=== PATIENT | female | born 1940 | race Hispanic/Latino ===

== ENCOUNTER → 2018-10-18 | Day surgery (SDC) | payer MEDICARE, OTHER ==
[2018-10-15 13:04] LABS: BASOPHILS % 0.4 % (0.0-1.0); EOSINOPHILS # (AUTO) 0.3 (0.0-0.4); EOSINOPHILS % 3.1 % (0.0-6.0); HEMATOCRIT 41.5 % (34.2-44.1); HEMOGLOBIN 13.6 g/dL (12.0-16.0); LYMPHOCYTES % 23.1 % (18.0-39.1); MEAN CORPUSCULAR HGB CONC 32.8 g/dL (31-35); MEAN CORPUSCULAR VOLUME 91.4 fL (81-99); MONOCYTES # (AUTO) 0.8 (0.2-0.8); MONOCYTES % 9.2 % (4.4-11.3); NEUTROPHILS # (AUTO) 5.4 (2.1-6.9); PLATELET COUNT 177 x10e3/uL (140-360); RED BLOOD COUNT 4.54 x10e6/uL (3.6-5.1)
[2018-10-15 13:26] LABS: INR 0.98; PARTIAL THROMBOPLASTIN TIME 33.3 seconds (23.8-35.5); PROTHROMBIN TIME 13.5 seconds (11.9-14.5)
--- NOTE | 2018-10-15 13:29 | Diagnostic Imaging Report ---
EXAMINATION: PA and lateral views of the chest. COMPARISON: None CLINICAL HISTORY: Preoperative study for cardiac catheterization DISCUSSION: The lungs are well-inflated. No consolidation, pleural effusion, or pneumothorax. Moderate enlargement of the cardiac silhouette with prominence of the central pulmonary vasculature. no acute osseous abnormality. Postsurgical changes of the proximal right humerus and scapula. IMPRESSION: Moderate enlargement of the cardiac silhouette with pulmonary venous congestion. Signed by: Dr. Claus Miller M.D. on 10/15/2018 1:25 PM
[2018-10-15 13:33] LABS: ALANINE AMINOTRANSFERASE 17 IU/L (0-55); ALBUMIN 3.8 g/dL (3.5-5.0); ALBUMIN/GLOBULIN RATIO 1.1 (0.8-2.0); ALKALINE PHOSPHATASE 57 IU/L (40-150); ANION GAP 12.6 mmol/L (8-16); BLOOD UREA NITROGEN 16 mg/dL (7-26); BUN/CREATININE RATIO 25 (6-25); CALCIUM 9.8 mg/dL (8.4-10.2); CARBON DIOXIDE 28 mmol/L (22-29); CHLORIDE 104 mmol/L (98-107); CREATININE, SERUM 0.63 mg/dL (0.57-1.11); EST GLOMERULAR FILTRATION RATE > 60 ML/MIN (60-); GLUCOSE 96 mg/dL (74-118); POTASSIUM 3.6 mmol/L (3.5-5.1); SODIUM 141 mmol/L (136-145)
[2018-10-18] VITALS (12 sets, daily range): BP systolic 111–165; BP diastolic 53–78
[~2018-10-18] VITALS: Ht 157.5 cm; Wt 73.5 kg
[~2018-10-18] MED LIST: FENTANYL CITRATE/PF 100MCG/2 ML INJ ONE; HEPARIN SOD/SOD CHLORIDE 2,000 ML ONE; IOPAMIDOL 370 MG/ML 200 ML INFUS..BTL INJ ONE; LIDOCAINE HCL 2% LOCAL 20 ML VIAL ONE; MIDAZOLAM HCL 2 MG/2 ML VIAL ONE; SODIUM CHLORIDE 0.9% 1000ML 1,000 ML ONE; VERAPAMIL HCL 2.5 MG/ML 2 ML VIAL ONE
--- NOTE | 2018-10-18 08:58 | NUR ---
858am received pt in Rm #10 [facility]. no fix Dr Rodriguez. Report from Elizabeth Piersno. Back to baseline orientation Resp shallow and regular 97% Ra Abdomen soft and non neelam Denies necessity to defecate or urinate.Bilateral PPx4 Pt/Dp. Iv in fusing well at 100cc hr , No s/s infiltration. ok to decrease air TR band at 1000am and potential dc at 11ooam. No gross issue pain pallor,pressure or dysrhythmia. Rt Tr band site w/o hematoma or oozing. DC planning discussed with family and copies of POC given to family. Denies c/o CP or SOB. ds/rn
--- OUTSIDE RECORDS SUMMARY | 2018-10-18 09:47 | XMS REPORT | Clinical Summary ---
Author Author [facility] Organization [facility] Address Unknown Phone Unavailable Care Team Providers Care Grinder Set Up Operator Surface Name Role Phone Adrien Gonzalez MD PCP Allergies No Known Allergies Medications End Date Status Medication Sig Dispensed Refills Start Date Active triamterene-hydrochloroth Take 1 tablet 0 iazid (MAXZIDE) 75-50 mg by mouth 2 per tablet (two) times a day. Active amLODIPine (NORVASC) 10 Take 10 mg by 0 mg tablet mouth 2 (two) times a day. Active clonIDINE HCl (CATAPRES) Take 0.2 mg 0 0.2 MG tablet by mouth 2 (two) times a day. Active isosorbide dinitrate Take 20 mg by 0 (ISORDIL) 20 MG tablet mouth 2 (two) times a day. Active omeprazole (PriLOSEC) 40 Take 40 mg by 0 MG capsule mouth 2 (two) times a day. Active carvedilol (COREG) 6.25 Take 6.25 mg 0 MG tablet by mouth 2 (two) times a day with meals. Active atorvastatin (LIPITOR) 20 Take 20 mg by 0 MG tablet mouth nightly. Default OP ins Active fluticasone-salmeterol Inhale 1 puff 0 (ADVAIR) 250-50 mcg/dose daily as DISKUS needed. Active nitroglycerin (NITROSTAT) Place 0.4 mg 0 0.4 MG SL tablet under the tongue every 5 (five) minutes as needed for chest pain. Active metFORMIN (GLUCOPHAGE) Take 500 mg 0 500 mg tablet by mouth 2 (two) times a day with meals. Active albuterol sulfate Take 2.5 mg 0 (PROVENTIL) 2.5 mg/0.5 mL by solution for nebulization nebulization daily as needed. Active INSULIN Inject 30 0 GLARGINE,HUM.REC.ANLOG Units under (LANTUS SOLOSTAR SUBQ) the skin continuously as needed (If blood sugar is over 200). Active diclofenac (VOLTAREN) 1 % Apply 0 gel topically 4 (four) times a day. Active lidocaine-prilocaine Apply 2.5 0 (EMLA) 2.5-2.5 % cream application topically as needed for mild pain. Active glipiZIDE (GLUCOTROL) 5 Take 5 mg by 0 MG tablet mouth 2 (two) times a day before meals. 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 Last Filed Vital Signs Not on file Plan of Treatment Health Maintenance Due Date Last Done Comments DIABETIC RETINAL EYE EXAM 1942 DIABETIC FOOT EXAM 1952 URINE MICROALBUMIN 1952 BREAST CANCER SCREENING 1992 COLON CANCER SCREENING 1992 SHINGLES VACCINES (#1) 1992 65+ PNEUMOCOCCAL VACCINE 12/06/2007 (1 of 2 - PCV13) INFLUENZA VACCINE 12/12/2018 Implants Device Identifier Shelf Expiration Date Model / Serial / Lot Implanted Type Area Manufactur er [id number] / / Humeral Cup - 36mm Riana X 4mm Thk - IPM N/A: N/A CHRISTOPHER [id number] [employer]PLANT [employer] Implanted: Qty: 1 on 01/26/2017 by DEVICES Vik Sung MD [id number] / / 4.5mm Peripheral Screw - 28mm - IPM N/A: N/A CHRISTOPHER [id number] IMPLANT [employer] Implanted: Qty: 1 on 01/26/2017 by Vik Lazo MD [id number] / / 4.5mm Peripheral Screw - 28mm - IPM N/A: N/A CHRISTOPHER [id number] IMPLANT [employer] Implanted: Qty: 1 on 01/26/2017 by DEVICES Vik Sung MD [id number] / / 4.5mm Peripheral Screw - 28mm - IPM N/A: N/A CHRISTOPHER [id number] IMPLANT [employer] Implanted: Qty: 1 on 01/26/2017 by DEVICES Vik Sung MD [id number] / / Shoulder Glenoid Baseplate Reunion IPM Right: Shoulder CHRISTOPHER Rsa - [id number] IMPLANT [employer] Implanted: Qty: 1 on 01/26/2017 by DEVICES Vik Sung MD 08/21/2021 [id number] / / [id number] 6.5mm Center Screw - 32mm - IPM Right: Shoulder CHRISTOPHER [id number] IMPLANT OR[employer] Implanted: Qty: 1 on 01/26/2017 by DEVICES Vik Sung MD [id number] / / 4.5mm Peripheral Screw - 24mm - IPM Right: Shoulder CHRISTOPHER [id number] [employer]PLANT [employer] Implanted: Qty: 1 on 01/26/2017 by DEVICES Vik Sung MD [id number] / / Glenosphere - 36mm Riana X 6mm Thk IPM N/A: N/A CHRISTOPHER 2mm Eccentric - [id number] IMPLANT ORTH[employer] Implanted: Qty: 1 on 01/26/2017 by Vik Lazo MD 10/13/2019 [id number] / / [id number] Humeral Insert - 36mm X 4mm IPM Right: Shoulder CHRISTOPHER Standard - [id number] IMPLANT OR[employer] Implanted: Qty: 1 on 01/26/2017 by DEVICES Vik Sung MD 05/31/2021 [id number] / / [id number] Humeral Fracture Stem Ortho - Right: Shoulder CHRISTOPHER Implanted: Qty: 1 on 01/26/2017 by Other JORDYNEDI Vik Davidson MD Extremitie s Screw Screw 02/10/2019 [id number] / / [id number] Cement Bone 20gr Cmw - [id number] Surgical Right: Shoulder DEPUY Implanted: Qty: 2 on 01/26/2017 by Bone Vik Gallagher MD Cement 02/10/2019 [id number] / / [id number] Cement Bone 20gr Cmw - [id number] Surgical Right: Shoulder DEPUY Implanted: Qty: 1 on 01/26/2017 by Bone Vik Gallagher MD Cement Results Not on fileafter 10/17/2017 Insurance Type Payer Benefit Subscriber ID Effective Phone Address Plan / Dates Group Medicare MEDICARE MEDICARE xxxxxxxxxx 2007-P [place], PART A AND resent [place] B Medicaid MEDICAID MEDICAID xxxxxxxxx 2011-P resent ([place]) [place] [address] Advance Directives Patient has advance care planning documents on file. For more information, rajinder oneil contact: Nolan Hammer [address] [place] [address]
--- OUTSIDE RECORDS SUMMARY | 2018-10-18 09:47 | XMS REPORT ---
Author Author [facility] Address Unknown Phone Unavailable Care Team Providers Care Lobby Attendant Name Role Phone OMAIRA RODRIGUEZ Unavailable Unavailable Payers Payer Name Policy Type Policy Number Effective Date Expiration Date Problems This patient has no known problems. Allergies, Adverse Reactions, Alerts Allergy Name Allergy Type Status Severity Reaction(s) Onset Date Inactive Date Treating Clinician Comments No Known Allergies DA Active U 2017-02-28 00:00:00 Medications This patient has no known medications. Results Test Description Test Time Test Comments Text Results Atomic Results Result Comments CHEST 2 VIEWS 2018-10-15 13:23:00 [place] [address] Patient Name: ELVI MORENO MR #: [id number] : 1940 Age/Sex: 77/F Req #: [id number] Adm Physician: Ordered by: OMAIRA RODRIGUEZ MD Report #: [id number] Location: WIRE TESTER Room/Bed: Procedure: [id number] DX/CHEST 2 VIEWS Exam Date: 10/15/18 Exam Time: 1310 REPORT STATUS: Signed EXAMINATION: PA and lateral views of the chest. COMPAR ZHANNA: None CLINICAL HISTORY: Preoperative study for cardiac catheterization DISCUSSION: The lungs are well-inflated. No consolidation, pleural effusion, or pneumothorax. Moderate enlargement of the cardiac silhouette with prominence of the central pulmonary vasculature. no acute osseous abnormality. Postsurgical changes of the proximal right humerus and scapula. IMPRESSION: Moderate enlargement of the cardiac silhouette with pulmonary venous congestion. Signed by: Dr. Omaira Miller M.D. on 10/15/2018 1:25 PM Dictated By: OMAIRA MILLER MD 1325 Transcribed By: SILVIO on 10/15/18 1325 COPY TO: OMAIRA RODRIGUEZ MD URINALYSIS COMPLETE 2018-06-24 14:03:00 UA COLOR (test code=COLU) DARK YELLOW YELLOW UA APPEARANCE (test code=APPU) Cloudy CLEAR UA GLUCOSE DIPSTICK (test code=DGLUU) NEGATIVE mg/dL NEGATIVE UA BILIRUBIN DIPSTICK (test code=BILU) NEGATIVE mg/dL NEGATIVE UA KETONE DIPSTICK (test code=KETU) Negative mg/dL NEGATIVE UA SPECIFIC GRAVITY (test code=SGU) 1.019 1.001-1.035 UA BLOOD DIPSTICK (test code=DEANNE) Negative NEGATIVE UA PH DIPSTICK (test code=KRYSTEN) 8.0 5.0-8.0 UA PROTEIN DIPSTICK (test code=PROU) >500 (3+) mg/dL NEGATIVE UA UROBILINIOGEN DIPSTICK (test code=URO) NEGATIVE mg/dL NEGATIVE UA NITRITE DIPSTICK (test code=KYM) NEGATIVE NEGATIVE UA LEUKOCYTE ESTERASE W REFLEX (test code=LEUUR) 3+ NEGATIVE UA WBC (test code=WBCU) 11-20 #/HPF 0-5 UA BACTERIA (test code=BACU) LOADED #/HPF NONE UA TRIPLE PHOSPHATE CRYSTALS (test code=TRPHOSU) FEW #/HPF NONE UA MUCUS (test code=MUCU) FEW #/LPF FEW UA AMORPHOUS SEDIMENT (test code=AMORU) FEW TO MODERATE #/LPF NONE [id number] 11:35:00* Test Item Value Reference Range Comments GLUBED (test code=GLUBED) 346 mg/dL 74-106 Performed by certified blacktop paver operator at [facility] BASIC METABOLIC [id number] 08:12:00* Test Item Value Reference Range Comments SODIUM (test code=NA) 146 mmol/L 136-145 POTASSIUM (test code=K) 3.4 mmol/L 3.5-5.1 CHLORIDE (test code=CL) 109.0 mmol/L 98-107 CARBON DIOXIDE (test code=CO2) 28.0 mmol/L 21-32 ANION GAP (test code=GAP) 12.4 10-20 GLUCOSE (test code=GLU) 137 mg/dL 74-106 BLOOD UREA NITROGEN (test code=BUN) 24 mg/dL 7-18 GLOMERULAR FILTRATION RATE (test code=GFR) > 60 mL/min >=60 Estimated GFR by using Modified MDRD formula.Chronic kidney disease is defined as either kidney damageor GFR <60 mL/min/1.73 m2 for >3 months. CREATININE (test code=CREAT) 0.70 mg/dL 0.55-1.02 Note change in reference range due to change in reagent. BUN/CREATININE RATIO (test code=BUN/CREA) 34.6 10-20 CALCIUM (test code=CA) 9.0 mg/dL 8.5-10.1 BASIC METABOLIC [id number] 08:05:00* Test Item Value Reference Range Comments SODIUM (test code=NA) 146 mmol/L 136-145 POTASSIUM (test code=K) 3.4 mmol/L 3.5-5.1 CHLORIDE (test code=CL) 109.0 mmol/L 98-107 CARBON DIOXIDE (test code=CO2) mmol/L 21-32 ANION GAP (test code=GAP) 10-20 GLUCOSE (test code=GLU) mg/dL 74-106 BLOOD UREA NITROGEN (test code=BUN) mg/dL 7-18 GLOMERULAR FILTRATION RATE (test code=GFR) mL/min >=60 CREATININE (test code=CREAT) mg/dL 0.55-1.02 BUN/CREATININE RATIO (test code=BUN/CREA) 10-20 CALCIUM (test code=CA) mg/dL 8.5-10.1 CBC W/AUTO [id number] 07:44:00* Test Item Value Reference Range Comments WHITE BLOOD CELL (test code=WBC) 7.9 K/mm3 4.5-12.5 RED BLOOD CELL (test code=RBC) 5.08 mill/mm3 3.7-5.2 HEMOGLOBIN (test code=HGB) 14.6 gram/dL 11.5-15.5 HEMATOCRIT (test code=HCT) 45.6 % 36.0-46.0 MEAN CELL VOLUME (test code=MCV) 89.8 fL 80-98 MEAN CELL HGB (test code=MCH) 28.7 picogram 27.0-33.0 MEAN CELL HGB CONCETRATION (test code=MCHC) 32.0 gram/dL 33.0-36.0 RED CELL DISTRIBUTION WIDTH (test code=RDW) 13.9 % 11.6-16.2 RED CELL DISTRIBUTION WIDTH SD (test code=RDW-SD) 46.1 fL 37.0-51.0 PLATELET COUNT (test code=PLT) 199 K/mm3 150-450 MEAN PLATELET VOLUME (test code=MPV) 11.6 fL 6.7-11.0 NEUTROPHIL % (test code=NT%) 56.5 % 39.0-69.0 IMMATURE GRANULOCYTE % (test code=IG%) 0.5 % 0.0-5.0 LYMPHOCYTE % (test code=LY%) 30.3 % 25.0-55.0 MONOCYTE % (test code=MO%) 9.6 % 0.0-10.0 EOSINOPHIL % (test code=EO%) 2.5 % 0.0-5.0 BASOPHIL % (test code=BA%) 0.6 % 0.0-1.0 NUCLEATED RBC % (test code=NRBC%) 0.0 % 0-0 NEUTROPHIL # (test code=NT#) 4.44 K/mm3 1.8-7.7 IMMATURE GRANULOCYTE # (test code=IG#) 0.04 x10 3/uL 0-0.03 LYMPHOCYTE # (test code=LY#) 2.39 K/mm3 1.0-5.0 MONOCYTE # (test code=MO#) 0.76 K/mm3 0-0.8 EOSINOPHIL # (test code=EO#) 0.20 K/mm3 0.0-0.5 BASOPHIL # (test code=BA#) 0.05 K/mm3 0.0-0.2 NUCLEATED RBC # (test code=NRBC#) 0.00 K/mm3 0.0-0.1 MANUAL DIFF REQUIRED (test code=MDIFF) NO CBC W/AUTO [id number] 07:34:00* Test Item Value Reference Range Comments WHITE BLOOD CELL (test code=WBC) K/mm3 4.5-12.5 RED BLOOD CELL (test code=RBC) mill/mm3 3.7-5.2 HEMOGLOBIN (test code=HGB) 14.6 gram/dL 11.5-15.5 HEMATOCRIT (test code=HCT) 45.6 % 36.0-46.0 MEAN CELL VOLUME (test code=MCV) fL 80-98 MEAN CELL HGB (test code=MCH) picogram 27.0-33.0 MEAN CELL HGB CONCETRATION (test code=MCHC) gram/dL 33.0-36.0 RED CELL DISTRIBUTION WIDTH (test code=RDW) % 11.6-16.2 RED CELL DISTRIBUTION WIDTH SD (test code=RDW-SD) fL 37.0-51.0 PLATELET COUNT (test code=PLT) K/mm3 150-450 MEAN PLATELET VOLUME (test code=MPV) fL 6.7-11.0 NEUTROPHIL % (test code=NT%) % 39.0-69.0 IMMATURE GRANULOCYTE % (test code=IG%) % 0.0-5.0 LYMPHOCYTE % (test code=LY%) % 25.0-55.0 MONOCYTE % (test code=MO%) % 0.0-10.0 EOSINOPHIL % (test code=EO%) % 0.0-5.0 BASOPHIL % (test code=BA%) % 0.0-1.0 NEUTROPHIL # (test code=NT#) K/mm3 1.8-7.7 LYMPHOCYTE # (test code=LY#) K/mm3 1.0-5.0 MONOCYTE # (test code=MO#) K/mm3 0-0.8 EOSINOPHIL # (test code=EO#) K/mm3 0.0-0.5 BASOPHIL # (test code=BA#) K/mm3 0.0-0.2 [id number] 05:51:00* Test Item Value Reference Range Comments GLUBED (test code=GLUBED) 142 mg/dL 74-106 Performed by certified blacktop paver operator at [facility] [id number] 22:24:00* Test Item Value Reference Range Comments GLYCOSYLATED HEMOGLOBIN (HA1C) (test code=GLYHGB) 8.0 % HbA1 4.8-6.0 ESTIMATED AVERAGE GLUCOSE (test code=EAG) 183 MG/DL LIPID PROFILE (CORONARY RISK)2018-06-23 22:11:00* Test Item Value Reference Range Comments TRIGLYCERIDES (test code=TRIG) 184 mg/dL 20-150 CHOLESTEROL (test code=CHOL) 127 mg/dL 0-200 CHOLESTEROL/HDL RATIO (test code=CHOLHDL) 3.0 RATIO 0-4.9 RISK ASSOCIATED WITH CHOL/HDL RATIOS: Risk Male Female1/2 AVERAGE 3.43 3.27AVERAGE 4.97 4.442X AVERAGE 9.55 7.053X AVERAGE 23.39 11.04 REFERENCE VALUE IS RELATED TO RISK LEVELS ASRECOMMENDED BY THE MIRELA. HEART, LUNG, AND BLOOD INST. HDL CHOLESTEROL (test code=HDL) 34 mg/dL 40-60 LIPOPROTEIN LDL (test code=LDL) 81 mg/dL 100-129 Reference Interval: mg/dL mmol/L Optimal <100 <2.6Near/above optimal 100-129 2.6- 3.3Borderline High 130-159 3.4-4.1High 160-189 4.1-4.9Very High >=190 >=4.9=========This LDL result is a direct measurement.========= [id number] 21:19:00* Test Item Value Reference Range Comments GLUBED (test code=GLUBED) 190 mg/dL 74-106 Performed by certified blacktop paver operator at [facility] [id number] 17:07:00* Test Item Value Reference Range Comments GLUBED (test code=GLUBED) 170 mg/dL 74-106 Performed by certified blacktop paver operator at [facility] [id number] 16:18:00* Test Item Value Reference Range Comments GLUBED (test code=GLUBED) 156 mg/dL 74-106 Performed by certified blacktop paver operator at [facility] [id number] 15:59:00* Test Item Value Reference Range Comments GLUBED (test code=GLUBED) 218 mg/dL 74-106 Performed by certified blacktop paver operator at [facility] [id number] 06:21:00* Test Item Value Reference Range Comments GLUBED (test code=GLUBED) 256 mg/dL 74-106 Performed by certified blacktop paver operator at [facility] [id number] 23:43:00* Test Item Value Reference Range Comments TROPONIN-I (test code=TROPI) <0.015 ng/mL 0-0.045 COMMENTS TO DRINK WAITER: COLLECT 3 HOURS AFTER PREVIOUS [id number] 21:21:00* Test Item Value Reference Range Comments GLUBED (test code=GLUBED) 209 mg/dL 74-106 Performed by certified blacktop paver operator at [facility] [id number] 20:29:00* Test Item Value Reference Range Comments TROPONIN-I (test code=TROPI) <0.015 ng/mL 0-0.045 COMMENTS TO DRINK WAITER: COLLECT 3 HOURS AFTER PREVIOUS SAMPLE- MRI BRAIN W/O [id number] 18:05:00 FAX: [place] [phone] [place]: St: ADM Name: ELVI NELSON [facility] : [birth year] Age/S: 77/F [address] [facility] Unit #: [id number] Loc: V.2047 [place] [address] Phys: La Grover MD Acct: [id number] Dis Date: Status: ADM IN PHONE #: [phone] Exam Date: 06/22/2018 1714 FAX #: [phone] Reason: slurred speech, left sided weakness EXAMS: CPT CODE: [id number] MRI BRAIN W/O CONTRAST [id number] REASON FOR EXAM: slurred speech, left sided weakness Exam Order Date: 06/22/2018 1:30 PM Attending MFarzad: La Grover MD Procedure: - MRI BRAIN W/O CONTRAST Comparison: Noncontrast CT scan of the brain performed 4 hours prior FINDINGS: Axial, sagittal, and coronal images of the head were obtained using T1, T2 weighted, inversion recovery, and gradient echo sequences. Diffusion-weighted images were obtained. Intravenous gadolinium was not utilized. The sagittal images show normal pit uitary, cerebellum, and brain stem. There is no midline shift or m ass effect. No for parenchymal hemorrhage. No evidence of acute infarction . There are diffusion restricting lesions in the posterior horns o f the both lateral ventricles. These lesions are isointense to the brain parenchyma on T1-weighted imaging. These lesions appear to be T2 hype rintense. Further evaluation is limited by the absence of IV contrast. There are areas of increased signal intensity in the periventricular white matter seen on the inversion recovery images. These findings are compatible with chronic microvascular ischemic changes. IMPRE SSION: No evidence of acute infarction. 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 Diffusion restricting lesions in the posterior horns of the la teral ventricles bilaterally. Further evaluation is limited by the absen ce of IV contrast. Electronically Signed by Rey Ordaz MD o n 06/22/2018 at 1805 Reported and signed by: Rey Ordaz MD PAGE 1 Signed Report (CONTINU ED) FAX: [place] [phone] [place]: St: ADM------ Name: ELVI MORENOH [place] : [birth year] Age/S: 77/F [address] [facility] Unit #: [id number] Loc: V.2046 [place] [address] Phys: La Grover MD Acct: [id number] Dis Date: Status: ADM IN PHONE #: [phone] Exam Date: 06/22/2018 1714 FAX #: [phone] Reason: slurred speech, left sided weakness EXAMS: CPT CODE: [id number] MRI BRAIN W/O CONTRAST [id number] <Continued> CC: La Grover MD Technologist: Javier Carmona(Lesly)(MR) Trnscrd Date/Time/By: 06/22/2018 (1804) : By: [email or web address] Orig Print D/T: S: 06/22/2018 (1807) PAGE 2 Signed Report HEPATIC FUNCTION [id number] 13:18:00* Test Item Value Reference Range Comments TOTAL PROTEIN (test code=PROT) 7.8 gram/dL 6.4-8.2 ALBUMIN (test code=ALB) 4.0 g/dL 3.4-5.0 GLOBULIN (test code=GLOB) 3.8 gram/dL 2.7-4.2 ALBUMIN/GLOBULIN RATIO (test code=A/G) 1.1 0.75-1.50 BILIRUBIN TOTAL (test code=BILT) 0.50 mg/dL 0.0-1.0 BILIRUBIN DIRECT (test code=BILD) 0.18 mg/dL 0.0-0.20 SGOT/AST (test code=AST) 19 IUnit/L 15-37 SGPT/ALT (test code=ALT) 27 IUnit/L 12-78 ALKALINE PHOSPHATASE TOTAL (test code=ALKP) 74 IUnit/L 45-117 Note change in reference range due to change in reagent. [id number] 13:18:00* Test Item Value Reference Range Comments LIPASE (test code=LIP) 200 U/L 73.0-393.0 BASIC METABOLIC [id number] 13:18:00* Test Item Value Reference Range Comments SODIUM (test code=NA) 142 mmol/L 136-145 POTASSIUM (test code=K) 3.9 mmol/L 3.5-5.1 CHLORIDE (test code=CL) 104.0 mmol/L 98-107 CARBON DIOXIDE (test code=CO2) 29.0 mmol/L 21-32 ANION GAP (test code=GAP) 12.9 10-20 GLUCOSE (test code=GLU) 116 mg/dL 74-106 BLOOD UREA NITROGEN (test code=BUN) 33 mg/dL 7-18 GLOMERULAR FILTRATION RATE (test code=GFR) > 60 mL/min >=60 Estimated GFR by using Modified MDRD formula.Chronic kidney disease is defined as either kidney damageor GFR <60 mL/min/1.73 m2 for >3 months. CREATININE (test code=CREAT) 0.90 mg/dL 0.55-1.02 Note change in reference range due to change in reagent. BUN/CREATININE RATIO (test code=BUN/CREA) 34.8 10-20 CALCIUM (test code=CA) 9.6 mg/dL 8.5-10.1 [id number] 13:18:00* Test Item Value Reference Range Comments MAGNESIUM (test code=MAG) 2.1 mg/dL 1.8-2.4 [id number] 13:18:00* Test Item Value Reference Range Comments CKMB (test code=CKMBT) 1.3 ng/mL 0-6.0 PROTHROMBIN [id number] 12:58:00* Test Item Value Reference Range Comments PROTHROMBIN TIME PATIENT (test code=PTP) 14.1 seconds 9.0-14.0 INTERNATIONAL NORMAL RATIO (test code=INR) 1.2 0.8-1.2 The therapeutic range for oral anticoagulant therapy formost indications is an international normalized ratio (INR)of between 2.0 and 3.0. The recommended therapeutic INRrange for various clinical situations is listed below: Clinical Situation INR range Pulmonary e mbolism treatment (2.0-3.0)Venous thrombosis treatmentVenous thrombosis prophylaxis (high risk surgery)Prevention of systemic embolism from: Acute myocardial infarction Valvular heart disease Atrial fibrillation Mechanical prosthetic heart valves (2.5-3.5) IS PATIENT ON ANTICOAGULANTS? NTHROMBOPLASTIN TIME [id number] 12:58:00* Test Item Value Reference Range Comments THROMBOPLASTIN TIME PARTIAL (test code=PTT) 33.8 seconds 25.0-36.5 IS PATIENT ON ANTICOAGULANTS? NBASIC METABOLIC [id number] 12:56:00* Test Item Value Reference Range Comments SODIUM (test code=NA) 142 mmol/L 136-145 POTASSIUM (test code=K) 3.9 mmol/L 3.5-5.1 CHLORIDE (test code=CL) 104.0 mmol/L 98-107 CARBON DIOXIDE (test code=CO2) mmol/L 21-32 ANION GAP (test code=GAP) 10-20 GLUCOSE (test code=GLU) mg/dL 74-106 BLOOD UREA NITROGEN (test code=BUN) mg/dL 7-18 GLOMERULAR FILTRATION RATE (test code=GFR) mL/min >=60 CREATININE (test code=CREAT) mg/dL 0.55-1.02 BUN/CREATININE RATIO (test code=BUN/CREA) 10-20 CALCIUM (test code=CA) mg/dL 8.5-10.1 [id number] 12:56:00* Test Item Value Reference Range Comments MAGNESIUM (test code=MAG) mg/dL 1.8-2.4 [id number] 12:56:00* Test Item Value Reference Range Comments CKMB (test code=CKMBT) ng/mL 0-6.0 CBC W/AUTO [id number] 12:46:00* Test Item Value Reference Range Comments WHITE BLOOD CELL (test code=WBC) 9.4 K/mm3 4.5-12.5 RED BLOOD CELL (test code=RBC) 5.19 mill/mm3 3.7-5.2 HEMOGLOBIN (test code=HGB) 15.0 gram/dL 11.5-15.5 HEMATOCRIT (test code=HCT) 46.5 % 36.0-46.0 MEAN CELL VOLUME (test code=MCV) 89.6 fL 80-98 MEAN CELL HGB (test code=MCH) 28.9 picogram 27.0-33.0 MEAN CELL HGB CONCETRATION (test code=MCHC) 32.3 gram/dL 33.0-36.0 RED CELL DISTRIBUTION WIDTH (test code=RDW) 13.4 % 11.6-16.2 RED CELL DISTRIBUTION WIDTH SD (test code=RDW-SD) 43.8 fL 37.0-51.0 PLATELET COUNT (test code=PLT) 155 K/mm3 150-450 MEAN PLATELET VOLUME (test code=MPV) 12.1 fL 6.7-11.0 NEUTROPHIL % (test code=NT%) 70.8 % 39.0-69.0 IMMATURE GRANULOCYTE % (test code=IG%) 0.4 % 0.0-5.0 LYMPHOCYTE % (test code=LY%) 19.3 % 25.0-55.0 MONOCYTE % (test code=MO%) 7.6 % 0.0-10.0 EOSINOPHIL % (test code=EO%) 1.6 % 0.0-5.0 BASOPHIL % (test code=BA%) 0.3 % 0.0-1.0 NUCLEATED RBC % (test code=NRBC%) 0.0 % 0-0 NEUTROPHIL # (test code=NT#) 6.66 K/mm3 1.8-7.7 IMMATURE GRANULOCYTE # (test code=IG#) 0.04 x10 3/uL 0-0.03 LYMPHOCYTE # (test code=LY#) 1.81 K/mm3 1.0-5.0 MONOCYTE # (test code=MO#) 0.71 K/mm3 0-0.8 EOSINOPHIL # (test code=EO#) 0.15 K/mm3 0.0-0.5 BASOPHIL # (test code=BA#) 0.03 K/mm3 0.0-0.2 NUCLEATED RBC # (test code=NRBC#) 0.00 K/mm3 0.0-0.1 MANUAL DIFF REQUIRED (test code=MDIFF) NO CBC W/AUTO [id number] 12:42:00* Test Item Value Reference Range Comments WHITE BLOOD CELL (test code=WBC) K/mm3 4.5-12.5 RED BLOOD CELL (test code=RBC) mill/mm3 3.7-5.2 HEMOGLOBIN (test code=HGB) 15.0 gram/dL 11.5-15.5 HEMATOCRIT (test code=HCT) % 36.0-46.0 MEAN CELL VOLUME (test code=MCV) fL 80-98 MEAN CELL HGB (test code=MCH) picogram 27.0-33.0 MEAN CELL HGB CONCETRATION (test code=MCHC) gram/dL 33.0-36.0 RED CELL DISTRIBUTION WIDTH (test code=RDW) % 11.6-16.2 RED CELL DISTRIBUTION WIDTH SD (test code=RDW-SD) fL 37.0-51.0 PLATELET COUNT (test code=PLT) K/mm3 150-450 MEAN PLATELET VOLUME (test code=MPV) fL 6.7-11.0 NEUTROPHIL % (test code=NT%) % 39.0-69.0 IMMATURE GRANULOCYTE % (test code=IG%) % 0.0-5.0 LYMPHOCYTE % (test code=LY%) % 25.0-55.0 MONOCYTE % (test code=MO%) % 0.0-10.0 EOSINOPHIL % (test code=EO%) % 0.0-5.0 BASOPHIL % (test code=BA%) % 0.0-1.0 NEUTROPHIL # (test code=NT#) K/mm3 1.8-7.7 LYMPHOCYTE # (test code=LY#) K/mm3 1.0-5.0 MONOCYTE # (test code=MO#) K/mm3 0-0.8 EOSINOPHIL # (test code=EO#) K/mm3 0.0-0.5 BASOPHIL # (test code=BA#) K/mm3 0.0-0.2 - XR CHEST 1 [id number] 12:42:00 FAX: [place] [phone] [place]: [address] St: REG Name: ELVI NELSON [facility] : [birth year] Age/S: 77/F [address] Unit #: [id number] Loc: [place] [address] Phys: La Grover MD Acct: [id number] Dis Date: Status: REG ER PHONE #: [phone] Exam Date: 06/22/2018 1234 FAX #: [phone] Reason: CODE STROKE EXAMS: CPT CODE: [id number] XR CHEST 1 V [id number] EXAM: Chest x-ray, one view; INFORMATION: Hypertension, slurred speech, code stroke; F INDINGS: Lungs are clear; no infiltrates, no edema; no effusions, no pneumothorax. The heart is moderately enlarged. Aortic calcificatio ns. Status post right shoulder arthroplasty. IMPRESSION: 1. Moderate cardiomegaly. 2. Otherwise, no evidence of active car diopulmonary disease. 2. No significant change compared with a study fro m February 11, 2018. at 1242 Reported and signed by: Macario Dubose M.D. CC: [place] Gro[place] MD Technologist: Jeet MARS(R) Trnscrd Date/Time/By: 06/22/2018 (2242) : By: RenzoGRW Orig Print D/T: S: 06/22/2018 (9627) PAGE 1 Signed Report - CT HEAD/BRAIN W/O [id number] 12:38:00 Name: ELVI MORENO [facility] : 1940 Age/S: 77 / F [address] Unit #: [id number] [place]: [place] [address] Phys: La Grover MD Acct: [id number] Dis Date: Status: REG ER PHONE #: [phone] Exam Date: 06/22/2018 1227 FAX #: [phone] Reason: slurred speech, left sided numbness EXAMS: CPT CODE: [id number] CT HEAD/BRAIN W/O CONT 46813 EXAM: CT of the head without contrast; INFORMATION: Slurred speech and left-sided numbness; hypertension; TECHNIQUE AND FINDINGS: CT dose reduction protocol; 2.5 mm axial scans. There is no evidence of intra or extra-axial hemorrhage, mass lesions or midline shift. There are moderate periventricular and deep white matter hypodensities most pronounced in the posterior parietal and occipital region. 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 Otherwise, unremarkable frye/white matter differentiation. Ventricles are symmetric and of normal diameter; sulci and basilar cisterns are intact. Calcifications of the internal carotid and vertebral arteries. The calvarium is intact. Mild mucosal swelling anteriorly in the left maxillary sinus. Mastoid air cells are well aerated. IMPRESSION: 1. No evidence of intracranial hemorrhage or acute territorial infarction. 2. Chronic ischemic white matter changes and small lacunar infarcts in the basal ganglia. Overall, no major change compared with a study from 2016. 3. Mild left m axillary sinusitis. FINDINGS were discussed with Dr. Grover, ER, at 1237 hours. FOR INTERNAL CODING PURP OSES ONLY RESULT CODE: CVR Electron ically Signed by Giovanna Dubose on 06/22/2018 at 1238 Reported and signed by: Macario tavera M.D. CC: La Gro[place] MD Techn ologist:Matt Ewing RT(R),(MR),(CT); CTDI: DLP: Trnscb Date/Eugenio e: 06/22/2018 (1238) [email or web address] Orig Print D/T: S: 019 (1241) CTDI: DLP: PAGE 1 Sign ed Report [id number] 11:03:00 RUN DATE: 02/20/18 [facility] PAGE 1 RUN TIME: 1104 Specimen Inqui ry RUN USER: INTERFACE PATIENT: ELVI MORENO ACCT #: [id number] [facility] #[facility] [id number] AGE/SX: 77/F ROOM: [facility] RE02/13/18REG DR: Ej Addison MD : 44 BED: A DIS: 02/15/18 STATUS: DIS IN TLOC: SPEC #: [id number] RECD: 02/15/18 STATUS: PEDRO GAUTAM #: [id number] DESTIN: 02/14/18- SUBM DR: Vikas Damon MD ENTERED: 02/15/18 SP TYPE: STOMACH OTHR DR: Eliel Hutchison MD, Louis MD Sc hiesser, Rachel L MDORDERED: GROSS COPIES TO: Eliel Rodriguez MD [address] [place], [place] [id number] Vikas Damon MD [address], [address] [place] [address] Bernard Rodriguez MD [address] [place] [address] Yesi Peña MD [address] [place] [address] PROCEDURES: GROSS (02/18/18-144) TISSUES: 1. ANTRAL BIOPSY - H-PYLORI 2. ESOPHAGUS, NOS - BX CLINICAL HISTORY COLLECTION DATE: 02/14/18 EPIGASTRIC PAIN COMMENT A Giemsa stain was prepared on the first specimen and is negative for Helicobacter Pylori. The control stains appropriately. The block from this case was sent to [facility] for a Helicobacter Pylori immunostain. The control stains appropriately. The slide was interpreted at [facility]. The specimen is negative for Helicobacter Pylori. CONTINUED ON NEXT PAGE RUN DATE: 02/20/18 [facility] - Lab PAGE 2 RUN TIME: 1104 Specimen Inquiry RUN USER: INTERFACE SPEC #: [id number] PATIENT: ELVI MORENO #[id number] (Continued)----- ------- FINAL DIAGNOSIS Antrum, biopsy: CHRONIC ACTIVE GASTRI TIS WITH A SMALL FOCUS OF INTESTINAL METAPLASIA NEGATIVE FOR HELICOBACTER PYLORI NEGATIVE FOR MALIGNANCY Esophagus, biopsy: ACUTE AND CHRONIC INFLAMMATION, REACTIVE EPITHELIAL CHANGES, AND FOCAL INTESTINAL METAPLASIA, MIXED SQUAMOUS ESOPHAGEAL AND GASTRIC TYPE MUCOSA NEGATIVE FOR DYSPLASIA AND MALIGNANCY DMW/ D [id number], [id number], [phone] MACROSCOPIC The first specimen is received in formalin, labeled with the patient's name and identified as "antrum bx". The specimen consists of two stock biopsy fragments measuring 0.2 and 0.3 cm. An H E and a Giemsa st ain will be prepared. The second specimen is received in formalin, labeled with the patient's name and identified as "esophagus bx". It consists of stock biopsy material measuring 0.3 cm. GROSS PERFORMED AT [facility] [address] [place] [address] ( p)[phone] MICROSCOPIC MICROSCOPIC PERFORMED AT [facility] All of the stains, including any controls performed, stain jaquelin higgins. [facility] [address] [place] [address] (p )[phone] CONTINUED ON NEXT PAGE ---- --------RUN DATE: 02/20/18 [facility] PAGE 3 RUN TIME: 1104 Specimen Inquiry RUN USER: INTERFACE SPEC #: [id number] PATIENT: ELVI MORENO #[id number] (Continued) PERFORMING SITE Diagnosis performed at: [facility], MARY ANN [address] [facility] Rashawn Cardoso [address] Signed SIGNATURE ON FILE Na Estrella 02/20/18 1103 ---- -------- END OF REPORT
--- NOTE | 2018-10-18 11:30 | NUR ---
1130 Tr band removal completed and successful. No bleeding or hematoma. Coban 2x2 dressing with wrist splint in place, Has spike driver Escorted to car after assisting to bathroom and iv removed and dressing with Coban in place. No s/s infiltration. Back to baseline orientation Ox4 Has copies of POC and family spike driver. Escorted with [facility] employee Denies c/o.
--- NOTE | 2018-10-18 15:47 | Operative Report ---
DATE OF PROCEDURE: SURGEON: Claus Rodriguez MD PROCEDURE: Left heart catheterization. INDICATIONS: Angina and coronary artery disease. COMPLICATIONS: None. ANESTHESIA: Versed, fentanyl, and lidocaine. TECHNIQUE: The right wrist was draped and prepped in the usual manner. The area was anesthetized with lidocaine. Standard Seldinger technique was used to place a 6-[place] sheath into the right radial artery without difficulty. The [place] catheter was used to selectively engage the left coronary artery and selectively engage the right coronary artery. A pigtail catheter was used to perform a left ventriculogram. There were no complications. RESULTS: As follows: 1. There is a normal left main trunk. 2. There is a large left anterior descending artery, which gave rise to a medium-sized diagonal branch. There was some mild disease in the proximal left anterior descending artery about 20%. 3. There was a medium-sized AV circumflex artery, which gave rise to a large bifurcating obtuse marginal branch. There was 30% stenosis in the proximal AV circumflex artery and 40% stenosis in the distal AV circumflex artery. 4. There was a large dominant right coronary artery with about 30% proximal stenosis. 5. There was normal left ventricular size and function with an ejection fraction of 55%. CONCLUSION: The patient has some moderate nonobstructive coronary artery disease with no significant stenosis. Claus Rodriguez MD DSH/MODL /[id number]
--- NOTE | 2018-10-18 16:28 | NUR ---
1030 resumed TR band air removal completed successfully at 1115. Dressed and ready for escort to car NO gross issues pain,pallor ,pressure or dysrhythmia. TR band w/o hematoma or oozing Coban dressing and wrist splint in place. Denies c/o. [email or web address]
--- NOTE | 2018-10-19 04:55 | Discharge Summary ---
FINAL DIAGNOSES: 1. Coronary artery disease. 2. Angina. PROCEDURES PERFORMED: Left heart catheterization. HOSPITAL COURSE: The patient was admitted electively for left heart catheterization. The catheterization was completed without complication and demonstrated no significant coronary stenosis. Arrangements were made for the patient to be discharged at 11 a.m. on 18 October 2018. The patient was instructed to return to the office for followup in one week. MD ADRIEN Estes/KIRSTEN /[id number]
== END | disposition home or self-care (01) ==
LOC: CATH LAB 06:41
PROVIDERS: ATTEND Internal Medicine Cardiovascular Disease
DX: I25.110 Atherosclerotic heart disease of native coronary artery with unstable angina pectoris (principal); I10 Essential (primary) hypertension; E78.00 Pure hypercholesterolemia, unspecified; E11.9 Type 2 diabetes mellitus without complications; K21.9 Gastro-esophageal reflux disease without esophagitis; M06.9 Rheumatoid arthritis, unspecified; J45.909 Unspecified asthma, uncomplicated; Z01.812 Encounter for preprocedural laboratory examination; Z01.818 Encounter for other preprocedural examination; Z79.4 Long term (current) use of insulin
CPT/HCPCS: 36415; 71046; 80053; 85025; 85610; 85730; 93458; C1887; J2001; J2250; J7030; Q9967

== ENCOUNTER 2019-12-24 10:46 | Inpatient (IN) | payer MEDICARE, OTHER ==
[~2019-12-24] VITALS: Ht 157.5 cm; Wt 45.4 kg
--- OUTSIDE RECORDS SUMMARY | 2019-12-24 11:53 | XMS REPORT | Clinical Summary ---
Author Author [facility] [employer] [facility] [employer] Address Unknown Phone Unavailable Care Team Providers Care Paid Intern Name Role Phone Adrien Gonzalez MD PCP Allergies Comments Active Allergy Reactions Severity Noted Date unknown Methylprednisolone Sodium Other (See 05/22/2019 Succ Comments) Azithromycin Rash Low 05/22/2019 Medications End Date Status Medication Sig Dispensed Refills Start Date Active triamterene-hydrochloroth Take 1 tablet 0 iazid (MAXZIDE) 75-50 mg by mouth 2 per tablet (two) times a day. Active clonIDINE HCl (CATAPRES) Take 0.2 mg 0 0.2 MG tablet by mouth 2 (two) times a day. Active omeprazole (PriLOSEC) 40 Take 40 mg by 0 MG capsule mouth 2 (two) times a day. Active atorvastatin (LIPITOR) 20 Take 20 mg [...] 2 (two) times a day before meals. 05/29/2019 Discontinued (Stop Taking at Discharge) amLODIPine (NORVASC) 10 Take 10 mg by 0 mg tablet mouth 2 (two) times a day. 05/29/2019 Discontinued (Stop Taking at Discharge) isosorbide dinitrate Take 20 mg by 0 (ISORDIL) 20 MG tablet mouth 2 (two) times a day. 05/29/2019 Discontinued (Stop Taking at Discharge) carvedilol (COREG) 6.25 Take 6.25 mg 0 MG tablet by mouth 2 (two) times a day with meals. 06/26/2019 aspirin 81 mg chewable Chew 1 tablet 30 tablet 0 0 tablet (81 mg total) 0 daily for 30 days. 06/26/2019 isosorbide mononitrate Take 0.5 15 tablet 0 (IMDUR) 30 MG 24 hr tablets (15 0 tablet mg total) by mouth daily for 30 days. 06/25/2019 metoprolol tartrate Take 1 tablet 60 tablet 0 05/14 (LOPRESSOR) 50 mg tablet (50 mg total) 0 by mouth 2 (two) times a day for 30 days. 05/29/2019 Discontinued (Stop Taking at Discharge) QUEtiapine (SEROquel) 25 Take 1 tablet 0 05/26 MG tablet (25 mg total) 0 by mouth 3 (three) times a day as needed (agitation) for up to 30 days. 06/26/2019 gabapentin (NEURONTIN) Take 1 90 capsule 0 300 mg capsule capsule (300 0 mg total) by mouth 3 (three) times a day for 30 days. 06/27/2019 lidocaine (LIDODERM) 5 % Place 2 30 patch 0 0 patches on 0 the skin daily for 30 days. Remove & Discard patch within 12 hours or as directed by 06/03/2019 traMADol (ULTRAM) 50 mg Take 1 tablet 0 tabletIndications: acute (50 mg total) 0 pain by mouth every 6 (six) hours as needed for moderate pain for up to 7 days .acute pain. 06/28/2019 amLODIPine (NORVASC) 5 mg Take 1 tablet 60 tablet 0 tablet (5 mg total) 0 by mouth 2 (two) times a day for 30 days. 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 Closed right humeral fracture 12/14/2016 Fracture closed, humerus 12/13/2016 Acute cystitis with hematuria 12/12/2016 Fall 12/12/2016 Type 2 diabetes mellitus with complication, with long -term current use of 12/12/2016 insulin Syncope 12/08/2016 Encounters Care Team Description Date Type Specialty Luiz Champagne MD Mayen Nunez, Jose Isaias, MD Teqwimuah, Remy, DO Elevated troponin (Primary Dx); Aggressive behavior of adult; NSTEMI (non-ST elevated myocardial infarction) (HCC) 05/22/2019 Hospital General Surgery - Encounter 05/29/2019 after 12/23/2018 Social History Date Tobacco Use Types Packs/Day Years Used Never Smoker Smokeless Tobacco: Never Used Drinks/Week oz/Week Comments Alcohol Use No Sex Assigned at Date Recorded Not on file Industry Job Start Date Occupation Not on file Not on file Not on file Travel End Travel History Travel Start No recent travel history available. Last Filed Vital Signs Reading Time Taken Comments Vital Sign 158/69 05/29/2019 4:07 PM [employer]RILL [employer] UP OPER[facility] Blood Pressure 84 05/29/2019 4:07 PM [employer]RI[employer] SET UP OPER[employer] [facility] Pulse 37.1 C (98.8 F) 05/29/2019 4:07 PM DRI[employer] PR[employer] SET UP OPERATOR [facility] Temperature 16 05/29/2019 4:07 PM DRILL PR[employer] SET UP OPERATOR [facility] Respiratory Rate 96% 05/29/2019 4:07 PM DRILL PR[employer] SET UP OPERATOR [facility] Oxygen Saturation - - Inhaled Oxygen Concentration 72.1 kg (159 lb) 05/22/2019 8:28 AM DRI[employer] SET UP OPERATOR [facility] Weight 154.9 cm (5' 1") 05/22/2019 2:10 AM D[employer] SET UP OPERATOR [facility] Height 30.04 05/22/2019 2:10 AM DRI[employer] PR[employer] SET UP OPERATOR [facility] Body Mass Index Plan of Treatment Health Maintenance Due Date Last Done Comments DIABETIC RETINAL EYE EXAM 1942 DIABETIC FOOT EXAM 1952 URINE MICROALBUMIN 1952 SHINGLES VACCINES (#1) 1992 65+ PNEUMOCOCCAL VACCINE 12/06/2007 (1 of 2 - PCV13) INFLUENZA VACCINE 01/13/2020 Implants Device Identifier Shelf Expiration Date Model / Serial / L ot Implanted Type Area Manufactur er [id number] [id number] / / Humeral Cup - 36mm Riana X 4mm Thk - IPM N/A: N/A CHRISTOPHER [id number] IMPLANT [employer] Implanted: Qty: 1 on 01/26/2017 by DEVICES Vik Sung MD at [place] [id number] / / 4.5mm Peripheral Screw - 28mm - IPM N/A: N/A CHRISTOPHER [id number] IMPLANT [employer] Implanted: Qty: 1 on 01/26/2017 by DEVICES Vik Sung MD at [place] [id number] / / 4.5mm Peripheral Screw - 28mm - IPM N/A: N/A CHRISTOPHER [id number] IMPLANT OR[employer] Implanted: Qty: 1 on 01/26/2017 by DEVICES Vik Sung MD at [place] [id number] / / 4.5mm Peripheral Screw - 28mm - IPM N/A: N/A CHRISTOPHER [id number] IMPLANT ORTH[employer] Implanted: Qty: 1 on 01/26/2017 by DEVICES Vik Sung MD at [place] [id number] / / Shoulder Glenoid Baseplate Reunion IPM Right: Shou lder CHRISTOPHER Rsa - [id number] IMPLANT ORTH[employer] Implanted: Qty: 1 on 01/26/2017 by DEVICES Vik Sung MD at [facility] 08/21/2021 [id number] / / [id number] 6.5mm Center Screw - 32mm - IPM Right: Shoulder S TRYKER [id number] IMPLANT ORTHOP[employer]IC Implanted: Qty: 1 on 01/26/2017 by DEVICES Vik Sung MD at [place] [id number] / / 4.5mm Peripheral Screw - 24mm - IPM Right: Shoulde r CHRISTOPHER [id number] IMPLANT ORTH[employer] Implanted: Qty: 1 on 01/26/2017 by DEVICES Vik Sung MD at [place] [id number] / / Glenosphere - 36mm Riana X 6mm Thk IPM N/A: N/A CHRISTOPHER 2mm Eccentric - [id number] IMPLANT ORTH[employer] Implanted: Qty: 1 on 01/26/2017 by Vik Lazo MD at [facility] 10/13/2019 [id number] / / [id number] Humeral Insert - 36mm X 4mm IPM Right: Shoulder CHRISTOPHER Standard - [id number] IMPLANT ORTH[employer]EDIC Implanted: Qty: 1 on 01/26/2017 by Vik Lazo MD at [facility] 05/31/2021 [id number] / / [id number] Humeral Fracture Stem Ortho - Right: Shoulder CHRISTOPHER Implanted: Qty: 1 on 01/26/2017 by Other ORT Vik Contreras MD at [facility] CS s Screw Screw 02/10/2019 [id number] / / [id number] Cement Bone 20gr Cmw - [id number] Surgical Right: Should er DEPUY Implanted: Qty: 2 on 01/26/2017 by Bone ORVik Ahn MD at [facility] Cement 02/10/2019 [id number] / / [id number] Cement Bone 20gr Cmw - [id number] Surgical Right: Should er DEPUY Implanted: Qty: 1 on 01/26/2017 by Bone Vik Ying MD at [facility] Cement Procedures Comments Procedure Name Priority Date/Time Associated Diag nosis POC GLUCOSE Routine 05/29/2019 4:39 PM DRILL [employer] SET UP OPERATOR [facility] POC GLUCOSE Routine 05/29/2019 12:01 PM DRILL PR[employer] SET UP OPERATOR [facility] POC GLUCOSE Routine 05/29/2019 6:10 AM DRILL PRESS SET UP OPERATOR [facility] POC GLUCOSE Routine 05/29/2019 1:13 AM DRILL PR[employer] SET UP OPERATOR [facility] POC GLUCOSE Routine 05/28/2019 9:03 PM DRILL PR[employer] SET UP OPERATOR [facility] POC GLUCOSE Routine 05/28/2019 5:21 PM DRILL PRESS SET UP OPERATOR [facility]IAL POC GLUCOSE Routine 05/28/2019 12:04 PM DRILL PRESS SET UP OPERATOR [facility] POC GLUCOSE Routine 05/28/2019 5:26 AM DRILL PRESS SET UP OPERATOR [facility]IAL POC GLUCOSE Routine 05/27/2019 7:17 PM DRILL PR[employer] SET UP OPERATOR [facility]IAL POC GLUCOSE Routine 05/27/2019 6:05 PM DRILL PR[employer] SET UP OPERATOR [facility] MRI THORACIC SPINE WO Routine 05/27/2019 CONTRAST 3:20 PM DRILL PRESS SET UP OPER[employer] RADIAL CT CHEST W CONTRAST Routine 05/27/2019 2:29 PM DRILL PR[employer] SET UP OPERATOR [facility] POC GLUCOSE Routine 05/27/2019 11:04 AM DRILL PR[employer] SET UP OPERATOR [facility] POC GLUCOSE Routine 05/27/2019 6:13 AM DRILL PR[employer] SET UP OPERATOR [facility] POC GLUCOSE Routine 05/26/2019 8:52 PM DRILL PR[employer] SET UP OPERATOR [facility]IAL POC GLUCOSE Routine 05/26/2019 4:57 PM DRILL PRESS SET UP OPER[employer] RADIAL CT THORACIC SPINE WO Routine 05/26/2019 CONTRAST 3:28 PM DRILL PR[employer] SET UP OPERATOR [facility] NM MYOCARDIAL PERFUSION Routine 05/26/2019 REST STRESS 1 DAY 2:44 PM DRILL [employer] SET UP OPERATOR [facility] CV STRESS TEST NUCLEAR Routine 05/26/2019 CARDIO 2:44 PM DRILL [employer] SET UP OPERATOR [facility] POC GLUCOSE Routine 05/26/2019 11:55 AM DRI[employer] SET UP OPERATOR [facility] ESTIMATED GFR Routine 05/26/2019 10:30 AM DRILL PR[employer] SET UP OPERATOR [facility] HC COMPLETE BLD COUNT STAT 05/26/2019 W/AUTO DIFF 10:30 AM DRILL PR[employer] SET UP OPERATOR [facility] BASIC METABOLIC PANEL Routine 05/26/2019 10:30 AM DRI[employer] PR[employer] SET UP OPERATOR [facility] POC GLUCOSE Routine 05/26/2019 5:45 AM DRILL PR[employer] SET UP OPERATOR [facility]IAL POC GLUCOSE Routine 05/25/2019 8:58 PM DRILL PRESS SET UP OPERATOR [facility]IAL POC GLUCOSE Routine 05/25/2019 5:05 PM DRILL PR[employer] SET UP OPERATOR [facility]IAL POC GLUCOSE Routine 05/25/2019 12:40 PM DRILL PR[employer] SET UP OPERATOR [facility]IAL C-REACTIVE PROTEIN Routine 05/25/2019 4:50 AM DRILL PR[employer] SET UP OPERATOR [facility] POC GLUCOSE Routine 05/25/2019 4:32 AM DRILL PR[employer] SET UP OPERATOR [facility]IAL POC GLUCOSE Routine 05/24/2019 11:49 PM DRILL PRESS SET UP OPERATOR [facility]IAL POC GLUCOSE Routine 05/24/2019 8:17 PM DRILL PRESS SET UP OPER[employer] RADIAL CT BRAIN VENOGRAM Routine 05/24/2019 5:48 PM DRILL PRESS SET UP OPER[employer] RADIAL CT ANGIOGRAM HEAD W WO Routine 05/24/2019 CONTRAST 5:40 PM DRILL PR[employer] SET UP OPERATOR [facility]IAL POC GLUCOSE Routine 05/24/2019 4:02 PM DRILL PRESS SET UP OPERATOR [facility]IAL POC GLUCOSE Routine 05/24/2019 11:37 AM DRILL PRESS SET UP OPERATOR [facility]IAL POC GLUCOSE Routine 05/24/2019 8:50 AM DRILL PRESS SET UP OPERATOR [facility]IAL POC GLUCOSE Routine 05/24/2019 4:15 AM DRILL PRESS SET UP OPERATOR [facility]IAL POC GLUCOSE Routine 05/24/2019 12:05 AM DRILL PRESS SET UP OPERATOR [facility]IAL POC GLUCOSE Routine 05/23/2019 8:25 PM DRILL PRESS SET UP OPERATOR [facility]IAL POC GLUCOSE Routine 05/23/2019 8:25 PM DRILL PRESS SET UP OPERATOR [facility] ECG 12-LEAD Routine 05/23/2019 8:12 PM DRILL PRESS SET UP OPERATOR [facility]IAL ECG 12-LEAD Routine 05/23/2019 8:11 PM DRILL PRESS SET UP OPERATOR [facility]IAL POC GLUCOSE Routine 05/23/2019 5:16 PM DRILL PRESS SET UP OPERATOR [facility]IAL POC GLUCOSE Routine 05/23/2019 5:16 PM DRILL PRESS SET UP OPERATOR [facility]IAL XR TIBIA FIBULA 2 VW Routine 05/23/2019 RIGHT 5:10 PM DRILL PRESS SET UP OPERATOR [facility]IAL XR HIP 2-3 VIEWS RIGHT Routine 05/23/2019 5:09 PM DRILL PRESS SET UP OPERATOR [facility]IAL XR SHOULDER 2+ VW RIGHT Routine 05/23/2019 5:09 PM DRILL PRESS SET UP OPERATOR [facility]IAL MRI BRAIN WO CONTRAST Routine 05/23/2019 4:31 PM DRILL PRESS SET UP OPERATOR RADIAL CT CERVICAL SPINE WO Routine 05/23/2019 CONTRAST 3:47 PM DRILL PRESS SET UP OPERATOR [facility]IAL POC GLUCOSE Routine 05/23/2019 11:44 AM DRILL PRESS SET UP OPERATOR [facility]IAL SEDIMENTATION RATE Routine 05/23/2019 6:30 AM DRILL PRESS SET UP OPERATOR [facility]IAL LIPID PANEL Routine 05/23/2019 6:09 AM DRILL PR[employer] SET UP OPERATOR [facility] ESTIMATED GFR Routine 05/23/2019 6:09 AM DRILL PRESS SET UP OPERATOR [facility]IAL COMPREHENSIVE METABOLIC Routine 05/23/2019 PANEL 6:09 AM DRILL PRESS SET UP OPERATOR [facility] HC COMPLETE BLD COUNT Routine 05/23/2019 W/AUTO DIFF 6:09 AM DRILL PRESS SET UP OPERATOR [facility] POC GLUCOSE Routine 05/23/2019 4:18 AM DRILL PRESS SET UP OPERATOR [facility]IAL POC GLUCOSE Routine 05/23/2019 12:52 AM DRILL PRESS SET UP OPERATOR [facility]IAL POC GLUCOSE Routine 05/22/2019 8:39 PM DRILL PRESS SET UP OPERATOR [facility]IAL EEG AWAKE/DROWSY LESS Routine 05/22/2019 THAN 41 MIN 7:31 PM DRILL PRESS SET UP OPERATOR [facility]IAL AMMONIA LEVEL Routine 05/22/2019 5:30 PM DRILL PRESS SET UP OPERATOR [facility]IAL VITAMIN B12 LEVEL Routine 05/22/2019 5:30 PM DRILL PRESS SET UP OPERATOR [facility]IAL POC GLUCOSE Routine 05/22/2019 4:38 PM DRILL PRESS SET UP OPERATOR RADIAL ECG 12-LEAD Routine 05/22/2019 1:31 PM DRILL PRESS SET UP OPERATOR [facility]IAL POC GLUCOSE Routine 05/22/2019 11:55 AM DRILL PRESS SET UP OPERATOR [facility]IAL ECG 12-LEAD Routine 05/22/2019 9:22 AM DRILL PRESS SET UP OPERATOR [facility]IAL THYROID STIMULATING Routine 05/22/2019 HORMONE 8:02 AM DRILL PRESS SET UP OPERATOR [facility]IAL TROPONIN Timed 05/22/2019 8:02 AM DRILL PRESS SET UP OPERATOR [facility]IAL TROPONIN Routine 05/22/2019 4:25 AM DRILL PRESS SET UP OPERATOR RADIAL CT HEAD WO CONTRAST STAT 05/22/2019 4:12 AM DRILL PRESS SET UP OPERATOR RADIAL XR CHEST 1 VW PORTABLE STAT 05/22/2019 2:44 AM DRILL PRESS SET UP OPERATOR [facility]IAL URINALYSIS SCREEN AND STAT 05/22/2019 MICROSCOPY, WITH REFLEX 2:25 AM DRILL PRESS SET UP OPERATOR [facility]IAL TO CULTURE URINE CULTURE STAT 05/22/2019 2:25 AM DRILL PRESS SET UP OPERATOR [facility]IAL CREATINE KINASE, TOTAL STAT 05/22/2019 (CPK) 2:23 AM DRILL PRESS SET UP OPERATOR [facility]IAL ESTIMATED GFR STAT 05/22/2019 2:23 AM DRILL PRESS SET UP OPERATOR RADIAL TROPONIN STAT 05/22/2019 2:23 AM DRILL PRESS SET UP OPERATOR [facility]IAL COMPREHENSIVE METABOLIC STAT 05/22/2019 PANEL 2:23 AM DRILL PRESS SET UP OPERATOR [facility] HC COMPLETE BLD COUNT STAT 05/22/2019 W/AUTO DIFF 2:23 AM DRILL PRESS SET UP OPERATOR [facility]IAL after 12/23/2018 Results * POC glucose (05/29/2019 4:39 PM DRILL PRESS SET UP OPERATOR RADIAL) Only the most recent of 37 results within the time period is included. POC glucose 210 (H) 65 - 99 mg/dL [facility] Comment: [employer] Jammer Operator Name: [facility] Device ID: [id number] Specimen Performing Organization Address City/State/[facility] Cent[facility] [place] [address] [place], [place] [address] PATHOLOGY AND GENOMIC MEDICINE [facility] [address] [place] [phone] [facility] * MRI Thoracic Spine Wo Contrast (05/27/2019 3:20 PM DRILL PRESS SET UP OPERATOR RADIAL) Specimen Narrative Performed At EXAMINATION: MRI THORACIC SPINE WO CONTRAST [facility] CLINICAL HISTORY: T-spine fx pathol ogical, eval for chronicity of Fx COMPARISON: CT thoracic spine yesterd ay. FINDINGS: Sagittal T1, T2, STIR, axial T1, T2 MR images of the thoracic spine obtained without IV contrast. The thoracic arthrosis is maintained. T here are no subluxations. Superior endplate compression of T3 vertebral sheila dy is without associated marrow edema. Height loss is approximately 20%. The r emaining vertebral body heights are within normal limits. No acute marrow signal abnormalities are p resent. There is generalized mild disc height loss without disc protrusions. N o canal foraminal stenosis seen at all levels. The spinal cord is normal signa l and volume. Paravertebral soft tissues unremarkable. IMPRESSION: No acute findings. Chronic superior endplate compression f racture of T3 vertebral body. [id number] Procedure Note Hm Interface, Radiology Results Incoming - 05/27/2019 3:36 PM DRILL PRESS SET UP OPERATOR [facility]IAL EXAMINATION: MRI THORACIC SPINE WO CONTRAST CLINICAL HISTORY: T-spine fx pathological, eval for chronicity of Fx COMPARISON: CT thoracic spine yesterday. FINDINGS: Sagittal T1, T2, STIR, axial T1, T2 MR images of the thoracic spine obtained without IV contrast. The thoracic arthrosis is maintained. There are no subluxations. Superior endplate compression of T3 vertebral body is without associated marrow edema. Height loss is approximately 20%. The remaining vertebral body heights are within normal limits. No acute marrow signal abnormalities are present. There is generalized mild disc height loss without disc protrusions. No canal foraminal stenosis seen at all levels. The spinal cord is normal signal and volume. Paravertebral soft tissues unremarkable. IMPRESSION: No acute findings. Chronic superior endplate compression fracture of T3 vertebral body. [id number] Performing Organization Address City/State/[facility] Center[facility]t Ph one Number [facility] [address] [place] [address] * CT Chest W Contrast (05/27/2019 2:29 PM DRILL PRESS SET UP OPERATOR RADIAL) Specimen Narrative Performed At Study:CT CHEST W CONTRAST [facility] History: right lung mass COMPARISON: CT thoracic spine yesterday TECHNIQUE: Multiple axial CT images of the chest performed With IV contrast.. Coronal and sagittal reconstructions we re done. CT imaging was performed with iterative reconstruction technique and/or automated exposure control to reduce ra diation dose. FINDINGS: LUNGS: The opacity in the medial right lower lobe mentioned in the CT thoracic spine yesterday is improved and thinner up to 7 mm in width probably due to improving atelectasis. There is some mi ld atelectasis of the lung bases. No consolidation, pleural effusion, or pneumothorax. There are no suspicious pulmonary nodules or pulmonary mass. AIRWAYS: No central endobronchial or en dotracheal lesions are seen. MEDIASTINUM: The thoracic aorta is with out aneurysm or dissection. Cardiac enlargement with significant atheroscle rosis of coronary arteries. No significant pericardial effusion is pre sent. No enlarged mediastinal or hilar lymph nodes present. The esophagus is unremarkable. BONES AND OVERLYING SOFT TISSUES: Compr ession deformity of the superior endplate of T3 mentioned in the SVC exam. Other visualized bones without acute abnormality. No enlarged axillary lymph nodes present. VISUALIZED LOWER NECK AND UPPER ABDOMEN :Unremarkable. IMPRESSION: Improving focal atelectasis in the medi al right lower lobe. No significant acute or suspicious findings in the lungs. [id number] Procedure Note Interface, Radiology Results Incoming - 05/27/2019 3:20 PM DRILL PRESS SET UP OPERATOR RADIAL Study:CT CHEST W CONTRAST History: right lung mass COMPARISON: CT thoracic spine yesterday TECHNIQUE: Multiple axial CT images of the chest performed With IV contrast.. Coronal and sagittal reconstructions were done. CT imaging was performed with iterative reconstruction technique and/or automated exposure control to reduce radiation dose. FINDINGS: LUNGS: The opacity in the medial right lower lobe mentioned in the CT thoracic spine yesterday is improved and thinner up to 7 mm in width probably due to improving atelectasis. There is some mild atelectasis of the lung bases. No consolidation, pleural effusion, or pneumothorax. There are no suspicious pulmonary nodules or pulmonary mass. AIRWAYS: No central endobronchial or endotracheal lesions are seen. MEDIASTINUM: The thoracic aorta is without aneurysm or dissection. Cardiac enlargement with significant atherosclerosis of coronary arteries. No significant pericardial effusion is present. No enlarged mediastinal or hilar lymph nodes present. The esophagus is unremarkable. BONES AND OVERLYING SOFT TISSUES: Compression deformity of the superior endplate of T3 mentioned in the SVC exam. Other visualized bones without acute abnormality. No enlarged axillary lymph nodes present. VISUALIZED LOWER NECK AND UPPER ABDOMEN:Unremarkable. IMPRESSION: Improving focal atelectasis in the medial right lower lobe. No significant acute or suspicious findings in the lungs. [id number] Performing Organization Address City/State/[facility] Centercode Ph one Number [facility] [address] [place] [address] * CT Thoracic Spine Wo Contrast (05/26/2019 3:28 PM DRILL PRESS SET UP OPERATOR RADIAL) Specimen Narrative Performed At EXAMINATION: CT THORACIC SPINE WO CONTRAST [facility] CLINICAL HISTORY: back pain. T3 compr ession. COMPARISON: None. TECHNIQUE: Axial helical CT images throughout the thoracic spine were performed without IV contrast. Sagittal and coronal reformat zana images were generated. All CT images were acquired using low-d ose technique with automated exposure control. IMPRESSION: There is a superior endplate compressio n deformity of T3 level with about 20% height loss with no retropulsion. The a cuity of this fracture cannot be determined. If clinically warranted luan luation with MRI of the thoracic spine is recommended. The remaining thoracic vertebral bodies are intact and demonstrates normal height. There is diffuse demineralization of th e bone compatible with osteopenia/osteoporosis. There is no fo wu bone lesion. No significant spondylosis is appreciat ed. Intervertebral disc spaces are relatively preserved. There is incidental spiculated peripher al lung lesion involving the medial aspect of the right lower lobe measurin g approximately 1.8 cm. Further evaluation with CT of the chest is nick mmended. [id number] Procedure Note Hm Interface, Radiology Results Incoming - 05/26/2019 4:04 PM DRILL PRESS SET UP OPERATOR [facility]IAL EXAMINATION: CT THORACIC SPINE WO CONTRAST CLINICAL HISTORY: back pain. T3 compression. COMPARISON: None. TECHNIQUE: Axial helical CT images throughout the thoracic spine were performed without IV contrast. Sagittal and coronal reformatted images were generated. All CT images were acquired using low-dose technique with automated exposure control. IMPRESSION: There is a superior endplate compression deformity of T3 level with about 20% height loss with no retropulsion. The acuity of this fracture cannot be determined. If clinically warranted evaluation with MRI of the thoracic spine is recommended. The remaining thoracic vertebral bodies are intact and demonstrates normal height. There is diffuse demineralization of the bone compatible with osteopenia/osteoporosis. There is no focal bone lesion. No significant spondylosis is appreciated. Intervertebral disc spaces are relatively preserved. There is incidental spiculated peripheral lung lesion involving the medial aspect of the right lower lobe measuring approximately 1.8 cm. Further evaluation with CT of the chest is recommended. [id number] Performing Organization Address City/State/Zipcode Ph one Number [facility] [address] [place] [address] * Cv stress test (05/26/2019 2:44 PM DRILL PRESS SET UP OPERATOR RADIAL) Resting BP [facility] MUSE Protocol Name FREDDY H MUSE Time in 00:01:07 [facility] MUSE Exercise Phase Max Systolic BP 171 [facility] Max Diastolic -1 [facility] BP Max Heart Rate 113 [facility] Max Predicted 144 [facility] Heart Rate Test Indication [facility] Arrhy During Ex [facility] ECG Interp [facility] Before EX ECG Interp [facility] During Ex Ex Summary [facility] MUSE Comment Overall HR [facility] MUSE Response to Exercise Overall BP [facility] MUSE Response To Exercise Reason for [facility] MUSE Termination Stress Test Reason for Termination: [facility] MUSE Impression -Comments: --Waveform interpreted in report associated with image study. No interpretation is provided as part of this Stress ECG report.-Electronically Signed By Nadine Miller MD ([id number]), editor magazine Christy Michelle ([id number]) on 05/26/2019 2:53:12 PM Specimen Narrative Performed At This result has an attachment that is n ot available. Performing Organization Address [facility] one Number [facility]USE [address] [place] [phone] * Nm myocardial perfusion (05/26/2019 2:44 PM DRILL PRESS SET UP OPERATOR RADIAL) Target HR 144.00 bpm [facility] Resting HR 86 BPM [facility] Resting BP 171/67 mmHg [facility] Specimen Narrative Performed At [facility] The study is normal. This study result indicates a low ri sk of cardiac , or nonfatal infarction, over the ensuing year. SPECT images demonstrate a normal pe rfusion study. Performing Organization Address [facility] one Number [facility] [address] [place] [address], * Estimated GFR (05/26/2019 10:30 AM DRILL PRESS SET UP OPERATOR RADIAL) Only the most recent of 3 results within the time period is included. Estimated GFR 88 mL/min/1.73 m2 [facility] Comment: [facility] Interpretation G1 >=90 Normal or high G2 60-89 Mildly decreased G3a 45-59 Mildly to moderately decreased G3b 30-44 Moderately to severely decreased G4 15-29 Severely decreased G5 <15 Kidney failure The eGFR was calculated using the Chronic Kidney Disease Epidemiology Collaboration (CKD-EPI) equation. Interpretation is based on recommendations of the National Kidney Foundation-Kidney Disease Outcomes Quality Initiative (NKF-KDOQI) published in 2014. Specimen Plasma specimen Performing Organization Address [facility] [place] [address] [place] [address] PATHOLOGY AND GENOMIC MEDICINE [facility] [address] [place] [address] [facility] * CBC with platelet and differential (05/26/2019 10:30 AM DRILL PRESS SET UP OPERATOR RADIAL) Only the most recent of 3 results within the time period is included. WBC 9.77 4.50 - 11.00 k/uL [facility] RBC 3.80 (L) 4.20 - 5.50 m/uL [facility] HGB 11.7 (L) 12.0 - 16.0 g/dL [facility] HCT 37.0 37.0 - 47.0 % [facility] MCV 97.4 82.0 - 100.0 fL [facility] MCH 30.8 27.0 - 34.0 pg [facility] MCHC 31.6 31.0 - 37.0 g/dL [facility] RDW - SD 52.8 37.0 - 55.0 fL [facility] MPV 11.1 8.8 - 13.2 fL [facility] Platelet count 175 150 - 400 k/uL [facility] Nucleated RBC 0.00 /100 WBC [facility] Neutrophils 68.5 39.0 - 69.0 % [facility] Lymphocytes 16.7 (L) 25.0 - 45.0 % [facility] Monocytes 9.8 0.0 - 10.0 % [facility] Eosinophils 3.6 0.0 - 5.0 % [facility] Basophils 0.5 0.0 - 1.0 % [facility] Specimen Blood Performing Organization Address City/State/Zipcode [place] [address] [place], [place] [address] PATHOLOGY AND GENOMIC MEDICINE [facility] [address] [place] [address] [facility] * Basic metabolic panel (05/26/2019 10:30 AM DRILL PRESS SET UP OPERATOR RADIAL) Sodium 140 135 - 148 mEq/L [facility] Potassium 4.3 3.5 - 5.0 mEq/L [facility] Chloride 103 98 - 112 mEq/L [facility] CO2 28 24 - 31 mEq/L [facility] Anion gap 9@ANIO 7 - 15 mEq/L [facility] BUN 14 8 - 23 mg/dL [facility] Creatinine 0.60 0.50 - 0.90 mg/dL [facility] Glucose 143 (H) 65 - 99 mg/dL [facility] Calcium 9.7 8.8 - 10.2 mg/dL [facility] Specimen Plasma specimen Performing Organization Address City/[facility] Ph one Number [facility] [place] [address] [place] [address] PATHOLOGY AND GENOMIC MEDICINE [facility] [address] [place] [address] [facility] * C-reactive protein (05/25/2019 4:50 AM DRILL PRESS SET UP OPERATOR RADIAL) CRP 0.73 (H) 0.00 - 0.50 mg/dL [facility] Specimen Plasma specimen Performing Organization Address [facility] one Number [facility] DEPARTMENT OF [address] [place] [address] PATHOLOGY AND GENOMIC MEDICINE [place] [id number] [facility] * CT Brain Venogram (05/24/2019 5:48 PM DRILL PRESS SET UP OPERATOR RADIAL) Specimen Narrative Performed At EXAMINATION: [facility] CLINICAL H[facility]ORY: pulsatile tinnitus on left COMPARISON: None. FINDINGS: Postcontrast CT venogram of the brain w as performed. Axial reconstructions and multiplanar reformats R provided. CT imaging was performed with iterative reconstruction techniques and/or automated exposure control to reduce ra diation dose. The dural venous sinuses an deep cerebr al veins are patent. No stenosis is identified. IMPRESSION: Unremarkable CT venogram of the brain. [facility]-[id number] Procedure Note Interface, Radiology Results Incoming - 05/24/2019 6:00 PM DRILL PRESS SET UP OPERATOR RADIAL EXAMINATION: CT BRAIN VENOGRAM CLINICAL HISTORY: pulsatile tinnitus on left COMPARISON: None. FINDINGS: Postcontrast CT venogram of the brain was performed. Axial reconstructions and multiplanar reformats R provided. CT imaging was performed with iterative reconstruction techniques and/or automated exposure control to reduce radiation dose. The dural venous sinuses an deep cerebral veins are patent. No stenosis is identified. IMPRESSION: Unremarkable CT venogram of the brain. [id number] Performing Organization Address [facility] one Number [facility] [address] [place] [address] * CTA Head W Wo Contrast (05/24/2019 5:40 PM DRILL PRESS SET UP OPERATOR RADIAL) Specimen Narrative Performed At EXAMINATION: CT ANGIOGRAM HEAD W WO CONTRAST [facility] CLINICAL HISTORY: pulsatile tinnitus on the left altered mental status COMPARISON: None TECHNIQUE: Imaging of the intracrania l circulation was obtained from the skull base to the vertex during the arterial phase of enhancement. MIP multiplanar and 3D reconstructed images were performed on a separate workstation. CT imaging was performed with iterative reconstruction techniques and/or automated exposure control to reduce ra diation dose. FINDINGS: Atherosclerotic calcifications are note d in the intracranial ICAs. Mild atherosclerotic narrowing is noted in t he siphons. No proximal branch occlusion or high-gr fernanda stenosis of the branches of the lower si[place] of [place] is seen. The left vertebral artery is dominant. There is severe focal stenosis in the left V4 segment. The right vertebral artery is hypoplast ic and is stenotic or occluded for a short segment distal to the right PICA origin. No aneurysm or vascular malformation is identified. The major dural venous sinuses opacify normally. 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 Severe focal stenosis in the left verte bral artery V4 segment. [id number] Procedure Note Interface, Radiology Results Incoming - 05/24/2019 6:04 PM DRILL PRESS SET UP OPERATOR RADIAL EXAMINATION: CT ANGIOGRAM HEAD W WO CONTRAST CLINICAL HISTORY: pulsatile tinnitus on the left altered mental status COMPARISON: None TECHNIQUE: Imaging of the intracranial circulation was obtained from the skull base to the vertex during the arterial phase of enhancement. MIP multiplanar and 3D reconstructed images were performed on a separate workstation. CT imaging was performed with iterative reconstruction techniques and/or automated exposure control to reduce radiation dose. FINDINGS: Atherosclerotic calcifications are noted in the intracranial ICAs. Mild atherosclerotic narrowing is noted in the siphons. No proximal branch occlusion or high-grade stenosis of the branches of the lower si[place] of [place] is seen. The left vertebral artery is dominant. There is severe focal stenosis in the left V4 segment. The right vertebral artery is hypoplastic and is stenotic or occluded for a short segment distal to the right PICA origin. No aneurysm or vascular malformation is identified. The major dural venous sinuses opacify normally. 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 Severe focal stenosis in the left vertebral artery V4 segment. [facility]-[id number] Performing Organization Address City/State/Zipcode one Number [facility] [address] [place] [address] * ECG 12 lead (05/23/2019 8:12 PM DRILL PRESS SET UP OPERATOR RADIAL) Only the most recent of 4 results within the time period is included. Ventricular 90 [facility] rate Atrial rate 90 [facility] VA interval 168 [facility] QRSD interval 160 [facility] QT interval 432 [facility] QTC interval 528 [facility] QRS axis 1 -7 [facility] T wave axis 161 [facility] MUSE EKG impression Normal sinus rhythm-Left [facility] MUSE bundle branch block-Abnormal ECG Lateral infarct-In automated comparison with ECG of 23-MAY-2019 20:11,-Sinus rhythm has replaced Ectopic atrial rhythm- Specimen Performing Organization Address [facility] one Number [facility] MUSE [address] [place] [address] * XR Tibia Fibula 2 Vw Right (05/23/2019 5:10 PM DRILL PRESS SET UP OPERATOR RADIAL) Specimen Narrative Performed At EXAMINATION: XR TIBIA FIBULA 2 VW RIGHT [facility] CLINICAL HISTORY: trauma pain COMPARISON: None IMPRESSION: No acute fracture. Healed and internall y fixated patellar fracture with pins and wiring with fracture of the wires appea r margin. Alignment appears intact. Scattered vascular calcifications. Post erior calcaneal spur formation. Procedure Note Interface, Radiology Results Incoming - 05/23/2019 5:18 PM DRILL PRESS SET UP OPERATOR RADIAL EXAMINATION: XR TIBIA FIBULA 2 VW RIGHT CLINICAL HISTORY: trauma pain COMPARISON: None IMPRESSION: No acute fracture. Healed and internally fixated patellar fracture with pins and wiring with fracture of the wires appear margin. Alignment appears intact. Scattered vascular calcifications. Posterior calcaneal spur formation. Performing Organization Address [facility] one Number [facility] [address] [place] [address] * XR Hip 2-3 View Right (05/23/2019 5:09 PM DRILL PRESS SET UP OPERATOR RADIAL) Specimen Narrative Performed At EXAMINATION: XR HIP 2-3 VIEWS RIGHT [facility] CLINICAL HISTORY: trauma pain COMPARISON: None IMPRESSION: Femoral heads are seated well within th e acetabula with mild bilateral hip joint osteoarthritis. Multilevel lower lumbar degenerative disc disease with mild bilateral sacroiliac joint osteoarthrit is. No acute fracture. Procedure Note Interface, Radiology Results Incoming - 05/23/2019 5:20 PM DRILL PRESS SET UP OPERATOR RADIAL EXAMINATION: XR HIP 2-3 VIEWS RIGHT CLINICAL HISTORY: trauma pain COMPARISON: None IMPRESSION: Femoral heads are seated well within the acetabula with mild bilateral hip joint osteoarthritis. 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 No acute fracture. Performing Organization Address 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 No periprosthetic fracture or osteolysis. Healed right fourth posterior rib fracture. Moderate right acromioclavicu lar joint osteoarthritis. Heterotopic ossification versus loose body along the axillary recess is unchanged. 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 No periprosthetic fracture or osteolysis. Healed right fourth posterior rib fracture. Moderate right acromioclavicular joint osteoarthritis. Heterotopic ossification versus loose body along the axillary recess is unchanged. Performing Organization Address [facility] one Number [facility] [address] [place] [address] * MRI Brain Wo Contrast (05/23/2019 4:31 PM DRILL PRESS SET UP OPERATOR RADIAL) Specimen Narrative Performed At EXAMINATION: MRI BRAIN WO CONTRAST [facility] CLINICAL HISTORY: Altered mental stat us aggressive behavior COMPARISON: MRI dated 12/09/2016 IMAGING DEVICE: 3.0 Unique MR. 3-D recon structions were processed off-line TECHNIQUE: Multiplanar and multisequenc e MRI imaging of the brain obtained. CONTRAST: No IV contrast administered . FINDINGS: CEREBRUM: *No evident edema, hemorrhage, mass, mi dline shift or acute infarction *Mild symmetric supratentorial volume l oss with subcortical and periventricular T2 hyperintensities representing chroni c microangiopathic changes. *Other significant findings CEREBELLUM: *No evident edema, hemorrhage, mass, mi dline shift or acute infarction *No evidence of inappropriate atrophy. BRAINSTEM: *No evident edema, hemorrhage, mass, mi dline shift or acute infarction *No evidence of inappropriate atrophy. CSF SPACES: *Ventricles, cisterns, and sulci are ap propriate for age. *No hydrocephalus, subarachnoid hemorrh age, or mass. *Bilateral lateral ventricle choroid pl exus Xanthogranulomatous changes as anatomic variant VASCULAR: *Limited assessment with no evident abn ormalities of lower sioux of [place] and dural sinuses. SKULL: *Hyperostosis frontalis interna. No mas s, displaced fractures or other visible lesion. SINUSES: *Limited views demonstrate minimal muco mary thickening the left sphenoid sinus. No mass. ORBITS: *Limited views shows bilateral intraocu lar lens prosthesis. No fracture or other visible lesion. 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 IMPRESSION: 1. Negative for acute intracranial abno rmalities 2. Mild symmetric supratentorial volume loss with mild microangiopathy changes 3. Diffuse mucosal thickening involving the left sphenoid sinus 4. No other significant findings [id number] Procedure Note Hm Interface, Radiology Results Incoming - 05/23/2019 4:42 PM DRILL PRESS SET UP OPERATOR RADIAL EXAMINATION: MRI BRAIN WO CONTRAST CLINICAL HISTORY: Altered mental status aggressive behavior COMPARISON: MRI dated 12/09/2016 IMAGING DEVICE: 3.0 Unique MR. 3-D reconstructions were processed off-line TECHNIQUE: Multiplanar and multisequence MRI imaging of the brain obtained. CONTRAST: No IV contrast administered. FINDINGS: CEREBRUM: *No evident edema, hemorrhage, mass, midline shift or acute infarction *Mild symmetric supratentorial volume loss with subcortical and periventricular T2 hyperintensities representing chronic microangiopathic changes. *Other significant findings CEREBELLUM: *No evident edema, hemorrhage, mass, midline shift or acute infarction *No evidence of inappropriate atrophy. BRAINSTEM: *No evident edema, hemorrhage, mass, midline shift or acute infarction *No evidence of inappropriate atrophy. CSF SPACES: *Ventricles, cisterns, and sulci are appropriate for age. *No hydrocephalus, subarachnoid hemorrhage, or mass. *Bilateral lateral ventricle choroid plexus Xanthogranulomatous changes as anatomic variant VASCULAR: *Limited assessment with no evident abnormalities of lower si[place] of [place] and dural sinuses. SKULL: *Hyperostosis frontalis interna. No mass, displaced fractures or other visible lesion. SINUSES: *Limited views demonstrate minimal mucosal thickening the left sphenoid sinus. No mass. ORBITS: *Limited views shows bilateral intraocular lens prosthesis. No fracture or other visible lesion. 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 IMPRESSION: 1. Negative for acute intracranial abnor malities 2. Mild symmetric supratentorial volume loss with mild microangiopathy changes 3. Diffuse mucosal thickening involving the left sphenoid sinus 4. No other significant findings [id number] Performing Organization Address [facility] one Number [facility] [address] [place] [address] * CT Cervical Spine Wo Contrast (05/23/2019 3:47 PM DRILL PRESS SET UP OPERATOR RADIAL) Specimen Narrative Performed At EXAMINATION: CT CERVICAL SPINE WO CONTRAST [facility] CLINICAL HISTORY: trauma pain COMPARISON: None. TECHNIQUE: CT imaging was performed wit h iterative reconstruction technique and/or automated exposure control to re duce radiation dose. Findings: Spinal canal contents and ligamentous s tructures are suboptimally evaluated on CT. No acute fractures of the cervical spin e. Mild retrolisthesis at C4-5. Multilevel endplate Schmorl's nodes. Multilevel degenerative changes. Mild T3 superior endplate compression d eformity of undetermined age. IMPRESSION: No acute fractures of the cervical spin e. Mild T3 superior endplate compression d eformity of undetermined age. This can be further evaluated with MRI or bone scan . [id number] Procedure Note Interface, Radiology Results Incoming - 05/23/2019 4:05 PM DRILL PRESS SET UP OPERATOR RADIAL EXAMINATION: CT CERVICAL SPINE WO CONTRAST CLINICAL HISTORY: trauma pain COMPARISON: None. TECHNIQUE: CT imaging was performed with iterative reconstruction technique and/or automated exposure control to reduce radiation dose. Findings: Spinal canal contents and ligamentous structures are suboptimally evaluated on CT. No acute fractures of the cervical spine. Mild retrolisthesis at C4-5. Multilevel endplate Schmorl's nodes. Multilevel degenerative changes. Mild T3 superior endplate compression deformity of undetermined age. IMPRESSION: No acute fractures of the cervical spine. Mild T3 superior endplate compression deformity of undetermined age. This can be further evaluated with MRI or bone scan. [id number] Performing Organization Address [facility] Ph one Number [facility] [address] [place] [address] * Sedimentation rate (05/23/2019 6:30 AM DRILL PRESS SET UP OPERATOR RADIAL) Sedimentation 2 0 - 20 mm/hr [facility] Specimen Blood Performing Organization Address City/State/Zipcode Ph one Number [facility] [place] [address] [place] [address] PATHOLOGY AND GENOMIC MEDICINE [facility] [address] [place] [address] [facility] * Lipid panel (05/23/2019 6:09 AM DRILL PRESS SET UP OPERATOR RADIAL) Cholesterol 124 <200 mg/dL [facility] Triglycerides 108 (A) <150 mg/dL [facility] HDL cholesterol 37 (L) >40 mg/dL [facility] LDL cholesterol 80Comment: Result obtained by <100 mg/dL [facility] direct LDL measurement [facility] Lipid panel [facility] interpretation Comment: [facility] Total Cholesterol (mg/dL) [facility] <200 Desirable 200-239 Borderline-high >=240 High Triglycerides (mg/dL) <150 Normal 150-199 Borderline-high 200-499 High >=500 Very high HDL Cholesterol (mg/dL) <40 Low (male) <40 Low (female) LDL Cholesterol (mg/dL) <100 Optimal 100-129 Near or above optimal 130-159 Borderline-high 160-189 High >=190 Very high Risk Catergories that modify LDL goals. Risk Catergories LDL goal (mg/dL) CHD and CHD risk equivalent <100 (10-year risk >20%) Multiple (2+) risk factors <130 (10-year risk =<20%) 0-1 risk factors <160 (<10-year risk) Defining levels of lipids in metabolic syndrome Triglycerides >=150 mg/dL HDL Cholesterol Men <40 mg/dL Women <40 mg/dL Non-HDL cholesterol is a second target for therapy in persons with high triglycerides (>=200 mg/dL) Specimen Plasma specimen Performing Organization Address City/State/Zipcode Ph one Number [facility] [place] [address] [place] [address] PATHOLOGY AND GENOMIC MEDICINE [facility] [address] [place] [address] [facility] * Comprehensive metabolic panel (05/23/2019 6:09 AM DRILL PRESS SET UP OPERATOR RADIAL) Only the most recent of 2 results within the time period is included. Sodium 141 135 - 148 mEq/L [facility] Potassium 4.5 3.5 - 5.0 mEq/L [facility] Chloride 103 98 - 112 mEq/L [facility] CO2 29 24 - 31 mEq/L [facility] Anion gap 9@ANIO 7 - 15 mEq/L [facility] BUN 13 8 - 23 mg/dL [facility] Creatinine 0.70 0.50 - 0.90 mg/dL [facility] Glucose 194 (H) 65 - 99 mg/dL [facility] Calcium 9.5 8.8 - 10.2 mg/dL [facility] Protein 5.8 (L) 6.3 - 8.3 g/dL [facility] Comment: [facility] [id number] g/dL [facility] 1 ftmv4118.4-7.6 g/dL 7 months-0ihpk840.1-7.3 g/dL 1-2 lyvvb926.6-7.5 g/dL >3 .0-8.0 g/dL [id number] g/dL Albumin 3.3 (L) 3.5 - 5.0 g/dL [facility] A/G ratio 1.3 0.7 - 3.8 [facility] Alkaline 52 35 - 104 U/L [facility] phosphatase [facility] AST 23 10 - 35 U/L [facility] ALT 23 5 - 50 U/L [facility] Total bilirubin 1.1 0.0 - 1.2 mg/dL [facility] Specimen Plasma specimen Performing Organization Address City/State/Zipcomt Ph one Number [facility] [place] [address] [place] [address] PATHOLOGY AND GENOMIC MEDICINE [facility] [address] [place] [address] [facility] * EEG (routine) (05/22/2019 7:31 PM DRILL PRESS SET UP OPERATOR RADIAL) Impressions Performed At This is a normal electroencephalogram r ecorded in the drowsy and asleep state. No epileptiform activity is seen . Lashonda Medina MD Narrative Performed At This result has an attachment that is n ot available. REFERRING PHYSICIAN:Lashonda Medina MD INTRODUCTION: The patient is a 78-year-old lady with altered mental status. EEG was performed to evaluate for seizures or o ther focal abnormalities. TECHNIQUE: This is a routine electroencephalogram recorded using the International 10/20 electrode placement system. The E EG is technically limited due to myogenic and electrode related artifact s. FINDINGS: The background is diffusely slow, react jayden and symmetric consisting of frequencies in the theta and delta rang e. No posterior dominant rhythm is seen. During sleep, K complexes and s leep spindles present, which are symmetrical. No obvious epileptiform di scharges, focal or lateralizing abnormalities are seen, within the limi tations of the study. Photic stimulation was performed with no abnor malities elicited. * Vitamin B12 level (05/22/2019 5:30 PM DRILL PRESS SET UP OPERATOR RADIAL) Pathologist [facility] Vitamin B12 541 211 - 946 pg/mL [facility] Comment: [facility] Significant overlap exists [facility] between normal and deficiency states. However, most patients with deficiencies will have Serum B12 <200 pg/mL. Specimen Serum Performing Organization Address City/[facility] Ph one Number [facility] DEPARTMENT OF [address] [place] [address] [place] [address] PATHOLOGY AND GENOMIC MEDICINE [facility] [address] [place] [address] * Ammonia level (05/22/2019 5:30 PM DRILL PRESS SET UP OPERATOR RADIAL) Pathologist [facility] Ammonia 27 11 - 51 umol/L [facility] Specimen Blood Performing Organization Address [facility] Ph one Number [facility] DEPARTMENT OF [address] [place] [address] [place] [address] PATHOLOGY AND GENOMIC MEDICINE [facility] [address] [place] [address] * Troponin (05/22/2019 8:02 AM DRILL PRESS SET UP OPERATOR RADIAL) Only the most recent of 3 results within the time period is included. Troponin 0.067 (H) 0.000 - 0.040 ng/mL [facility] Comment: [facility] In patients suspected of [facility] having a myocardial infarction, along with all other appropriate clinical measures and actions including ECG and other diagnostics as appropriate, measure Ultra TnI at 0 hrs and at 3 hrs. Myocardial infarction VERY LIKELY The 0 hr TnI level is > 0.10 ng/mL Myocardial infarction LIKELY The 0 hr TnI level is > 0.04 ng/mL and 3 hr level is increased or decreased by at least 0.020 ng/mL Myocardial infarction VERY UNLIKELY Both the 0 hr and 3 hr TnI levels <= 0.04 ng/mL(within normal limits) OR 0 hr is > 0.04 ng/mL and 3 hr is increased OR decreased by less than 0.020 ng/mL Specimen Plasma specimen Performing Organization Address City/[facility] Ph one Number [facility] DEPARTMENT OF [address] [place] [address] [place] [address] PATHOLOGY AND GENOMIC MEDICINE [address] * Thyroid stimulating hormone (05/22/2019 8:02 AM DRILL PRESS SET UP OPERATOR RADIAL) TSH 1.91 0.27 - 4.20 uIU/mL [facility] Specimen Plasma specimen Performing Organization Address City/[facility] Ph one Number [facility] DEPARTMENT [address] [place] [address] PATHOLOGY AND GENOMIC MEDICINE [address] * CT Head Wo Contrast (05/22/2019 4:12 AM DRILL PRESS SET UP OPERATOR RADIAL) Specimen Narrative Performed At Examination: CT HEAD WO CONTRAST [facility] Clinical History: change in mental stat us Comparison: 12/08/2016 CT scan of the brain was performed with out intravenous contrast. CT scans are performed using radiation dose reduction techniques. Technical factors are evaluated and adjusted to e nsure appropriate moderation of exposure. Automated dose management technology is applied to adjust radiation exposure while achieving a diagnostic quality image. CT imaging was performed with iterative reconstruction techniques and/or automa zana exposure control to reduce radiation dose. No mass effect or midline shift is seen . The ventricles are normal in size. No intracranial hemorrhage is seen. Bilateral periventricular low densities of the white matter are noted. Whalen-white junctions are preserved. Diffuse volume loss is noted. IMPRESSION: 1. Chronic small vessel ischemic diseas e of the periventricular white matter but no acute intracranial abnormality ident ified. There is no significant change from the prior study. [facility]-[id number] Procedure Note Interface, Radiology Results Incoming - 05/22/2019 4:22 AM DRILL PRESS SET UP OPERATOR RADIAL Examination: CT HEAD WO CONTRAST Clinical History: change in mental status Comparison: 12/08/2016 CT scan of the brain was performed without intravenous contrast. CT scans are performed using radiation dose reduction techniques. Technical factors are evaluated and adjusted to ensure appropriate moderation of exposure. Automated dose management technology is applied to adjust radiation exposure while achieving a diagnostic quality image. CT imaging was performed with iterative reconstruction techniques and/or automated exposure control to reduce radiation dose. No mass effect or midline shift is seen. The ventricles are normal in size. No intracranial hemorrhage is seen. Bilateral periventricular low densities of the white matter are noted. Whalen-white junctions are preserved. Diffuse volume loss is noted. IMPRESSION: 1. Chronic small vessel ischemic disease of the periventricular white matter but no acute intracranial abnormality identified. There is no significant change from the prior study. [facility]-[id number] Performing Organization Address City/State/[facility] Ph one Number [facility] [address] [place] [address] * XR Chest 1 Vw Portable (05/22/2019 2:44 AM DRILL PRESS SET UP OPERATOR RADIAL) Specimen Narrative Performed At Examination: XR CHEST 1 VW PORTABLE [facility] Clinical History: SOB Comparison: None. Technique: Single frontal view of the c hest is obtained. Findings: Cardiomegaly with mild vascular crowdin g or congestion are noted. No pleural effusion is seen. No pneumothorax is seen. Impression: Cardiomegaly with mild vascular crowdin g or congestion. [facility]-[id number] Procedure Note Interface, Radiology Results Incoming - 05/22/2019 2:48 AM DRILL PRESS SET UP OPERATOR RADIAL Examination: XR CHEST 1 VW PORTABLE Clinical History: SOB Comparison: None. Technique: Single frontal view of the chest is obtained. Findings: Cardiomegaly with mild vascular crowding or congestion are noted. No pleural effusion is seen. No pneumothorax is seen. Impression: Cardiomegaly with mild vascular crowding or congestion. [facility]-[id number] Performing Organization Address City/[facility] one Number Y[facility] [address] [place] [address] * Urinalysis screen and microscopy, with reflex to culture (05/22/2019 2:25 AM DRILL PRESS SET UP OPERATOR RADIAL) Specimen site Clean catch [facility] Color, UA Yellow [facility] Appearance, UA Clear [facility] Specific 1.011 1.001 - 1.035 [facility] gravity, UA [facility] pH, UA 7.0 5.0 - 8.5 [facility] Protein, UA Negative Negative [facility] Glucose, UA Negative Negative [facility] Ketones, UA Negative Negative [facility] Bilirubin, UA Negative Negative [facility] Blood, UA Negative Negative [facility] Nitrite, UA Negative Negative [facility] Urobilinogen, 2.0 (A) <2.0 [facility] Leukocyte Negative Negative [facility] esterase, [facility] Epithelial Moderate Few /HPF [facility] cells, [facility] WBC, UA 0-5 0 - 4 /HPF [facility] RBC, UA 0-5 0 - 5 /HPF [facility] Bacteria, UA Few None seen [facility] Yeast, UA None seen [facility] Yeast with None seen [facility] pseudohyphae, [facility] Specimen Urine Performing Organization Address [facility] one Number [facility] [place] [id number] [place] [address] [place], [place] [address] PATHOLOGY AND GENOMIC MEDICINE [facility] [place] [address] [facility] * Urine culture (05/22/2019 2:25 AM DRILL PRESS SET UP OPERATOR RADIAL) Urine culture SEE COMMENTComment: [facility] Bacteriuria screen negative. [facility] Specimen Urine Performing Organization Address City/[facility] Ph one Number [facility] [place] [address] [place] [address] PATHOLOGY AND GENOMIC MEDICINE [facility] [place] [address] [facility] * Creatine kinase, total (CPK) (05/22/2019 2:23 AM DRILL PRESS SET UP OPERATOR RADIAL) Creatine kinase 55 26 - 192 U/L [facility] Specimen Plasma specimen Performing Organization Address City/State/Zipcode Ph [place] [facility] [address] [address] [place], [place] [address] PATHOLOGY AND GENOMIC MEDICINE [facility] [address] [place] [address] [facility] after 12/23/2018 Insurance Type Payer Benefit Subscriber ID Effective Phone Address Plan / Dates Group Medicare MEDICARE MEDICARE xxxxxxxxxxx 2007-P SOLIS, PART A AND resent [place] B Medicaid MEDICAID MEDICAID xxxxxxxxx 2011-P resent Advance Directives For more information, please contact: [phone] 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
--- OUTSIDE RECORDS SUMMARY | 2019-12-24 12:01 | XMS REPORT | Continuity of Care Document ---
Author Author [facility] t Organization [facility] Address [address] [place] [address] Phone Unavailable Care Team Providers Care Hot Header Operator Name Role Phone Carlos SAGASTUME, Bogdan Jurado PCP Mahi SAGASTUME, Sergio Dee Attphys Delvis Troy MD, Josue Mccarthy Attphys NaifimJose burgos DO Attphys OMAIRA RODRIGUEZ Attphys Unavailable Payers Payer Name Policy Type Policy Number Effective Date Expiration Date S elise MEDICAREMEDICARE PART A AND Bxxxxxxxxxxx2007-PresentKARIS [facility] [place] 2007 00:00:00 Nolan Hammer MEDICAIDMEDICAIDxxxxxxxxx2011-PresentMedicaid xxxxxxxxx 2011 00:00:00 Nolan Hammer Problems Condition Name Condition Details Condition Category Status Onset Date Resolution Date Last Treatment Date Treating Clinician Comments Source NSTEMI (non-ST elevated myocardial infarction) NSTEMI (non-ST elevated myocardial infarction) Disease Active 2019-05-23 00:00:00 Nolan Hammer Elevated troponin Elevated troponin Disease Active 2019-05-22 00:00:00 Nolan Hammer Altered mental status Altered mental status Disease Active 00:00:00 Nolan Stevens t Delirium with dementia Delirium with dementia Disease Active 2019-05-22 00:00:[address] S/p reverse total shoulder arthroplasty S/p reverse total sh oulder arthroplasty Disease Active 2017-01-26 00:00:00 Nolan Hammer Closed right humeral fracture Closed right humeral fracture Disease Active 2016-12-14 00:00:00 Nolan Hammer Fracture closed, humerus Fracture closed, humerus Disease Acti ve 2016-12-13 00:00:00 Nolan elkins Acute cystitis with hematuria Acute cystitis with hematuria Disease Active 2016-12-12 00:00:00 Nolan Hammer Fall Fall Disease Active 2016-12-12 00:00:00 Nolan Hammer Type 2 diabetes mellitus with complicati on, with long-term current use of insulin Type 2 diabetes mellitus with complicati on, with long-term current use of insulin Disease Active 2016-12-12 00:00:00 Eri tigre Hammer Syncope Syncope Disease Active 2016-12-08 00:00:00 Nolan Hammer Allergies, Adverse Reactions, Alerts Allergy Name Allergy Type Status Severity Reaction(s) Onset Date Inacti ve Date Treating Clinician Comments Source Methylprednisolone Sodium Succ Propensity to adverse reactions to d rug Active Other (See Comments) 2019-05-22 00:00:00 unknown Nolan Hammer Azithromycin Propensity to adverse reactions to drug Active Rash 2019-05-22 00:00:00 Nolan cote methylprednisolone DA Active SV 2019-05-19 00:00:00 [facility] azithromycin DA Active AK 2019-05-16 00:00:00 [facility] No Known Allergies DA Active U 2019-05-15 00:00:00 [facility] No Known Allergies DA Active U 2017-02-28 00:00:00 [facility] Social History Social Habit Start Date Stop Date Quantity Comments Source Sex Assigned At Makenna ramirez Amish Alcohol intake 2019-05-22 00:00:00 2019-05-22 00:00:00 Current non-drinker of alcohol (finding) Nolan Hammer Smoking Status Start Date Stop Date Source Never smoker Nolan cote Medications Ordered Medication Name Filled Medication Name Start Date Stop Da te Current Medication? Ordering Clinician Indication Dosage Frequency Signature (SIG) Comments Components Source amLODIPine (NORVASC) 10 mg tablet 2019-05-29 18:46:32 2019 00:00:00 No 10mg Q.5D Take 10 mg by mouth 2 (two) times a day. Nolan Hammer isosorbide dinitrate (ISORDIL) 20 MG tablet 2019 18:46:32 2019-05-29 00:00:00 No 20mg Q.5D Take 20 mg by mouth 2 (two) eugenio es a day. Nolan Hammer carvedilol (COREG) 6.25 MG tablet 2019-05-29 18:46:32 2019 00:00:00 No 6.25mg Q.5D Take 6.25 mg by mouth 2 (two) times a da y with meals. Nolan Hammer triamterene-hydrochlorothiazid (MAXZIDE) 75-50 mg per tablet 2019-05-29 18:46:28 Yes 1{tbl} Q.5D Take 1 tablet by mouth 2 (two ) times a day. Nolan Hammer clonIDINE HCl (CATAPRES) 0.2 MG tablet 2019-05-29 18:46:28 Yes .2mg Q.5D Take 0.2 mg by mouth 2 (two) times a day. Nolan Hammer omeprazole (PriLOSEC) 40 MG capsule 2019-05-29 18:46:28 Yes 40mg Q.5D Take 40 mg by mouth 2 (two) times a day. Nolan Hammer atorvastatin (LIPITOR) 20 MG tablet 2019-05-29 18:46:28 Yes 20mg QD Take 20 mg by mouth nightly. Default OP ins H ouashley Hammer fluticasone-salmeterol (ADVAIR) 250-50 mcg/dose DISKUS 2019-05-29 18:46:28 Yes 1{puff} Q24H Inhale 1 puff daily as needed. Nolan Hammer nitroglycerin (NITROSTAT) 0.4 MG SL tablet 2019-05-29 18:46:[address] 0.4 mg under the tongue every 5 (five) minutes a s needed for chest pain. Nolan Hammer metFORMIN (GLUCOPHAGE) 500 mg tablet 2019-05-29 18:46:28 Ye s 500mg Q.5D Take 500 mg by mouth 2 (two) times a day with meals. Nolan Hammer albuterol sulfate (PROVENTIL) 2.5 mg/0.5 mL solution for neb ulization 2019-05-29 18:46:28 Yes 2.5mg Q24H Take 2.5 mg by nebulization daily as needed. Nolan Hammer INSULIN GLARGINE,HUM.REC.ANLOG (LANTUS SOLOSTAR SUBQ) 2019-05-29 18:46:28 Yes 30U Inject 30 Units under the skin continuously as needed (If blood sugar is over 200). Nolan Hammer diclofenac (VOLTAREN) 1 % gel 2019-05-29 18:46:28 Yes Q.25D Apply topically 4 (four) times a day. Nolan Hammer lidocaine-prilocaine (EMLA) 2.5-2.5 % cream 2019-05-29 18:46:28 Yes 2.5{application} Apply 2.5 application topically as needed for mild pain. Nolan Hammer glipiZIDE (GLUCOTROL) 5 MG tablet 2019-05-29 18:46:28 Yes 5mg Q.5D Take 5 mg by mouth 2 (two) times a day before meals. Nolan Hammer amLODIPine (NORVASC) 5 mg tablet 2019-05-29 00:00:00 2019-06 23:59:00 No 5mg Q.5D Take 1 tablet (5 mg total) by [facility] 2 (two) times a day for 30 days. Nolan Hammer lidocaine (LIDODERM) 5 % 2019-05-28 00:00:00 2019-06-27 23:59:00 No 2{patch} Q24H Place 2 patches on the skin daily for 30 days. Remove & Discard patch within 12 hours or as directed by MD Nolan Hammer aspirin 81 mg chewable tablet 2019-05-27 00:00:00 2019-06-26 23: 59:00 No 81mg QD Chew 1 tablet (81 mg total) daily for 30 days. Nolan Hammer isosorbide mononitrate (IMDUR) 30 MG 24 hr tablet 2019-05-27 00:00:00 2019-06-26 23:59:00 No 15mg QD Take 0.5 tablets (15 mg total) by mouth daily for 30 days. Nolan Hammer gabapentin (NEURONTIN) 300 mg capsule 2019-05-27 00:00 :00 2019-06-26 23:59:00 No 300mg Q.[id number] Take 1 capsule (300 mg total) by mouth 3 (three) times a day for 30 days. Nolan Hammer traMADol (ULTRAM) 50 mg tablet 2019-05-27 00:00:00 2019-05-15 1 23:59:00 No acute pain 50mg Q6H Take 1 tablet (50 mg total) by mouth every 6 (six) hours as needed for moderate pain for up to 7 days .acute pain. Nolan Hammer metoprolol tartrate (LOPRESSOR) 50 mg tablet 00:00:00 2019-06-25 23:59:00 No 50mg Q.5D Take 1 tablet (50 mg total) by mouth 2 (two) times a day for 30 days. Nolan Hammer QUEtiapine (SEROquel) 25 MG tablet 2019-05-26 00:00:00 00:00:00 No 25mg Q.[id number] Take 1 ta blet (25 mg total) by mouth 3 (three) times a day as needed (agitation) for up to 30 days. Nolan Hammer Vital Signs Vital Name Observation Time Observation Value Comments Source Systolic blood pressure 2019-05-29 16:07:19 158 mm[Hg] Nolan Hammer Diastolic blood pressure 2019-05-29 16:07:19 69 mm[Hg] Nolan Hammer Heart rate 2019-05-29 16:07:19 84 /min Nolan Hammer Body temperature 2019-05-29 16:07:19 37.11 Malini Karis Hammer Respiratory rate 2019-05-29 16:07:19 16 /min Karis ton [facility]ish Oxygen saturation in Arterial blood by Pulse oximetry 05-29 16:07:19 96 /min Nolan Hammer Body weight 2019-05-22 08:28:00 72.122 kg Nolan Hammer BMI 2019-05-22 08:28:00 30.04 kg/m2 Nolan Hammer Body height 2019-05-22 02:10:00 154.9 cm Nolan Hammer Procedures Procedure Date / Time Performed Performing Clinician Sourgallo e POC GLUCOSE 2019-05-29 16:39:00 Jose Esparza odvalarie POC GLUCOSE 2019-05-29 12:01:00 Jose Esparza odvalarie POC GLUCOSE 2019-05-29 06:10:00 Jose Esparza Meth odist POC GLUCOSE 2019-05-29 01:13:00 TeqwimuahJose Meth odist POC GLUCOSE 2019-05-28 21:03:00 TeqwimJose burgos Meth odist POC GLUCOSE 2019-05-28 17:21:00 TeqwimJose burgos Meth odist POC GLUCOSE 2019-05-28 12:04:00 TeqwimJose burgos Meth odist POC GLUCOSE 2019-05-28 05:26:00 TeqwimmontyhJose Meth odist POC GLUCOSE 2019-05-27 19:17:00 TeqwimuaJose cobian Meth odist POC GLUCOSE 2019-05-27 18:05:00 TeqwimmontyhJose Meth odist MRI THORACIC SPINE WO CONTRAST 2019-05-27 15:20:[address] CHEST W CONTRAST 2019-05-27 14:29:00 TeqwimlorettaJose Amish POC GLUCOSE 2019-05-27 11:04:00 TeqwimmontyhJose Meth odist POC GLUCOSE 2019-05-27 06:13:00 TeqwimJose burgos Meth odist POC GLUCOSE 2019-05-26 20:52:00 TeqwimuahJose Meth odist POC GLUCOSE 2019-05-26 16:57:00 Teq[address] burgos Meth odist CT THORACIC SPINE WO CONTRAST 2019-05-26 15:28:00 Joseph Levi Ma CV STRESS TEST NUCLEAR CARDIO 2019-05-26 14:44:26 Nadine Miller NM MYOCARDIAL PERFUSION REST STRESS 1 DAY 2019-05-26 14:44:26 Nadine Sampsonist POC GLUCOSE 2019-05-26 11:55:00 TeqwimlorettaJose Meth odist BASIC METABOLIC PANEL 2019-05-26 10:30:00 Jose Esparza HC COMPLETE BLD COUNT W/AUTO DIFF 2019-05-26 10:30:00 Jose Esparza ESTIMATED GFR 2019-05-26 10:30:00 Teqwimloretta Jose Francisco Meth odist POC GLUCOSE 2019-05-26 05:45:00 TeqwimuahJsoe Meth odist POC GLUCOSE 2019-05-25 20:58:00 TeqwimuahJose Meth odist POC GLUCOSE 2019-05-25 17:05:00 TeqwimJose burgos Meth odist POC GLUCOSE 2019-05-25 12:40:00 TeqwimJose burgos Meth odist C-REACTIVE PROTEIN 2019-05-25 04:50:00 Joseph Levi Amish POC GLUCOSE 2019-05-25 04:32:00 TeqwimuahJose Meth odist POC GLUCOSE 2019-05-24 23:49:00 TeqwimJose burgos Meth odist POC GLUCOSE 2019-05-24 20:17:[address] BRAIN VENOGRAM 2019-05-24 17:48:[address] ANGIOGRAM HEAD W WO CONTRAST 2019-05-24 17:40:29 Joseph Levi Amish POC GLUCOSE 2019-05-24 16:02:00 TeqwimuahJose Meth odist POC GLUCOSE 2019-05-24 11:37:00 TeqwimJose burgos Meth odist POC GLUCOSE 2019-05-24 08:50:00 TeqwimmontyhJose Meth odist POC GLUCOSE 2019-05-24 04:15:00 TeqwimJose burgos Meth odist POC GLUCOSE 2019-05-24 00:05:00 TeqwimJose burgos Meth odist POC GLUCOSE 2019-05-23 20:25:00 TeqwimuahJose Meth odist ECG 12-LEAD 2019-05-23 20:12:41 TeqwimuaJose cobian Meth odist ECG 12-LEAD 2019-05-23 20:11:14 TeqwimuahJose Meth odist POC GLUCOSE 2019-05-23 17:16:00 TeqwimJose burgos Meth odist XR TIBIA FIBULA 2 VW RIGHT 2019-05-23 17:10:13 Joseph Levi [facility]ish XR HIP 2-3 VIEWS RIGHT 2019-05-23 17:09:57 Joseph Levi Amish XR SHOULDER 2+ VW RIGHT 2019-05-23 17:09:36 Joseph Levi [facility] MRI BRAIN WO CONTRAST 2019-05-23 16:31:[address] CERVICAL SPINE WO CONTRAST 2019-05-23 15:47:00 Joseph Levi Ma Amish POC GLUCOSE 2019-05-23 11:44:00 Fabio Spaulding Amish SEDIMENTATION RATE 2019-05-23 06:30:00 Joseph Levi Amish HC COMPLETE BLD COUNT W/AUTO DIFF 2019-05-23 06:09:00 SamaritanCary santamaria im Sergio Francisco Amish COMPREHENSIVE METABOLIC PANEL 2019-05-23 06:09:00 Samaritan, Nadim B in [place] ESTIMATED GFR 2019-05-23 06:09:00 SamaritanLuiz santamaria Met hodist LIPID PANEL 2019-05-23 06:09:00 SamaritanLuiz santamaria Francisco Met hodist POC GLUCOSE 2019-05-23 04:18:00 Fabio Spaulding Amish POC GLUCOSE 2019-05-23 00:52:00 Fabio Spaulding Amish POC GLUCOSE 2019-05-22 20:39:00 Fabio Spaulding Amish EEG AWAKE/DROWSY LESS THAN 41 MIN 2019-05-22 19:31:09 Lashonda Michelle Amish VITAMIN B12 LEVEL 2019-05-22 17:30:00 Lashonda Medina Amish AMMONIA LEVEL 2019-05-22 17:30:00 Lashonda Medina Amish POC GLUCOSE 2019-05-22 16:38:00 Fabio Spaulding Amish ECG 12-LEAD 2019-05-22 13:31:09 SamaritanLuiz santamaria Met hodist POC GLUCOSE 2019-05-22 11:55:00 Fabio Spaulding Amish ECG 12-LEAD 2019-05-22 09:22:37 SamaritanLuiz santamaria Met hodist TROPONIN 2019-05-22 08:02:00 Samaritan Caryim Sergio Francisco Met hodist THYROID STIMULATING HORMONE 2019-05-22 08:02:00 Adam Adieleri ofeliajennifer Mcnamaraist TROPONIN 2019-05-22 04:25:00 Samaritan Caryim Sergio Francisco Met hodist CT HEAD WO CONTRAST 2019-05-22 04:12:26 SamaritanLuiz santamaria Amish XR CHEST 1 VW PORTABLE 2019-05-22 02:44:18 SamaritanCaryim Sergio [place] URINE CULTURE 2019-05-22 02:25:00 Samaritan, Nadim Sergio Francisco Met hodist URINALYSIS SCREEN AND MICROSCOPY, WITH REFLEX TO CULTURE 202 02:25:00 SamaritanCary santamariaim Sergio Francisco Amish HC COMPLETE BLD COUNT W/AUTO DIFF 2019-05-22 02:23:00 Samaritan, Nad im Bin Nolan Amish COMPREHENSIVE METABOLIC PANEL 2019-05-22 02:23:00 SamaritanCaryim B in Nolan Hammer TROPONIN 2019-05-22 02:23:00 SamaritanLuiz Met hodist ESTIMATED GFR 2019-05-22 02:23:00 Samaritan Nadim Sergio Francisco Met hodist CREATINE KINASE, TOTAL (CPK) 2019-05-22 02:23:00 SamaritanCary santamariaim Bi n Nolan Hammer Plan of Care Planned Activity Planned Date Details Comments Source Future Scheduled Test 2020-01-13 00:00:00 INFLUENZA VACCINE [code = INFLUENZA VACCINE] [facility] Future Scheduled Test 2007-12-06 00:00:00 65+ PNEUMOCOCCAL V ACCINE (1 of 2 - PCV13) [code = 65+ PNEUMOCOCCAL VACCINE (1 of 2 - PCV13)] [facility] Future Scheduled Test 1992 00:00:00 SHINGLES VACCINES (#1) [code = SHINGLES VACCINES (#1)] [facility] Future Scheduled Test 1952 00:00:00 DIABETIC FOOT EXAM [code = DIABETIC FOOT EXAM] [facility] Future Scheduled Test 1952 00:00:00 URINE MICROALBUMIN [code = URINE MICROALBUMIN] [facility] Future Scheduled Test 1942 00:00:00 DIABETIC RETINAL E YE EXAM [code = DIABETIC RETINAL EYE EXAM] [facility] Results Test Description Test Time Test Comments Results Result Comments Source GLUBED 2019-09-12 10:34:00 Test Item GLUBED (test code = GLUBED) 106 mg/dL 74-106 N Performed by certified covering machine operator helper at [facility] Novel Coronavirus 05:45:00* Test Item Value Reference Range Interpretation Comments Novel Coronavirus 2018 Inhouse (test code = [id number]) Negative Negative Positive results are indicative of the presence ocUWSF-WbU-3 RNA, clinical correlation with patient historyand other diagnostic information is necessary to determinepatient infection status. Positive results do not rule outbacterial infection or co-infection with other viruses. Negative results do not preclude SARS-CoV-2 infection andshould not be used as the sole basis for patient managementdecisions. Negative results must be combined with otherclinical observations, patient history, and epidemiologicalinformation. Detection of SARS-CoV-2 RNA may be affected bysample collection methods, storage conditions, and/or stageof infection. Viral RNA mutations, vaccinations, antiviraltherapeutics, antibiotics, chemotherapeutic orimmunosuppressant drugs have not been evaluated for effectson detection. Results are for the identification of SARS-CoV-2 RNA usingthe [employer] M2000 System under the FDA Emergency UseAuthorization. The testing is performed by personneltrained in the procedures for the [employer] M2000 moleculardiagnostic SARS-CoV-2 assay in vitro. Testing Criteria: Preprocedure ScreeningComments: 09/12/19Terra Coronavirus 05:45:00* Test Item Value Reference Range Interpretation Comments Novel Coronavirus 2019 Inhouse (test code = [id number]) Negative Negative Positive results are indicative of the presence zlEAHZ-TbJ-1 RNA, clinical correlation with patient historyand other diagnostic information is necessary to determinepatient infection status. Positive results do not rule outbacterial infection or co-infection with other viruses. Negative results do not preclude SARS-CoV-2 infection andshould not be used as the sole basis for patient managementdecisions. Negative results must be combined with otherclinical observations, patient history, and epidemiologicalinformation. Detection of SARS-CoV-2 RNA may be affected bysample collection methods, storage conditions, and/or stageof infection. Viral RNA mutations, vaccinations, antiviraltherapeutics, antibiotics, chemotherapeutic orimmunosuppressant drugs have not been evaluated for effectson detection. Results are for the identification of SARS-CoV-2 RNA usingthe [employer] M2000 System under the FDA Emergency UseAuthorization. The testing is performed by personneltrained in the procedures for the [employer] M2000 moleculardiagnostic SARS-CoV-2 assay in vitro. Testing Criteria: Preprocedure ScreeningComments: 09/12/19BASIC METABOLIC [id number] 11:21:00* Test Item Value Reference Range Interpretation Comments SODIUM (test code = NA) 143 mmol/L 136-145 N POTASSIUM (test code = K) 3.9 mmol/L 3.5-5.1 N CHLORIDE (test code = CL) 102.0 mmol/L 98-107 N CARBON DIOXIDE (test code = CO2) 31.0 mmol/L 21-32 N ANION GAP (test code = GAP) 13.9 10-20 N GLUCOSE (test code = GLU) 129 mg/dL 74-106 H BLOOD UREA NITROGEN (test code = BUN) 59 mg/dL 7-18 H GLOMERULAR FILTRATION RATE (test code = GFR) 40 mL/min >=60 Estimated GFR by using Modified MDRD formula.Chronic kidney disease is defined as either kidney damageor GFR <60 mL/min/1.73 m2 for >3 months. CREATININE (test code = CREAT) 1.30 mg/dL 0.55-1.02 H Note change in reference range due to change in reagent. BUN/CREATININE RATIO (test code = BUN/CREA) 45.4 10-20 H CALCIUM (test code = CA) 9.6 mg/dL 8.5-10.1 N BASIC METABOLIC [id number] 11:17:00* Test Item Value Reference Range Interpretation Comments SODIUM (test code = NA) 143 mmol/L 136-145 N POTASSIUM (test code = K) 3.9 mmol/L 3.5-5.1 N CHLORIDE (test code = CL) 102.0 mmol/L 98-107 N CARBON DIOXIDE (test code = CO2) mmol/L 21-32 ANION GAP (test code = GAP) 10-20 GLUCOSE (test code = GLU) mg/dL 74-106 BLOOD UREA NITROGEN (test code = BUN) mg/dL 7-18 GLOMERULAR FILTRATION RATE (test code = GFR) mL/min >=60 CREATININE (test code = CREAT) mg/dL 0.55-1.02 BUN/CREATININE RATIO (test code = BUN/CREA) 10-20 CALCIUM (test code = CA) mg/dL 8.5-10.1 PROTHROMBIN [id number] 11:14:00* Test Item Value Reference Range Interpretation Comments PROTHROMBIN TIME PATIENT (test code = PTP) 12.3 seconds 9.0-14.0 N INTERNATIONAL NORMAL RATIO (test code = INR) 1.0 0.8-1.2 N The therapeutic range for oral anticoagulant therapy [...] (2.5-3.5) IS PATIENT ON ANTICOAGULANTS? NTHROMBOPLASTIN TIME [id number] 11:14:00* Test Item Value Reference Range Interpretation Comments THROMBOPLASTIN TIME PARTIAL (test code = PTT) 33.1 seconds 23.0-37. 0 N IS PATIENT ON ANTICOAGULANTS? NCBC W/AUTO [id number] 11:01:00* Test Item Value Reference Range Interpretation Comments WHITE BLOOD CELL (test code = WBC) 7.8 K/mm3 4.5-12.5 N RED BLOOD CELL (test code = RBC) 4.63 mill/mm3 3.7-5.2 N HEMOGLOBIN (test code = HGB) 13.9 gram/dL 11.5-15.5 N HEMATOCRIT (test code = HCT) 42.6 % 36.0-46.0 N MEAN CELL VOLUME (test code = MCV) 92.0 fL 80-98 N MEAN CELL HGB (test code = MCH) 30.0 picogram 27.0-33.0 N MEAN CELL HGB CONCETRATION (test code = MCHC) 32.6 gram/dL 33.0-36. 0 L RED CELL DISTRIBUTION WIDTH (test code = RDW) 13.6 % 11.6-16. 2 N RED CELL DISTRIBUTION WIDTH SD (test code = RDW-SD) 45.9 fL 37 .0-51.0 N PLATELET COUNT (test code = PLT) 148 K/mm3 150-450 L MEAN PLATELET VOLUME (test code = MPV) 12.0 fL 6.7-11.0 H NEUTROPHIL % (test code = NT%) 61.1 % 39.0-69.0 N IMMATURE GRANULOCYTE % (test code = IG%) 0.9 % 0.0-5.0 N LYMPHOCYTE % (test code = LY%) 21.5 % 25.0-55.0 L MONOCYTE % (test code = MO%) 10.8 % 0.0-10.0 H EOSINOPHIL % (test code = EO%) 5.1 % 0.0-5.0 H BASOPHIL % (test code = BA%) 0.6 % 0.0-1.0 N NUCLEATED RBC % (test code = NRBC%) 0.0 % 0-0 N NEUTROPHIL # (test code = NT#) 4.75 K/mm3 1.8-7.7 N IMMATURE GRANULOCYTE # (test code = IG#) 0.07 x10 3/uL 0-0.03 H LYMPHOCYTE # (test code = LY#) 1.67 K/mm3 1.0-5.0 N MONOCYTE # (test code = MO#) 0.84 K/mm3 0-0.8 H EOSINOPHIL # (test code = EO#) 0.40 K/mm3 0.0-0.5 N BASOPHIL # (test code = BA#) 0.05 K/mm3 0.0-0.2 N NUCLEATED RBC # (test code = NRBC#) 0.00 K/mm3 0.0-0.1 N MANUAL DIFF REQUIRED (test code = MDIFF) NO CBC W/AUTO [id number] 11:00:00* Test Item Value Reference Range Interpretation Comments WHITE BLOOD CELL (test code = WBC) K/mm3 4.5-12.5 RED BLOOD CELL (test code = RBC) mill/mm3 3.7-5.2 HEMOGLOBIN (test code = HGB) 13.9 gram/dL 11.5-15.5 N HEMATOCRIT (test code = HCT) 42.6 % 36.0-46.0 N MEAN CELL VOLUME (test code = MCV) fL 80-98 MEAN CELL HGB (test code = MCH) picogram 27.0-33.0 MEAN CELL HGB CONCETRATION (test code = MCHC) gram/dL 33.0-36. 0 RED CELL DISTRIBUTION WIDTH (test code = RDW) % 11.6-16. 2 RED CELL DISTRIBUTION WIDTH SD (test code = RDW-SD) fL 37 .0-51.0 PLATELET COUNT (test code = PLT) K/mm3 150-450 MEAN PLATELET VOLUME (test code = MPV) fL 6.7-11.0 NEUTROPHIL % (test code = NT%) % 39.0-69.0 IMMATURE GRANULOCYTE % (test code = IG%) % 0.0-5.0 LYMPHOCYTE % (test code = LY%) % 25.0-55.0 MONOCYTE % (test code = MO%) % 0.0-10.0 EOSINOPHIL % (test code = EO%) % 0.0-5.0 BASOPHIL % (test code = BA%) % 0.0-1.0 NEUTROPHIL # (test code = NT#) K/mm3 1.8-7.7 LYMPHOCYTE # (test code = LY#) K/mm3 1.0-5.0 MONOCYTE # (test code = MO#) K/mm3 0-0.8 EOSINOPHIL # (test code = EO#) K/mm3 0.0-0.5 BASOPHIL # (test code = BA#) K/mm3 0.0-0.2 [id number] 16:53:00* Test Item Value Reference Range Interpretation Comments GLUBED (test code = GLUBED) 187 mg/dL 74-106 H Performed by certified covering machine operator helper at [facility] [id number] 11:48:00* Test Item Value Reference Range Interpretation Comments GLUBED (test code = GLUBED) 136 mg/dL 74-106 H Performed by certified covering machine operator helper at [facility] [id number] 07:18:00* Test Item Value Reference Range Interpretation Comments GLUBED (test code = GLUBED) 134 mg/dL 74-106 H Performed by certified covering machine operator helper at [facility] [id number] 20:09:00* Test Item Value Reference Range Interpretation Comments GLUBED (test code = GLUBED) 122 mg/dL 74-106 H Performed by certified covering machine operator helper at [facility] [id number] 17:02:00* Test Item Value Reference Range Interpretation Comments GLUBED (test code = GLUBED) 210 mg/dL 74-106 H Performed by certified covering machine operator helper at [facility] [id number] 12:10:00* Test Item Value Reference Range Interpretation Comments GLUBED (test code = GLUBED) 275 mg/dL 74-106 H Performed by certified covering machine operator helper at [facility] [id number] 08:06:00* Test Item Value Reference Range Interpretation Comments GLUBED (test code = GLUBED) 121 mg/dL 74-106 H Performed by certified covering machine operator helper at [facility] [id number] 20:51:00* Test Item Value Reference Range Interpretation Comments GLUBED (test code = GLUBED) 195 mg/dL 74-106 H Performed by certified covering machine operator helper at [facility] [id number] 16:35:00* Test Item Value Reference Range Interpretation Comments GLUBED (test code = GLUBED) 251 mg/dL 74-106 H Performed by certified covering machine operator helper at [facility] [id number] 12:48:00* Test Item Value Reference Range Interpretation Comments GLUBED (test code = GLUBED) 128 mg/dL 74-106 H Performed by certified covering machine operator helper at [facility] LIPID PROFILE (CORONARY RISK)2019-06-25 10:31:00* Test Item Value Reference Range Interpretation Comments TRIGLYCERIDES (test code = TRIG) 107 mg/dL 20-150 N CHOLESTEROL (test code = CHOL) 148 mg/dL 0-200 N CHOLESTEROL/HDL RATIO (test code = CHOLHDL) 3.0 RATIO 0-4.9 N RISK ASSOCIATED WITH CHOL/HDL RATIOS: Risk Male Female1/2 AVERAGE 3.43 3.27AVERAGE 4.97 4.442X AVERAGE 9.55 7.053X AVERAGE 23.39 11.04 REFERENCE VALUE IS RELATED TO RISK LEVELS ASRECOMMENDED BY THE MIRELA. HEART, LUNG, AND BLOOD INST. HDL CHOLESTEROL (test code = HDL) 48 mg/dL 40-60 N LIPOPROTEIN LDL (test code = LDL) 85 mg/dL 100-129 L Reference Interval: mg/dL mmol/L Optimal <100 <2.6Near/above optimal 100-129 2.6- 3.3Borderline High 130-159 3.4-4.1High 160-189 4.1-4.9Very High >=190 >=4.9========= This LDL result is a direct measurement.========= [id number] 10:20:00* Test Item Value Reference Range Interpretation Comments GLYCOSYLATED HEMOGLOBIN (HA1C) (test code = GLYHGB) 6.0 % HbA1 SUGGESTED DIAGNOSIS: HbA1C (%) Diabetic >6.4Prediabetes 5.7 - 6.4Normal <5.7 ESTIMATED AVERAGE GLUCOSE (test code = EAG) 126 MG/DL [id number]-[id number] 02:31:00* Test Item Value Reference Range Interpretation Comments TROPONIN-I (test code = TROPI) <0.015 ng/mL 0-0.045 N COMMENTS TO ASSEMBLER FILTERS: COLLECT 3 HOURS AFTER PREVIOUS [id number] 22:55:00* Test Item Value Reference Range Interpretation Comments TROPONIN-I (test code = TROPI) <0.015 ng/mL 0-0.045 N COMMENTS TO ASSEMBLER FILTERS: COLLECT 3 HOURS AFTER PREVIOUS [id number] 18:08:00* Test Item Value Reference Range Interpretation Comments GLUBED (test code = GLUBED) 126 mg/dL 74-106 H Performed by certified covering machine operator helper at [facility] URINALYSIS [id number] 18:00:00* Test Item Value Reference Range Interpretation Comments UA COLOR (test code = COLU) Light-Yellow YELLOW UA APPEARANCE (test code = APPU) Cloudy CLEAR A UA GLUCOSE DIPSTICK (test code = DGLUU) 30 (Trace) mg/dL NEGATIVE A UA BILIRUBIN DIPSTICK (test code = BILU) NEGATIVE mg/dL NEGATIVE UA KETONE DIPSTICK (test code = KETU) NEGATIVE mg/dL NEGATIVE UA SPECIFIC GRAVITY (test code = SGU) 1.010 1.001-1.035 UA BLOOD DIPSTICK (test code = DEANNE) Negative mg/dL NEGATIVE UA PH DIPSTICK (test code = KRYSTEN) 7.0 5.0-8.0 UA PROTEIN DIPSTICK (test code = PROU) NEGATIVE mg/dL NEGATIVE UA UROBILINIOGEN DIPSTICK (test code = URO) Normal mg/dL NEGATIVE UA NITRITE DIPSTICK (test code = KYM) NEGATIVE NEGATIVE UA LEUKOCYTE ESTERASE W REFLEX (test code = LEUUR) NEGATIVE Landon/uL NEGATIVE UA WBC (test code = WBCU) 0-5 per HPF 0-5 UA RBC (test code = RBCU) 0-2 #/HPF 0-5 UA EPITHELIAL CELLS (test code = EPIU) FEW per HPF FEW UA BACTERIA (test code = BACU) MANY #/HPF NONE A UA MUCUS (test code = MUCU) FEW #/LPF FEW Urine Source? Clean CatchBASIC METABOLIC [id number] 16:02:00* Test Item Value Reference Range Interpretation Comments SODIUM (test code = NA) 143 mmol/L 136-145 N POTASSIUM (test code = K) 3.8 mmol/L 3.5-5.1 N CHLORIDE (test code = CL) 107.0 mmol/L 98-107 N CARBON DIOXIDE (test code = CO2) 28.0 mmol/L 21-32 N ANION GAP (test code = GAP) 11.8 10-20 N GLUCOSE (test code = GLU) 214 mg/dL 74-106 H BLOOD UREA NITROGEN (test code = BUN) 18 mg/dL 7-18 N GLOMERULAR FILTRATION RATE (test code = GFR) > 60 mL/min >=60 Estimated GFR by using Modified MDRD formula.Chronic kidney disease is defined as either kidney damageor GFR <60 mL/min/1.73 m2 for >3 months. CREATININE (test code = CREAT) 0.70 mg/dL 0.55-1.02 N Note change in reference range due to change in reagent. BUN/CREATININE RATIO (test code = BUN/CREA) 25.7 10-20 H CALCIUM (test code = CA) 8.8 mg/dL 8.5-10.1 N [id number] 16:02:00* Test Item Value Reference Range Interpretation Comments TROPONIN-I (test code = TROPI) <0.015 ng/mL 0-0.045 N CBC W/O [id number] 15:56:00* Test Item Value Reference Range Interpretation Comments WHITE BLOOD CELL (test code = WBC) K/mm3 4.5-12.5 RED BLOOD CELL (test code = RBC) mill/mm3 3.7-5.2 HEMOGLOBIN (test code = HGB) 11.7 gram/dL 11.5-15.5 N HEMATOCRIT (test code = HCT) 37.1 % 36.0-46.0 N MEAN CELL VOLUME (test code = MCV) fL 80-98 MEAN CELL HGB (test code = MCH) picogram 27.0-33.0 MEAN CELL HGB CONCETRATION (test code = MCHC) gram/dL 33.0-36. 0 RED CELL DISTRIBUTION WIDTH (test code = RDW) % 11.6-16. 2 PLATELET COUNT (test code = PLT) K/mm3 150-450 MEAN PLATELET VOLUME (test code = MPV) fL 6.7-11.0 CBC W/O [id number] 15:56:00* Test Item Value Reference Range Interpretation Comments WHITE BLOOD CELL (test code = WBC) 7.7 K/mm3 4.5-12.5 N RED BLOOD CELL (test code = RBC) 3.85 mill/mm3 3.7-5.2 N HEMOGLOBIN (test code = HGB) 11.7 gram/dL 11.5-15.5 N HEMATOCRIT (test code = HCT) 37.1 % 36.0-46.0 N MEAN CELL VOLUME (test code = MCV) 96.4 fL 80-98 N MEAN CELL HGB (test code = MCH) 30.4 picogram 27.0-33.0 N MEAN CELL HGB CONCETRATION (test code = MCHC) 31.5 gram/dL 33.0-36. 0 L RED CELL DISTRIBUTION WIDTH (test code = RDW) 13.9 % 11.6-16. 2 N PLATELET COUNT (test code = PLT) 169 K/mm3 150-450 N MEAN PLATELET VOLUME (test code = MPV) 11.2 fL 6.7-11.0 H BASIC METABOLIC [id number] 15:53:00* Test Item Value Reference Range Interpretation Comments SODIUM (test code = NA) 143 mmol/L 136-145 N POTASSIUM (test code = K) 3.8 mmol/L 3.5-5.1 N CHLORIDE (test code = CL) 107.0 mmol/L 98-107 N CARBON DIOXIDE (test code = CO2) mmol/L 21-32 ANION GAP (test code = GAP) 10-20 GLUCOSE (test code = GLU) mg/dL 74-106 BLOOD UREA NITROGEN (test code = BUN) mg/dL 7-18 GLOMERULAR FILTRATION RATE (test code = GFR) mL/min >=60 CREATININE (test code = CREAT) mg/dL 0.55-1.02 BUN/CREATININE RATIO (test code = BUN/CREA) 10-20 CALCIUM (test code = CA) mg/dL 8.5-10.1 [id number] 15:53:00* Test Item Value Reference Range Interpretation Comments TROPONIN-I (test code = TROPI) ng/mL 0-0.045 - XR CHEST 1 [id number] 15:01:00 FAX: Adrien Ellis MD [phone] [place]: B St: [facility] FAX: Radha Yusuf DO Name: ELVI MORENO [facility] : 1940 Age/S: 78/F [address] [facility] Unit #: [id number] Loc: [place] [address] Phys: Radha Yusuf DO Acct: [id number] Dis Date: Status: REG ER PHONE #: [phone] Exam Date: 06/24/2019 1436 FAX #: [phone] Reason: CHEST PAIN EXAMS: CPT CODE: [id number] XR CHEST 1 V 36252 EXAM: Chest x-ray, one view; INFORMATION: Chest pain; IMPRESSION: 1. The heart is slightly decreased in size compared with a study from May 18, 2019. Moderate cardiomegaly remains. 2. Status post Watchman implant; 3. No further significant change; prominent hilar and redistribution of blood flow to the upper lobes, indicating mild left heart failure. No pulmonary edema. 4. Status post right shoulder arthroplasty. Location code: [facility] at 1501 Reported and signed by: Macario Dubose M.D. CC: Adrien Gonzalez MD; Radha Yusuf DO Technologist: RT CLAYTON( Lesly) Trnscrd Date/Time/By: 06/24/2019 (1501) : By: Scar AGUILAR Orig Print D/T: S: 06/24/2019 (1502) PAG E 1 Signed Report POC [id number] 16:41:14* Test Item Value Reference Range Interpretation Comments POC glucose (test code = 17192-4) 210 mg/dL 65-99 H Senior Linux Unix Administrator Name: Buster Devries ID: [id number] Lab Interpretation (test code = 17477-0) Abnormal [place] [facility] Thor[facility] Spine Wo Dtqpgmdg2307-09-10 15:33:10Hm Interface, Radiology Results 05/27/2019 3:36 PM CSTEXAMINATION: MRI THORACIC SPINE WO CONTRASTCLINICAL HISTORY: T-spine fx pathological, eval for chronicity of FxCOMPARISON: CT thoracic spine yesterday.FINDINGS:Sagittal T1, T2, STIR, axial T1, T2 MR images of the thoracic spine obtained without IV co ntrast.The thoracic arthrosis is maintained. There are no subluxations. Superior endplate compression of T3 vertebral body is without associated marrow edema. H eight loss is approximately 20%. The remaining vertebral body heights are within normal limits. No acute marrow signal abnormalities are present. There is gener alized mild disc height loss without disc protrusions. No canal foraminal stenos is seen at all levels. The spinal cord is normal signal and volume. Paravertebra l soft tissues unremarkable.IMPRESSION:No acute findings.Chronic superior endpla te compression fracture of T3 vertebral body.[id number] [facility] W [id number] 15:17:07Hm Interface, Radiology Results 05/27/2019 3:20 PM CSTStudy:CT CHEST W CONTRASTHistory: right lung massCOMPARISON: CT thoracic spine yesterdayTECHNIQUE: Multiple axial CT images of the chest performed With IV contrast.. Coronal and sagittal reconstructions were done. CT imaging was performed with iterative reconstruction technique and/or automated exposure control to reduce radiation dose.FINDINGS:LUNGS: The opacity in the medial right lower lobe mentioned in the CT thoracic spine yesterday is improved and thinner up to 7 mm in width probably due to improving atelectasis. There is some mild atelectasis of the lung bases. No consolidation, pleural effusion, or pneumothorax. There are no suspicious pulmonary nodules or pulmonary mass.AIRWAYS: No central endobronchial or endotracheal lesions are seen.MEDIASTINUM: The thoracic aorta is without aneurysm or dissection. Cardiac enlargement with significant atherosclerosis of coronary arteries. No significant pericardial effusion is present. No enlarged mediastinal or hilar lymph nodes present. The esophagus is unremarkable.BONES AND OVERLYING SOFT TISSUES: Compression deformity of the superior endplate of T3 mentioned in the S VC exam. Other visualized bones without acute abnormality. No enlarged axillary lymph nodes present.VISUALIZED LOWER NECK AND UPPER ABDOMEN:Unremarkable.IMPRESS ION:Improving focal atelectasis in the medial right lower lobe. No significant a cute or suspicious findings in the lungs.[id number] [facility] myocardial [id number] 17:19:46* Test Item Value Reference Range Interpretation Comments Target HR (test code = 5490787341) 144.00 bpm Resting HR (test code = 1193471961) 86 BPM Resting BP (test code = 1114868526) 171/67 mmHg BECKI (test code = BECKI) The study is normal. Th is study result indicates a low risk of cardiac , or nonfatal infarction, over the ensuing year. SPECT images demonstrate a normal perfusion study. [facility]CT Thoracic Spine Wo Yobufwpa2369-16-81 16:01:53Hm Interface, Radiology Results 05/26/2019 4:04 PM CSTEXAMINATION: CT THORACIC SPINE WO CONTRASTCLINICAL HISTORY: back pain. T3 compression.COMPARISON: None.TECHNIQUE:Axial helical CT images throughout the thoracic spine were performed without IV contrast. Sagittal and coronal reformatted images were gen erated.All CT images were acquired using low-dose technique with automated expos ure control.IMPRESSION:There is a superior endplate compression deformity of T3 level with about 20% height loss with no retropulsion. The acuity of this fractu re cannot be determined. If clinically warranted evaluation with MRI of the thor acic spine is recommended.The remaining thoracic vertebral bodies are intact and demonstrates normal height.There is diffuse demineralization of the bone compat ible with osteopenia/osteoporosis. There is no focal bone lesion.No significant spondylosis is appreciated. Intervertebral disc spaces are relatively preserved. There is incidental spiculated peripheral lung lesion involving the medial aspec t of the right lower lobe measuring approximately 1.8 cm. Further evaluation wit h CT of the chest is recommended.[id number] MethodistCv stress test 2019-05-26 14:53:15* Test Item Value Reference Range Interpretation Comments Resting BP (test code = 8637563446) Protocol Name (test code = 7047403044) LEXISCAN Time in Exercise Phase (test code = 0166471100) 00:01:07 Max Systolic BP (test code = 3862893793) 171 Max Diastolic BP (test code = 4189511286) -1 Max Heart Rate (test code = 2435016830) 113 Max Predicted Heart Rate (test code = 0563134810) 144 Test Indication (test code = 0858083661) Arrhy During Ex (test code = 6926838844) ECG Interp Before EX (test code = 8913407383) ECG Interp During Ex (test code = 8716275507) Ex Summary Comment (test code = 3514948571) Overall HR Response to Exercise (test code = 4279637464) Overall BP Response To Exercise (test code = 2894413993) Reason for Termination (test code = 1027076068) Stress Test Impression (test code = 6989286110) Reason for Termination: - Comments: --Waveform interpreted in report associated with image study. No interpretation is provided as part of this Stress ECG report.-Electronically Signed By Nadine Miller MD ([id number]), senior technical editor Christy Michelle ([id number]) on 05/26/2019 2:53:12 PM [facility] MethodistBasic metabolic nunvp2132-06-00 10:55:47* Test Item Value Reference Range Interpretation Comments Sodium (test code = 2951-2) 140 135- 148 mEq/L Potassium (test code = 2823-3) 4.3 3.5- 5.0 mEq/L Chloride (test code = 2075-0) 103 98- 112 mEq/L CO2 (test code = 2027-9) 28 24- 31 mEq/L Anion gap (test code = 04067-5) 9@ANIO 7- 15 mEq/L BUN (test code = 3094-0) 14 mg/dL 8-23 Creatinine (test code = 2160-0) 0.60 mg/dL 0.5-0.9 Glucose (test code = 2345-7) 143 mg/dL 65-99 H Calcium (test code = 59216-9) 9.7 mg/dL 8.8-10.2 Lab Interpretation (test code = 21640-4) Abnormal [place] MethodistEstimated [id number] 10:55:47* Test Item Value Reference Range Interpretation Comments Estimated GFR (test code = 5488) 88 mL/min/1.73 m2 Catergory Units InterpretationG1 >=90 Normal or highG2 60-89 Mildly vnfgsrsdgT3b 45-59 Mildly to moderately ytayjjuxxV9q 30-44 Moderately to severely decreasedG4 15-29 Severely decreasedG5 <15 Kidney failureThe eGFR was calculated using the Chronic Kidney Disease Epidemiology Collaboration (CKD-EPI) equation. Interpretation is based on recommendations of the National Kidney Foundation-Kidney Disease Outcomes Quality Initiative (NKF-KDOQI) published in 2014. [facility] MethodistCBC with platelet and wzmcocesvzmi0870-42-62 10:38:10* Test Item Value Reference Range Interpretation Comments WBC (test code = 77003-9) 9.77 4.50- 11.00 k/uL RBC (test code = 81159-8) 3.80 m/uL 4.2-5.5 L HGB (test code = 718-7) 11.7 g/dL 12-16 L HCT (test code = 4544-3) 37.0 % 37-47 MCV (test code = 787-2) 97.4 fL 82-100 MCH (test code = 785-6) 30.8 pg 27-34 MCHC (test code = 786-4) 31.6 g/dL 31-37 RDW - SD (test code = 39058-3) 52.8 fL 37-55 MPV (test code = 90108-3) 11.1 fL 8.8-13.2 Platelet count (test code = 22046-2) 175 150- 400 k/uL Nucleated RBC (test code = 81571-1) 0.00 /100 WBC Neutrophils (test code = 02354-5) 68.5 % 39-69 Lymphocytes (test code = 59099-9) 16.7 % 25-45 L Monocytes (test code = 70464-5) 9.8 % 0-10 Eosinophils (test code = 24171-3) 3.6 % 0-5 Basophils (test code = 33680-1) 0.5 % 0-1 Lab Interpretation (test code = 42560-5) Abnormal [place] MethodistC-reactive hpwwopz6172-27-09 12:05:36* Test Item Value Reference Range Interpretation Comments CRP (test code = 1988-5) 0.73 mg/dL 0-0.5 H Lab Interpretation (test code = 64665-9) Abnormal [place] MethodistSedimentation qkts5104-55-30 06:05:31* Test Item Value Reference Range Interpretation Comments Sedimentation rate (test code = 33089-2) 2 0- 20 mm/hr [place] MethodistCTA Head W Wo Olmymzkx8476-09-58 18:01:40Hm Interface, Radiology Results 05/24/2019 6:04 PM CSTEXAMINATION: CT ANGIOGRAM HEAD W WO CONTRASTCLINICAL HISTORY: pulsatile tinnitus on the left altered mental statusCOMPARISON: NoneTECHNIQUE: Imaging of the intracranial ci rculation was obtained from the skull base to the vertex during the arterial pha se of enhancement. MIP multiplanar and 3D reconstructed images were performed on a separate workstation.CT imaging was performed with iterative reconstruction t echniques and/or automated exposure control to reduce radiation dose.FINDINGS:At herosclerotic calcifications are noted in the intracranial ICAs. Mild atheroscle rotic narrowing is noted in the siphons.No proximal branch occlusion or high-gra de stenosis of the branches of the knik of Estrella is seen.The left vertebral a rtery is dominant. There is severe focal stenosis in the left V4 segment.The rig ht vertebral artery is hypoplastic and is stenotic or occluded for a short segme nt distal to the right PICA origin. 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 Axial reconstructio ns and multiplanar reformats R provided.CT imaging was performed with iterative reconstruction techniques and/or automated exposure control to reduce radiation dose.The dural venous sinuses an deep cerebral veins are patent. No stenosis is identified.IMPRESSION: Unremarkable CT venogram of the brain.[facility]-[id number] [place] MethodistECG 12 lpkw3789-19-98 21:56:48* Test Item Value Reference Range Interpretation Comments Ventricular rate (test code = 253) 90 Atrial rate (test code = 255) 90 GA interval (test code = 266) 168 QRSD interval (test code = 260) 160 QT interval (test code = 264) 432 QTC interval (test code = 265) 528 QRS axis 1 (test code = 268) -7 T wave axis (test code = 270) 161 EKG impression (test code = 273) Normal sinus rhythm-L eft bundle branch block- Abnormal ECG Lateral infarct-In automated comparison with ECG of 23-MAY-2019 20:11,-Sinus rhythm has replaced Ectopic atrial rhythm- [facility] MethodistXR Hip 2-3 View Hvmui1846-00-55 17:17:26Hm Interface, Radiology Results 05/23/2019 5:20 PM CSTEXAMINATION: XR HIP 2-3 VIEWS RIGHTCLINICAL HISTORY: trauma painCOMPARISON: NoneIMPRESSION:Femoral heads are seated well within the acetabula with mild bilateral hip joint osteoarthritis. 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 No periprosthetic fracture or osteolysis. Healed right fourth posterior rib fracture. Moderate right acromioclavicular joint osteoarthritis. Heterotopic ossification versus loose body along the axillary recess is unchanged.[place] MethodistXR Tibia Fibula 2 Vw Enjzd7251-19-01 17:14:56Hm Interface, Radiology Results - 05/23/2019 5:18 PM CSTEXAMINATION: XR TIBIA FIBULA 2 VW RIGHTCLINICAL HISTORY: trauma painCOMPARISON: NoneIMPRESSION:No acute fracture. Healed and internally fixated patellar fracture with pins and wiring with fracture of the wires appear margin. Alignment appears intact. Scattered vascular calcifications. Posterior calcaneal spur formation.[place] MethodistMRI Brain Wo Eljwqvkt8477-25-06 16:39:25Hm Interface, Radiology Results - 05/23/2019 4:42 PM CSTEXAMINATION: MRI BRAIN WO CONTRASTCLINICAL HISTORY: Altered mental status aggressive behavi orCOMPARISON: MRI dated 12/09/2016IMAGING DEVICE: 3.0 Unique MR. 3-D reconstructi ons were processed off-lineTECHNIQUE: Multiplanar and multisequence MRI imaging of the brain obtained.CONTRAST: No IV contrast administered.FINDINGS:CEREBRUM:* No evident edema, hemorrhage, mass, midline shift or acute infarction*Mild symme tric supratentorial volume loss with subcortical and periventricular T2 hyperint ensities representing chronic microangiopathic changes.*Other significant findin gsCEREBELLUM: *No evident edema, hemorrhage, mass, midline shift or acute infarc tion*No evidence of inappropriate atrophy.BRAINSTEM: *No evident edema, hemorrha ge, mass, midline shift or acute infarction*No evidence of inappropriate atrophy .CSF SPACES: *Ventricles, cisterns, and sulci are appropriate for age.*No hydr ocephalus, subarachnoid hemorrhage, or mass.*Bilateral lateral ventricle choroid plexus Xanthogranulomatous changes as anatomic variantVASCULAR: *Limited asse ssment with no evident abnormalities of knik of Estrella and dural sinuses. SKUL L: *Hyperostosis frontalis interna. No mass, displaced fractures or other vis ible lesion.SINUSES: *Limited views demonstrate minimal mucosal thickening the l eft sphenoid sinus. No mass.ORBITS: *Limited views shows bilateral intraocular lens prosthesis. 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 Negative for acute int racranial abnormalities2. Mild symmetric supratentorial volume loss with mild mi croangiopathy changes3. Diffuse mucosal thickening involving the left sphenoid s inus4. No other significant [id number] MethodistCT Cervical Spine Wo Kyfmtjrf9725-45-93 16:01:58Hm Interface, Radiology Results 05/23/2019 4:05 PM CSTEXAMINATION: CT CERVICAL SPINE WO CONTRASTCLINICAL HISTORY: trauma painCOMPARISON: None.TECHNIQUE: CT imaging was performed with iterative reconstruction technique and/or automated exposure control to reduce radiation dose.Findings:Spinal canal contents and ligamentous structures are suboptimally evaluated on CT.No acute fractures of the cervical spine.Mild retrolisthesis at C4-5.Multilevel endplate Schmorl's nodes.Multilevel degenerative changes.Mild T3 superior endplate compression deformity of undetermined age.IMPRESSION:No acute fractures of the cervical spine.Mild T3 superior endplate compression deformity of undetermined age. This can be further evaluated with MRI or bone scan.OPC-MPV3296MMLKvivtgk MethodistEEG (routine) 2019-05-23 09:04:25This is a normal electroencephalogram recorded in the drowsy and asleep state. No epileptiform activity is seen. Lashonda Medina MD REFERRING PHYSICIAN:Lashonda Medina MD INTRODUCTION:The patient is a 78-year-old lady with altered mental status. EEG was performed to evaluate for seizures or other focal abnormalities. TECHNIQUE:This is a routine electroencephalogram recorded using the International 10/20 electrode placement system. The EEG is technically limited due to myogenic and electrode related artifacts. FINDINGS:The background is diffusely slow, reactive and symmetric consisting of frequencies in the theta and delta range. No posterior dominant rhythm is seen. During sleep, K complexes and sleep spindles present, which are symmetrical. No obvious epileptiform discharges, focal or lateralizing abnormalities are seen, within the limitations of the study. Photic stimulation was performed with no abnormalities elicited. [place] MethodistComprehensive metabolic pybwy0899-34-77 07:33:17* Test Item Value Reference Range Interpretation Comments Sodium (test code = 2951-2) 141 135- 148 mEq/L Potassium (test code = 2823-3) 4.5 3.5- 5.0 mEq/L Chloride (test code = 2075-0) 103 98- 112 mEq/L CO2 (test code = 2027-9) 29 24- 31 mEq/L Anion gap (test code = 19348-6) 9@ANIO 7- 15 mEq/L BUN (test code = 3094-0) 13 mg/dL 8-23 Creatinine (test code = 2160-0) 0.70 mg/dL 0.5-0.9 Glucose (test code = 2345-7) 194 mg/dL 65-99 H Calcium (test code = 80087-8) 9.5 mg/dL 8.8-10.2 Protein (test code = 2885-2) 5.8 g/dL 6.3-8.3 L Vhaoakw8239.6-7.0 g/dL1 ageg3898.4-7.6 g/dL7 months-5vxfk462.1-7.3 g/dL1-2 uvswv801.6-7.5 g/dL>3 .0-8.0 g/eU80-7256164.3-8.3 g/dL Albumin (test code = 1751-7) 3.3 g/dL 3.5-5 L A/G ratio (test code = 1759-0) 1.3 0.7-3.8 Alkaline phosphatase (test code = 6768-6) 52 U/L 35-104 AST (test code = 1920-8) 23 U/L 10-35 ALT (test code = 1742-6) 23 U/L 5-50 Total bilirubin (test code = 1974-2) 1.1 mg/dL 0-1.2 Lab Interpretation (test code = 56942-1) Abnormal [place] MethodistLipid wgtvi2317-23-03 07:33:17* Test Item Value Reference Range Interpretation Comments Cholesterol (test code = 2093-3) 124 mg/dL <200 Triglycerides (test code = 2571-8) 108 mg/dL <150 A HDL cholesterol (test code = 2085-9) 37 mg/dL >40 L LDL cholesterol (test code = 2088-1) 80 mg/dL <100 Result obtained by direct LDL measurement Lipid panel interpretation (test code = 24231-5) SeeBelow Total Cholesterol (mg/dL) <200 Desirable 200-239 Borderline-high >=240 High Triglycerides (mg/dL) <150 Normal 150-199 Borderline-high 200-499 High >=500 Very high HDL Cholesterol (mg/dL) <40 Low (male) <40 Low (female) LDL Cholesterol (mg/dL) <100 Optimal 100-129 Near or above optimal 130-159 Borderline-high 160-189 High >=190 Very high Risk Catergories that modify LDL goals.Risk Catergories LDL goal (mg/dL)CHD and CHD risk equivalent <100 (10-year risk >20%)Multiple (2+) risk factors <130 (10-year risk =<20%)0-1 risk factors <160 (<10-year risk) Defining levels of lipids in metabolic syndromeTriglycerides >=150 mg/dLHDL Cholesterol Men <40 mg/dL Women <40 mg/dL Non-HDL cholesterol is a second target for therapy in personswith high triglycerides (>=200 mg/dL) Lab Interpretation (test code = 45413-0) Abnormal [facility]it[facility] B12 [id number] 18:31:11* Test Item Value Reference Range Interpretation Comments Vitamin B12 (test code = 2132-9) 541 pg/mL 211-946 Significant overlap exists between normal and deficiency states.However, most patients with deficiencies will have Serum B12 <200 pg/mL. [facility] MethodistAmmonia [id number] 18:12:21* Test Item Value Reference Range Interpretation Comments Ammonia (test code = 1841-6) 27 umol/L 11-51 [place] [facility] MethodistThyroid stimulating [id number] 17:29:11* Test Item Value Reference Range Interpretation Comments TSH (test code = 3016-3) 1.91 0.27- 4.20 uIU/mL [place] [id number] 08:41:07* Test Item Value Reference Range Interpretation Comments Troponin (test code = 03082-2) 0.067 ng/mL 0-0.04 H In patients suspected of having a myocardial infarction, along with all other appropriate clinical measures and actions including ECG and other diagnostics as appropriate, measure Ultra TnI at 0 hrs and at 3 hrs.Myocardial infarction VERY LIKELYThe 0 hr TnI level is > 0.10 ng/mL Romeo cardial infarction LIKELYThe 0 hr TnI level is > 0.04 ng/mL and 3 hr level is increased or decreased by at least 0.020 ng/mL Myocardi al infarction VERY UNLIKELYBoth the 0 hr and 3 hr TnI levels <= 0.04 ng/mL(within normal limits) OR 0 hr is > 0.04 ng/mL and 3 hr is increased OR decreased by less than 0.020 ng/mL Lab Interpretation (test code = 49608-8) Abnormal [facility] Head Wo [id number] 04:19:21Hm Interface, Radiology Results 05/22/2019 4:22 AM CSTExamination: CT HEAD WO CONTRASTClinical History: change in mental statusComparison: 12/08/2016CT scan of the brain was performed without intravenous contrast.CT scans are performed using radiation dose reduction techniques. Technical factors are evaluated and adjusted to ensure appropriate moderation of exposure. Automated dose m anagement technology is applied to adjust radiation exposure while achieving a d iagnostic quality image. CT imaging was performed with iterative reconstruction techniques and/or automated exposure control to reduce radiation dose.No mass e ffect or midline shift is seen.The ventricles are normal in size.No intracranial hemorrhage is seen.Bilateral periventricular low densities of the white matter are noted.Whalen-white junctions are preserved.Diffuse volume loss is noted.IMPRES ROSY: 1. 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 There is no significant joslyn nge from the prior study.[facility]-[id number] MethodistCreatine kinase, total (CPK)2019-05-22 02:46:06* Test Item Value Reference Range Interpretation Comments Creatine kinase (test code = 2157-6) 55 U/L 26-192 [place] [facility] MethodistXR Chest 1 Vw [id number] 02:45:50Hm Interface, Radiology Results - 05/22/2019 2:48 AM CSTExamination: XR CHEST 1 VW PORTABLEClinical History: SOBComparison: None.Technique: Single frontal view of the chest is obtained.Findings:Cardiomegaly with mild vascular crowding or congestion are noted.No pleural effusion is seen.No pneumothorax is se en.Impression:Cardiomegaly with mild vascular crowding or congestion.[facility]-[id number] MethodistUrine [id number] 02:44:59* Test Item Value Reference Range Interpretation Comments Urine culture (test code = 3717884) SEE COMMENT Bacteriuria screen negative. [place] MethodistUrinalysis screen and microscopy, with reflex to culture 2019-05-22 02:44:57* Test Item Value Reference Range Interpretation Comments Specimen site (test code = 8834998) Clean catch Color, UA (test code = 5778-6) Yellow Appearance, UA (test code = 5767-9) Clear Specific gravity, UA (test code = 5811-5) 1.011 1.001-1.035 pH, UA (test code = 5803-2) 7.0 5.0-8.5 Protein, UA (test code = 67320-0) Negative Negative Glucose, UA (test code = 90486-1) Negative Negative Ketones, UA (test code = 2514-8) Negative Negative Bilirubin, UA (test code = 5770-3) Negative Negative Blood, UA (test code = 5794-3) Negative Negative Nitrite, UA (test code = 5802-4) Negative Negative Urobilinogen, UA (test code = 15570-8) 2.0 <2.0 A Leukocyte esterase, UA (test code = 5799-2) Negative Negative Epithelial cells, UA (test code = 5787-7) Moderate Few /HPF WBC, UA (test code = 5821-4) 0-5 0- 4 /HPF RBC, UA (test code = 44364-9) 0-5 0- 5 /HPF Bacteria, UA (test code = 27880-3) Few None seen Yeast, UA (test code = 35406-5) None seen Yeast with pseudohyphae, UA (test code = 97353-8) None seen Lab Interpretation (test code = 25267-2) Abnormal [place] MethodistBASIC METABOLIC [id number] 12:15:00* Test Item Value Reference Range Interpretation Comments SODIUM (test code = NA) 139 mmol/L 136-145 N POTASSIUM (test code = K) 4.1 mmol/L 3.5-5.1 N CHLORIDE (test code = CL) 104.0 mmol/L 98-107 N CARBON DIOXIDE (test code = CO2) 27.0 mmol/L 21-32 N ANION GAP (test code = GAP) 12.1 10-20 N GLUCOSE (test code = GLU) 329 mg/dL 74-106 H BLOOD UREA NITROGEN (test code = BUN) 26 mg/dL 7-18 H GLOMERULAR FILTRATION RATE (test code = GFR) 48 mL/min >=60 Estimated GFR by using Modified MDRD formula.Chronic kidney disease is defined as either kidney damageor GFR <60 mL/min/1.73 m2 for >3 months. CREATININE (test code = CREAT) 1.10 mg/dL 0.55-1.02 H Note change in reference range due to change in reagent. BUN/CREATININE RATIO (test code = BUN/CREA) 23.6 10-20 H CALCIUM (test code = CA) 8.9 mg/dL 8.5-10.1 N BASIC METABOLIC [id number] 12:10:00* Test Item Value Reference Range Interpretation Comments SODIUM (test code = NA) 139 mmol/L 136-145 N POTASSIUM (test code = K) 4.1 mmol/L 3.5-5.1 N CHLORIDE (test code = CL) 104.0 mmol/L 98-107 N CARBON DIOXIDE (test code = CO2) mmol/L 21-32 ANION GAP (test code = GAP) 10-20 GLUCOSE (test code = GLU) mg/dL 74-106 BLOOD UREA NITROGEN (test code = BUN) mg/dL 7-18 GLOMERULAR FILTRATION RATE (test code = GFR) mL/min >=60 CREATININE (test code = CREAT) mg/dL 0.55-1.02 BUN/CREATININE RATIO (test code = BUN/CREA) 10-20 CALCIUM (test code = CA) mg/dL 8.5-10.1 CBC W/AUTO [id number] 11:44:00* Test Item Value Reference Range Interpretation Comments WHITE BLOOD CELL (test code = WBC) 21.7 K/mm3 4.5-12.5 H RED BLOOD CELL (test code = RBC) 4.51 mill/mm3 3.7-5.2 N HEMOGLOBIN (test code = HGB) 13.5 gram/dL 11.5-15.5 N HEMATOCRIT (test code = HCT) 42.2 % 36.0-46.0 N MEAN CELL VOLUME (test code = MCV) 93.6 fL 80-98 N MEAN CELL HGB (test code = MCH) 29.9 picogram 27.0-33.0 N MEAN CELL HGB CONCETRATION (test code = MCHC) 32.0 gram/dL 33.0-36. 0 L RED CELL DISTRIBUTION WIDTH (test code = RDW) 15.5 % 11.6-16. 2 N RED CELL DISTRIBUTION WIDTH SD (test code = RDW-SD) 53.1 fL 37 .0-51.0 H PLATELET COUNT (test code = PLT) 280 K/mm3 150-450 N MEAN PLATELET VOLUME (test code = MPV) 11.1 fL 6.7-11.0 H NEUTROPHIL % (test code = NT%) 83.9 % 39.0-69.0 H IMMATURE GRANULOCYTE % (test code = IG%) 1.0 % 0.0-5.0 N LYMPHOCYTE % (test code = LY%) 6.9 % 25.0-55.0 L MONOCYTE % (test code = MO%) 8.0 % 0.0-10.0 N EOSINOPHIL % (test code = EO%) 0.0 % 0.0-5.0 N BASOPHIL % (test code = BA%) 0.2 % 0.0-1.0 N NUCLEATED RBC % (test code = NRBC%) 0.0 % 0-0 N NEUTROPHIL # (test code = NT#) 18.23 K/mm3 1.8-7.7 H IMMATURE GRANULOCYTE # (test code = IG#) 0.22 x10 3/uL 0-0.03 H LYMPHOCYTE # (test code = LY#) 1.50 K/mm3 1.0-5.0 N MONOCYTE # (test code = MO#) 1.73 K/mm3 0-0.8 H EOSINOPHIL # (test code = EO#) 0.01 K/mm3 0.0-0.5 N BASOPHIL # (test code = BA#) 0.04 K/mm3 0.0-0.2 N NUCLEATED RBC # (test code = NRBC#) 0.00 K/mm3 0.0-0.1 N MANUAL DIFF REQUIRED (test code = MDIFF) NO CBC W/AUTO [id number] 11:39:00* Test Item Value Reference Range Interpretation Comments WHITE BLOOD CELL (test code = WBC) K/mm3 4.5-12.5 RED BLOOD CELL (test code = RBC) mill/mm3 3.7-5.2 HEMOGLOBIN (test code = HGB) 13.5 gram/dL 11.5-15.5 N HEMATOCRIT (test code = HCT) 42.2 % 36.0-46.0 N MEAN CELL VOLUME (test code = MCV) fL 80-98 MEAN CELL HGB (test code = MCH) picogram 27.0-33.0 MEAN CELL HGB CONCETRATION (test code = MCHC) gram/dL 33.0-36. 0 RED CELL DISTRIBUTION WIDTH (test code = RDW) % 11.6-16. 2 RED CELL DISTRIBUTION WIDTH SD (test code = RDW-SD) fL 37 .0-51.0 PLATELET COUNT (test code = PLT) K/mm3 150-450 MEAN PLATELET VOLUME (test code = MPV) fL 6.7-11.0 NEUTROPHIL % (test code = NT%) % 39.0-69.0 IMMATURE GRANULOCYTE % (test code = IG%) % 0.0-5.0 LYMPHOCYTE % (test code = LY%) % 25.0-55.0 MONOCYTE % (test code = MO%) % 0.0-10.0 EOSINOPHIL % (test code = EO%) % 0.0-5.0 BASOPHIL % (test code = BA%) % 0.0-1.0 NEUTROPHIL # (test code = NT#) K/mm3 1.8-7.7 LYMPHOCYTE # (test code = LY#) K/mm3 1.0-5.0 MONOCYTE # (test code = MO#) K/mm3 0-0.8 EOSINOPHIL # (test code = EO#) K/mm3 0.0-0.5 BASOPHIL # (test code = BA#) K/mm3 0.0-0.2 [id number] 11:34:00* Test Item Value Reference Range Interpretation Comments GLUBED (test code = GLUBED) 272 mg/dL 74-106 H Performed by certified covering machine operator helper at [facility] [id number] 08:04:00* Test Item Value Reference Range Interpretation Comments GLUBED (test code = GLUBED) 206 mg/dL 74-106 H Performed by certified covering machine operator helper at [facility] [id number] 20:15:00* Test Item Value Reference Range Interpretation Comments GLUBED (test code = GLUBED) 329 mg/dL 74-106 H Performed by certified covering machine operator helper at [facility] [id number] 18:10:00* Test Item Value Reference Range Interpretation Comments GLUBED (test code = GLUBED) 427 mg/dL 74-106 H Performed by certified covering machine operator helper at [facility] - XR CHEST 1 [id number] 14:58:00 FAX: Ej Addison MD [phone] [place]: B St: ADM FAX: Adrien Ellis MD [phone] Name: ELVI MORENO [facility] : 1940 Age/S: 78[facility] [address] [facility]: [id number] Loc: [id number].3110 [place] [address] Phys: Ej Addison MD Acct: [id number] Dis Date: Status: ADM IN PHONE #: [phone] Exam Date: 05/18/2019 1450 FAX #: [phone] Reason: SOB EXAMS: CPT CODE: [id number] XR CHEST 1 V 92256 HISTORY: Shortness of breath TECHNIQUE: AP chest x-ray COMPARISON: 05/15/19 FINDINGS: No airspace consolidation or pleural effusion. Cardiomegaly Atherosclerotic vascular calcification of the thoracic aorta. Thoracic spondylosis. Right gl enohumeral arthroplasty. IMPRESSION: No acute findings or significant interval change. L OCATION: LP Electronically Signed by Alisha Avila D.O. on at 4935 Reported and signed by: Alisha Avila D.O. CC: Ej Addison MD; Adrien Gonzalez MD chnologist: MARYCARMEN MARS(R) Trnscrd Date/ Time/By: 05/18/2019 (4795) : By: [email or web address] Orig Print D/T: S: 05/18/19 (3853) PAGE 1 Signed Report BASIC METABOLIC [id number] 13:41:00* Test Item Value Reference Range Interpretation Comments SODIUM (test code = NA) 140 mmol/L 136-145 N POTASSIUM (test code = K) 4.1 mmol/L 3.5-5.1 N CHLORIDE (test code = CL) 105.0 mmol/L 98-107 N CARBON DIOXIDE (test code = CO2) 29.0 mmol/L 21-32 N ANION GAP (test code = GAP) 10.1 10-20 N GLUCOSE (test code = GLU) 271 mg/dL 74-106 H BLOOD UREA NITROGEN (test code = BUN) 22 mg/dL 7-18 H GLOMERULAR FILTRATION RATE (test code = GFR) 54 mL/min >=60 Estimated GFR by using Modified MDRD formula.Chronic kidney disease is defined as either kidney damageor GFR <60 mL/min/1.73 m2 for >3 months. CREATININE (test code = CREAT) 1.00 mg/dL 0.55-1.02 N Note change in reference range due to change in reagent. BUN/CREATININE RATIO (test code = BUN/CREA) 22.0 10-20 H CALCIUM (test code = CA) 8.9 mg/dL 8.5-10.1 N BASIC METABOLIC [id number] 13:16:00* Test Item Value Reference Range Interpretation Comments SODIUM (test code = NA) 140 mmol/L 136-145 N POTASSIUM (test code = K) 4.1 mmol/L 3.5-5.1 N CHLORIDE (test code = CL) 105.0 mmol/L 98-107 N CARBON DIOXIDE (test code = CO2) mmol/L 21-32 ANION GAP (test code = GAP) 10-20 GLUCOSE (test code = GLU) mg/dL 74-106 BLOOD UREA NITROGEN (test code = BUN) mg/dL 7-18 GLOMERULAR FILTRATION RATE (test code = GFR) mL/min >=60 CREATININE (test code = CREAT) mg/dL 0.55-1.02 BUN/CREATININE RATIO (test code = BUN/CREA) 10-20 CALCIUM (test code = CA) mg/dL 8.5-10.1 CBC W/AUTO [id number] 12:29:00* Test Item Value Reference Range Interpretation Comments WHITE BLOOD CELL (test code = WBC) 12.6 K/mm3 4.5-12.5 H RED BLOOD CELL (test code = RBC) 4.36 mill/mm3 3.7-5.2 N HEMOGLOBIN (test code = HGB) 13.3 gram/dL 11.5-15.5 N HEMATOCRIT (test code = HCT) 41.3 % 36.0-46.0 N MEAN CELL VOLUME (test code = MCV) 94.7 fL 80-98 N MEAN CELL HGB (test code = MCH) 30.5 picogram 27.0-33.0 N MEAN CELL HGB CONCETRATION (test code = MCHC) 32.2 gram/dL 33.0-36. 0 L RED CELL DISTRIBUTION WIDTH (test code = RDW) 15.5 % 11.6-16. 2 N RED CELL DISTRIBUTION WIDTH SD (test code = RDW-SD) 53.6 fL 37 .0-51.0 H PLATELET COUNT (test code = PLT) 240 K/mm3 150-450 N MEAN PLATELET VOLUME (test code = MPV) 10.9 fL 6.7-11.0 N NEUTROPHIL % (test code = NT%) 88.1 % 39.0-69.0 H IMMATURE GRANULOCYTE % (test code = IG%) 1.0 % 0.0-5.0 N LYMPHOCYTE % (test code = LY%) 5.4 % 25.0-55.0 L MONOCYTE % (test code = MO%) 4.3 % 0.0-10.0 N EOSINOPHIL % (test code = EO%) 1.0 % 0.0-5.0 N BASOPHIL % (test code = BA%) 0.2 % 0.0-1.0 N NUCLEATED RBC % (test code = NRBC%) 0.0 % 0-0 N NEUTROPHIL # (test code = NT#) 11.13 K/mm3 1.8-7.7 H IMMATURE GRANULOCYTE # (test code = IG#) 0.13 x10 3/uL 0-0.03 H LYMPHOCYTE # (test code = LY#) 0.68 K/mm3 1.0-5.0 L MONOCYTE # (test code = MO#) 0.54 K/mm3 0-0.8 N EOSINOPHIL # (test code = EO#) 0.12 K/mm3 0.0-0.5 N BASOPHIL # (test code = BA#) 0.03 K/mm3 0.0-0.2 N NUCLEATED RBC # (test code = NRBC#) 0.00 K/mm3 0.0-0.1 N CBC W/AUTO [id number] 12:26:00* Test Item Value Reference Range Interpretation Comments WHITE BLOOD CELL (test code = WBC) K/mm3 4.5-12.5 RED BLOOD CELL (test code = RBC) mill/mm3 3.7-5.2 HEMOGLOBIN (test code = HGB) 13.3 gram/dL 11.5-15.5 N HEMATOCRIT (test code = HCT) 41.3 % 36.0-46.0 N MEAN CELL VOLUME (test code = MCV) fL 80-98 MEAN CELL HGB (test code = MCH) picogram 27.0-33.0 MEAN CELL HGB CONCETRATION (test code = MCHC) gram/dL 33.0-36. 0 RED CELL DISTRIBUTION WIDTH (test code = RDW) % 11.6-16. 2 RED CELL DISTRIBUTION WIDTH SD (test code = RDW-SD) fL 37 .0-51.0 PLATELET COUNT (test code = PLT) K/mm3 150-450 MEAN PLATELET VOLUME (test code = MPV) fL 6.7-11.0 NEUTROPHIL % (test code = NT%) % 39.0-69.0 IMMATURE GRANULOCYTE % (test code = IG%) % 0.0-5.0 LYMPHOCYTE % (test code = LY%) % 25.0-55.0 MONOCYTE % (test code = MO%) % 0.0-10.0 EOSINOPHIL % (test code = EO%) % 0.0-5.0 BASOPHIL % (test code = BA%) % 0.0-1.0 NEUTROPHIL # (test code = NT#) K/mm3 1.8-7.7 LYMPHOCYTE # (test code = LY#) K/mm3 1.0-5.0 MONOCYTE # (test code = MO#) K/mm3 0-0.8 EOSINOPHIL # (test code = EO#) K/mm3 0.0-0.5 BASOPHIL # (test code = BA#) K/mm3 0.0-0.2 [id number] 11:49:00* Test Item Value Reference Range Interpretation Comments GLUBED (test code = GLUBED) 269 mg/dL 74-106 H Performed by certified covering machine operator helper at [facility] [id number] 07:35:00* Test Item Value Reference Range Interpretation Comments GLUBED (test code = GLUBED) 117 mg/dL 74-106 H Performed by certified covering machine operator helper at [facility] [id number] 19:59:00* Test Item Value Reference Range Interpretation Comments GLUBED (test code = GLUBED) 248 mg/dL 74-106 H Performed by certified covering machine operator helper at [facility] [id number] 16:22:00* Test Item Value Reference Range Interpretation Comments GLUBED (test code = GLUBED) 241 mg/dL 74-106 H Performed by certified covering machine operator helper at [facility] [id number] 11:21:00* Test Item Value Reference Range Interpretation Comments GLUBED (test code = GLUBED) 344 mg/dL 74-106 H Performed by certified covering machine operator helper at [facility] [id number] 07:54:00* Test Item Value Reference Range Interpretation Comments GLUBED (test code = GLUBED) 156 mg/dL 74-106 H Performed by certified covering machine operator helper at [facility] [id number] 21:03:00* Test Item Value Reference Range Interpretation Comments GLUBED (test code = GLUBED) 336 mg/dL 74-106 H Performed by certified covering machine operator helper at [facility] [id number] 20:51:00* Test Item Value Reference Range Interpretation Comments GLUCOSE (test code = GLU) 529 mg/dL 74-106 HH Re sults called to [place] [address] by V.LAB.IN 05/16/192049Critical results verified and read back by Nurse? Y [id number] 19:34:00* Test Item Value Reference Range Interpretation Comments GLUBED (test code = GLUBED) 449 mg/dL 74-106 H Performed by certified covering machine operator helper at [facility] [id number] 17:44:00* Test Item Value Reference Range Interpretation Comments GLUBED (test code = GLUBED) > 500 mg/dL 74-106 HH Performed by certified covering machine operator helper at [facility] [id number] 17:41:00* Test Item Value Reference Range Interpretation Comments GLUBED (test code = GLUBED) > 500 mg/dL 74-106 HH Performed by certified covering machine operator helper at [facility] [id number] 12:01:00* Test Item Value Reference Range Interpretation Comments GLUBED (test code = GLUBED) 228 mg/dL 74-106 H Performed by certified covering machine operator helper at [facility] [id number] 11:09:00* Test Item Value Reference Range Interpretation Comments GLUBED (test code = GLUBED) 229 mg/dL 74-106 H Performed by certified covering machine operator helper at [facility] [id number] 07:46:00* Test Item Value Reference Range Interpretation Comments GLUBED (test code = GLUBED) 122 mg/dL 74-106 H Performed by certified covering machine operator helper at [facility] [id number] 21:43:00* Test Item Value Reference Range Interpretation Comments GLUBED (test code = GLUBED) 247 mg/dL 74-106 H Performed by certified covering machine operator helper at [facility] [id number] 16:25:00* Test Item Value Reference Range Interpretation Comments GLUBED (test code = GLUBED) 285 mg/dL 74-106 H Performed by certified covering machine operator helper at [facility] [id number] 11:17:00* Test Item Value Reference Range Interpretation Comments GLUBED (test code = GLUBED) 362 mg/dL 74-106 H Performed by certified covering machine operator helper at [facility] [id number] 08:08:00* Test Item Value Reference Range Interpretation Comments GLUBED (test code = GLUBED) 172 mg/dL 74-106 H Performed by certified covering machine operator helper at [facility] PROTHROMBIN [id number] 06:50:00* Test Item Value Reference Range Interpretation Comments PROTHROMBIN TIME PATIENT (test code = PTP) 15.5 seconds 9.0-14.0 H INTERNATIONAL NORMAL RATIO (test code = INR) 1.3 0.8-1.2 H The therapeutic range for oral anticoagulant therapy [...] (2.5-3.5) IS PATIENT ON ANTICOAGULANTS? NTHROMBOPLASTIN TIME [id number] 06:50:00* Test Item Value Reference Range Interpretation Comments THROMBOPLASTIN TIME PARTIAL (test code = PTT) 31.4 seconds 25.0-36. 5 N IS PATIENT ON ANTICOAGULANTS? NB-TYPE NATRIURETIC [id number] 06:42:00* Test Item Value Reference Range Interpretation Comments B-TYPE NATRIURETIC PEPTIDE (test code = BNP) 268.38 pgram/mL 0-100 H BASIC METABOLIC [id number] 06:41:00* Test Item Value Reference Range Interpretation Comments SODIUM (test code = NA) 141 mmol/L 136-145 N POTASSIUM (test code = K) 3.6 mmol/L 3.5-5.1 N CHLORIDE (test code = CL) 100.0 mmol/L 98-107 N CARBON DIOXIDE (test code = CO2) 33.0 mmol/L 21-32 H ANION GAP (test code = GAP) 11.6 10-20 N GLUCOSE (test code = GLU) 67 mg/dL 74-106 L BLOOD UREA NITROGEN (test code = BUN) 23 mg/dL 7-18 H GLOMERULAR FILTRATION RATE (test code = GFR) > 60 mL/min >=60 Estimated GFR by using Modified MDRD formula.Chronic kidney disease is defined as either kidney damageor GFR <60 mL/min/1.73 m2 for >3 months. CREATININE (test code = CREAT) 0.80 mg/dL 0.55-1.02 N Note change in reference range due to change in reagent. BUN/CREATININE RATIO (test code = BUN/CREA) 28.8 10-20 H CALCIUM (test code = CA) 9.3 mg/dL 8.5-10.1 N HEPATIC FUNCTION [id number] 06:41:00* Test Item Value Reference Range Interpretation Comments TOTAL PROTEIN (test code = PROT) 7.3 gram/dL 6.4-8.2 N ALBUMIN (test code = ALB) 3.5 g/dL 3.4-5.0 N GLOBULIN (test code = GLOB) 3.8 gram/dL 2.7-4.2 N ALBUMIN/GLOBULIN RATIO (test code = A/G) 0.9 0.75-1.50 N BILIRUBIN TOTAL (test code = BILT) 0.90 mg/dL 0.0-1.0 N BILIRUBIN DIRECT (test code = BILD) 0.28 mg/dL 0.0-0.20 H SGOT/AST (test code = AST) 22 IUnit/L 15-37 N SGPT/ALT (test code = ALT) 25 IUnit/L 12-78 N ALKALINE PHOSPHATASE TOTAL (test code = ALKP) 59 IUnit/L 45-117 N Note change in reference range due to change in reagent. [id number] 06:41:00* Test Item Value Reference Range Interpretation Comments LIPASE (test code = LIP) 123 U/L 73.0-393.0 N [id number] 06:41:00* Test Item Value Reference Range Interpretation Comments MAGNESIUM (test code = MAG) 1.9 mg/dL 1.8-2.4 N [id number] 06:41:00* Test Item Value Reference Range Interpretation Comments TROPONIN-I (test code = TROPI) <0.015 ng/mL 0-0.045 N BASIC METABOLIC [id number] 06:25:00* Test Item Value Reference Range Interpretation Comments SODIUM (test code = NA) 141 mmol/L 136-145 N POTASSIUM (test code = K) 3.6 mmol/L 3.5-5.1 N CHLORIDE (test code = CL) 100.0 mmol/L 98-107 N CARBON DIOXIDE (test code = CO2) mmol/L 21-32 ANION GAP (test code = GAP) 10-20 GLUCOSE (test code = GLU) mg/dL 74-106 BLOOD UREA NITROGEN (test code = BUN) mg/dL 7-18 GLOMERULAR FILTRATION RATE (test code = GFR) mL/min >=60 CREATININE (test code = CREAT) mg/dL 0.55-1.02 BUN/CREATININE RATIO (test code = BUN/CREA) 10-20 CALCIUM (test code = CA) mg/dL 8.5-10.1 HEPATIC FUNCTION [id number] 06:25:00* Test Item Value Reference Range Interpretation Comments TOTAL PROTEIN (test code = PROT) gram/dL 6.4-8.2 ALBUMIN (test code = ALB) g/dL 3.4-5.0 GLOBULIN (test code = GLOB) gram/dL 2.7-4.2 ALBUMIN/GLOBULIN RATIO (test code = A/G) 0.75-1.50 BILIRUBIN TOTAL (test code = BILT) mg/dL 0.0-1.0 BILIRUBIN DIRECT (test code = BILD) mg/dL 0.0-0.20 SGOT/AST (test code = AST) IUnit/L 15-37 SGPT/ALT (test code = ALT) IUnit/L 12-78 ALKALINE PHOSPHATASE TOTAL (test code = ALKP) IUnit/L 45-117 [id number] 06:25:00* Test Item Value Reference Range Interpretation Comments LIPASE (test code = LIP) U/L 73.0-393.0 [id number] 06:25:00* Test Item Value Reference Range Interpretation Comments MAGNESIUM (test code = MAG) mg/dL 1.8-2.4 [id number] 06:25:00* Test Item Value Reference Range Interpretation Comments TROPONIN-I (test code = TROPI) ng/mL 0-0.045 - XR CHEST 1 [id number] 05:50:00 FAX: Adrien Ellis MD [phone] [place]: St: [facility] FAX: Telma Smith MD [phone] Name: ELVI MORENO [facility] : 1940 Age/S: 78/F [address] [facility] Unit #: [id number] Loc: [place] [address] Phys: Telma Smith MD Acct: [id number] Dis Date: Status: REG ER PHONE #: [phone] Exam Date: 05/15/2019 0450 FAX #: [phone] Reason: Shortness of Breath EXAMS: CPT CODE: [id number] XR CHEST 1 V [id number] AFTER HOURS SERVICE ON: 05/15/2019 5:49 AM AP Portable Chest Location Code M12 HISTORY: Shortness of Breath FINDINGS: There is pulmonary hyperinflation. There are no infiltrates. There are no pleural effusions. There is no pneumothorax. Cardiac silhouette is enlarged without significant change from 12/27/2018. IMPRESSION: No active pulmonary findings. COPD Mildly enlarged cardiac silhouette. at 0550 Reported and signed by: Sara Sharma M.D. CC: Adrien Gonzalez MD; Telma Smith MD Technologist: Florencia Broderick Trndcrd Date/Time/By: 05/15/2019 (0550) : By: [email or web address] Orig Print D/T: S: 05/15/2019 (0553) PAGE 1 Signed Report CBC W/O [id number] 05:48:00 * Test Item Value Reference Range Interpretation Comments WHITE BLOOD CELL (test code = WBC) 11.5 K/mm3 4.5-12.5 N RED BLOOD CELL (test code = RBC) 4.41 mill/mm3 3.7-5.2 N HEMOGLOBIN (test code = HGB) 13.3 gram/dL 11.5-15.5 N HEMATOCRIT (test code = HCT) 42.3 % 36.0-46.0 N MEAN CELL VOLUME (test code = MCV) 95.9 fL 80-98 N MEAN CELL HGB (test code = MCH) 30.2 picogram 27.0-33.0 N MEAN CELL HGB CONCETRATION (test code = MCHC) 31.4 gram/dL 33.0-36. 0 L RED CELL DISTRIBUTION WIDTH (test code = RDW) 14.8 % 11.6-16. 2 N PLATELET COUNT (test code = PLT) 181 K/mm3 150-450 N MEAN PLATELET VOLUME (test code = MPV) 10.9 fL 6.7-11.0 N CBC W/O [id number] 05:47:00* Test Item Value Reference Range Interpretation Comments WHITE BLOOD CELL (test code = WBC) K/mm3 4.5-12.5 RED BLOOD CELL (test code = RBC) mill/mm3 3.7-5.2 HEMOGLOBIN (test code = HGB) 13.3 gram/dL 11.5-15.5 N HEMATOCRIT (test code = HCT) 42.3 % 36.0-46.0 N MEAN CELL VOLUME (test code = MCV) fL 80-98 MEAN CELL HGB (test code = MCH) picogram 27.0-33.0 MEAN CELL HGB CONCETRATION (test code = MCHC) gram/dL 33.0-36. 0 RED CELL DISTRIBUTION WIDTH (test code = RDW) % 11.6-16. 2 PLATELET COUNT (test code = PLT) K/mm3 150-450 MEAN PLATELET VOLUME (test code = MPV) fL 6.7-11.0 [id number] 05:42:00* Test Item Value Reference Range Interpretation Comments GLUBED (test code = GLUBED) 68 mg/dL 74-106 L Performed by certified covering machine operator helper at [facility] [id number] 10:30:00* Test Item Value Reference Range Interpretation Comments GLUBED (test code = GLUBED) 120 mg/dL 74-106 H Performed by certified covering machine operator helper at [facility] BASIC METABOLIC [id number] 11:07:00* Test Item Value Reference Range Interpretation Comments SODIUM (test code = NA) 142 mmol/L 136-145 N POTASSIUM (test code = K) 3.6 mmol/L 3.5-5.1 N CHLORIDE (test code = CL) 103.0 mmol/L 98-107 N CARBON DIOXIDE (test code = CO2) 32.0 mmol/L 21-32 N ANION GAP (test code = GAP) 10.6 10-20 N GLUCOSE (test code = GLU) 76 mg/dL 74-106 N BLOOD UREA NITROGEN (test code = BUN) 22 mg/dL 7-18 H GLOMERULAR FILTRATION RATE (test code = GFR) > 60 mL/min >=60 Estimated GFR by using Modified MDRD formula.Chronic kidney disease is defined as either kidney damageor GFR <60 mL/min/1.73 m2 for >3 months. CREATININE (test code = CREAT) 0.90 mg/dL 0.55-1.02 N Note change in reference range due to change in reagent. BUN/CREATININE RATIO (test code = BUN/CREA) 25.4 10-20 H CALCIUM (test code = CA) 9.4 mg/dL 8.5-10.1 N BASIC METABOLIC [id number] 10:47:00* Test Item Value Reference Range Interpretation Comments SODIUM (test code = NA) 142 mmol/L 136-145 N POTASSIUM (test code = K) 3.6 mmol/L 3.5-5.1 N CHLORIDE (test code = CL) 103.0 mmol/L 98-107 N CARBON DIOXIDE (test code = CO2) mmol/L 21-32 ANION GAP (test code = GAP) 10-20 GLUCOSE (test code = GLU) mg/dL 74-106 BLOOD UREA NITROGEN (test code = BUN) mg/dL 7-18 GLOMERULAR FILTRATION RATE (test code = GFR) mL/min >=60 CREATININE (test code = CREAT) mg/dL 0.55-1.02 BUN/CREATININE RATIO (test code = BUN/CREA) 10-20 CALCIUM (test code = CA) 9.4 mg/dL 8.5-10.1 N PROTHROMBIN [id number] 10:25:00* Test Item Value Reference Range Interpretation Comments PROTHROMBIN TIME PATIENT (test code = PTP) 12.8 seconds 9.0-14.0 N INTERNATIONAL NORMAL RATIO (test code = INR) 1.1 0.8-1.2 N The therapeutic range for oral anticoagulant therapy formost indications is an international normalized ratio (INR)of between 2.0 and 3.0. The recommended therapeutic INRrange for various clinical situations is listed below: Clinical Situation INR range Pulmonary e mbolism treatment (2.0-3.0)Venous thrombosis treatmentVenous thrombosis prophylaxis (high risk surgery)Prevention of systemic embolism from: Acute myocardial infarction Valvular heart disease Atrial fibrillation Mechanical prosthetic heart valves (2.5-3.5) THROMBOPLASTIN TIME [id number] 10:25:00* Test Item Value Reference Range Interpretation Comments THROMBOPLASTIN TIME PARTIAL (test code = PTT) 34.8 seconds 25.0-36. 5 N CBC W/AUTO [id number] 10:16:00* Test Item Value Reference Range Interpretation Comments WHITE BLOOD CELL (test code = WBC) 8.9 K/mm3 4.5-12.5 N RED BLOOD CELL (test code = RBC) 4.60 mill/mm3 3.7-5.2 N HEMOGLOBIN (test code = HGB) 13.5 gram/dL 11.5-15.5 N HEMATOCRIT (test code = HCT) 42.5 % 36.0-46.0 N MEAN CELL VOLUME (test code = MCV) 92.4 fL 80-98 N MEAN CELL HGB (test code = MCH) 29.3 picogram 27.0-33.0 N MEAN CELL HGB CONCETRATION (test code = MCHC) 31.8 gram/dL 33.0-36. 0 L RED CELL DISTRIBUTION WIDTH (test code = RDW) 14.2 % 11.6-16. 2 N RED CELL DISTRIBUTION WIDTH SD (test code = RDW-SD) 47.8 fL 37 .0-51.0 N PLATELET COUNT (test code = PLT) 186 K/mm3 150-450 N MEAN PLATELET VOLUME (test code = MPV) 11.0 fL 6.7-11.0 N NEUTROPHIL % (test code = NT%) 69.8 % 39.0-69.0 H IMMATURE GRANULOCYTE % (test code = IG%) 0.6 % 0.0-5.0 N LYMPHOCYTE % (test code = LY%) 15.9 % 25.0-55.0 L MONOCYTE % (test code = MO%) 10.4 % 0.0-10.0 H EOSINOPHIL % (test code = EO%) 2.9 % 0.0-5.0 N BASOPHIL % (test code = BA%) 0.4 % 0.0-1.0 N NUCLEATED RBC % (test code = NRBC%) 0.0 % 0-0 N NEUTROPHIL # (test code = NT#) 6.24 K/mm3 1.8-7.7 N IMMATURE GRANULOCYTE # (test code = IG#) 0.05 x10 3/uL 0-0.03 H LYMPHOCYTE # (test code = LY#) 1.42 K/mm3 1.0-5.0 N MONOCYTE # (test code = MO#) 0.93 K/mm3 0-0.8 H EOSINOPHIL # (test code = EO#) 0.26 K/mm3 0.0-0.5 N BASOPHIL # (test code = BA#) 0.04 K/mm3 0.0-0.2 N NUCLEATED RBC # (test code = NRBC#) 0.00 K/mm3 0.0-0.1 N CBC W/AUTO [id number] 10:15:00* Test Item Value Reference Range Interpretation Comments WHITE BLOOD CELL (test code = WBC) K/mm3 4.5-12.5 RED BLOOD CELL (test code = RBC) mill/mm3 3.7-5.2 HEMOGLOBIN (test code = HGB) 13.5 gram/dL 11.5-15.5 N HEMATOCRIT (test code = HCT) 42.5 % 36.0-46.0 N MEAN CELL VOLUME (test code = MCV) fL 80-98 MEAN CELL HGB (test code = MCH) picogram 27.0-33.0 MEAN CELL HGB CONCETRATION (test code = MCHC) gram/dL 33.0-36. 0 RED CELL DISTRIBUTION WIDTH (test code = RDW) % 11.6-16. 2 RED CELL DISTRIBUTION WIDTH SD (test code = RDW-SD) fL 37 .0-51.0 PLATELET COUNT (test code = PLT) K/mm3 150-450 MEAN PLATELET VOLUME (test code = MPV) fL 6.7-11.0 NEUTROPHIL % (test code = NT%) % 39.0-69.0 IMMATURE GRANULOCYTE % (test code = IG%) % 0.0-5.0 LYMPHOCYTE % (test code = LY%) % 25.0-55.0 MONOCYTE % (test code = MO%) % 0.0-10.0 EOSINOPHIL % (test code = EO%) % 0.0-5.0 BASOPHIL % (test code = BA%) % 0.0-1.0 NEUTROPHIL # (test code = NT#) K/mm3 1.8-7.7 LYMPHOCYTE # (test code = LY#) K/mm3 1.0-5.0 MONOCYTE # (test code = MO#) K/mm3 0-0.8 EOSINOPHIL # (test code = EO#) K/mm3 0.0-0.5 BASOPHIL # (test code = BA#) K/mm3 0.0-0.2 [id number] 08:21:00* Test Item Value Reference Range Interpretation Comments GLUBED (test code = GLUBED) 180 mg/dL 74-106 H Performed by certified covering machine operator helper at [facility] [id number] 10:11:00* Test Item Value Reference Range Interpretation Comments GLUBED (test code = GLUBED) 121 mg/dL 74-106 H Performed by certified covering machine operator helper at [facility] [id number] 16:56:00* Test Item Value Reference Range Interpretation Comments GLUBED (test code = GLUBED) 86 mg/dL 74-106 N Performed by certified covering machine operator helper at [facility] BASIC METABOLIC [id number] 16:16:00* Test Item Value Reference Range Interpretation Comments SODIUM (test code = NA) 144 mmol/L 136-145 N POTASSIUM (test code = K) 4.3 mmol/L 3.5-5.1 N CHLORIDE (test code = CL) 111.0 mmol/L 98-107 H CARBON DIOXIDE (test code = CO2) 26.0 mmol/L 21-32 N ANION GAP (test code = GAP) 11.3 10-20 N GLUCOSE (test code = GLU) 124 mg/dL 74-106 H BLOOD UREA NITROGEN (test code = BUN) 16 mg/dL 7-18 N GLOMERULAR FILTRATION RATE (test code = GFR) > 60 mL/min >=60 Estimated GFR by using Modified MDRD formula.Chronic kidney disease is defined as either kidney damageor GFR <60 mL/min/1.73 m2 for >3 months. CREATININE (test code = CREAT) 0.70 mg/dL 0.55-1.02 N Note change in reference range due to change in reagent. BUN/CREATININE RATIO (test code = BUN/CREA) 22.9 10-20 H CALCIUM (test code = CA) 8.1 mg/dL 8.5-10.1 L BASIC METABOLIC [id number] 16:12:00* Test Item Value Reference Range Interpretation Comments SODIUM (test code = NA) 144 mmol/L 136-145 N POTASSIUM (test code = K) 4.3 mmol/L 3.5-5.1 N CHLORIDE (test code = CL) 111.0 mmol/L 98-107 H CARBON DIOXIDE (test code = CO2) mmol/L 21-32 ANION GAP (test code = GAP) 10-20 GLUCOSE (test code = GLU) mg/dL 74-106 BLOOD UREA NITROGEN (test code = BUN) mg/dL 7-18 GLOMERULAR FILTRATION RATE (test code = GFR) mL/min >=60 CREATININE (test code = CREAT) mg/dL 0.55-1.02 BUN/CREATININE RATIO (test code = BUN/CREA) 10-20 CALCIUM (test code = CA) 8.1 mg/dL 8.5-10.1 L CBC W/AUTO [id number] 14:46:00* Test Item Value Reference Range Interpretation Comments WHITE BLOOD CELL (test code = WBC) 6.8 K/mm3 4.5-12.5 N RED BLOOD CELL (test code = RBC) 4.09 mill/mm3 3.7-5.2 N HEMOGLOBIN (test code = HGB) 12.2 gram/dL 11.5-15.5 N HEMATOCRIT (test code = HCT) 38.9 % 36.0-46.0 N MEAN CELL VOLUME (test code = MCV) 95.1 fL 80-98 N MEAN CELL HGB (test code = MCH) 29.8 picogram 27.0-33.0 N MEAN CELL HGB CONCETRATION (test code = MCHC) 31.4 gram/dL 33.0-36. 0 L RED CELL DISTRIBUTION WIDTH (test code = RDW) 14.2 % 11.6-16. 2 N RED CELL DISTRIBUTION WIDTH SD (test code = RDW-SD) 49.1 fL 37 .0-51.0 N PLATELET COUNT (test code = PLT) 181 K/mm3 150-450 N MEAN PLATELET VOLUME (test code = MPV) 10.6 fL 6.7-11.0 N NEUTROPHIL % (test code = NT%) 57.2 % 39.0-69.0 N IMMATURE GRANULOCYTE % (test code = IG%) 0.7 % 0.0-5.0 N LYMPHOCYTE % (test code = LY%) 23.0 % 25.0-55.0 L MONOCYTE % (test code = MO%) 10.1 % 0.0-10.0 H EOSINOPHIL % (test code = EO%) 8.4 % 0.0-5.0 H BASOPHIL % (test code = BA%) 0.6 % 0.0-1.0 N NUCLEATED RBC % (test code = NRBC%) 0.0 % 0-0 N NEUTROPHIL # (test code = NT#) 3.86 K/mm3 1.8-7.7 N IMMATURE GRANULOCYTE # (test code = IG#) 0.05 x10 3/uL 0-0.03 H LYMPHOCYTE # (test code = LY#) 1.55 K/mm3 1.0-5.0 N MONOCYTE # (test code = MO#) 0.68 K/mm3 0-0.8 N EOSINOPHIL # (test code = EO#) 0.57 K/mm3 0.0-0.5 H BASOPHIL # (test code = BA#) 0.04 K/mm3 0.0-0.2 N NUCLEATED RBC # (test code = NRBC#) 0.00 K/mm3 0.0-0.1 N CBC W/AUTO [id number] 14:45:00* Test Item Value Reference Range Interpretation Comments WHITE BLOOD CELL (test code = WBC) K/mm3 4.5-12.5 RED BLOOD CELL (test code = RBC) mill/mm3 3.7-5.2 HEMOGLOBIN (test code = HGB) 12.2 gram/dL 11.5-15.5 N HEMATOCRIT (test code = HCT) 38.9 % 36.0-46.0 N MEAN CELL VOLUME (test code = MCV) fL 80-98 MEAN CELL HGB (test code = MCH) picogram 27.0-33.0 MEAN CELL HGB CONCETRATION (test code = MCHC) gram/dL 33.0-36. 0 RED CELL DISTRIBUTION WIDTH (test code = RDW) % 11.6-16. 2 RED CELL DISTRIBUTION WIDTH SD (test code = RDW-SD) fL 37 .0-51.0 PLATELET COUNT (test code = PLT) K/mm3 150-450 MEAN PLATELET VOLUME (test code = MPV) fL 6.7-11.0 NEUTROPHIL % (test code = NT%) % 39.0-69.0 IMMATURE GRANULOCYTE % (test code = IG%) % 0.0-5.0 LYMPHOCYTE % (test code = LY%) % 25.0-55.0 MONOCYTE % (test code = MO%) % 0.0-10.0 EOSINOPHIL % (test code = EO%) % 0.0-5.0 BASOPHIL % (test code = BA%) % 0.0-1.0 NEUTROPHIL # (test code = NT#) K/mm3 1.8-7.7 LYMPHOCYTE # (test code = LY#) K/mm3 1.0-5.0 MONOCYTE # (test code = MO#) K/mm3 0-0.8 EOSINOPHIL # (test code = EO#) K/mm3 0.0-0.5 BASOPHIL # (test code = BA#) K/mm3 0.0-0.2 [id number] 11:36:00* Test Item Value Reference Range Interpretation Comments GLUBED (test code = GLUBED) 234 mg/dL 74-106 H [facility] certified covering [facility]~ [id number] 05:35:00* Test Item Value Reference Range Interpretation Comments GLUBED (test code = GLUBED) 90 mg/dL 74-106 N Performed by certified covering machine operator helper at [facility] [id number] 21:01:00* Test Item Value Reference Range Interpretation Comments GLUBED (test code = GLUBED) 182 mg/dL 74-106 H Performed by certified covering machine operator helper at [facility] [id number] 20:22:00* Test Item Value Reference Range Interpretation Comments GLUBED (test code = GLUBED) 213 mg/dL 74-106 H Performed by certified covering machine operator helper at [facility]2019-08-20 12:38:00* Test Item Value Reference Range Interpretation Comments GLUBED (test code = GLUBED) 143 mg/dL 74-106 H Performed by certified covering machine operator helper at [facility] [id number] 06:37:00* Test Item Value Reference Range Interpretation Comments GLUBED (test code = GLUBED) 109 mg/dL 74-106 H Performed by certified covering machine operator helper at [facility] [id number] 21:13:00* Test Item Value Reference Range Interpretation Comments GLUBED (test code = GLUBED) 183 mg/dL 74-106 H Performed by certified covering machine operator helper at [facility]2019-08-19 18:14:00* Test Item Value Reference Range Interpretation Comments GLUBED (test code = GLUBED) 199 mg/dL 74-106 H Performed by certified covering machine operator helper at [facility] [id number] 12:40:00* Test Item Value Reference Range Interpretation Comments GLUBED (test code = GLUBED) 156 mg/dL 74-106 H Performed by certified covering machine operator helper at [facility] [id number] 06:44:00* Test Item Value Reference Range Interpretation Comments GLUBED (test code = GLUBED) 177 mg/dL 74-106 H Performed by certified covering machine operator helper at [facility] [id number] 06:23:00* Test Item Value Reference Range Interpretation Comments GLUBED (test code = GLUBED) 155 mg/dL 74-106 H Performed by certified covering machine operator helper at [facility] [id number] 03:24:00* Test Item Value Reference Range Interpretation Comments GLUBED (test code = GLUBED) 129 mg/dL 74-106 H Performed by certified covering machine operator helper at [facility] [id number] 16:13:00* Test Item Value Reference Range Interpretation Comments GLUBED (test code = GLUBED) 192 mg/dL 74-106 H Performed by certified covering machine operator helper at [facility] [id number] 12:37:00* Test Item Value Reference Range Interpretation Comments GLUBED (test code = GLUBED) 189 mg/dL 74-106 H Performed by certified covering machine operator helper at [facility] [id number] 06:14:00* Test Item Value Reference Range Interpretation Comments TROPONIN-I (test code = TROPI) 0.019 ng/mL 0-0.045 N COMMENTS TO ASSEMBLER FILTERS: COLLECT 3 HOURS AFTER PREVIOUS WADSVL34/17/19 1053BASIC METABOLIC [id number] 06:10:00* Test Item Value Reference Range Interpretation Comments SODIUM (test code = NA) 141 mmol/L 136-145 N POTASSIUM (test code = K) 3.8 mmol/L 3.5-5.1 N CHLORIDE (test code = CL) 103.0 mmol/L 98-107 N CARBON DIOXIDE (test code = CO2) 30.0 mmol/L 21-32 N ANION GAP (test code = GAP) 11.8 10-20 N GLUCOSE (test code = GLU) 202 mg/dL 74-106 H BLOOD UREA NITROGEN (test code = BUN) 24 mg/dL 7-18 H GLOMERULAR FILTRATION RATE (test code = GFR) > 60 mL/min >=60 Estimated GFR by using Modified MDRD formula.Chronic kidney disease is defined as either kidney damageor GFR <60 mL/min/1.73 m2 for >3 months. CREATININE (test code = CREAT) 0.90 mg/dL 0.55-1.02 N Note change in reference range due to change in reagent. BUN/CREATININE RATIO (test code = BUN/CREA) 27.3 10-20 H CALCIUM (test code = CA) 8.2 mg/dL 8.5-10.1 L CBC W/AUTO [id number] 05:36:00* Test Item Value Reference Range Interpretation Comments WHITE BLOOD CELL (test code = WBC) 9.1 K/mm3 4.5-12.5 N RED BLOOD CELL (test code = RBC) 4.51 mill/mm3 3.7-5.2 N HEMOGLOBIN (test code = HGB) 13.3 gram/dL 11.5-15.5 N HEMATOCRIT (test code = HCT) 42.2 % 36.0-46.0 N MEAN CELL VOLUME (test code = MCV) 93.6 fL 80-98 N MEAN CELL HGB (test code = MCH) 29.5 picogram 27.0-33.0 N MEAN CELL HGB CONCETRATION (test code = MCHC) 31.5 gram/dL 33.0-36. 0 L RED CELL DISTRIBUTION WIDTH (test code = RDW) 14.4 % 11.6-16. 2 N RED CELL DISTRIBUTION WIDTH SD (test code = RDW-SD) 49.1 fL 37 .0-51.0 N PLATELET COUNT (test code = PLT) 191 K/mm3 150-450 N MEAN PLATELET VOLUME (test code = MPV) 10.8 fL 6.7-11.0 N NEUTROPHIL % (test code = NT%) 68.4 % 39.0-69.0 N IMMATURE GRANULOCYTE % (test code = IG%) 0.6 % 0.0-5.0 N LYMPHOCYTE % (test code = LY%) 17.2 % 25.0-55.0 L MONOCYTE % (test code = MO%) 10.1 % 0.0-10.0 H EOSINOPHIL % (test code = EO%) 3.1 % 0.0-5.0 N BASOPHIL % (test code = BA%) 0.6 % 0.0-1.0 N NUCLEATED RBC % (test code = NRBC%) 0.0 % 0-0 N NEUTROPHIL # (test code = NT#) 6.22 K/mm3 1.8-7.7 N IMMATURE GRANULOCYTE # (test code = IG#) 0.05 x10 3/uL 0-0.03 H LYMPHOCYTE # (test code = LY#) 1.56 K/mm3 1.0-5.0 N MONOCYTE # (test code = MO#) 0.92 K/mm3 0-0.8 H EOSINOPHIL # (test code = EO#) 0.28 K/mm3 0.0-0.5 N BASOPHIL # (test code = BA#) 0.05 K/mm3 0.0-0.2 N NUCLEATED RBC # (test code = NRBC#) 0.00 K/mm3 0.0-0.1 N MANUAL DIFF REQUIRED (test code = MDIFF) NO [id number] 04:28:00* Test Item Value Reference Range Interpretation Comments GLUBED (test code = GLUBED) 118 mg/dL 74-106 H Performed by certified covering machine operator helper at [facility] [id number] 17:30:00* Test Item Value Reference Range Interpretation Comments GLUBED (test code = GLUBED) 119 mg/dL 74-106 H Performed by certified covering machine operator helper at [facility] [id number] 11:47:00* Test Item Value Reference Range Interpretation Comments GLUBED (test code = GLUBED) 149 mg/dL 74-106 H Performed by certified covering machine operator helper at [facility] THYROID STIMULATING [id number] 11:34:00* Test Item Value Reference Range Interpretation Comments THYROID STIMULATING HORMONE (test code = TSH) 3.040 uIU/mL 0.36-3.7 4 N TSH REFERENCE RANGES: EUTHYROID: 0.35 - 4.3 mIU/mL HYPO : > 5.5 mIU/mL HYPER : < 0.35 mIU/mL LIPID PROFILE (CORONARY RISK)2018-12-28 11:34:00* Test Item Value Reference Range Interpretation Comments TRIGLYCERIDES (test code = TRIG) 96 mg/dL 20-150 N CHOLESTEROL (test code = CHOL) 138 mg/dL 0-200 N CHOLESTEROL/HDL RATIO (test code = CHOLHDL) 2.0 RATIO 0-4.9 N RISK ASSOCIATED WITH CHOL/HDL RATIOS: Risk Male Female1/2 AVERAGE 3.43 3.27AVERAGE 4.97 4.442X AVERAGE 9.55 7.053X AVERAGE 23.39 11.04 REFERENCE VALUE IS RELATED TO RISK LEVELS ASRECOMMENDED BY THE MIRELA. HEART, LUNG, AND BLOOD INST. HDL CHOLESTEROL (test code = HDL) 47 mg/dL 40-60 N LIPOPROTEIN LDL (test code = LDL) 80 mg/dL 100-129 L Reference Interval: mg/dL mmol/L Optimal <100 <2.6Near/above optimal 100-129 2.6- 3.3Borderline High 130-159 3.4-4.1High 160-189 4.1-4.9Very High >=190 >=4.9========= This LDL result is a direct measurement.========= [id number] 11:34:00* Test Item Value Reference Range Interpretation Comments GLYCOSYLATED HEMOGLOBIN (HA1C) (test code = GLYHGB) 6.7 % HbA1 4. 8-6.0 H ESTIMATED AVERAGE GLUCOSE (test code = EAG) 146 MG/DL BASIC METABOLIC [id number] 11:19:00* Test Item Value Reference Range Interpretation Comments SODIUM (test code = NA) 140 mmol/L 136-145 N POTASSIUM (test code = K) 4.7 mmol/L 3.5-5.1 N CHLORIDE (test code = CL) 99.0 mmol/L 98-107 N CARBON DIOXIDE (test code = CO2) 30.0 mmol/L 21-32 N ANION GAP (test code = GAP) 15.7 10-20 N GLUCOSE (test code = GLU) 185 mg/dL 74-106 H BLOOD UREA NITROGEN (test code = BUN) 23 mg/dL 7-18 H GLOMERULAR FILTRATION RATE (test code = GFR) > 60 mL/min >=60 Estimated GFR by using Modified MDRD formula.Chronic kidney disease is defined as either kidney damageor GFR <60 mL/min/1.73 m2 for >3 months. CREATININE (test code = CREAT) 0.90 mg/dL 0.55-1.02 N Note change in reference range due to change in reagent. BUN/CREATININE RATIO (test code = BUN/CREA) 24.8 10-20 H CALCIUM (test code = CA) 8.9 mg/dL 8.5-10.1 N RAN ON MORNING SAMPLE CBC W/O [id number] 10:35:00* Test Item Value Reference Range Interpretation Comments WHITE BLOOD CELL (test code = WBC) 11.7 K/mm3 4.5-12.5 N RED BLOOD CELL (test code = RBC) 4.71 mill/mm3 3.7-5.2 N HEMOGLOBIN (test code = HGB) 13.8 gram/dL 11.5-15.5 N HEMATOCRIT (test code = HCT) 42.6 % 36.0-46.0 N MEAN CELL VOLUME (test code = MCV) 90.4 fL 80-98 N MEAN CELL HGB (test code = MCH) 29.3 picogram 27.0-33.0 N MEAN CELL HGB CONCETRATION (test code = MCHC) 32.4 gram/dL 33.0-36. 0 L RED CELL DISTRIBUTION WIDTH (test code = RDW) 13.8 % 11.6-16. 2 N PLATELET COUNT (test code = PLT) 203 K/mm3 150-450 N MEAN PLATELET VOLUME (test code = MPV) 11.6 fL 6.7-11.0 H CBC W/O [id number] 10:26:00* Test Item Value Reference Range Interpretation Comments WHITE BLOOD CELL (test code = WBC) K/mm3 4.5-12.5 RED BLOOD CELL (test code = RBC) mill/mm3 3.7-5.2 HEMOGLOBIN (test code = HGB) 13.8 gram/dL 11.5-15.5 N HEMATOCRIT (test code = HCT) 42.6 % 36.0-46.0 N MEAN CELL VOLUME (test code = MCV) fL 80-98 MEAN CELL HGB (test code = MCH) picogram 27.0-33.0 MEAN CELL HGB CONCETRATION (test code = MCHC) gram/dL 33.0-36. 0 RED CELL DISTRIBUTION WIDTH (test code = RDW) % 11.6-16. 2 PLATELET COUNT (test code = PLT) K/mm3 150-450 MEAN PLATELET VOLUME (test code = MPV) fL 6.7-11.0 [id number] 10:10:00* Test Item Value Reference Range Interpretation Comments TROPONIN-I (test code = TROPI) 0.068 ng/mL 0-0.045 HH Results called to [id number] by [email or web address] 12/28/18 1010Critical results verified and read back by Nurse? Y COMMENTS TO ASSEMBLER FILTERS: COLLECT 3 HOURS AFTER PREVIOUS SAMPLEURINALYSIS [id number] 23:53:00* Test Item Value Reference Range Interpretation Comments UA COLOR (test code = COLU) Light-Yellow YELLOW UA APPEARANCE (test code = APPU) Cloudy CLEAR A UA GLUCOSE DIPSTICK (test code = DGLUU) NEGATIVE mg/dL NEGATIVE UA BILIRUBIN DIPSTICK (test code = BILU) NEGATIVE mg/dL NEGATIVE UA KETONE DIPSTICK (test code = KETU) NEGATIVE mg/dL NEGATIVE UA SPECIFIC GRAVITY (test code = SGU) 1.012 1.001-1.035 UA BLOOD DIPSTICK (test code = DEANNE) Negative mg/dL NEGATIVE UA PH DIPSTICK (test code = KRYSTEN) 6.5 5.0-8.0 UA PROTEIN DIPSTICK (test code = PROU) NEGATIVE mg/dL NEGATIVE UA UROBILINIOGEN DIPSTICK (test code = URO) Normal mg/dL NEGATIVE UA NITRITE DIPSTICK (test code = KYM) NEGATIVE NEGATIVE UA LEUKOCYTE ESTERASE W REFLEX (test code = LEUUR) 75 [place]andon/uL (1+) Landon/uL NEGATIVE A UA WBC (test code = WBCU) 21-50 per HPF 0-5 A UA RBC (test code = RBCU) 0-2 #/HPF 0-5 UA EPITHELIAL CELLS (test code = EPIU) FEW per HPF FEW UA BACTERIA (test code = BACU) MODERATE #/HPF NONE A Urine Source? Clean Catch- CTA [id number] 23:34:00 Name: ELVI MORENO [facility] : 1940 Age/S: 78 / F [address] Unit #: [id number] Loc: [facility] [place] [address] Phys: Maximus Mason MD Acct: [id number] Dis Date: Status: ADM IN PHONE #: [phone] Exam Date: 12/27/2018 2320 FAX #: [phone] Reason: cp sob, h/o pe EXAMS: CPT CODE: [id number] CTA CHEST [id number] AFTER HOURS SERVICE ON: 12/27/2018 11:[address] Scan of the Chest With Contrast Location Code M12 History: cp sob, h/o pe Technique: Scans were performed on a helical scanner post IV contrast. Coronal and sagittal reconstructions were performed. One or more of the following dose reduction techniques were used: Automated exposure control, adjustment of the mA and/or kV according to patient size, and/or utilization of iterative reconstruction technique. FINDINGS: Study is motion degraded which limits evaluation of the smaller vessels. There are no filling defects in the pulmonary arteries to suggest a pu lmonary embolism. No large central or saddle embolus is seen in the pulmon yesenia trunk. No aortic aneurysm or dissection seen. There is mild cardiomegaly. No pericardial effusion. Groundglass infiltrates not ed in the lower lobes, right greater than left most consistent with pneumo nitis. There are mild atelectatic changes. Trace bilateral pleural effus ions. No evidence of edema. There is no pneumothorax. IMPRESSION: No evidence of pulmonary embolism, aortic aneurysm or dissection. Bilateral lower lobe groundglass pneumonitis, right greater than left. at 8105 Reported and signed by: Sara Sharma M.D. PAGE 1 Signed Report (CONTINUED) Nam e: [facility] : Age/S: 78 / F [address] Unit #: [id number] Loc: [place] [address] Phys: Maximus Mason Acct: [id number] Dis Shola e: Status: ADM IN PHONE #: Exam Date: 12/27/2018 2320 FAX #: [phone] Reason: cp sob, h/o pe EXAMS: CPT CODE: [id number] CTA CHEST 21695 <Continued> CC: Maximus Mason MD; Adrien Gonzalez MD Technologist:AUSTIN GONG, RT; Vikas Bender CTDI: DLP: Trnscb Date/Time: 12/27/2018 (8036) t.MA50 Orig Print D/T: S: 12/27/2018 (8291) PAGE 2 Signed Report BASIC METABOLIC [id number] 22:26:00* Test Item Value Reference Range Interpretation Comments SODIUM (test code = NA) 140 mmol/L 136-145 N POTASSIUM (test code = K) 3.2 mmol/L 3.5-5.1 L CHLORIDE (test code = CL) 101.0 mmol/L 98-107 N CARBON DIOXIDE (test code = CO2) 28.0 mmol/L 21-32 N ANION GAP (test code = GAP) 14.2 10-20 N GLUCOSE (test code = GLU) 273 mg/dL 74-106 H BLOOD UREA NITROGEN (test code = BUN) 27 mg/dL 7-18 H GLOMERULAR FILTRATION RATE (test code = GFR) 48 mL/min >=60 Estimated GFR by using Modified MDRD formula.Chronic kidney disease is defined as either kidney damageor GFR <60 mL/min/1.73 m2 for >3 months. CREATININE (test code = CREAT) 1.10 mg/dL 0.55-1.02 H Note change in reference range due to change in reagent. BUN/CREATININE RATIO (test code = BUN/CREA) 24.3 10-20 H CALCIUM (test code = CA) 8.9 mg/dL 8.5-10.1 N HEPATIC FUNCTION [id number] 22:26:00* Test Item Value Reference Range Interpretation Comments TOTAL PROTEIN (test code = PROT) 7.3 gram/dL 6.4-8.2 N ALBUMIN (test code = ALB) 3.2 g/dL 3.4-5.0 L GLOBULIN (test code = GLOB) 4.1 gram/dL 2.7-4.2 N ALBUMIN/GLOBULIN RATIO (test code = A/G) 0.8 0.75-1.50 N BILIRUBIN TOTAL (test code = BILT) 0.30 mg/dL 0.0-1.0 N BILIRUBIN DIRECT (test code = BILD) 0.12 mg/dL 0.0-0.20 N SGOT/AST (test code = AST) 15 IUnit/L 15-37 N SGPT/ALT (test code = ALT) 14 IUnit/L 12-78 N ALKALINE PHOSPHATASE TOTAL (test code = ALKP) 122 IUnit/L 45-117 H Note change in reference range due to change in reagent. [id number] 22:26:00* Test Item Value Reference Range Interpretation Comments LIPASE (test code = LIP) 342 U/L 73.0-393.0 N [id number] 22:26:00* Test Item Value Reference Range Interpretation Comments MAGNESIUM (test code = MAG) 1.7 mg/dL 1.8-2.4 L [id number] 22:26:00* Test Item Value Reference Range Interpretation Comments TROPONIN-I (test code = TROPI) <0.015 ng/mL 0-0.045 N B-TYPE NATRIURETIC [id number] 22:26:00* Test Item Value Reference Range Interpretation Comments B-TYPE NATRIURETIC PEPTIDE (test code = BNP) 166.00 pgram/mL 0-100 H BASIC METABOLIC [id number] 22:24:00* Test Item Value Reference Range Interpretation Comments SODIUM (test code = NA) 140 mmol/L 136-145 N POTASSIUM (test code = K) 3.2 mmol/L 3.5-5.1 L CHLORIDE (test code = CL) 101.0 mmol/L 98-107 N CARBON DIOXIDE (test code = CO2) mmol/L 21-32 ANION GAP (test code = GAP) 10-20 GLUCOSE (test code = GLU) mg/dL 74-106 BLOOD UREA NITROGEN (test code = BUN) mg/dL 7-18 GLOMERULAR FILTRATION RATE (test code = GFR) mL/min >=60 CREATININE (test code = CREAT) mg/dL 0.55-1.02 BUN/CREATININE RATIO (test code = BUN/CREA) 10-20 CALCIUM (test code = CA) mg/dL 8.5-10.1 HEPATIC FUNCTION [id number] 22:24:00* Test Item Value Reference Range Interpretation Comments TOTAL PROTEIN (test code = PROT) gram/dL 6.4-8.2 ALBUMIN (test code = ALB) g/dL 3.4-5.0 GLOBULIN (test code = GLOB) gram/dL 2.7-4.2 ALBUMIN/GLOBULIN RATIO (test code = A/G) 0.75-1.50 BILIRUBIN TOTAL (test code = BILT) mg/dL 0.0-1.0 BILIRUBIN DIRECT (test code = BILD) mg/dL 0.0-0.20 SGOT/AST (test code = AST) IUnit/L 15-37 SGPT/ALT (test code = ALT) IUnit/L 12-78 ALKALINE PHOSPHATASE TOTAL (test code = ALKP) IUnit/L 45-117 [id number] 22:24:00* Test Item Value Reference Range Interpretation Comments LIPASE (test code = LIP) U/L 73.0-393.0 [id number] 22:24:00* Test Item Value Reference Range Interpretation Comments MAGNESIUM (test code = MAG) mg/dL 1.8-2.4 [id number] 22:24:00* Test Item Value Reference Range Interpretation Comments TROPONIN-I (test code = TROPI) ng/mL 0-0.045 PROTHROMBIN [id number] 22:09:00* Test Item Value Reference Range Interpretation Comments PROTHROMBIN TIME PATIENT (test code = PTP) 13.8 seconds 9.0-14.0 N INTERNATIONAL NORMAL RATIO (test code = INR) 1.2 0.8-1.2 N The therapeutic range for oral anticoagulant therapy [...] (2.5-3.5) IS PATIENT ON ANTICOAGULANTS? NTHROMBOPLASTIN TIME [id number] 22:09:00* Test Item Value Reference Range Interpretation Comments THROMBOPLASTIN TIME PARTIAL (test code = PTT) 38.3 seconds 25.0-36. 5 H IS PATIENT ON ANTICOAGULANTS? N- XR CHEST 1 [id number] 22:08:00 FAX: Maximus Mason MD [phone] [place]: St: [facility] FAX: Adrien Ellis MD [phone] Name: [facility] : 1940 Age/S: 78/F [address] [facility] Unit #: [id number] Loc: [place] [address] Phys: Maximus Mason MD Acct: [id number] Dis Date: Status: REG ER PHONE #: [phone] Exam Date: 12/27/2018 2200 FAX #: [phone] Reason: SHORTNESS OF BREATH EXAMS: CPT CODE: [id number] XR CHEST 1 V 72200 REASON FOR EXAM: SHORTNESS OF BREATH EXAM ORDER DATE: 12/27/2018 9:26 PM Ordering M.DKelsey: Maximus Mason MD PROCEDURE: - XR CHEST 1 V COMPARISON: 12/14/2018 FINDINGS: Portable AP frontal view of the chest obtained at 9:56 PM shows diffuse air space opacity. The heart size is minimally enlarged. P ulmonary vasculatures are minimally congested. IMPRESSION: Aldo may congestive heart failure with interstitial pulmonary edema at 2208 Reported and signed by: Nacho Ramsey M.D. CC: Maximus Mason MD; Adrien Gonzalez MD Technologist: RT CARL(R) Trnscrd Date/Time/By: 12/27/2018 (2207) : By: rocael ESPINOVTL Orig Print D/T: S: 12/27/2018 (9806) PAGE 1 Signed Report CBC W/AUTO [id number] 21:48:00* Test Item Value Reference Range Interpretation Comments WHITE BLOOD CELL (test code = WBC) 8.1 K/mm3 4.5-12.5 N RED BLOOD CELL (test code = RBC) 4.72 mill/mm3 3.7-5.2 N HEMOGLOBIN (test code = HGB) 14.3 gram/dL 11.5-15.5 N HEMATOCRIT (test code = HCT) 43.6 % 36.0-46.0 N MEAN CELL VOLUME (test code = MCV) 92.4 fL 80-98 N MEAN CELL HGB (test code = MCH) 30.3 picogram 27.0-33.0 N MEAN CELL HGB CONCETRATION (test code = MCHC) 32.8 gram/dL 33.0-36. 0 L RED CELL DISTRIBUTION WIDTH (test code = RDW) 13.6 % 11.6-16. 2 N RED CELL DISTRIBUTION WIDTH SD (test code = RDW-SD) 46.4 fL 37 .0-51.0 N PLATELET COUNT (test code = PLT) 196 K/mm3 150-450 N MEAN PLATELET VOLUME (test code = MPV) 10.8 fL 6.7-11.0 N NEUTROPHIL % (test code = NT%) 58.5 % 39.0-69.0 N IMMATURE GRANULOCYTE % (test code = IG%) 0.9 % 0.0-5.0 N LYMPHOCYTE % (test code = LY%) 26.2 % 25.0-55.0 N MONOCYTE % (test code = MO%) 10.5 % 0.0-10.0 H EOSINOPHIL % (test code = EO%) 3.2 % 0.0-5.0 N BASOPHIL % (test code = BA%) 0.7 % 0.0-1.0 N NUCLEATED RBC % (test code = NRBC%) 0.0 % 0-0 N NEUTROPHIL # (test code = NT#) 4.71 K/mm3 1.8-7.7 N IMMATURE GRANULOCYTE # (test code = IG#) 0.07 x10 3/uL 0-0.03 H LYMPHOCYTE # (test code = LY#) 2.11 K/mm3 1.0-5.0 N MONOCYTE # (test code = MO#) 0.85 K/mm3 0-0.8 H EOSINOPHIL # (test code = EO#) 0.26 K/mm3 0.0-0.5 N BASOPHIL # (test code = BA#) 0.06 K/mm3 0.0-0.2 N NUCLEATED RBC # (test code = NRBC#) 0.00 K/mm3 0.0-0.1 N MANUAL DIFF REQUIRED (test code = MDIFF) NO CBC W/AUTO [id number] 21:47:00* Test Item Value Reference Range Interpretation Comments WHITE BLOOD CELL (test code = WBC) K/mm3 4.5-12.5 RED BLOOD CELL (test code = RBC) mill/mm3 3.7-5.2 HEMOGLOBIN (test code = HGB) 14.3 gram/dL 11.5-15.5 N HEMATOCRIT (test code = HCT) 43.6 % 36.0-46.0 N MEAN CELL VOLUME (test code = MCV) fL 80-98 MEAN CELL HGB (test code = MCH) picogram 27.0-33.0 MEAN CELL HGB CONCETRATION (test code = MCHC) gram/dL 33.0-36. 0 RED CELL DISTRIBUTION WIDTH (test code = RDW) % 11.6-16. 2 RED CELL DISTRIBUTION WIDTH SD (test code = RDW-SD) fL 37 .0-51.0 PLATELET COUNT (test code = PLT) K/mm3 150-450 MEAN PLATELET VOLUME (test code = MPV) fL 6.7-11.0 NEUTROPHIL % (test code = NT%) % 39.0-69.0 IMMATURE GRANULOCYTE % (test code = IG%) % 0.0-5.0 LYMPHOCYTE % (test code = LY%) % 25.0-55.0 MONOCYTE % (test code = MO%) % 0.0-10.0 EOSINOPHIL % (test code = EO%) % 0.0-5.0 BASOPHIL % (test code = BA%) % 0.0-1.0 NEUTROPHIL # (test code = NT#) K/mm3 1.8-7.7 LYMPHOCYTE # (test code = LY#) K/mm3 1.0-5.0 MONOCYTE # (test code = MO#) K/mm3 0-0.8 EOSINOPHIL # (test code = EO#) K/mm3 0.0-0.5 BASOPHIL # (test code = BA#) K/mm3 0.0-0.2 [id number] 11:15:00* Test Item Value Reference Range Interpretation Comments GLUBED (test code = GLUBED) 161 mg/dL 74-106 H Performed by certified covering machine operator helper at [facility] [id number] 09:03:00* Test Item Value Reference Range Interpretation Comments GLYCOSYLATED HEMOGLOBIN (HA1C) (test code = GLYHGB) 6.6 % HbA1 4. 8-6.0 H ESTIMATED AVERAGE GLUCOSE (test code = EAG) 143 MG/DL - CT ABD PELVIS W WO [id number] 08:44:00 Name: [facility] : 1940 Age/S: 78 / F [address] [facility] Unit #: [id number] Loc: [place] [address] Phys: Vikas Damon MD Acct: [id number] Dis Date: Status: ADM IN PHONE #: [phone] Exam Date: 12/16/2018 0811 FAX #: [phone] Reason: Abdominal pain EXAMS: CPT CODE: [id number] CT ABD PELVIS W WO CONT 92350 REASON FOR EXAM: Abdominal pain EXAM ORDER DATE: 12/16/2018 8:00 AM Ordering Giovanna: Vikas Damon MD PROCEDURE: - CT ABD PELVIS W WO CONT pre and postcontrast axial CT images were acquired through the abdomen/pelvis at 5 mm intervals. Sagittal and coronal reformatted images were generated. Automated exposure control was utilized for this reduction. Phases of contrast: venous and delayed COMPARISON: Abdominal ultrasound December 14, 2018. CT of the chest February 28, 2017 was also reviewed. FINDINGS: Visualized thorax: B ibasilar subsegmental atelectasis present. The heart is enlarged relative to the thorax, also seen on prior chest radiograph December 14, 2018. Hepatobiliary system: Prior cholecystectomy. Liver is enlarged with decreased parenchymal attenuation consistent with steatosis. Calcified gr anulomas present in the left lobe. No abnormal hepatic lesions however. Pancreas: Normal. Spleen: Normal. Adrenal glands: Normal. Genitourinary system: Prior hysterectomy. Bladder and kidneys and ureters are within normal limits. Gastroin testinal tract and appendix: Appendix is not clearly visualized. No inflam matory changes in the right lower abdomen however. Remainder of the gastro intestinal tract is within normal limits. No mural thickening or abnormal distention. Abdominal vascular structures: Atherosclerotic disease is seen throughout the aorta and extends into the iliac arteries. PAGE 1 Signed Report (CONTINUED) Name: [facility] : 1940 Age/S: 78 / F [address] [facility] Unit #: [id number] Loc: [place] [address] Phys: Mahesh Damon MD Acct: [id number] Di s Date: Status: ADM IN PHONE #: Exam Date: 12/16/2018810 FAX #: Reason: Abdominal pain EXAMS: CPT CODE: [id number] CT ABD PELVIS W WO CONT 03498 <Continued> Peritoneum and retroperitoneum: No free fluid or free air. No omental or mesenteric masses. No abnormal lymph nodes. Musculoskeletal structures and abdominal wall: Degenerative changes are seen throughout the visualized spine. There is also grade 1 L5-S1 anterolisthesis with associated vacuum phenomenon fat-containing periumbilical hernia with a neck measuring 1.4 cm in diameter. The lumbar spine appears scoliotic however this may be secondary to patient positioning. IMPRESSION: No acute intra-abdominal findings. Hepatomegaly with hepatic steatosis. Fat-containing periumbilical hernia. Degenerative changes of the spine with L5-S1 anterolisthesis. at 0844 Reported and signed by: Rey Ordaz MD CC: Vikas Damon MD; Ej Addison MD; Adrien Gonzalez MD Technologist:Brandy Moise RT(R),CT; CTDI: DLP: Trnscb Date/Time: 12/16/2018 (0844) t.SDR.RR31 Orig Print D/T: S: 12/16/2018 (3348) PAGE 2 Signed Report [id number] 07:46:00* Test Item Value Reference Range Interpretation Comments GLUBED (test code = GLUBED) 119 mg/dL 74-106 H Performed by certified covering machine operator helper at [facility] [id number] 20:31:00* Test Item Value Reference Range Interpretation Comments GLUBED (test code = GLUBED) 342 mg/dL 74-106 H Performed by certified covering machine operator helper at [facility] [id number] 19:54:00* Test Item Value Reference Range Interpretation Comments GLUBED (test code = GLUBED) 315 mg/dL 74-106 H Performed by certified covering machine operator helper at [facility] [id number] 16:31:00* Test Item Value Reference Range Interpretation Comments GLUBED (test code = GLUBED) 168 mg/dL 74-106 H Performed by certified covering machine operator [facility]~ [id number] 14:34:00* Test Item Value Reference Range Interpretation Comments GLUBED (test code = GLUBED) 151 mg/dL 74-106 H Performed by certified covering machine operator helper at [facility] [id number] 08:37:00* Test Item Value Reference Range Interpretation Comments GLUBED (test code = GLUBED) 135 mg/dL 74-106 H Performed by certified covering machine operator [facility]~ COMPREHENSIVE METABOLIC [id number] 06:49:00* Test Item Value Reference Range Interpretation Comments SODIUM (test code = NA) 142 mmol/L 136-145 N POTASSIUM (test code = K) 3.7 mmol/L 3.5-5.1 N CHLORIDE (test code = CL) 107.0 mmol/L 98-107 N CARBON DIOXIDE (test code = CO2) 29.0 mmol/L 21-32 N ANION GAP (test code = GAP) 9.7 10-20 L GLUCOSE (test code = GLU) 120 mg/dL 74-106 H BLOOD UREA NITROGEN (test code = BUN) 15 mg/dL 7-18 N GLOMERULAR FILTRATION RATE (test code = GFR) > 60 mL/min >=60 Estimated GFR by using Modified MDRD formula.Chronic kidney disease is defined as either kidney damageor GFR <60 mL/min/1.73 m2 for >3 months. CREATININE (test code = CREAT) 0.60 mg/dL 0.55-1.02 N Note change in reference range due to change in reagent. BUN/CREATININE RATIO (test code = BUN/CREA) 23.2 10-20 H TOTAL PROTEIN (test code = PROT) 6.5 gram/dL 6.4-8.2 N ALBUMIN (test code = ALB) 3.0 g/dL 3.4-5.0 L GLOBULIN (test code = GLOB) 3.5 gram/dL 2.7-4.2 N ALBUMIN/GLOBULIN RATIO (test code = A/G) 0.9 0.75-1.50 N CALCIUM (test code = CA) 8.8 mg/dL 8.5-10.1 N BILIRUBIN TOTAL (test code = BILT) 0.50 mg/dL 0.0-1.0 N SGOT/AST (test code = AST) 18 IUnit/L 15-37 N SGPT/ALT (test code = ALT) 20 IUnit/L 12-78 N ALKALINE PHOSPHATASE TOTAL (test code = ALKP) 65 IUnit/L 45-117 N Note change in reference range due to change in reagent. COMPREHENSIVE METABOLIC [id number] 06:47:00* Test Item Value Reference Range Interpretation Comments SODIUM (test code = NA) 142 mmol/L 136-145 N POTASSIUM (test code = K) 3.7 mmol/L 3.5-5.1 N CHLORIDE (test code = CL) 107.0 mmol/L 98-107 N CARBON DIOXIDE (test code = CO2) mmol/L 21-32 ANION GAP (test code = GAP) 10-20 GLUCOSE (test code = GLU) mg/dL 74-106 BLOOD UREA NITROGEN (test code = BUN) mg/dL 7-18 GLOMERULAR FILTRATION RATE (test code = GFR) mL/min >=60 CREATININE (test code = CREAT) mg/dL 0.55-1.02 BUN/CREATININE RATIO (test code = BUN/CREA) 10-20 TOTAL PROTEIN (test code = PROT) gram/dL 6.4-8.2 ALBUMIN (test code = ALB) g/dL 3.4-5.0 GLOBULIN (test code = GLOB) gram/dL 2.7-4.2 ALBUMIN/GLOBULIN RATIO (test code = A/G) 0.75-1.50 CALCIUM (test code = CA) mg/dL 8.5-10.1 BILIRUBIN TOTAL (test code = BILT) mg/dL 0.0-1.0 SGOT/AST (test code = AST) IUnit/L 15-37 SGPT/ALT (test code = ALT) IUnit/L 12-78 ALKALINE PHOSPHATASE TOTAL (test code = ALKP) IUnit/L 45-117 CBC W/AUTO [id number] 06:02:00* Test Item Value Reference Range Interpretation Comments WHITE BLOOD CELL (test code = WBC) 6.3 K/mm3 4.5-12.5 N RED BLOOD CELL (test code = RBC) 4.57 mill/mm3 3.7-5.2 N HEMOGLOBIN (test code = HGB) 13.3 gram/dL 11.5-15.5 N HEMATOCRIT (test code = HCT) 42.3 % 36.0-46.0 N MEAN CELL VOLUME (test code = MCV) 92.6 fL 80-98 N MEAN CELL HGB (test code = MCH) 29.1 picogram 27.0-33.0 N MEAN CELL HGB CONCETRATION (test code = MCHC) 31.4 gram/dL 33.0-36. 0 L RED CELL DISTRIBUTION WIDTH (test code = RDW) 13.8 % 11.6-16. 2 N RED CELL DISTRIBUTION WIDTH SD (test code = RDW-SD) 46.8 fL 37 .0-51.0 N PLATELET COUNT (test code = PLT) 164 K/mm3 150-450 N MEAN PLATELET VOLUME (test code = MPV) 11.3 fL 6.7-11.0 H NEUTROPHIL % (test code = NT%) 57.2 % 39.0-69.0 N IMMATURE GRANULOCYTE % (test code = IG%) 0.5 % 0.0-5.0 N LYMPHOCYTE % (test code = LY%) 25.4 % 25.0-55.0 N MONOCYTE % (test code = MO%) 12.0 % 0.0-10.0 H EOSINOPHIL % (test code = EO%) 4.4 % 0.0-5.0 N BASOPHIL % (test code = BA%) 0.5 % 0.0-1.0 N NUCLEATED RBC % (test code = NRBC%) 0.0 % 0-0 N NEUTROPHIL # (test code = NT#) 3.62 K/mm3 1.8-7.7 N IMMATURE GRANULOCYTE # (test code = IG#) 0.03 x10 3/uL 0-0.03 N LYMPHOCYTE # (test code = LY#) 1.61 K/mm3 1.0-5.0 N MONOCYTE # (test code = MO#) 0.76 K/mm3 0-0.8 N EOSINOPHIL # (test code = EO#) 0.28 K/mm3 0.0-0.5 N BASOPHIL # (test code = BA#) 0.03 K/mm3 0.0-0.2 N NUCLEATED RBC # (test code = NRBC#) 0.00 K/mm3 0.0-0.1 N CBC W/AUTO [id number] 05:56:00* Test Item Value Reference Range Interpretation Comments WHITE BLOOD CELL (test code = WBC) K/mm3 4.5-12.5 RED BLOOD CELL (test code = RBC) mill/mm3 3.7-5.2 HEMOGLOBIN (test code = HGB) 13.3 gram/dL 11.5-15.5 N HEMATOCRIT (test code = HCT) 42.3 % 36.0-46.0 N MEAN CELL VOLUME (test code = MCV) fL 80-98 MEAN CELL HGB (test code = MCH) picogram 27.0-33.0 MEAN CELL HGB CONCETRATION (test code = MCHC) gram/dL 33.0-36. 0 RED CELL DISTRIBUTION WIDTH (test code = RDW) % 11.6-16. 2 RED CELL DISTRIBUTION WIDTH SD (test code = RDW-SD) fL 37 .0-51.0 PLATELET COUNT (test code = PLT) K/mm3 150-450 MEAN PLATELET VOLUME (test code = MPV) fL 6.7-11.0 NEUTROPHIL % (test code = NT%) % 39.0-69.0 IMMATURE GRANULOCYTE % (test code = IG%) % 0.0-5.0 LYMPHOCYTE % (test code = LY%) % 25.0-55.0 MONOCYTE % (test code = MO%) % 0.0-10.0 EOSINOPHIL % (test code = EO%) % 0.0-5.0 BASOPHIL % (test code = BA%) % 0.0-1.0 NEUTROPHIL # (test code = NT#) K/mm3 1.8-7.7 LYMPHOCYTE # (test code = LY#) K/mm3 1.0-5.0 MONOCYTE # (test code = MO#) K/mm3 0-0.8 EOSINOPHIL # (test code = EO#) K/mm3 0.0-0.5 BASOPHIL # (test code = BA#) K/mm3 0.0-0.2 [id number] 23:31:00* Test Item Value Reference Range Interpretation Comments GLUBED (test code = GLUBED) 129 mg/dL 74-106 H Performed by certified covering machine operator helper at [facility] [id number] 20:44:00* Test Item Value Reference Range Interpretation Comments GLUBED (test code = GLUBED) 197 mg/dL 74-106 H Performed by certified covering machine operator helper at [facility] [id number] 19:51:00* Test Item Value Reference Range Interpretation Comments TROPONIN-I (test code = TROPI) 0.353 ng/mL 0-0.045 HH Results called to [facility] V.LAB.QUR 12/14/18 1951Critical results verified and read back by Nurse? N [id number] 16:09:00* Test Item Value Reference Range Interpretation Comments GLUBED (test code = GLUBED) 257 mg/dL 74-106 H Performed by certified covering machine operator helper at [facility] - ABDOMEN [id number] 14:58:00 Name: [facility]VI [facility] : 1940 Age/S: 78 / F [address] [facility] Unit #: [id number] Loc: [place] [address] Phys: Jesus Azul MD Acct: [id number] Dis Date: Status: ADM IN PHONE #: [phone] Exam Date: 12/14/2018 1452 FAX #: [phone] Reason: ABD PAIN, ???ASCITES EXAMS: CPT CODE: [id number] US ABDOMEN COMPLETE 70434 REASON FOR EXAM: ABD PAIN, ???ASCITES EXAM ORDER DATE: 12/14/2018 1:39 PM Attending Giovanna: Jesus Azul MD PROCEDURE: - US ABDOMEN COMPLETE FINDINGS: The liver is unremarkable. There is no evidence of focal mass identified. The pancreas is within normal limits. The right kidney measures 9.4 x 4.5 cm. The left kidney measures 10 x 4.5 cm. There is no evidence of hydronephrosis. There is no evidence of nephrolithiasis. There is no evidence of renal mass. The spleen measures 10.5 cm. The patient is status post cholecystectomy.The common bile duct measures 0.6 cm. There is no evidence of ascites. The aorta and IVC are within normal limits. The portal vein is patent with hepatopetal flow IMPRESSION: Unremarkable abdomen. No evidence of ascites at 3659 Reported and signed by: Nacho Ramsey M.D. CC: Jesus Azul MD; Ej Addison MD; Adrien Gonzalez MD Technologist: NELLIE FULTON RT(R),RDMS Trnscb Date/Time: 12/14/2018 (6020) [email or web address] Orig Print D/T: S: 12/14/2018 (3191) Probe: PAGE 1 Signed Report [id number] 14:27:00* Test Item Value Reference Range Interpretation Comments TROPONIN-I (test code = TROPI) 0.408 ng/mL 0-0.045 HH RESULT VERIFIED BY REPEAT ANALYSIS [id number] 12:42:00* Test Item Value Reference Range Interpretation Comments GLUBED (test code = GLUBED) 166 mg/dL 74-106 H Performed by certified covering machine operator helper at [facility] [id number] 11:48:00* Test Item Value Reference Range Interpretation Comments TROPONIN-I (test code = TROPI) 0.344 ng/mL 0-0.045 HH RESULT VERIFIED BY REPEAT ANALYSIS COMMENTS TO ASSEMBLER FILTERS: COLLECT 3 HOURS AFTER PREVIOUS [id number] 07:55:00* Test Item Value Reference Range Interpretation Comments TROPONIN-I (test code = TROPI) 0.292 ng/mL 0-0.045 HH Results called to [id number] by MAXINE 12/14/18 0755Critical results verified and read back by Nurse? Y COMMENTS TO ASSEMBLER FILTERS: COLLECT 3 HOURS AFTER PREVIOUS SAMPLE- XR CHEST 1 [id number] 00:54:00 FAX: Wally Valverde [phone] [place]: St: [facility] FAX: Adrien Ellis MD [phone] Name: ELVI MORENO [facility] : 1940 Age/S: 78/F [address] [facility] Unit #: [id number] Loc: [place] [address] Phys: Wally Oh MD Acct: [id number] Dis Date: Status: REG ER PHONE #: [phone] Exam Date: 12/14/2018 0048 FAX #: [phone] Reason: CHEST PAIN EXAMS: CPT CODE: [id number] XR CHEST 1 V 29084 LOCATION: Q15 HISTORY: 78-year-old female with chest pain. COMMENT: A frontal chest radiograph is obta ined at 12:48 a.m., and compared to study of June 22, 2018. The lungs are clear. Mild, generalized cardiac enlargement is unchanged. The xu and mediastinum are stable. The skeleton and soft tissues are u nchanged. Again seen is orthopedic hardware in the right shoulder. IMPRESSION: There is no radiographic evidence of acute cardiopulmonary disease or significant interval change. at 0054 Reported and signed by: Jose Cutler M.D. CC: Wally Oh MD; Adrien Gonzalez MD Technologist: RT CARL(Lesly) Trnscrd Date/Time/By: 12/14/2018 (0054) : By: [email or web address] Orig Print D/T: S: 12/14/2018 (0059) PAGE 1 Signed Report BASIC METABOLIC [id number] 00:36:00* Test Item Value Reference Range Interpretation Comments SODIUM (test code = NA) 142 mmol/L 136-145 N POTASSIUM (test code = K) 3.9 mmol/L 3.5-5.1 N CHLORIDE (test code = CL) 106.0 mmol/L 98-107 N CARBON DIOXIDE (test code = CO2) 30.0 mmol/L 21-32 N ANION GAP (test code = GAP) 9.9 10-20 L GLUCOSE (test code = GLU) 164 mg/dL 74-106 H BLOOD UREA NITROGEN (test code = BUN) 27 mg/dL 7-18 H GLOMERULAR FILTRATION RATE (test code = GFR) 40 mL/min >=60 Estimated GFR by using Modified MDRD formula.Chronic kidney disease is defined as either kidney damageor GFR <60 mL/min/1.73 m2 for >3 months. CREATININE (test code = CREAT) 1.30 mg/dL 0.55-1.02 H Note change in reference range due to change in reagent. BUN/CREATININE RATIO (test code = BUN/CREA) 21.4 10-20 H CALCIUM (test code = CA) 9.1 mg/dL 8.5-10.1 N [id number] 00:36:00* Test Item Value Reference Range Interpretation Comments TROPONIN-I (test code = TROPI) <0.015 ng/mL 0-0.045 N CBC W/O [id number] 00:33:00* Test Item Value Reference Range Interpretation Comments WHITE BLOOD CELL (test code = WBC) 8.5 K/mm3 4.5-12.5 N RED BLOOD CELL (test code = RBC) 5.06 mill/mm3 3.7-5.2 N HEMOGLOBIN (test code = HGB) 14.9 gram/dL 11.5-15.5 N HEMATOCRIT (test code = HCT) 46.2 % 36.0-46.0 H MEAN CELL VOLUME (test code = MCV) 91.3 fL 80-98 N MEAN CELL HGB (test code = MCH) 29.4 picogram 27.0-33.0 N MEAN CELL HGB CONCETRATION (test code = MCHC) 32.3 gram/dL 33.0-36. 0 L RED CELL DISTRIBUTION WIDTH (test code = RDW) 13.7 % 11.6-16. 2 N PLATELET COUNT (test code = PLT) 200 K/mm3 150-450 N MEAN PLATELET VOLUME (test code = MPV) 11.3 fL 6.7-11.0 H BASIC METABOLIC [id number] 00:25:00* Test Item Value Reference Range Interpretation Comments SODIUM (test code = NA) 142 mmol/L 136-145 N POTASSIUM (test code = K) 3.9 mmol/L 3.5-5.1 N CHLORIDE (test code = CL) 106.0 mmol/L 98-107 N CARBON DIOXIDE (test code = CO2) mmol/L 21-32 ANION GAP (test code = GAP) 10-20 GLUCOSE (test code = GLU) mg/dL 74-106 BLOOD UREA NITROGEN (test code = BUN) mg/dL 7-18 GLOMERULAR FILTRATION RATE (test code = GFR) mL/min >=60 CREATININE (test code = CREAT) mg/dL 0.55-1.02 BUN/CREATININE RATIO (test code = BUN/CREA) 10-20 CALCIUM (test code = CA) 9.1 mg/dL 8.5-10.1 N [id number] 00:25:00* Test Item Value Reference Range Interpretation Comments TROPONIN-I (test code = TROPI) ng/mL 0-0.045 CBC W/O [id number] 00:21:00* Test Item Value Reference Range Interpretation Comments WHITE BLOOD CELL (test code = WBC) K/mm3 4.5-12.5 RED BLOOD CELL (test code = RBC) mill/mm3 3.7-5.2 HEMOGLOBIN (test code = HGB) 14.9 gram/dL 11.5-15.5 N HEMATOCRIT (test code = HCT) % 36.0-46.0 MEAN CELL VOLUME (test code = MCV) fL 80-98 MEAN CELL HGB (test code = MCH) picogram 27.0-33.0 MEAN CELL HGB CONCETRATION (test code = MCHC) gram/dL 33.0-36. 0 RED CELL DISTRIBUTION WIDTH (test code = RDW) % 11.6-16. 2 PLATELET COUNT (test code = PLT) K/mm3 150-450 MEAN PLATELET VOLUME (test code = MPV) fL 6.7-11.0 CHEST 2 [id number] 13:23:00 [place] [address] Patient Name: ELVI MORENO MR #: [id number] : 1940 Age/Sex: 77/F Req #: [id number] Adm Physician: Ordered by: OMAIRA RODRIGUEZ MD Report #: [id number] Location: [facility] Room/Bed: Procedure: [id number] DX/ CHEST 2 VIEWS Exam Date: 10/15/18 Exam Time: 1310 REPORT STATUS: Signed EXAMINATI ON: PA and lateral views of the chest. COMPARISON: None CLINICAL HISTO RY: Preoperative study for cardiac catheterization DISCUSSION: T he lungs are well-inflated. No consolidation, pleural effusion, or pneumothora x. Moderate enlargement of the cardiac silhouette with prominence of the centr al pulmonary vasculature. no acute osseous abnormality. Postsurgical change s of the proximal right humerus and scapula. IMPRESSION: Moderate enla rgement of the cardiac silhouette with pulmonary venous congestion. Signed by: Dr. Omaira Mcgee M.D. on 10/15/2018 1:25 PM Dictated By: OMAIRA MCGEE MD Transcribed By: SILVIO on 10/15/185 COPY TO: OMAIRA RODRIGUEZ MD URINALYSIS [id number] 14:03:00* Test Item Value Reference Range Interpretation Comments UA COLOR (test code = COLU) DARK YELLOW YELLOW A UA APPEARANCE (test code = APPU) Cloudy CLEAR A UA GLUCOSE DIPSTICK (test code = DGLUU) NEGATIVE mg/dL NEGATIVE UA BILIRUBIN DIPSTICK (test code = BILU) NEGATIVE mg/dL NEGATIVE UA KETONE DIPSTICK (test code = KETU) Negative mg/dL NEGATIVE UA SPECIFIC GRAVITY (test code = SGU) 1.019 1.001-1.035 UA BLOOD DIPSTICK (test code = DEANNE) Negative NEGATIVE UA PH DIPSTICK (test code = KRYSTEN) 8.0 5.0-8.0 UA PROTEIN DIPSTICK (test code = PROU) >500 (3+) mg/dL NEGATIVE A UA UROBILINIOGEN DIPSTICK (test code = URO) NEGATIVE mg/dL NEGATIVE UA NITRITE DIPSTICK (test code = KYM) NEGATIVE NEGATIVE UA LEUKOCYTE ESTERASE W REFLEX (test code = LEUUR) 3+ NEG ATIVE A UA WBC (test code = WBCU) 11-20 #/HPF 0-5 A UA BACTERIA (test code = BACU) LOADED #/HPF NONE UA TRIPLE PHOSPHATE CRYSTALS (test code = TRPHOSU) FEW #/HPF NON E A UA MUCUS (test code = MUCU) FEW #/LPF FEW UA AMORPHOUS SEDIMENT (test code = AMORU) FEW TO MODERATE #/LPF NON E [id number] 11:35:00* Test Item Value Reference Range Interpretation Comments GLUBED (test code = GLUBED) 346 mg/dL 74-106 H Performed by certified covering machine operator helper at [facility] BASIC METABOLIC [id number] 08:12:00* Test Item Value Reference Range Interpretation Comments SODIUM (test code = NA) 146 mmol/L 136-145 H POTASSIUM (test code = K) 3.4 mmol/L 3.5-5.1 L CHLORIDE (test code = CL) 109.0 mmol/L 98-107 H CARBON DIOXIDE (test code = CO2) 28.0 mmol/L 21-32 N ANION GAP (test code = GAP) 12.4 10-20 N GLUCOSE (test code = GLU) 137 mg/dL 74-106 H BLOOD UREA NITROGEN (test code = BUN) 24 mg/dL 7-18 H GLOMERULAR FILTRATION RATE (test code = GFR) > 60 mL/min >=60 Estimated GFR by using Modified MDRD formula.Chronic kidney disease is defined as either kidney damageor GFR <60 mL/min/1.73 m2 for >3 months. CREATININE (test code = CREAT) 0.70 mg/dL 0.55-1.02 N Note change in reference range due to change in reagent. BUN/CREATININE RATIO (test code = BUN/CREA) 34.6 10-20 H CALCIUM (test code = CA) 9.0 mg/dL 8.5-10.1 N BASIC METABOLIC [id number] 08:05:00* Test Item Value Reference Range Interpretation Comments SODIUM (test code = NA) 146 mmol/L 136-145 H POTASSIUM (test code = K) 3.4 mmol/L 3.5-5.1 L CHLORIDE (test code = CL) 109.0 mmol/L 98-107 H CARBON DIOXIDE (test code = CO2) mmol/L 21-32 ANION GAP (test code = GAP) 10-20 GLUCOSE (test code = GLU) mg/dL 74-106 BLOOD UREA NITROGEN (test code = BUN) mg/dL 7-18 GLOMERULAR FILTRATION RATE (test code = GFR) mL/min >=60 CREATININE (test code = CREAT) mg/dL 0.55-1.02 BUN/CREATININE RATIO (test code = BUN/CREA) 10-20 CALCIUM (test code = CA) mg/dL 8.5-10.1 CBC W/AUTO [id number] 07:44:00* Test Item Value Reference Range Interpretation Comments WHITE BLOOD CELL (test code = WBC) 7.9 K/mm3 4.5-12.5 N RED BLOOD CELL (test code = RBC) 5.08 mill/mm3 3.7-5.2 N HEMOGLOBIN (test code = HGB) 14.6 gram/dL 11.5-15.5 N HEMATOCRIT (test code = HCT) 45.6 % 36.0-46.0 N MEAN CELL VOLUME (test code = MCV) 89.8 fL 80-98 N MEAN CELL HGB (test code = MCH) 28.7 picogram 27.0-33.0 N MEAN CELL HGB CONCETRATION (test code = MCHC) 32.0 gram/dL 33.0-36. 0 L RED CELL DISTRIBUTION WIDTH (test code = RDW) 13.9 % 11.6-16. 2 N RED CELL DISTRIBUTION WIDTH SD (test code = RDW-SD) 46.1 fL 37 .0-51.0 N PLATELET COUNT (test code = PLT) 199 K/mm3 150-450 N MEAN PLATELET VOLUME (test code = MPV) 11.6 fL 6.7-11.0 H NEUTROPHIL % (test code = NT%) 56.5 % 39.0-69.0 N IMMATURE GRANULOCYTE % (test code = IG%) 0.5 % 0.0-5.0 N LYMPHOCYTE % (test code = LY%) 30.3 % 25.0-55.0 N MONOCYTE % (test code = MO%) 9.6 % 0.0-10.0 N EOSINOPHIL % (test code = EO%) 2.5 % 0.0-5.0 N BASOPHIL % (test code = BA%) 0.6 % 0.0-1.0 N NUCLEATED RBC % (test code = NRBC%) 0.0 % 0-0 N NEUTROPHIL # (test code = NT#) 4.44 K/mm3 1.8-7.7 N IMMATURE GRANULOCYTE # (test code = IG#) 0.04 x10 3/uL 0-0.03 H LYMPHOCYTE # (test code = LY#) 2.39 K/mm3 1.0-5.0 N MONOCYTE # (test code = MO#) 0.76 K/mm3 0-0.8 N EOSINOPHIL # (test code = EO#) 0.20 K/mm3 0.0-0.5 N BASOPHIL # (test code = BA#) 0.05 K/mm3 0.0-0.2 N NUCLEATED RBC # (test code = NRBC#) 0.00 K/mm3 0.0-0.1 N MANUAL DIFF REQUIRED (test code = MDIFF) NO CBC W/AUTO [id number] 07:34:00* Test Item Value Reference Range Interpretation Comments WHITE BLOOD CELL (test code = WBC) K/mm3 4.5-12.5 RED BLOOD CELL (test code = RBC) mill/mm3 3.7-5.2 HEMOGLOBIN (test code = HGB) 14.6 gram/dL 11.5-15.5 N HEMATOCRIT (test code = HCT) 45.6 % 36.0-46.0 N MEAN CELL VOLUME (test code = MCV) fL 80-98 MEAN CELL HGB (test code = MCH) picogram 27.0-33.0 MEAN CELL HGB CONCETRATION (test code = MCHC) gram/dL 33.0-36. 0 RED CELL DISTRIBUTION WIDTH (test code = RDW) % 11.6-16. 2 RED CELL DISTRIBUTION WIDTH SD (test code = RDW-SD) fL 37 .0-51.0 PLATELET COUNT (test code = PLT) K/mm3 150-450 MEAN PLATELET VOLUME (test code = MPV) fL 6.7-11.0 NEUTROPHIL % (test code = NT%) % 39.0-69.0 IMMATURE GRANULOCYTE % (test code = IG%) % 0.0-5.0 LYMPHOCYTE % (test code = LY%) % 25.0-55.0 MONOCYTE % (test code = MO%) % 0.0-10.0 EOSINOPHIL % (test code = EO%) % 0.0-5.0 BASOPHIL % (test code = BA%) % 0.0-1.0 NEUTROPHIL # (test code = NT#) K/mm3 1.8-7.7 LYMPHOCYTE # (test code = LY#) K/mm3 1.0-5.0 MONOCYTE # (test code = MO#) K/mm3 0-0.8 EOSINOPHIL # (test code = EO#) K/mm3 0.0-0.5 BASOPHIL # (test code = BA#) K/mm3 0.0-0.2 [id number] 05:51:00* Test Item Value Reference Range Interpretation Comments GLUBED (test code = GLUBED) 142 mg/dL 74-106 H Performed by certified covering machine operator helper at [facility] [id number] 22:24:00* Test Item Value Reference Range Interpretation Comments GLYCOSYLATED HEMOGLOBIN (HA1C) (test code = GLYHGB) 8.0 % HbA1 4. 8-6.0 H ESTIMATED AVERAGE GLUCOSE (test code = EAG) 183 MG/DL LIPID PROFILE (CORONARY RISK)[id number] 22:11:00* Test Item Value Reference Range Interpretation Comments TRIGLYCERIDES (test code = TRIG) 184 mg/dL 20-150 H CHOLESTEROL (test code = CHOL) 127 mg/dL 0-200 N CHOLESTEROL/HDL RATIO (test code = CHOLHDL) 3.0 RATIO 0-4.9 N RISK ASSOCIATED WITH CHOL/HDL RATIOS: Risk Male Female1/2 AVERAGE 3.43 3.27AVERAGE 4.97 4.442X AVERAGE 9.55 7.053X AVERAGE 23.39 11.04 REFERENCE VALUE IS RELATED TO RISK LEVELS ASRECOMMENDED BY THE MIRELA. HEART, LUNG, AND BLOOD INST. HDL CHOLESTEROL (test code = HDL) 34 mg/dL 40-60 L LIPOPROTEIN LDL (test code = LDL) 81 mg/dL 100-129 L Reference Interval: mg/dL mmol/L Optimal <100 <2.6Near/above optimal 100-129 2.6- 3.3Borderline High 130-159 3.4-4.1High 160-189 4.1-4.9Very High >=190 >=4.9========= This LDL result is a direct measurement.========= [id number] 21:19:00* Test Item Value Reference Range Interpretation Comments GLUBED (test code = GLUBED) 190 mg/dL 74-106 H Performed by certified covering machine operator helper at [facility] [id number] 17:07:00* Test Item Value Reference Range Interpretation Comments GLUBED (test code = GLUBED) 170 mg/dL 74-106 H Performed by certified covering machine operator helper at [facility] [id number] 16:18:00* Test Item Value Reference Range Interpretation Comments GLUBED (test code = GLUBED) 156 mg/dL 74-106 H Performed by certified covering machine operator helper at [facility] [id number] 15:59:00* Test Item Value Reference Range Interpretation Comments GLUBED (test code = GLUBED) 218 mg/dL 74-106 H Performed by certified covering machine operator helper at [facility] [id number] 06:21:00* Test Item Value Reference Range Interpretation Comments GLUBED (test code = GLUBED) 256 mg/dL 74-106 H Performed by certified covering machine operator helper at [facility] [id number] 23:43:00* Test Item Value Reference Range Interpretation Comments TROPONIN-I (test code = TROPI) <0.015 ng/mL 0-0.045 N COMMENTS TO ASSEMBLER FILTERS: COLLECT 3 HOURS AFTER PREVIOUS [id number] 21:21:00* Test Item Value Reference Range Interpretation Comments GLUBED (test code = GLUBED) 209 mg/dL 74-106 H Performed by certified covering machine operator helper at [facility] [id number] 20:29:00* Test Item Value Reference Range Interpretation Comments TROPONIN-I (test code = TROPI) <0.015 ng/mL 0-0.045 N COMMENTS TO ASSEMBLER FILTERS: COLLECT 3 HOURS AFTER PREVIOUS SAMPLE- MRI BRAIN W/O [id number] 18:05:00 FAX: [place] [phone] [place]: St: ADM Name: ELIV NELSON [facility] : [birth year] Age/S: 77/F [address] Unit #: [id number] Loc: V[address] [place] [address] Phys: La Grover MD Acct: [id number] Dis Date: Status: ADM IN PHONE #: [phone] Exam Date: 06/22/2018 3104 FAX #: [phone] Reason: slurred speech, left sided weakness EXAMS: CPT CODE: [id number] MRI BRAIN W/O CONTRAST 91271 REASON FOR EXAM: slurred speech, left sided weakness Exam Order Date: 06/22/2018 1:30 PM Attending Giovanna: La Grover MD Procedure: - MRI BRAIN [...] IMPRE SSION: No evidence of acute infarction. Renderer zahra microvascular ischemic changes in the periventricular white matter. Diffusion restricting lesions in the posterior horns of the la teral ventricles bilaterally. Further evaluation is limited by the absen ce of IV contrast. Electronically Signed by Rey rose 06/22/2018 at 1805 Reported and signed by: Rey Ordaz MD PAGE 1 Signed Report (CONTINU ED) FAX: [place] [phone] [place]: B St: ADM------ Name: ELVI MORENO [facility] : [birth year] [facility] 77[facility] [address] [facility]: [id number] Loc: [id number] [place] [address] Phys: La Grover MD Acct: [id number] Dis Date: Status: ADM IN PHONE #: [phone] Exam Date: 06/22/2018 1714 FAX #: [phone] Reason: slurred speech, left sided weakness EXAMS: CPT CODE: [id number] MRI BRAIN W/O CONTRAST 27499 <Continued> CC: La Grover MD Technologist: Javier Powers)(MR) Trnscrd Date/Time/By: 06/22/2018 (1804) : By: [email or web address] Orig Print D/T: S: 06/22/2018 (1807) PAGE 2 Signed Report HEPATIC FUNCTION [id number] 13:18:00* Test Item Value Reference Range Interpretation Comments TOTAL PROTEIN (test code = PROT) 7.8 gram/dL 6.4-8.2 N ALBUMIN (test code = ALB) 4.0 g/dL 3.4-5.0 N GLOBULIN (test code = GLOB) 3.8 gram/dL 2.7-4.2 N ALBUMIN/GLOBULIN RATIO (test code = A/G) 1.1 0.75-1.50 N BILIRUBIN TOTAL (test code = BILT) 0.50 mg/dL 0.0-1.0 N BILIRUBIN DIRECT (test code = BILD) 0.18 mg/dL 0.0-0.20 N SGOT/AST (test code = AST) 19 IUnit/L 15-37 N SGPT/ALT (test code = ALT) 27 IUnit/L 12-78 N ALKALINE PHOSPHATASE TOTAL (test code = ALKP) 74 IUnit/L 45-117 N Note change in reference range due to change in reagent. [id number] 13:18:00* Test Item Value Reference Range Interpretation Comments LIPASE (test code = LIP) 200 U/L 73.0-393.0 N BASIC METABOLIC [id number] 13:18:00* Test Item Value Reference Range Interpretation Comments SODIUM (test code = NA) 142 mmol/L 136-145 N POTASSIUM (test code = K) 3.9 mmol/L 3.5-5.1 N CHLORIDE (test code = CL) 104.0 mmol/L 98-107 N CARBON DIOXIDE (test code = CO2) 29.0 mmol/L 21-32 N ANION GAP (test code = GAP) 12.9 10-20 N GLUCOSE (test code = GLU) 116 mg/dL 74-106 H BLOOD UREA NITROGEN (test code = BUN) 33 mg/dL 7-18 H GLOMERULAR FILTRATION RATE (test code = GFR) > 60 mL/min >=60 Estimated GFR by using Modified MDRD formula.Chronic kidney disease is defined as either kidney damageor GFR <60 mL/min/1.73 m2 for >3 months. CREATININE (test code = CREAT) 0.90 mg/dL 0.55-1.02 N Note change in reference range due to change in reagent. BUN/CREATININE RATIO (test code = BUN/CREA) 34.8 10-20 H CALCIUM (test code = CA) 9.6 mg/dL 8.5-10.1 N [id number] 13:18:00* Test Item Value Reference Range Interpretation Comments MAGNESIUM (test code = MAG) 2.1 mg/dL 1.8-2.4 N [id number] 13:18:00* Test Item Value Reference Range Interpretation Comments CKMB (test code = CKMBT) 1.3 ng/mL 0-6.0 N PROTHROMBIN [id number] 12:58:00* Test Item Value Reference Range Interpretation Comments PROTHROMBIN TIME PATIENT (test code = PTP) 14.1 seconds 9.0-14.0 H INTERNATIONAL NORMAL RATIO (test code = INR) 1.2 0.8-1.2 N The therapeutic range for oral anticoagulant therapy [...] (2.5-3.5) IS PATIENT ON ANTICOAGULANTS? NTHROMBOPLASTIN TIME [id number] 12:58:00* Test Item Value Reference Range Interpretation Comments THROMBOPLASTIN TIME PARTIAL (test code = PTT) 33.8 seconds 25.0-36. 5 N IS PATIENT ON ANTICOAGULANTS? NBASIC METABOLIC [id number] 12:56:00* Test Item Value Reference Range Interpretation Comments SODIUM (test code = NA) 142 mmol/L 136-145 N POTASSIUM (test code = K) 3.9 mmol/L 3.5-5.1 N CHLORIDE (test code = CL) 104.0 mmol/L 98-107 N CARBON DIOXIDE (test code = CO2) mmol/L 21-32 ANION GAP (test code = GAP) 10-20 GLUCOSE (test code = GLU) mg/dL 74-106 BLOOD UREA NITROGEN (test code = BUN) mg/dL 7-18 GLOMERULAR FILTRATION RATE (test code = GFR) mL/min >=60 CREATININE (test code = CREAT) mg/dL 0.55-1.02 BUN/CREATININE RATIO (test code = BUN/CREA) 10-20 CALCIUM (test code = CA) mg/dL 8.5-10.1 [id number] 12:56:00* Test Item Value Reference Range Interpretation Comments MAGNESIUM (test code = MAG) mg/dL 1.8-2.4 [id number] 12:56:00* Test Item Value Reference Range Interpretation Comments CKMB (test code = CKMBT) ng/mL 0-6.0 CBC W/AUTO [id number] 12:46:00* Test Item Value Reference Range Interpretation Comments WHITE BLOOD CELL (test code = WBC) 9.4 K/mm3 4.5-12.5 N RED BLOOD CELL (test code = RBC) 5.19 mill/mm3 3.7-5.2 N HEMOGLOBIN (test code = HGB) 15.0 gram/dL 11.5-15.5 N HEMATOCRIT (test code = HCT) 46.5 % 36.0-46.0 H MEAN CELL VOLUME (test code = MCV) 89.6 fL 80-98 N MEAN CELL HGB (test code = MCH) 28.9 picogram 27.0-33.0 N MEAN CELL HGB CONCETRATION (test code = MCHC) 32.3 gram/dL 33.0-36. 0 L RED CELL DISTRIBUTION WIDTH (test code = RDW) 13.4 % 11.6-16. 2 N RED CELL DISTRIBUTION WIDTH SD (test code = RDW-SD) 43.8 fL 37 .0-51.0 N PLATELET COUNT (test code = PLT) 155 K/mm3 150-450 N MEAN PLATELET VOLUME (test code = MPV) 12.1 fL 6.7-11.0 H NEUTROPHIL % (test code = NT%) 70.8 % 39.0-69.0 H IMMATURE GRANULOCYTE % (test code = IG%) 0.4 % 0.0-5.0 N LYMPHOCYTE % (test code = LY%) 19.3 % 25.0-55.0 L MONOCYTE % (test code = MO%) 7.6 % 0.0-10.0 N EOSINOPHIL % (test code = EO%) 1.6 % 0.0-5.0 N BASOPHIL % (test code = BA%) 0.3 % 0.0-1.0 N NUCLEATED RBC % (test code = NRBC%) 0.0 % 0-0 N NEUTROPHIL # (test code = NT#) 6.66 K/mm3 1.8-7.7 N IMMATURE GRANULOCYTE # (test code = IG#) 0.04 x10 3/uL 0-0.03 H LYMPHOCYTE # (test code = LY#) 1.81 K/mm3 1.0-5.0 N MONOCYTE # (test code = MO#) 0.71 K/mm3 0-0.8 N EOSINOPHIL # (test code = EO#) 0.15 K/mm3 0.0-0.5 N BASOPHIL # (test code = BA#) 0.03 K/mm3 0.0-0.2 N NUCLEATED RBC # (test code = NRBC#) 0.00 K/mm3 0.0-0.1 N MANUAL DIFF REQUIRED (test code = MDIFF) NO CBC W/AUTO [id number] 12:42:00* Test Item Value Reference Range Interpretation Comments WHITE BLOOD CELL (test code = WBC) K/mm3 4.5-12.5 RED BLOOD CELL (test code = RBC) mill/mm3 3.7-5.2 HEMOGLOBIN (test code = HGB) 15.0 gram/dL 11.5-15.5 N HEMATOCRIT (test code = HCT) % 36.0-46.0 MEAN CELL VOLUME (test code = MCV) fL 80-98 MEAN CELL HGB (test code = MCH) picogram 27.0-33.0 MEAN CELL HGB CONCETRATION (test code = MCHC) gram/dL 33.0-36. 0 RED CELL DISTRIBUTION WIDTH (test code = RDW) % 11.6-16. 2 RED CELL DISTRIBUTION WIDTH SD (test code = RDW-SD) fL 37 .0-51.0 PLATELET COUNT (test code = PLT) K/mm3 150-450 MEAN PLATELET VOLUME (test code = MPV) fL 6.7-11.0 NEUTROPHIL % (test code = NT%) % 39.0-69.0 IMMATURE GRANULOCYTE % (test code = IG%) % 0.0-5.0 LYMPHOCYTE % (test code = LY%) % 25.0-55.0 MONOCYTE % (test code = MO%) % 0.0-10.0 EOSINOPHIL % (test code = EO%) % 0.0-5.0 BASOPHIL % (test code = BA%) % 0.0-1.0 NEUTROPHIL # (test code = NT#) K/mm3 1.8-7.7 LYMPHOCYTE # (test code = LY#) K/mm3 1.0-5.0 MONOCYTE # (test code = MO#) K/mm3 0-0.8 EOSINOPHIL # (test code = EO#) K/mm3 0.0-0.5 BASOPHIL # (test code = BA#) K/mm3 0.0-0.2 - XR CHEST 1 [id number] 12:42:00 FAX: [place] [phone] [place]: B St: REG Name: ELVI NELSON [facility] : [birth year] Age/S: 77/F [address] Unit #: [id number] Loc: [place] [address] Phys: La Grover MD Acct: [id number] Dis Date: Status: REG ER PHONE #: [phone] Exam Date: 06/22/2018 1234 FAX #: [phone] Reason: CODE STROKE EXAMS: CPT CODE: [id number] XR CHEST 1 V [id number] EXAM: Chest x-ray, one view; INFORMATION: Hypertension, slurred speech, code stroke; F INDINGS: Lungs are clear; no infiltrates, no edema; no effusions, no pneumothorax. The heart is moderately enlarged. Aortic calcificatio ns. Status post right shoulder arthroplasty. IMPRESSION: 1. Moderate cardiomegaly. 2. Otherwise, no evidence of active car diopulmonary disease. 2. No significant change compared with a study fro February 11, 2018. at 1242 Reported and signed by: Macario Dubose M.D. CC: La Grover MD Technologist: Jeet MARS(R) Trnscrd Date/Time/By: 06/22/2018 (8841) : By: Humberto Orig Print D/T: S: 06/22/2018 (3169) PAGE 1 Signed Report - CT HEAD/BRAIN W/O [id number] 12:38:00 Name: ELVI MORENO [facility] : 1940 Age/S: 77 / F [address] Unit #: [id number] Loc: [place] [address] Phys: La Grover MD Acct: [id number] Dis Date: Status: REG ER PHONE #: [phone] Exam Date: 06/22/2018 1227 FAX #: [phone] Reason: slurred speech, left sided numbness EXAMS: CPT CODE: [id number] CT HEAD/BRAIN W/O CONT 88885 EXAM: CT of the head without contrast; [...] in the right basal ganglia. Otherwise, unremarkable whalen/white matter differentiation. Ventricles are symmetric and of [...] CTDI: DLP: Trnscb Date/Eugenio e: 06/22/2018 (1238) Humberto Orig Print D/T: S: 019 (1241) CTDI: DLP: PAGE 1 Sign ed Report [id number] 11:03:00 RUN DATE: 02/20/18 [facility] PAGE 1 RUN TIME: 1104 Specimen Inqui ry RUN USER: INTERFACE PATIENT: ELVI MORENO ACCT #: [id number] LOC: [facility] U #: [id number] AGE/SX: 77/F ROOM: [facility] RE02/13/18REG DR: Ej Addison MD : 44 BED: A DIS: 02/15/18 STATUS: DIS IN TLOC: SPEC #: [id number] RECD: 02/15/18 STATUS: PEDRO REQ #: [id number] DESTIN: 02/14/18- [facility] DR: Vikas Damon MD ENTERED: 02/15/18 SP TYPE: STOMACH OTHR DR: Eliel Hutchison MD, Louis MD Sc hiesser, Rachel L MDORDERED: GROSS COPIES TO: Eliel Rodriguez MD [address] [place] [address] Vikas Damon MD [address] [place] [address] Bernard Rodriguez MD [address] [place], [place] [id number] Yesi Peña MD [address] [place] [address] PROCEDURES: GROSS (02/18/18-1443) TISSUES: 1. ANTRAL BIOPSY - H-PYLORI 2. ESOPHAGUS, NOS - BX CLINICAL HISTORY COLLECTION DATE: 02/14/18 EPIGASTRIC PAIN COMMENT A Giemsa stain was prepared on the first specimen and is negative for Helicobacter Pylori. The control stains appropriately. The block from this case was sent to [facility] for a Helicobacter Pylori immunostain. The control stains appropriately. The slide was interpreted at [facility]. The specimen is negative for Helicobacter Pylori. 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 GROSS PERFORMED AT [facility] [address] [place] [address] ( p)[phone] MICROSCOPIC MICROSCOPIC PERFORMED AT [facility] [place] All of the stains, including any controls performed, stain marioia ronaldo. [facility] [address] [place] [address] (p )[phone] CONTINUED ON NEXT PAGE ---- --------RUN DATE: 02/20/18 [facility] PAGE 3 RUN TIME: 1104 Specimen Inquiry RUN USER: INTERFACE SPEC #: [id number] PATIENT: ELVI MORENO #[id number] (Continued) PERFORMING SITE Diagnosis performed at: [facility], MARY ANN [address] [facility] [place] [address] Signed SIGNATURE ON FILE Na Estrella 02/20/18 1103 ---- -------- END OF REPORT
--- NOTE | 2019-12-24 12:38 | Diagnostic Imaging Report ---
EXAMINATION: HIP LEFT 2-3 VW (+/- PELVIS) INDICATION: Trauma, left hip pain COMPARISON: None FINDINGS: Acute comminuted intertrochanteric left proximal femur fracture with medial displacement of the lesser trochanteric fragment and approximately 2.5 cm superior displacement of the dominant distal fracture fragment. No additional fractures identified. Mild degenerative changes of both hip joints. Phlebolith in the right pelvis. IMPRESSION: Acute comminuted intertrochanteric left proximal femur fracture. Signed by: Joe Baker MD on 12/24/2019 12:34 PM
--- NOTE | 2019-12-24 12:38 | Diagnostic Imaging Report ---
EXAMINATION: Head and cervical spine CT without contrast. HISTORY: 79-year-old female, status post fall, trauma, head and neck pain COMPARISON: None. TECHNIQUE: Multidetector axial images were obtained without contrast from the foramen magnum to the vertex and through the cervical spine. The images were reconstructed using brain and bone algorithms. Thin section brain images were reformatted into coronal and sagittal planes. Dose modulation, iterative reconstruction, and/or weight based adjustment of the mA/kV was utilized to reduce the radiation dose to as low as reasonably achievable. HEAD CT FINDINGS: Skull/scalp: No lytic or blastic lesions. No fractures. Parenchyma: Few scattered moderate confluent periventricular white matter hypodensities, most likely nonspecific chronic microvascular ischemic changes. No mass, hemorrhage or CT evidence of acute vascular insult. Tiny calcifications in the lentiform nuclei are likely vascular in nature. Brain volume: Normal for age. Ventricles: No hydrocephalus or displacement. Arteries: No density suggestive of thrombus. Dural sinuses: No abnormal density. Extra-axial spaces: No abnormal density. Foramen magnum: No mass, Chiari malformation, or basilar invagination. Sella: No obvious mass. Paranasal/mastoid sinuses: Imaged portions unremarkable. CERVICAL SPINE CT FINDINGS: Alignment: Normal alignment and lordosis. Soft tissues: Atrophy of the paraspinal muscles. Vertebrae: Normal height and density. No acute fracture, infection or neoplasm. Schmorl node adjacent to the superior endplate of T1. Degenerative changes: C1-C2: Normal C2-C3: Facet arthroses mainly on the right without canal or foraminal stenoses. C3-C4: Mild disc bulge and facet processes. No significant stenosis. C4-C5: Disc osteophyte complex formation, bilateral uncovertebral and facet processes. Mild spinal canal and moderate foraminal stenoses. C5-C6: Disc osteophyte, this formation, bilateral uncovertebral and facet arthrosis. Moderate bilateral foraminal stenoses. C6-C7: Bilateral uncovertebral O cc. Minimal foraminal narrowing. C7-T1: Normal IMPRESSION: Head CT: 1. No acute postraumatic intracranial hemorrhage. 2. Moderate chronic microvascular ischemic changes. Cervical spine CT: 1. No acute fractures or dislocations. 2. Chronic degenerative changes as described. Note: Acute post traumatic spinal cord, vascular or ligamentous injury cannot adequately be assessed with CT. Signed by: Dr. Brenda Maldonado M.D. on 12/24/2019 12:35 PM
--- NOTE | 2019-12-24 12:41 | Diagnostic Imaging Report ---
EXAMINATION: CHEST SINGLE (NOT PORTABLE) INDICATION: Fall COMPARISON: Chest radiograph 10/15/2018 FINDINGS: LINES/TUBES:Left chest AICD. LUNGS:The lungs are well-inflated. No focal consolidation or pulmonary edema. PLEURA:No pleural effusion or pneumothorax. MEDIASTINUM:The cardiomediastinal silhouette appears normal in size and shape. Atherosclerotic calcifications of the thoracic aorta. BONES/SOFT TISSUES:No acute osseous injury. Right total shoulder arthroplasty. ABDOMEN:No free air under the diaphragm. IMPRESSION: No focal pneumonia or pulmonary edema. No radiographic evidence of acute traumatic thoracic injury. Signed by: Joe Baker MD on 12/24/2019 12:36 PM
[2019-12-24] MEDS ORDERED: ONDANSETRON HCL INJ 2MG/ML 2ML 2 MG/ML VIAL IV STA (12:52)
[2019-12-24] MEDS ORDERED: MORPHINE SULFATE 2 MG/ML SYR 1ML IV STA (12:52)
[2019-12-24 13:08] LABS: BILIRUBIN,URINE NEGATIVE (NEGATIVE); CLARITY,URINE CLEAR (CLEAR); COLOR,URINE YELLOW (YELLOW); KETONES,URINE NEGATIVE (NEGATIVE); LEUKOCYTE ESTERASE ,URINE NEGATIVE (NEGATIVE); NITRITE,URINE NEGATIVE (NEGATIVE); PROTEIN,URINE DIPSTICK NEGATIVE (NEGATIVE); URINE UROBILINOGEN 0.2 mg/dL (0.2 - 1)
[2019-12-24 13:11] LABS: BASOPHILS % 0.3 % (0.0-1.0); EOSINOPHILS # (AUTO) 0.1 (0.0-0.4); EOSINOPHILS % 0.5 % (0.0-6.0); HEMOGLOBIN 12.5 g/dL (12.0-16.0); LYMPHOCYTES # (AUTO) 0.7 (1.0-3.2); LYMPHOCYTES % 5.9 % (18.0-39.1); MEAN CORPUSCULAR HEMOGLOBIN 30.4 pg (28-32); MEAN CORPUSCULAR HGB CONC 32.1 g/dL (31-35); MEAN CORPUSCULAR VOLUME 94.9 fL (81-99); MONOCYTES # (AUTO) 0.7 (0.2-0.8); MONOCYTES % 6.1 % (4.4-11.3); NEUTROPHILS # (AUTO) 10.1 (2.1-6.9); NEUTROPHILS % 86.3 % (38.7-80.0); PLATELET COUNT 162 x10e3/uL (140-360); RED BLOOD COUNT 4.11 x10e6/uL (3.6-5.1); RED CELL DISTRIBUTION WIDTH 12.6 % (11.7-14.4)
[2019-12-24 13:18] LABS: EPITHELIAL CELLS,URINE FEW /LPF; MUCUS,URINE FEW (RARE); RBC,URINE 0-5 /HPF (0-5); WBC,URINE (MAN) 0-5 /HPF (0-5)
[2019-12-24 13:22] LABS: INR 0.97; PROTHROMBIN TIME 13.4 seconds (11.9-14.5)
[2019-12-24 13:23] LABS: PARTIAL THROMBOPLASTIN TIME 27.9 seconds (23.8-35.5)
[2019-12-24 13:33] LABS: ALBUMIN 3.4 g/dL (3.5-5.0); ANION GAP 19.7 mmol/L (8-16); CALCIUM 9.3 mg/dL (8.4-10.2); CREATININE, SERUM 1.27 mg/dL (0.57-1.11); MAGNESIUM 1.5 MG/DL (1.3-2.1); POTASSIUM 3.7 mmol/L (3.5-5.1)
[2019-12-24 13:41] LABS: CREATINE KINASE MB 0.7 ng/mL (0-5.0)
[2019-12-24] MEDS: SODIUM CHLORIDE 0.9% 1000ML 1,000 ML IV SCH (13:47)
--- NOTE | 2019-12-24 13:56 | Emergency Department Note ---
History of Present Illnes History of Present Illness Chief Complaint: General Medicine Complaints History of Present Illness This is a 79 year old female pt arrived via [facility] s/p fall from standing position. pt reports landing on her left side and has pain to left hip, left arm. No LOC, unable to bare weight on left leg, and shows shortening and external rotation. bruising to left fore arm with small skin tear to posterier forearm. pt reports pain 9/10 at this time. Stem Assembler Required: Yes Onset (how long ago): minute(s) Location: left hip Quality: pain Radiation: Reports non-radiation Severity: severe Onset quality: sudden Timing of current episode: constant Progression: unchanged Chronicity: new Context: Denies recent illness Relieving factors: none Exacerbating factors: none Associated symptoms: Reports denies other symptoms Treatments prior to arrival: none Past Medical/Family History Physician Review I have reviewed the patient's past medical and family history. Any updates have been documented here. Past Medical History Recent Fever: No Clinical Suspicion of Infectio: No New/Unexplained Change in Ment: No Past Medical History: Hypertension, Diabetes, TIA, GERD, Osteoarthritis Other Medical History: tremors neuropathy Past Surgical History: Pacer/AICD, Knee Replacement Social History Smoking Cessation: Never Smoker Counseling Performed: No Alcohol Use: None Any Illegal Drug Use: No TB Exposure/Symptoms: No Physically hurt or threatened: No Family History Family history of heart diseas: No Other Any Pre-Existing Lines (PICC,: No Review of Systems Review of Systems Constitutional: Reports no symptoms EENTM: Reports no symptoms Cardiovascular: Reports no symptoms Respiratory: Reports no symptoms Gastrointestinal: Reports no symptoms Genitourinary: Reports no symptoms Musculoskeletal: Reports as per HPI Integumentary: Reports no symptoms Neurological: Reports no symptoms Psychological: Reports no symptoms Endocrine: Reports no symptoms Hematological/Lymphatic: Reports no symptoms Physical Exam Related Data Allergies: Coded Allergies: No Known Drug Allergies (Verified Allergy, Unknown, 10/15/18) Triage Vital Signs Vital Signs Date Time Temp Pulse Resp B/P (MAP) Pulse Ox O2 Delivery O2 Flow Rate FiO2 12/24/19 10:54 97.8 90 18 136/100 99 12/24/19 13:06 Room Air Vital signs reviewed: Yes Physical Exam CONSTITUTIONAL Constitutional: Present well-developed, Present well-nourished HENT HENT: Present normocephalic, Present atraumatic, Present oropharynx clear/moist, Present nose normal HENT L/R: Present left ext ear normal, Present right ext ear normal EYES Eyes: Reports PERRL, Reports conjunctivae normal NECK Neck: Present ROM normal PULMONARY Pulmonary: Present effort normal, Present breath sounds normal CARDIOVASCULAR Cardiovascular: Present regular rhythm, Present heart sounds normal, Present capillary refill normal, Present normal rate GASTROINTESTINAL Abdominal: Present soft, Present nontender, Present bowel sounds normal GENITOURINARY Genitourinary: Present exam deferred SKIN Skin: Present warm, Present dry MUSCULOSKELETAL Musculoskeletal: Present tenderness (left hip), Present other (left leg shortened and externally rotated) NEUROLOGICAL Neurological: Present alert, Present oriented x 3, Present no gross motor or sensory deficits PSYCHOLOGICAL Psychological: Present mood/affect normal, Present judgement normal Results Laboratory Result Diagram: 12/24/19 1244 12/24/19 1244 Laboratory Laboratory Tests Test 12/24/19 12:44 12/24/19 11:20 White Blood Count 11.71 x10e3/uL (4.8-10.8) Red Blood Count 4.11 x10e6/uL (3.6-5.1) Hemoglobin 12.5 g/dL (12.0-16.0) Hematocrit 39.0 % (34.2-44.1) Mean Corpuscular Volume 94.9 fL (81-99) Mean Corpuscular Hemoglobin 30.4 pg (28-32) Mean Corpuscular Hemoglobin Concent 32.1 g/dL (31-35) Red Cell Distribution Width 12.6 % (11.7-14.4) Platelet Count 162 x10e3/uL (140-360) Neutrophils (%) (Auto) 86.3 % (38.7-80.0) Lymphocytes (%) (Auto) 5.9 % (18.0-39.1) Monocytes (%) (Auto) 6.1 % (4.4-11.3) Eosinophils (%) (Auto) 0.5 % (0.0-6.0) Basophils (%) (Auto) 0.3 % (0.0-1.0) Neutrophils # (Auto) 10.1 (2.1-6.9) Lymphocytes # (Auto) 0.7 (1.0-3.2) Monocytes # (Auto) 0.7 (0.2-0.8) Eosinophils # (Auto) 0.1 (0.0-0.4) Basophils # (Auto) 0.0 (0.0-0.1) Absolute Immature Granulocyte (auto 0.11 x10e3/uL (0-0.1) Prothrombin Time 13.4 seconds (11.9-14.5) Prothromb Time International Ratio 0.97 Activated Partial Thromboplast Time 27.9 seconds (23.8-35.5) Sodium Level 140 mmol/L (136-145) Potassium Level 3.7 mmol/L (3.5-5.1) Chloride Level 97 mmol/L (98-107) Carbon Dioxide Level 27 mmol/L (22-29) Anion Gap 19.7 mmol/L (8-16) Blood Urea Nitrogen 35 mg/dL (7-26) Creatinine 1.27 mg/dL (0.57-1.11) Estimat Glomerular Filtration Rate 41 ML/MIN (60-) BUN/Creatinine Ratio 28 (6-25) Glucose Level 163 mg/dL (74-118) Calcium Level 9.3 mg/dL (8.4-10.2) Magnesium Level 1.5 MG/DL (1.3-2.1) Total Bilirubin 0.4 mg/dL (0.2-1.2) Aspartate Amino Transf (AST/SGOT) 25 IU/L (5-34) Alanine Aminotransferase (ALT/SGPT) 21 IU/L (0-55) Alkaline Phosphatase 52 IU/L (40-150) Creatine Kinase 37 IU/L (29-168) Creatine Kinase MB 0.70 ng/mL (0-5.0) Troponin I 0.013 ng/mL (0-0.300) B-Type Natriuretic Peptide 63.6 pg/mL (0-100) Total Protein 6.9 g/dL (6.5-8.1) Albumin 3.4 g/dL (3.5-5.0) Globulin 3.5 g/dL (2.3-3.5) Albumin/Globulin Ratio 1.0 (0.8-2.0) Urine Color Yellow (YELLOW) Urine Clarity Clear (CLEAR) Urine pH 7 (5 - 7) Urine Specific [place] 1.015 (1.010-1.025) Urine Protein Negative (NEGATIVE) Urine Glucose (UA) Negative (NEGATIVE) Urine Ketones Negative (NEGATIVE) Urine Blood Trace (NEGATIVE) Urine Nitrite Negative (NEGATIVE) Urine Bilirubin Negative (NEGATIVE) Urine Urobilinogen 0.2 mg/dL (0.2 - 1) Urine Leukocyte Esterase Negative (NEGATIVE) Urine RBC 0-5 /HPF (0-5) Urine WBC 0-5 /HPF (0-5) Urine Epithelial Cells Few /LPF (NONE) Urine Bacteria None /HPF (NONE) Urine Mucus Few (RARE) Lab results reviewed: Yes Imaging Imaging results reviewed: Yes Procedures 12 Lead ECG Interpretation ECG Interpretation : ECG: ECG 1 Stem Assembler: Interpreted by ED physician Date: Dec 24, 2019 Time: 12:23 Rhythm: paced (ventricular paced, continuous) Rate: normal (95) QRS axis: left T wave inversion: I, aVL, V1, V2 Clinical Impression: abnormal ECG Assessment & Plan Medical Decision Making MDM fall with likely left hip fx - check cbc, chem, ecg, cardiacs, cxr, ct brain, ct c-spine, left hip/pelvis - r/o hip fx, pelvis fx, cerebral bleed, cervical neck fx, renal insuff, stemi/nstemi Reassessment Reassessment admit to Dr Garcia, he wants Dr Alfred - I spoke with him also Assessment & Plan Final Impression: (1) Fall (2) Fracture, intertrochanteric, left femur Depart Disposition: ADMITTED Last Vital Signs Date Time Temp Pulse Resp B/P (MAP) Pulse Ox O2 Delivery O2 Flow Rate FiO2 12/24/19 13:06 102 19 150/72 96 Room Air 12/24/19 10:54 97.8 Medications in the ED Morphine Sulfate 2 mg NOW STAT IV Last administered on 12/24/19at 13:20; Admin Dose 2 MG; Start 12/24/19 at 12:52; Stop 12/24/19 at 13:13; Status DC Ondansetron HCl 4 mg NOW STAT IV Last administered on 12/24/19at 13:21; Admin Dose 4 MG; Start 12/24/19 at 12:52; Stop 12/24/19 at 13:13; Status DC MANDY ARITA MD Dec 24, 2019 13:56
--- OUTSIDE RECORDS SUMMARY | 2019-12-24 14:45 | XMS REPORT | Continuity of Care Document ---
Author Author [facility] t Organization [facility] Address [address] [place] [address] Phone Unavailable Care Team Providers Care Obgyn Hospitalist Physician Name Role Phone Carlos SAGASTUME, Bogdan Jurado PCP Yulia ARITA Attphys Unavailable Mahi SAGASTUME, Sergio Dee Attphys Delvis Troy MD, Josue Mccarthy Attphys [phone] TeqwimJose burgos DO Attphys OMAIRA RODRIGUEZ Attphys Unavailable Payers Payer Name Policy Type Policy Number Effective Date Expiration Date S elise MEDICAREMEDICARE PART A AND [id number] [place] 2007 00:00:00 Nolan Hammer MEDICAIDMEDICAIDxxxxxxxxx2011-PresentMedicaid [...] Altered mental status Disease Active 00:00:00 Nolan cote Delirium with dementia Delirium with dementia Disease Active 2019-05-22 00:00:[address] S/p reverse total shoulder arthroplasty S/p reverse total sh oulder arthroplasty Disease Active 2017-01-26 00:00:00 Nolan Hammer Closed right humeral fracture Closed right humeral fracture Disease Active 2016-12-14 00:00:00 Nolan Hammer Fracture closed, humerus Fracture closed, humerus Disease Acti ve 2016-12-13 00:00:[address] Acute cystitis with hematuria Acute cystitis with hematuria Disease Active 2016-12-12 00:00:00 Nolan Hammer Fall Fall Disease Active 2016-12-12 00:00:00 Nolan Hammer Type 2 diabetes mellitus with complicati on, with long-term current use of insulin Type 2 diabetes mellitus with complicati on, with long-term current use of insulin Disease Active 2016-12-12 00:00:00 H tigre Hammer Syncope Syncope Disease Active 2016-12-08 [...] cote methylprednisolone DA Active SV 2019-05-19 00:00:00 [facility] azithromycin DA Active PA 2019-05-16 00:00:00 [facility] No Known Allergies DA Active U 2019-05-15 00:00:00 [facility] No Known Allergies DA Active U 2017-02-28 00:00:00 [facility] Social History Social Habit Start Date Stop Date Quantity Comments Source Sex Assigned At Makenna ramirez [facility] Alcohol intake 2019-05-22 00:00:00 2019-05-22 00:00:00 Current [...] Take 1 tablet (5 mg total) by [facility] 2 (two) times a day for 30 [...] 2019-05-27 00:00 :00 2019-06-26 23:59:00 No 300mg [id number] Take 1 capsule (300 mg total) by [...] MG tablet 2019-05-26 00:00:00 00:00:00 No 25mg Q.[id number] Take 1 ta blet (25 mg total) [...] Hammer Body temperature 2019-05-29 16:07:19 37.11 Malini Mindy Hammer Respiratory rate 2019-05-29 16:07:19 16 /min Mindy ton [facility] Oxygen saturation in Arterial blood by Pulse oximetry 05-29 16:07:19 96 /min Nolan Hammer Body weight 2019-05-22 08:28:00 72.122 kg Nolan Hammer BMI 2019-05-22 08:28:00 30.04 kg/m2 Nolan Hammer Body height 2019-05-22 02:10:00 154.9 cm Nolan Hammer Procedures Procedure Date / Time Performed Performing Clinician Sourgallo e POC GLUCOSE 2019-05-29 16:39:00 Jose Esparza Meth odist POC GLUCOSE 2019-05-29 12:01:00 Jose Esparza Meth odist POC GLUCOSE 2019-05-29 06:10:00 TeqwimuahJoes Meth odist POC GLUCOSE 2019-05-29 01:13:00 TeqwimuahJose Meth odist POC GLUCOSE 2019-05-28 21:03:00 TeqwimmontyhJose Meth odist POC GLUCOSE 2019-05-28 17:21:00 TeqwimJose burgos Meth odist POC GLUCOSE 2019-05-28 12:04:00 TeqwimJose burgos Meth odist POC GLUCOSE 2019-05-28 05:26:00 TeqwimuahJose Meth odist POC GLUCOSE 2019-05-27 19:17:00 TeqwimuahJose Meth odist POC GLUCOSE 2019-05-27 18:05:00 TeqwimmontyhJose Meth odist MRI THORACIC SPINE WO CONTRAST 2019-05-27 15:20:33 Gómez Mary Olearymilton Hammer CT CHEST W CONTRAST 2019-05-27 14:29:00 TeqwimlorettaJose [facility] POC GLUCOSE 2019-05-27 11:04:00 TeqwimuahJose Meth odist POC GLUCOSE 2019-05-27 06:13:00 TeqwimmontyhJose Meth odist POC GLUCOSE 2019-05-26 20:52:00 TeqwimmontyhJose Meth odist POC GLUCOSE 2019-05-26 16:57:[address] od[address] THORACIC SPINE WO CONTRAST 2019-05-26 15:28:00 Joseph Levi Ma CV STRESS TEST NUCLEAR CARDIO 2019-05-26 14:44:26 Nadine Miller NM MYOCARDIAL PERFUSION REST STRESS 1 DAY 2019-05-26 14:44:26 Nadine Sampson POC GLUCOSE 2019-05-26 11:55:00 Teqwimloretta, Jose Francisco Meth odist BASIC METABOLIC PANEL 2019-05-26 10:30:00 NaifimJose burgos HC COMPLETE BLD COUNT W/AUTO DIFF 2019-05-26 10:30:00 Jose Esparza ESTIMATED GFR 2019-05-26 10:30:00 TeqwimuahJose Meth odist POC GLUCOSE 2019-05-26 05:45:00 TeqwimuaJose cobian Meth odist POC GLUCOSE 2019-05-25 20:58:00 TeqwimuahJose Meth odist POC GLUCOSE 2019-05-25 17:05:00 TeqwimJose burgos Meth odist POC GLUCOSE 2019-05-25 12:40:00 TeqwimJose burgos Meth odist C-REACTIVE PROTEIN 2019-05-25 04:50:00 Joseph Levi [facility] POC GLUCOSE 2019-05-25 04:32:00 TeqwimuahJose Meth odist POC GLUCOSE 2019-05-24 23:49:00 TeqwimuaJose cobian Meth odist POC GLUCOSE 2019-05-24 20:17:[address] odist [address] BRAIN VENOGRAM 2019-05-24 17:48:[address] ANGIOGRAM HEAD W WO CONTRAST 2019-05-24 17:40:29 Joseph Levi [facility] POC GLUCOSE 2019-05-24 16:02:00 TeqwimuaJose cobian Meth odist POC GLUCOSE 2019-05-24 11:37:00 TeqwimJose burgos Meth odist POC GLUCOSE 2019-05-24 08:50:00 TeqwimJose burgos Meth odist POC GLUCOSE 2019-05-24 04:15:00 TeqwimJose burgos Meth odist POC GLUCOSE 2019-05-24 00:05:00 TeqwimuahJose Meth odist POC GLUCOSE 2019-05-23 20:25:00 TeqwimuahJose Meth odist ECG 12-LEAD 2019-05-23 20:12:41 TeqwimuaJose cobian Meth odist ECG 12-LEAD 2019-05-23 20:11:14 TeqwimuahJose Meth odist POC GLUCOSE 2019-05-23 17:16:00 TeqwimJose burgos Meth odist XR TIBIA FIBULA 2 VW RIGHT 2019-05-23 17:10:13 Joseph Levi [facility] XR HIP 2-3 VIEWS RIGHT 2019-05-23 17:09:57 Joseph Levi [facility] XR SHOULDER 2+ VW RIGHT 2019-05-23 17:09:36 Joseph Levi MRI BRAIN WO CONTRAST 2019-05-23 16:31:[address] CERVICAL SPINE WO CONTRAST 2019-05-23 15:47:00 Joseph Levi Ma [facility] POC GLUCOSE 2019-05-23 11:44:00 Fabio Spaulding [facility] SEDIMENTATION RATE 2019-05-23 06:30:00 Joseph Levi [facility] HC COMPLETE BLD COUNT W/AUTO DIFF 2019-05-23 06:09:00 Yazidism, Nad im Bin [place] [facility] COMPREHENSIVE METABOLIC PANEL 2019-05-23 06:09:00 Yazidism, Nadim B in [place] [facility] ESTIMATED GFR 2019-05-23 06:09:00 YazidismCary santamariaim Sergio Francisco Met hodist LIPID PANEL 2019-05-23 06:09:00 YazidismCary santamariaim Sergio [place] [facility]ist POC GLUCOSE 2019-05-23 04:18:00 Fabio Spaulding [facility] POC GLUCOSE 2019-05-23 00:52:00 Fabio Spaulding [facility] POC GLUCOSE 2019-05-22 20:39:00 Fabio Spaulding [facility] EEG AWAKE/DROWSY LESS THAN 41 MIN 2019-05-22 19:31:09 Lashonda Michelle [facility] VITAMIN B12 LEVEL 2019-05-22 17:30:00 Lashonda Medina [facility] AMMONIA LEVEL 2019-05-22 17:30:00 Lashonda Medina [facility] POC GLUCOSE 2019-05-22 16:38:00 Fabio Spaulding [facility] ECG 12-LEAD 2019-05-22 13:31:09 YazidismLuiz santamaria Met hodist POC GLUCOSE 2019-05-22 11:55:00 Fabio Spaulding [facility] ECG 12-LEAD 2019-05-22 09:22:37 YazidismLuiz santamaria Met hodist TROPONIN 2019-05-22 08:02:00 YazidismLuiz santamaria Met hodist THYROID STIMULATING HORMONE 2019-05-22 08:02:00 Kristen Medinaist TROPONIN 2019-05-22 04:25:00 YazidismLuiz santamaria Met hodist CT HEAD WO CONTRAST 2019-05-22 04:12:26 YazidismLuiz santamaria [facility] XR CHEST 1 VW PORTABLE 2019-05-22 02:44:18 YazidismLuiz ton [facility] URINE CULTURE 2019-05-22 02:25:00 YazidismCary santamariaim Sergio Francisco Met hodist URINALYSIS SCREEN AND MICROSCOPY, WITH REFLEX TO CULTURE 202 02:25:00 YazidismLuiz santamaria HC COMPLETE BLD COUNT W/AUTO DIFF 2019-05-22 02:23:00 YazidismCary santamaria im Sergio Hammer COMPREHENSIVE METABOLIC PANEL 2019-05-22 02:23:00 YazidismCary santamariaim B in Nolan Hammer TROPONIN 2019-05-22 02:23:00 YazidismLuiz santamaria Met hodist ESTIMATED GFR 2019-05-22 02:23:00 YazidismLuiz santamaria Met hodist CREATINE KINASE, TOTAL (CPK) 2019-05-22 02:23:00 YazidismLuiz santamaria Bi n Nolan Hammer Plan of Care Planned Activity Planned Date Details Comments Source Future Scheduled Test 2020-01-13 00:00:00 INFLUENZA VACCINE [code = INFLUENZA VACCINE] [facility] Future Scheduled Test 2007-12-06 00:00:00 65+ PNEUMOCOCCAL V ACCINE (1 of 2 - PCV13) [code = 65+ PNEUMOCOCCAL VACCINE (1 of 2 - PCV13)] [facility] Future Scheduled Test 1992 00:00:00 SHINGLES VACCINES (#1) [code = SHINGLES VACCINES (#1)] [facility] Future Scheduled Test 1952 00:00:00 DIABETIC FOOT EXAM [code = DIABETIC FOOT EXAM] [facility] Future Scheduled Test 1952 00:00:00 URINE MICROALBUMIN [code = URINE MICROALBUMIN] [facility] Future Scheduled Test 1940 00:00:00 DIABETIC RETINAL E YE EXAM [code = DIABETIC RETINAL EYE EXAM] [facility] Results Test Description Test Time Test Comments Results Result Comments Source CHEST SINGLE (NOT PORTABLE) 2019-12-24 12:35:00 [place] [address] Patient Name: ELVI MORENO MR #: [id number] : 1940 Age/Sex: 79/F Req #: [id number] Adm Physician: Ordered by: MANDY ARITA MD Report #: [id number] Location: ER Room/Bed: Procedure: [id number] DX/CHEST SINGLE (NOT PORTABLE) Exam Date: Exam Time: REPORT STATUS: Signed EXAMINATION: CHEST SINGLE (NOT PORTABLE) INDICATION: Fall COMPARISON: Chest radiograph 10/15/2018 FINDINGS: LINES/TUBES:Left chest AICD. LUNGS:The lungs are well- inflated. No focal consolidation or pulmonary edema. PLEURA:No pleural effusion or pneumothorax. MEDIASTINUM:The cardiomediastinal silhouette appears normal in size and shape. Atherosclerotic calcifications of the thoracic aorta. BONES/SOFT TISSUES:No acute osseous injury. Right total shoulder arthroplasty. ABDOMEN:No free air under the diaphragm. IMPRESSION: No focal pneumonia or pulmonary edema. No radiographic evidence of acute traumatic thoracic injury. Signed by: Bala Fortune MD on 12/24/2019 12:36 PM Dictated By: BALA FORTUNE MD 1236 Transcribed By: ISLVIO on 12/24/19 1236 COPY TO: MANDY ARITA MD HIP LEFT 2-3 VW (+/- PELVIS) 2019-12-24 12:32:00 [place] [address] Patient Name: ELVI MORENO MR #: [id number] : 1940 Age/Sex: 79/F Req #: [id number] Adm Physician: Ordered by: MANDY ARITA MD Report #: [id number] Location: ER Room/Bed: Procedure: [id number] DX/HIP LEFT 2-3 VW (+/- PELVIS) Exam Date: Exam Time: REPORT STATUS: Signed EXAMINATION: HIP LEFT 2-3 VW (+/- PELVIS) INDICATION: Trauma, left hip pain COMPARISON: None FINDINGS: Acute comminuted intertrochanteric left proximal femur fracture with medial displacement of the lesser trochanteric fragment and approximately 2.5 cm superior displacement of the dominant distal fracture fragment. No additional fractures identified. Mild degenerative changes of both hip joints. Phlebolith in the right pelvis. IMPRESSION: Acute comminuted intertrochanteric left proximal femur fracture. Signed by: Bala Fortune MD on 12/24/2019 12:34 PM Dictated By: BALA FORTUNE MD 1234 Transcribed By: SILVIO on 12/24/19 1234 COPY TO: MANDY ARITA MD CT CERVICAL SPINE WO 2019-12-24 12:16:00 [place] [address] Patient Name: ELVI MORENO MR #: [id number] : 1940 Age/Sex: 79/F Req #: [id number] Adm Physician: Ordered by: MANDY ARITA MD Report #: [id number] Location: ER Room/Bed: Procedure: [id number] CT/CT CERVICAL SPINE WO Exam Date: Exam Time: REPORT STATUS: Signed EXAMINATION: Head and cervical spine CT without contrast. HISTORY: 79-year-old female, status post fall, trauma, head and neck pain COMPARISON: None. TECHNIQUE: Multidetector axial images were obtained without contrast from the foramen magnum to the vertex and through the cervical spine. The images were reconstructed using brain and bone algorithms. Thin section brain images were reformatted into coronal and sagittal planes. Dose modulation, iterative reconstruction, and/or weight based adjustment of the mA/kV was utilized to reduce the radiation dose to as low as reasonably achievable. HEAD CT FINDINGS: Skull/scalp: No lytic or blastic lesions. No fractures. Parenchyma: Few scattered moderate confluent periventricular white matter hypodensities, most likely nonspecific chronic microvascular ischemic changes. No mass, hemorrhage or CT evidence of acute vascular insult. Tiny calcifications in the lentiform nuclei are likely vascular in nature. Brain volume: Normal for age. Ventricles: No hydrocephalus or displacement. Arteries: No density suggestive of thrombus. Dural sinuses: No abnormal density. Extra-axial spaces: No abnormal density. Foramen magnum: No mass, Chiari malformation, or basilar invagination. Sella: No obvious mass. Paranasal/mastoid sinuses: Imaged portions unremarkable. CERVICAL SPINE CT FINDINGS: Alignment: Normal alignment and lordosis. Soft tissues: Atrophy of the paraspinal muscles. Vertebrae: Normal height and density. No acute fracture, infection or neoplasm. Schmorl node adjacent to the superior endplate of T1. Degenerative changes: C1-C2: Normal C2-C3: Facet arthroses mainly on the right without canal or foraminal stenoses. C3-C4: Mild disc bulge and facet processes. No significant stenosis. C4-C5: Disc osteophyte complex formation, bilateral uncovertebral and facet processes. Mild spinal canal and moderate foraminal stenoses. C5-C6: Disc osteophyte, this formation, bilateral uncovertebral and facet arthrosis. Moderate bilateral foraminal stenoses. C6-C7: Bilateral uncovertebral O cc. Minimal foraminal narrowing. C7-T1: Normal IMPRESSION: Head CT: 1. No acute postraumatic intracranial hemorrhage. 2. Moderate chronic microvascular ischemic changes. Cervical spine CT: 1. No acute fractures or dislocations. 2. Chronic degenerative changes as described. Note: Acute post traumatic spinal cord, vascular or ligamentous injury cannot adequately be assessed with CT. Signed by: Dr. Romina Montero M.D. on 12/24/2019 12:35 PM Dictated By: ROMINA MONTERO MD 1235 Transcribed By: SILVIO on 12/24/19 1235 COPY TO: MANDY ARITA MD CT BRAIN WO 2019-12-24 12:16:00 [place] [address] Patient Name: ELVI MORENO MR #: [id number] : 1940 Age/Sex: 79/F Req #: [id number] Adm Physician: Ordered by: MANDY ARITA MD Report #: [id number] Location: ER Room/Bed: Procedure: [id number] CT/CT BRAIN WO Exam Date: Exam Time: REPORT STATUS: Signed EXAMINATION: Head and cervical spine CT without contrast. HISTORY: 79-year-old female, status post fall, trauma, head and neck pain COMPARISON: None. TECHNIQUE: Multidetector axial images were obtained without contrast from the foramen magnum to the vertex and through the cervical spine. The images were reconstructed using brain and bone algorithms. Thin section brain images were reformatted into coronal and sagittal planes. Dose modulation, iterative reconstruction, and/or weight based adjustment of the mA/kV was utilized to reduce the radiation dose to as low as reasonably achievable. HEAD CT FINDINGS: Skull/scalp: No lytic or blastic lesions. No fractures. Parenchyma: Few scattered moderate confluent periventricular white matter hypodensities, most likely nonspecific chronic microvascular ischemic changes. No mass, hemorrhage or CT evidence of acute vascular insult. Tiny calcifications in the lentiform nuclei are likely vascular in nature. Brain volume: Normal for age. Ventricles: No hydrocephalus or displacement. Arteries: No density suggestive of thrombus. Dural sinuses: No abnormal density. Extra-axial spaces: No abnormal density. Foramen magnum: No mass, Chiari malformation, or basilar invagination. Sella: No obvious mass. Paranasal/mastoid sinuses: Imaged portions unremarkable. CERVICAL SPINE CT FINDINGS: Alignment: Normal alignment and lordosis. Soft tissues: Atrophy of the paraspinal muscles. Vertebrae: Normal height and density. No acute fracture, infection or neoplasm. Schmorl node adjacent to the superior endplate of T1. Degenerative changes: C1-C2: Normal C2-C3: Facet arthroses mainly on the right without canal or foraminal stenoses. C3-C4: Mild disc bulge and facet processes. No significant stenosis. C4-C5: Disc osteophyte complex formation, bilateral uncovertebral and facet processes. Mild spinal canal and moderate foraminal stenoses. C5-C6: Disc osteophyte, this formation, bilateral uncovertebral and facet arthrosis. Moderate bilateral foraminal stenoses. C6-C7: Bilateral uncovertebral O cc. Minimal foraminal narrowing. C7-T1: Normal IMPRESSION: Head CT: 1. No acute postraumatic intracranial hemorrhage. 2. Moderate chronic microvascular ischemic changes. Cervical spine CT: 1. No acute fractures or dislocations. 2. Chronic degenerative changes as described. Note: Acute post traumatic spinal cord, vascular or ligamentous injury cannot adequately be assessed with CT. Signed by: Dr. Romina Montero M.D. on 12/24/2019 12:35 PM Dictated By: ROMINA MONTERO MD 1235 Transcribed By: SILVIO on 12/24/19 1235 COPY TO: MANDY ARITA MD GLUBED 2019-09-12 10:34:00 Test Item GLUBED (test code = GLUBED) 106 mg/dL 74-106 N Performed by certified gamma facilities operator at [facility] Novel Coronavirus 05:45:00* Test Item Value Reference Range Interpretation Comments Novel Coronavirus 2019 Inhouse (test code = UHCUK69OC) Negative Negative Positive results are indicative of the presence xlLJPS-EzG-7 RNA, clinical correlation with patient historyand other [...] for the identification of SARS-CoV-2 RNA usingthe [employer]000 System under the FDA Emergency UseAuthorization. The testing is performed by personneltrained in the procedures for the [employer] M2000 moleculardiagnostic SARS-CoV-2 assay in vitro. Testing Criteria: Preprocedure ScreeningComments: 09/12/19[facility] Coronavirus 05:45:00* Test Item Value Reference Range Interpretation Comments Novel Coronavirus 2018 Inhouse (test code = EVRSZ88PR) Negative Negative Positive results are indicative of the presence beDOPX-HyB-6 RNA, clinical correlation with patient historyand other [...] vitro. Testing Criteria: Preprocedure ScreeningComments: 09/12/19[facility] [id number] 11:21:00* Test Item Value Reference Range Interpretation [...] CA) 9.6 mg/dL 8.5-10.1 N BASIC METABOLIC [id number] 11:17:00* Test Item Value Reference Range Interpretation [...] (test code = CA) mg/dL 8.5-10.1 PROTHROMBIN [id number] 11:14:00* Test Item Value Reference Range Interpretation [...] (2.5-3.5) IS PATIENT ON ANTICOAGULANTS? NTHROMBOPLASTIN TIME [id number] 11:14:00* Test Item Value Reference Range Interpretation Comments THROMBOPLASTIN TIME PARTIAL (test code = PTT) 33.1 seconds 23.0-37. 0 N IS PATIENT ON ANTICOAGULANTS? NCBC W/AUTO [id number] 11:01:00* Test Item Value Reference Range Interpretation [...] (test code = MDIFF) NO CBC W/AUTO [id number] 11:00:00* Test Item Value Reference Range Interpretation [...] # (test code = BA#) K/mm3 0.0-0.2 [id number] 16:53:00* Test Item Value Reference Range Interpretation Comments GLUBED (test code = GLUBED) 187 mg/dL 74-106 H Performed by certified gamma facilities operator at [facility] [id number] 11:48:00* Test Item Value Reference Range Interpretation Comments GLUBED (test code = GLUBED) 136 mg/dL 74-106 H Performed by certified gamma facilities operator at [facility] [id number] 07:18:00* Test Item Value Reference Range Interpretation Comments GLUBED (test code = GLUBED) 134 mg/dL 74-106 H Performed by certified gamma facilities operator at [facility] [id number] 20:09:00* Test Item Value Reference Range Interpretation Comments GLUBED (test code = GLUBED) 122 mg/dL 74-106 H Performed by certified gamma facilities operator at [facility] [id number] 17:02:00* Test Item Value Reference Range Interpretation Comments GLUBED (test code = GLUBED) 210 mg/dL 74-106 H Performed by certified gamma facilities operator at [facility] [id number] 12:10:00* Test Item Value Reference Range Interpretation Comments GLUBED (test code = GLUBED) 275 mg/dL 74-106 H Performed by certified gamma facilities operator at [facility] [id number] 08:06:00* Test Item Value Reference Range Interpretation Comments GLUBED (test code = GLUBED) 121 mg/dL 74-106 H Performed by certified gamma facilities operator at [facility] [id number] 20:51:00* Test Item Value Reference Range Interpretation Comments GLUBED (test code = GLUBED) 195 mg/dL 74-106 H Performed by certified gamma facilities operator at [facility] [id number] 16:35:00* Test Item Value Reference Range Interpretation Comments GLUBED (test code = GLUBED) 251 mg/dL 74-106 H Performed by certified gamma facilities operator at [facility] [id number] 12:48:00* Test Item Value Reference Range Interpretation Comments GLUBED (test code = GLUBED) 128 mg/dL 74-106 H Performed by certified gamma facilities operator at [facility] LIPID PROFILE (CORONARY RISK)2019-06-25 10:31:00* Test Item [...] This LDL result is a direct measurement.========= [id number] 10:20:00* Test Item Value Reference Range Interpretation Comments GLYCOSYLATED HEMOGLOBIN (HA1C) (test code = GLYHGB) 6.0 % HbA1 SUGGESTED DIAGNOSIS: HbA1C (%) Diabetic >6.4Prediabetes 5.7 - 6.4Normal <5.7 ESTIMATED AVERAGE GLUCOSE (test code = EAG) 126 MG/DL [id number] 02:31:00* Test Item Value Reference Range Interpretation Comments TROPONIN-I (test code = TROPI) <0.015 ng/mL 0-0.045 N COMMENTS TO PATIENT ATTENDANT: COLLECT 3 HOURS AFTER PREVIOUS [id number] 22:55:00* Test Item Value Reference Range Interpretation Comments TROPONIN-I (test code = TROPI) <0.015 ng/mL 0-0.045 N COMMENTS TO PATIENT ATTENDANT: COLLECT 3 HOURS AFTER PREVIOUS [id number] 18:08:00* Test Item Value Reference Range Interpretation Comments GLUBED (test code = GLUBED) 126 mg/dL 74-106 H Performed by certified gamma facilities operator at [facility] URINALYSIS [id number] 18:00:00* Test Item Value Reference Range Interpretation [...] #/LPF FEW Urine Source? Clean CatchBASIC METABOLIC [id number] 16:02:00* Test Item Value Reference Range Interpretation [...] code = CA) 8.8 mg/dL 8.5-10.1 N [id number] 16:02:00* Test Item Value Reference Range Interpretation Comments TROPONIN-I (test code = TROPI) <0.015 ng/mL 0-0.045 N CBC W/O [id number] 15:56:00* Test Item Value Reference Range Interpretation [...] code = MPV) fL 6.7-11.0 CBC W/O [id number] 15:56:00* Test Item Value Reference Range Interpretation [...] MPV) 11.2 fL 6.7-11.0 H BASIC METABOLIC [id number] 15:53:00* Test Item Value Reference Range Interpretation [...] CALCIUM (test code = CA) mg/dL 8.5-10.1 [id number] 15:53:00* Test Item Value Reference Range Interpretation Comments TROPONIN-I (test code = TROPI) ng/mL 0-0.045 - XR CHEST 1 [id number] 15:01:00 FAX: Adrien Ellis MD [phone] [place]: B St: [facility] FAX: Radha Yusuf DO Name: ELVI MORENO [facility] : 1940 Age/S: 78/F [address] [facility] Unit #: [id number] Loc: [place] [address] Phys: Radha Yusuf DO Acct: [id number] Dis Date: Status: REG ER PHONE #: [phone] Exam Date: 06/24/2019 1436 FAX #: [phone] Reason: CHEST PAIN EXAMS: CPT CODE: [id number] XR CHEST 1 V 20805 EXAM: Chest x-ray, one view; INFORMATION: Chest [...] Status post right shoulder arthroplasty. Location code: [facility] at 1501 Reported and signed by: Macario Dubose M.D. CC: Adrien Gonzalez MD; Radha Yusuf DO Technologist: JON HERZOG RT( R) Trnscrd Date/Time/By: 06/24/2019 (1506) : By: Scar AGUILAR Orig Print D/T: S: 06/24/2019 (1500) PAG E 1 Signed Report POC [id number] 16:41:14* Test Item Value Reference Range Interpretation Comments POC glucose (test code = 83585-5) 210 mg/dL 65-99 H [employer] Name: Buster Devries ID: [id number] Lab Interpretation (test code = 20928-4) Abnormal [facility] Thoracic Spine Wo [id number] 15:33:10Hm Interface, Radiology Results - 05/27/2019 3:36 PM CSTEXAMINATION: MRI THORACIC SPINE [...] endpla te compression fracture of T3 vertebral body.STJO-[id number] Health [facility] Chest W Tegfvrpt6467-91-64 15:17:07Hm Interface, Radiology Results 05/27/2019 3:20 PM [...] a cute or suspicious findings in the lungs.[id number] [facility] myocardial mkzaofijz2629-34-51 17:19:46* Test Item Value Reference Range Interpretation Comments Target HR (test code = 7606746751) 144.00 bpm Resting HR (test code = 9226066894) 86 BPM Resting BP (test code = 7214061595) 171/67 mmHg BECKI (test code = BECKI) The study is normal. is study result indicates a low risk of cardiac , or nonfatal infarction, over the ensuing year. SPECT images demonstrate a normal perfusion study. [facility] Thoracic Spine Wo Snehdxyi0228-02-56 16:01:53Hm Interface, Radiology Results 05/26/2019 4:04 PM [...] wit h CT of the chest is recommended.[id number]-NSJ1636CMDIulybdh MethodistCv stress test 2019-05-26 14:53:15* Test Item Value Reference Range Interpretation Comments Resting BP (test code = 0638959375) Protocol Name (test code = 5230668515) LEXISCAN Time in Exercise Phase (test code = 1275312575) 00:01:07 Max Systolic BP (test code = 7293392597) 171 Max Diastolic BP (test code = 0120969922) -1 Max Heart Rate (test code = 5571814542) 113 Max Predicted Heart Rate (test code = 6189337149) 144 Test Indication (test code = 0752420073) Arrhy During Ex (test code = 0330360762) ECG Interp Before EX (test code = 7323591049) ECG Interp During Ex (test code = 2753415627) Ex Summary Comment (test code = 2177788558) Overall HR Response to Exercise (test code = 5352766985) Overall BP Response To Exercise (test code = 4148530699) Reason for Termination (test code = 7350090213) Stress Test Impression (test code = 9926897396) Reason for Termination: - Comments: --Waveform interpreted in report associated with image study. No interpretation is provided as part of this Stress ECG report.-Electronically Signed By Nadine Miller MD ([id number]), clinical editor Christy Michelle ([id number]) on 05/26/2019 2:53:12 PM [facility] metabolic syild2116-14-83 10:55:47* Test Item Value Reference Range Interpretation Comments Sodium (test code = 2951-2) 140 135- 148 mEq/L Potassium (test code = 2823-3) 4.3 3.5- 5.0 mEq/L Chloride (test code = 5-0) 103 98- 112 mEq/L CO2 (test code = 2027-9) 28 24- 31 mEq/L Anion gap (test code = 10014-7) 9@ANIO 7- 15 mEq/L BUN (test code = 3094-0) 14 mg/dL 8-23 Creatinine (test code = 2160-0) 0.60 mg/dL 0.5-0.9 Glucose (test code = 2345-7) 143 mg/dL 65-99 H Calcium (test code = 96984-9) 9.7 mg/dL 8.8-10.2 Lab Interpretation (test code = 95217-2) Abnormal [facility] MethodistEstimated IZL1748-98-52 10:55:47* Test Item Value Reference Range Interpretation Comments Estimated GFR (test code = 5488) 88 mL/min/1.73 m2 Catergory Units InterpretationG1 >=90 Normal or highG2 60-89 Mildly bzephokfrV4s 45-59 Mildly to moderately xpoayphjnK1c 30-44 Moderately to severely decreasedG4 15-29 Severely decreasedG5 <15 Kidney failureThe eGFR was calculated using the Chronic Kidney Disease Epidemiology Collaboration (CKD-EPI) equation. Interpretation is based on recommendations of the National Kidney Foundation-Kidney Disease Outcomes Quality Initiative (NKF-KDOQI) published in 2014. [facility] with platelet and ppsllxbqdqat4629-92-93 10:38:10* Test Item Value Reference Range Interpretation Comments WBC (test code = 22583-2) 9.77 4.50- 11.00 k/uL RBC (test code = 37353-8) 3.80 m/uL 4.2-5.5 L HGB (test code = 718-7) 11.7 g/dL 12-16 L HCT (test code = 4544-3) 37.0 % 37-47 MCV (test code = 787-2) 97.4 fL 82-100 MCH (test code = 785-6) 30.8 pg 27-34 MCHC (test code = 786-4) 31.6 g/dL 31-37 RDW - SD (test code = 53388-9) 52.8 fL 37-55 MPV (test code = 19995-6) 11.1 fL 8.8-13.2 Platelet count (test code = 27871-2) 175 150- 400 k/uL Nucleated RBC (test code = 79986-8) 0.00 /100 WBC Neutrophils (test code = 49208-4) 68.5 % 39-69 Lymphocytes (test code = 15986-8) 16.7 % 25-45 L Monocytes (test code = 94663-8) 9.8 % 0-10 Eosinophils (test code = 43905-2) 3.6 % 0-5 Basophils (test code = 38025-9) 0.5 % 0-1 Lab Interpretation (test code = 75643-7) Abnormal [facility] MethodistC-reactive eoyziev0539-95-71 12:05:36* Test Item Value Reference Range Interpretation Comments CRP (test code = 1988-5) 0.73 mg/dL 0-0.5 H Lab Interpretation (test code = 56106-3) Abnormal [facility] MethodistSedimentation bxoq7453-18-44 06:05:31* Test Item Value Reference Range Interpretation Comments Sedimentation rate (test code = 57087-5) 2 0- 20 mm/hr [facility] MethodistCTA Head W Wo Cpghmwus3925-81-10 18:01:40Hm Interface, Radiology Results - 05/24/2019 6:04 PM CSTEXAMINATION: CT ANGIOGRAM HEAD [...] de stenosis of the branches of the [place] is seen.The left vertebral a [...] stenosis in the left vertebral artery V4 segment.[facility]-4XA5760J MXGreenport MethodistCT Brain Zfmcuhjf4288-42-82 17:57:00Hm Interface, Radiology Results - 05/24/2019 6:00 PM CSTEXAMINATION: CT BRAIN VENOGRAMCLINICAL HISTORY: pulsatile tinnitus on leftCOMPARISON: None.F INDINGS:Postcontrast CT venogram of the brain was performed. Axial reconstructio ns and multiplanar reformats R provided.CT imaging was performed with iterative reconstruction techniques and/or automated exposure control to reduce radiation dose.The dural venous sinuses an deep cerebral veins are patent. No stenosis is identified.IMPRESSION: Unremarkable CT venogram of the brain.[facility]-2BG4335AMK Nolan McnamaraistECG 12 oenb7447-97-99 21:56:48* Test Item Value Reference Range Interpretation Comments Ventricular rate (test code = 253) 90 Atrial rate (test code = 255) 90 TN interval (test code = 266) 168 QRSD [...] atrial rhythm- [place] MethodistXR Hip 2-3 View Ahyax7693-23-12 17:17:26Hm Interface, Radiology Results 05/23/2019 5:20 PM CSTEXAMINATION: XR HIP 2-3 VIEWS RIGHTCLINICAL HISTORY: trauma painCOMPARISON: NoneIMPRESSION:Femoral heads are seated well within the acetabula with mild bilateral hip joint osteoarthritis. 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 No periprosthetic fracture or osteolysis. Healed right fourth posterior rib fracture. Moderate right acromioclavicular joint osteoarthritis. Heterotopic ossification versus loose body along the axillary recess is unchanged.[facility] MethodistXR Tibia Fibula 2 Vw Lyvke7823-46-22 17:14:56Hm Interface, Radiology Results 05/23/2019 5:18 PM CSTEXAMINATION: XR TIBIA FIBULA 2 VW RIGHTCLINICAL HISTORY: trauma painCOMPARISON: NoneIMPRESSION:No acute fracture. Healed and internally fixated patellar fracture with pins and wiring with fracture of the wires appear margin. Alignment appears intact. Scattered vascular calcifications. Posterior calcaneal spur formation.[facility] Wo Vhsoxqqt4387-74-92 16:39:25Hm Interface, Radiology Results 05/23/2019 4:42 PM CSTEXAMINATION: MRI BRAIN WO [...] asse ssment with no evident abnormalities of [place] and dural sinuses. SKUL L: [...] left sphenoid s inus4. No other significant [id number] MethodistCT Cervical Spine Wo Bmokrctp6753-59-50 16:01:58Hm Interface, Radiology Results 05/23/2019 4:05 PM [...] be further evaluated with MRI or bone scan.OPC-IEO0090IRYZrfrjnv MethodistEEG (routine) 2019-05-23 09:04:25This is a normal [...] stimulation was performed with no abnormalities elicited. [facility] MethodistComprehensive metabolic vjfla1521-95-23 07:33:17* Test Item Value Reference Range Interpretation Comments Sodium (test code = 2951-2) 141 135- 148 mEq/L Potassium (test code = 2823-3) 4.5 3.5- 5.0 mEq/L Chloride (test code = 2075-0) 103 98- 112 mEq/L CO2 (test code = 2027-9) 29 24- 31 mEq/L Anion gap (test code = 68348-5) 9@ANIO 7- 15 mEq/L BUN (test code = 3094-0) 13 mg/dL 8-23 Creatinine (test code = 2160-0) 0.70 mg/dL 0.5-0.9 Glucose (test code = 2345-7) 194 mg/dL 65-99 H Calcium (test code = 68064-1) 9.5 mg/dL 8.8-10.2 Protein (test code = 2885-2) 5.8 g/dL 6.3-8.3 L Pdzwwsu2871.6-7.0 g/dL1 buof3113.4-7.6 g/dL7 months-2xiko465.1-7.3 g/dL1-2 .6-7.5 g/dL>3 fnrhu303.0-8.0 g/aK50-2589764.3-8.3 g/dL Albumin (test code = 1751-7) 3.3 g/dL 3.5-5 L A/G ratio (test code = 1759-0) 1.3 0.7-3.8 Alkaline phosphatase (test code = 6768-6) 52 U/L 35-104 AST (test code = 1920-8) 23 U/L 10-35 ALT (test code = 1742-6) 23 U/L 5-50 Total bilirubin (test code = 1974-2) 1.1 mg/dL 0-1.2 Lab Interpretation (test code = 36789-8) Abnormal [facility] MethodistLipid lcspi4013-63-82 07:33:17* Test Item Value Reference Range Interpretation Comments Cholesterol (test code = 2092-3) 124 mg/dL <200 Triglycerides (test code = 2570-8) 108 mg/dL <150 A HDL cholesterol (test code = 2084-9) 37 mg/dL >40 L LDL cholesterol (test code = 2088-1) 80 mg/dL <100 Result obtained by direct LDL measurement Lipid panel interpretation (test code = 49486-3) SeeBelow Total Cholesterol (mg/dL) <200 Desirable 200-239 [...] (>=200 mg/dL) Lab Interpretation (test code = 71572-0) Abnormal [facility] MethodistVitamin B12 nticd5585-08-21 18:31:11* Test Item Value Reference Range Interpretation Comments Vitamin B12 (test code = 2132-9) 541 pg/mL 211-946 Significant overlap exists between normal and deficiency states.However, most patients with deficiencies will have Serum B12 <200 pg/mL. [facility] MethodistAmmonia oqswo2161-08-97 18:12:21* Test Item Value Reference Range Interpretation Comments Ammonia (test code = 1841-6) 27 umol/L 11-51 [place] MethodvalarieThyroid stimulating jclcuht2756-71-49 17:29:11* Test Item Value Reference Range Interpretation Comments TSH (test code = 3016-3) 1.91 0.27- 4.20 uIU/mL [facility] KarpwkvtyWqnicrlu5522-48-98 08:41:07* Test Item Value Reference Range Interpretation Comments Troponin (test code = 72673-4) 0.067 ng/mL 0-0.04 H In patients suspected [...] 0.020 ng/mL Lab Interpretation (test code = 31698-4) Abnormal [facility] MethodistCT Head Wo Dyyqazet7498-95-18 04:19:21Hm Interface, Radiology Results 05/22/2019 4:22 AM [...] no significant joslyn nge from the prior study.[facility]-[id number] MethodistCreatine kinase, total (CPK)2019-05-22 02:46:06* Test Item Value Reference Range Interpretation Comments Creatine kinase (test code = 2157-6) 55 U/L 26-192 [facility] MethodistXR Chest 1 Vw Vjjgqyko5527-10-92 02:45:50Hm Interface, Radiology Results 05/22/2019 2:48 AM CSTExamination: XR CHEST 1 VW PORTABLEClinical History: SOBComparison: None.Technique: Single frontal view of the chest is obtained.Findings:Cardiomegaly with mild vascular crowding or congestion are noted.No pleural effusion is seen.No pneumothorax is se en.Impression:Cardiomegaly with mild vascular crowding or congestion.[facility]-[id number] AX2Tmwzeyr MethodistUrine pasbmpd4864-28-58 02:44:59* Test Item Value Reference Range Interpretation Comments Urine culture (test code = 7294986) SEE COMMENT Bacteriuria screen negative. [facility] MethodistUrinalysis screen and microscopy, with reflex to culture 2019-05-22 02:44:57* Test Item Value Reference Range Interpretation Comments Specimen site (test code = 1404385) Clean catch Color, UA (test code = 5778-6) Yellow Appearance, UA (test code = 5767-9) Clear Specific gravity, UA (test code = 5811-5) 1.011 1.001-1.035 pH, UA (test code = 5803-2) 7.0 5.0-8.5 Protein, UA (test code = 04416-6) Negative Negative Glucose, UA (test code = 29602-1) Negative Negative Ketones, UA (test code = 2514-8) Negative Negative Bilirubin, UA (test code = 5770-3) Negative Negative Blood, UA (test code = 5794-3) Negative Negative Nitrite, UA (test code = 5802-4) Negative Negative Urobilinogen, UA (test code = 53347-1) 2.0 <2.0 A Leukocyte esterase, UA (test code = 5799-2) Negative Negative Epithelial cells, UA (test code = 5787-7) Moderate Few /HPF WBC, UA (test code = 5821-4) 0-5 0- 4 /HPF RBC, UA (test code = 40899-9) 0-5 0- 5 /HPF Bacteria, UA (test code = 48594-9) Few None seen Yeast, UA (test code = 06436-7) None seen Yeast with pseudohyphae, UA (test code = 02499-2) None seen Lab Interpretation (test code = 89850-1) Abnormal [facility] MethodistBASIC METABOLIC QEPJH0590-71-71 12:15:00* Test Item Value Reference Range Interpretation [...] CA) 8.9 mg/dL 8.5-10.1 N BASIC METABOLIC HYJZH6832-28-44 12:10:00* Test Item Value Reference Range Interpretation [...] code = CA) mg/dL 8.5-10.1 CBC W/AUTO LOTM1632-75-16 11:44:00* Test Item Value Reference Range Interpretation [...] (test code = MDIFF) NO CBC W/AUTO WXCN1876-17-12 11:39:00* Test Item Value Reference Range Interpretation [...] # (test code = BA#) K/mm3 0.0-0.2 MAQMHG0855-62-55 11:34:00* Test Item Value Reference Range Interpretation Comments GLUBED (test code = GLUBED) 272 mg/dL 74-106 H Performed by certified gamma facilities operator at [facility] VFBVWQ2283-39-84 08:04:00* Test Item Value Reference Range Interpretation Comments GLUBED (test code = GLUBED) 206 mg/dL 74-106 H Performed by certified gamma facilities operator at [facility] CVPKNC3361-40-77 20:15:00* Test Item Value Reference Range Interpretation Comments GLUBED (test code = GLUBED) 329 mg/dL 74-106 H Performed by certified gamma facilities operator at [facility] EUZYBB0013-99-96 18:10:00* Test Item Value Reference Range Interpretation Comments GLUBED (test code = GLUBED) 427 mg/dL 74-106 H Performed by certified gamma facilities operator at [facility] - XR CHEST 1 C9963-26-73 14:58:00 FAX: Ej Addison MD [phone] [place]: B St: [facility] FAX: Adrien Ellis MD [phone] Name: ELVI MORENO [facility] : 1940 Age/S: 78/F Emily Finch Unit #: [id number] Loc: V.3110 [place] [address] Phys: Ej Addison MD Acct: [id number] Dis Date: Status: ADM IN PHONE #: [phone] Exam Date: 05/18/2019 1450 FAX #: [phone] Reason: SOB EXAMS: CPT CODE: [id number] XR CHEST 1 V 30523 HISTORY: Shortness of breath TECHNIQUE: AP chest x-ray COMPARISON: 05/15/19 FINDINGS: No airspace consolidation or pleural effusion. Cardiomegaly Atherosclerotic vascular calcification of the thoracic aorta. Thoracic spondylosis. Right gl enohumeral arthroplasty. IMPRESSION: No acute findings or significant interval change. L OCATION: LP Electronically Signed by Alisha Avila D.O. on at 1458 Reported and signed by: Alisha Avila D.O. CC: Ej Addison MD; Adrien Gonzalez MD Te chnologist: MARYCARMEN FLORES RT(R) Trnscrd Date/ Time/By: 05/18/2019 (3631) : By: [email or web address] Orig Print D/T: S: 05/18/19 20 (3670) PAGE 1 Signed Report BASIC METABOLIC PACAO6750-47-98 13:41:00* Test Item Value Reference Range Interpretation [...] CA) 8.9 mg/dL 8.5-10.1 N BASIC METABOLIC UIEGE3687-56-65 13:16:00* Test Item Value Reference Range Interpretation [...] code = CA) mg/dL 8.5-10.1 CBC W/AUTO NVBH1439-87-08 12:29:00* Test Item Value Reference Range Interpretation [...] NRBC#) 0.00 K/mm3 0.0-0.1 N CBC W/AUTO IPKZ1676-73-41 12:26:00* Test Item Value Reference Range Interpretation [...] # (test code = BA#) K/mm3 0.0-0.2 YTQIMF6334-72-45 11:49:00* Test Item Value Reference Range Interpretation Comments GLUBED (test code = GLUBED) 269 mg/dL 74-106 H Performed by certified gamma facilities operator at [facility] FTFVQU8787-64-67 07:35:00* Test Item Value Reference Range Interpretation Comments GLUBED (test code = GLUBED) 117 mg/dL 74-106 H Performed by certified gamma facilities operator at [facility] OWTHYE2004-69-72 19:59:00* Test Item Value Reference Range Interpretation Comments GLUBED (test code = GLUBED) 248 mg/dL 74-106 H Performed by certified gamma facilities operator at [facility] NYGDMR7357-42-25 16:22:00* Test Item Value Reference Range Interpretation Comments GLUBED (test code = GLUBED) 241 mg/dL 74-106 H Performed by certified gamma facilities operator at [facility] HUJUQB9489-63-33 11:21:00* Test Item Value Reference Range Interpretation Comments GLUBED (test code = GLUBED) 344 mg/dL 74-106 H Performed by certified gamma facilities operator at [facility] UVZBYH8681-12-89 07:54:00* Test Item Value Reference Range Interpretation Comments GLUBED (test code = GLUBED) 156 mg/dL 74-106 H Performed by certified gamma facilities operator at [facility] JZXPMQ3894-61-65 21:03:00* Test Item Value Reference Range Interpretation Comments GLUBED (test code = GLUBED) 336 mg/dL 74-106 H Performed by certified gamma facilities operator at [facility] ZHARIJK4564-06-38 20:51:00* Test Item Value Reference Range Interpretation Comments GLUCOSE (test code = GLU) 529 mg/dL 74-106 HH Re sults called to [id number] by V.LAB.IN 05/16/192049Critical results verified and read back by Nurse? Y ZFKQLK1984-78-16 19:34:00* Test Item Value Reference Range Interpretation Comments GLUBED (test code = GLUBED) 449 mg/dL 74-106 H Performed by certified gamma facilities operator at [facility] SDXQTN8500-96-87 17:44:00* Test Item Value Reference Range Interpretation Comments GLUBED (test code = GLUBED) > 500 mg/dL 74-106 HH Performed by certified gamma facilities operator at [facility] UAOAOK8624-32-84 17:41:00* Test Item Value Reference Range Interpretation Comments GLUBED (test code = GLUBED) > 500 mg/dL 74-106 HH Performed by certified gamma facilities operator at [facility] JFZARH1753-78-60 12:01:00* Test Item Value Reference Range Interpretation Comments GLUBED (test code = GLUBED) 228 mg/dL 74-106 H Performed by certified gamma facilities operator at [facility] OPCVQW2116-11-51 11:09:00* Test Item Value Reference Range Interpretation Comments GLUBED (test code = GLUBED) 229 mg/dL 74-106 H Performed by certified gamma facilities operator at [facility] OQPMXG2093-95-90 07:46:00* Test Item Value Reference Range Interpretation Comments GLUBED (test code = GLUBED) 122 mg/dL 74-106 H Performed by certified gamma facilities operator at [facility] OGFEQC0212-99-45 21:43:00* Test Item Value Reference Range Interpretation Comments GLUBED (test code = GLUBED) 247 mg/dL 74-106 H Performed by certified gamma facilities operator at [facility] CTOFXL6189-27-02 16:25:00* Test Item Value Reference Range Interpretation Comments GLUBED (test code = GLUBED) 285 mg/dL 74-106 H Performed by certified gamma facilities operator at [facility] IQGPOE2932-22-59 11:17:00* Test Item Value Reference Range Interpretation Comments GLUBED (test code = GLUBED) 362 mg/dL 74-106 H Performed by certified gamma facilities operator at [facility] TBZEZX1341-70-02 08:08:00* Test Item Value Reference Range Interpretation Comments GLUBED (test code = GLUBED) 172 mg/dL 74-106 H Performed by certified gamma facilities operator at [facility] PROTHROMBIN NNCS2971-33-13 06:50:00* Test Item Value Reference Range Interpretation [...] (2.5-3.5) IS PATIENT ON ANTICOAGULANTS? NTHROMBOPLASTIN TIME [id number] 06:50:00* Test Item Value Reference Range Interpretation Comments THROMBOPLASTIN TIME PARTIAL (test code = PTT) 31.4 seconds 25.0-36. 5 N IS PATIENT ON ANTICOAGULANTS? NB-TYPE NATRIURETIC MBJEYOQ9795-18-66 06:42:00* Test Item Value Reference Range Interpretation Comments B-TYPE NATRIURETIC PEPTIDE (test code = BNP) 268.38 pgram/mL 0-100 H BASIC METABOLIC [id number] 06:41:00* Test Item Value Reference Range Interpretation [...] CA) 9.3 mg/dL 8.5-10.1 N HEPATIC FUNCTION [id number] 06:41:00* Test Item Value Reference Range Interpretation [...] reference range due to change in reagent. [id number] 06:41:00* Test Item Value Reference Range Interpretation Comments LIPASE (test code = LIP) 123 U/L 73.0-393.0 N JCEUYEUDR9776-58-98 06:41:00* Test Item Value Reference Range Interpretation Comments MAGNESIUM (test code = MAG) 1.9 mg/dL 1.8-2.4 N HABTCUDJ-C9663-16-02 06:41:00* Test Item Value Reference Range Interpretation Comments TROPONIN-I (test code = TROPI) <0.015 ng/mL 0-0.045 N BASIC METABOLIC [id number] 06:25:00* Test Item Value Reference Range Interpretation [...] code = CA) mg/dL 8.5-10.1 HEPATIC FUNCTION [id number] 06:25:00* Test Item Value Reference Range Interpretation [...] TOTAL (test code = ALKP) IUnit/L 45-117 KPKFKJ6019-15-83 06:25:00* Test Item Value Reference Range Interpretation Comments LIPASE (test code = LIP) U/L 73.0-393.0 JTQUYGRMQ1054-45-82 06:25:00* Test Item Value Reference Range Interpretation Comments MAGNESIUM (test code = MAG) mg/dL 1.8-2.4 LSKXHDSM-O9194-60-02 06:25:00* Test Item Value Reference Range Interpretation Comments TROPONIN-I (test code = TROPI) ng/mL 0-0.045 - XR CHEST 1 [id number] 05:50:00 FAX: Adrien Ellis MD [phone] [place]: St: [facility] FAX: Telma Smith MD [phone] Name: ELVI MORENO [facility] : 1940 Age/S: 78/F [address] [facility] Unit #: [id number] Loc: [place] [address] Phys: Telma Smith MD Acct: [id number] Dis Date: Status: REG ER PHONE #: [phone] Exam Date: 05/15/2019 0450 FAX #: [phone] Reason: Shortness of Breath EXAMS: CPT CODE: [id number] XR CHEST 1 V 79798 AFTER HOURS SERVICE ON: 05/15/2019 5:49 AM [...] MD; Telma Smith MD Technologist: Florencia Broderick Trnprrd Date/Time/By: 05/15/2019 (0550) : By: [email or web address] Orig Print D/T: S: 05/15/2019 (0553) PAGE 1 Signed Report CBC W/O [id number] 05:48:00 * Test Item Value Reference Range [...] MPV) 10.9 fL 6.7-11.0 N CBC W/O [id number] 05:47:00* Test Item Value Reference Range Interpretation [...] VOLUME (test code = MPV) fL 6.7-11.0 [id number] 05:42:00* Test Item Value Reference Range Interpretation Comments GLUBED (test code = GLUBED) 68 mg/dL 74-106 L Performed by certified gamma facilities operator at [facility] LIXKLV8401-61-95 10:30:00* Test Item Value Reference Range Interpretation Comments GLUBED (test code = GLUBED) 120 mg/dL 74-106 H Performed by certified gamma facilities operator at [facility] BASIC METABOLIC [id number] 11:07:00* Test Item Value Reference Range Interpretation [...] CA) 9.4 mg/dL 8.5-10.1 N BASIC METABOLIC [id number] 10:47:00* Test Item Value Reference Range Interpretation [...] = CA) 9.4 mg/dL 8.5-10.1 N PROTHROMBIN [id number] 10:25:00* Test Item Value Reference Range Interpretation [...] Mechanical prosthetic heart valves (2.5-3.5) THROMBOPLASTIN TIME [id number] 10:25:00* Test Item Value Reference Range Interpretation Comments THROMBOPLASTIN TIME PARTIAL (test code = PTT) 34.8 seconds 25.0-36. 5 N CBC W/AUTO [id number] 10:16:00* Test Item Value Reference Range Interpretation [...] NRBC#) 0.00 K/mm3 0.0-0.1 N CBC W/AUTO [id number] 10:15:00* Test Item Value Reference Range Interpretation [...] # (test code = BA#) K/mm3 0.0-0.2 [id number] 08:21:00* Test Item Value Reference Range Interpretation Comments GLUBED (test code = GLUBED) 180 mg/dL 74-106 H Performed by certified gamma facilities operator at [facility] [id number] 10:11:00* Test Item Value Reference Range Interpretation Comments GLUBED (test code = GLUBED) 121 mg/dL 74-106 H Performed by certified gamma facilities operator at [facility] [id number] 16:56:00* Test Item Value Reference Range Interpretation Comments GLUBED (test code = GLUBED) 86 mg/dL 74-106 N Performed by certified gamma facilities operator at [facility] BASIC METABOLIC [id number] 16:16:00* Test Item Value Reference Range Interpretation [...] CA) 8.1 mg/dL 8.5-10.1 L BASIC METABOLIC [id number] 16:12:00* Test Item Value Reference Range Interpretation [...] CA) 8.1 mg/dL 8.5-10.1 L CBC W/AUTO [id number] 14:46:00* Test Item Value Reference Range Interpretation [...] NRBC#) 0.00 K/mm3 0.0-0.1 N CBC W/AUTO [id number] 14:45:00* Test Item Value Reference Range Interpretation [...] # (test code = BA#) K/mm3 0.0-0.2 [id number] 11:36:00* Test Item Value Reference Range Interpretation Comments GLUBED (test code = GLUBED) 234 mg/dL 74-106 H [facility] [id number] 05:35:00* Test Item Value Reference Range Interpretation Comments GLUBED (test code = GLUBED) 90 mg/dL 74-106 N Performed by certified gamma facilities operator at [facility] [id number] 21:01:00* Test Item Value Reference Range Interpretation Comments GLUBED (test code = GLUBED) 182 mg/dL 74-106 H Performed by certified gamma facilities operator at [facility] [id number] 20:22:00* Test Item Value Reference Range Interpretation Comments GLUBED (test code = GLUBED) 213 mg/dL 74-106 H Performed by certified gamma facilities operator at [facility] [id number] 12:38:00* Test Item Value Reference Range Interpretation Comments GLUBED (test code = GLUBED) 143 mg/dL 74-106 H Performed by certified gamma facilities operator at [facility] [id number] 06:37:00* Test Item Value Reference Range Interpretation Comments GLUBED (test code = GLUBED) 109 mg/dL 74-106 H Performed by certified gamma facilities operator at [facility] [id number] 21:13:00* Test Item Value Reference Range Interpretation Comments GLUBED (test code = GLUBED) 183 mg/dL 74-106 H Performed by certified gamma facilities operator at [facility] [id number] 18:14:00* Test Item Value Reference Range Interpretation Comments GLUBED (test code = GLUBED) 199 mg/dL 74-106 H Performed by certified gamma facilities operator at [facility] [id number] 12:40:00* Test Item Value Reference Range Interpretation Comments GLUBED (test code = GLUBED) 156 mg/dL 74-106 H Performed by certified gamma facilities operator at [facility] [id number] 06:44:00* Test Item Value Reference Range Interpretation Comments GLUBED (test code = GLUBED) 177 mg/dL 74-106 H Performed by certified gamma facilities operator at [facility] [id number] 06:23:00* Test Item Value Reference Range Interpretation Comments GLUBED (test code = GLUBED) 155 mg/dL 74-106 H Performed by certified gamma facilities operator at [facility] [id number] 03:24:00* Test Item Value Reference Range Interpretation Comments GLUBED (test code = GLUBED) 129 mg/dL 74-106 H Performed by certified gamma facilities operator at [facility] [id number] 16:13:00* Test Item Value Reference Range Interpretation Comments GLUBED (test code = GLUBED) 192 mg/dL 74-106 H Performed by certified gamma facilities operator at [facility] [id number] 12:37:00* Test Item Value Reference Range Interpretation Comments GLUBED (test code = GLUBED) 189 mg/dL 74-106 H Performed by certified gamma facilities operator at [facility] [id number] 06:14:00* Test Item Value Reference Range Interpretation Comments TROPONIN-I (test code = TROPI) 0.019 ng/mL 0-0.045 N COMMENTS TO PATIENT ATTENDANT: COLLECT 3 HOURS AFTER PREVIOUS DKKLWP29/17/19 1053BASIC METABOLIC [id number] 06:10:00* Test Item Value Reference Range Interpretation [...] CA) 8.2 mg/dL 8.5-10.1 L CBC W/AUTO [id number] 05:36:00* Test Item Value Reference Range Interpretation [...] DIFF REQUIRED (test code = MDIFF) NO [id number] 04:28:00* Test Item Value Reference Range Interpretation Comments GLUBED (test code = GLUBED) 118 mg/dL 74-106 H Performed by certified gamma facilities operator at [facility] [id number] 17:30:00* Test Item Value Reference Range Interpretation Comments GLUBED (test code = GLUBED) 119 mg/dL 74-106 H Performed by certified gamma facilities operator at [facility] [id number] 11:47:00* Test Item Value Reference Range Interpretation Comments GLUBED (test code = GLUBED) 149 mg/dL 74-106 H Performed by certified gamma facilities operator at [facility] THYROID STIMULATING [id number] 11:34:00* Test Item Value Reference Range Interpretation [...] This LDL result is a direct measurement.========= [id number] 11:34:00* Test Item Value Reference Range Interpretation Comments GLYCOSYLATED HEMOGLOBIN (HA1C) (test code = GLYHGB) 6.7 % HbA1 4. 8-6.0 H ESTIMATED AVERAGE GLUCOSE (test code = EAG) 146 MG/DL BASIC METABOLIC [id number] 11:19:00* Test Item Value Reference Range Interpretation [...] N RAN ON MORNING SAMPLE CBC W/O [id number] 10:35:00* Test Item Value Reference Range Interpretation [...] MPV) 11.6 fL 6.7-11.0 H CBC W/O [id number] 10:26:00* Test Item Value Reference Range Interpretation [...] VOLUME (test code = MPV) fL 6.7-11.0 [id number] 10:10:00* Test Item Value Reference Range Interpretation Comments TROPONIN-I (test code = TROPI) 0.068 ng/mL 0-0.045 HH Results called to [id number] by RAYNE.CFGelacio 12/28/18 1010Critical results verified and read back by Nurse? Y COMMENTS TO PATIENT ATTENDANT: COLLECT 3 HOURS AFTER PREVIOUS SAMPLEURINALYSIS [id number] 23:53:00* Test Item Value Reference Range Interpretation [...] NONE A Urine Source? Clean Catch- CTA [id number] 23:34:00 Name: ELVI MORENO [facility] : 1940 Age/S: 78 / F [address] Unit #: [id number] Loc: [place] [address] Phys: Maximus Mason MD Acct: [id number] Dis Date: Status: ADM IN PHONE #: [phone] Exam Date: 12/27/2018 232 FAX #: [phone] Reason: cp sob, h/o pe EXAMS: CPT CODE: [id number] CTA CHEST 34482 AFTER HOURS SERVICE ON: 12/27/2018 11:31 PM [...] groundglass pneumonitis, right greater than left. at 2334 Reported and signed by: Sara Sharma M.D. PAGE 1 Signed Report (CONTINUED) Yves e: ELVI MORENO [facility] : Age/S: 78 / F [address] Unit #: [id number] Loc: [place] [address] Phys: Maximus Mason Acct: [id number] Dis Shola e: Status: ADM IN PHONE #: Exam Date: 12/27/2018 2320 FAX #: [phone] Reason: cp sob, h/o pe EXAMS: CPT CODE: [id number] CTA CHEST 45170 <Continued> CC: Maximus Mason MD; Adrien Gonzalez MD Technologist:AUSTIN GONG, RT; Vikas Bender CTDI: DLP: Trnscb Date/Time: 12/27/2018 (2290) [email or web address].[email or web address] Orig Print D/T: S: 12/27/2018 (0748) PAGE 2 Signed Report BASIC METABOLIC [id number] 22:26:00* Test Item Value Reference Range Interpretation [...] CA) 8.9 mg/dL 8.5-10.1 N HEPATIC FUNCTION [id number] 22:26:00* Test Item Value Reference Range Interpretation [...] reference range due to change in reagent. [id number] 22:26:00* Test Item Value Reference Range Interpretation Comments LIPASE (test code = LIP) 342 U/L 73.0-393.0 N [id number] 22:26:00* Test Item Value Reference Range Interpretation Comments MAGNESIUM (test code = MAG) 1.7 mg/dL 1.8-2.4 L [id number] 22:26:00* Test Item Value Reference Range Interpretation Comments TROPONIN-I (test code = TROPI) <0.015 ng/mL 0-0.045 N B-TYPE NATRIURETIC [id number] 22:26:00* Test Item Value Reference Range Interpretation Comments B-TYPE NATRIURETIC PEPTIDE (test code = BNP) 166.00 pgram/mL 0-100 H BASIC METABOLIC [id number] 22:24:00* Test Item Value Reference Range Interpretation [...] code = CA) mg/dL 8.5-10.1 HEPATIC FUNCTION [id number] 22:24:00* Test Item Value Reference Range Interpretation [...] TOTAL (test code = ALKP) IUnit/L 45-117 [id number] 22:24:00* Test Item Value Reference Range Interpretation Comments LIPASE (test code = LIP) U/L 73.0-393.0 [id number] 22:24:00* Test Item Value Reference Range Interpretation Comments MAGNESIUM (test code = MAG) mg/dL 1.8-2.4 [id number] 22:24:00* Test Item Value Reference Range Interpretation Comments TROPONIN-I (test code = TROPI) ng/mL 0-0.045 PROTHROMBIN [id number] 22:09:00* Test Item Value Reference Range Interpretation [...] (2.5-3.5) IS PATIENT ON ANTICOAGULANTS? NTHROMBOPLASTIN TIME [id number] 22:09:00* Test Item Value Reference Range Interpretation Comments THROMBOPLASTIN TIME PARTIAL (test code = PTT) 38.3 seconds 25.0-36. 5 H IS PATIENT ON ANTICOAGULANTS? N- XR CHEST 1 [id number] 22:08:00 FAX: Maximus Mason MD [phone] [place]: St: [facility] FAX: Adrien Ellis MD [phone] Name: ELVI MORENO [facility] : 1940 Age/S: 78/F [address] [facility] Unit #: [id number] Loc: [place] [address] Phys: Maximus Mason MD Acct: [id number] Dis Date: Status: REG ER PHONE #: [phone] Exam Date: 12/27/2018 2200 FAX #: [phone] Reason: SHORTNESS OF BREATH EXAMS: CPT CODE: [id number] XR CHEST 1 V 60485 REASON FOR EXAM: SHORTNESS OF BREATH EXAM ORDER DATE: 12/27/2018 9:26 PM Ordering MFarzad: Maximus Mason MD PROCEDURE: - XR CHEST [...] Maximus Mason MD; Adrien Gonzalez MD Technologist: SHONA INIGUEZ RT(R) Trnscrd Date/Time/By: 12/27/2018 (2207) : By: rocael CORBIN Orig Print D/T: S: 12/27/2018 (9647) PAGE 1 Signed Report CBC W/AUTO [id number] 21:48:00* Test Item Value Reference Range Interpretation [...] (test code = MDIFF) NO CBC W/AUTO [id number] 21:47:00* Test Item Value Reference Range Interpretation [...] # (test code = BA#) K/mm3 0.0-0.2 [id number] 11:15:00* Test Item Value Reference Range Interpretation Comments GLUBED (test code = GLUBED) 161 mg/dL 74-106 H Performed by certified gamma facilities operator at [facility] [id number] 09:03:00* Test Item Value Reference Range Interpretation Comments GLYCOSYLATED HEMOGLOBIN (HA1C) (test code = GLYHGB) 6.6 % HbA1 4. 8-6.0 H ESTIMATED AVERAGE GLUCOSE (test code = EAG) 143 MG/DL - CT ABD PELVIS W WO [id number] 08:44:00 Name: ELVI MORENO [facility] : 1940 Age/S: 78 / F [address] [facility] Unit #: [id number] Loc: [place] [address] Phys: Vikas Damon MD Acct: [id number] Dis Date: Status: ADM IN PHONE #: [phone] Exam Date: 12/16/2018 0811 FAX #: [phone] Reason: Abdominal pain EXAMS: CPT CODE: [id number] CT ABD PELVIS W WO CONT 93927 REASON FOR EXAM: Abdominal pain EXAM ORDER DATE: 12/16/2018 8:00 AM Ordering M.DKelsey: Vikas Damon MD PROCEDURE: - CT ABD [...] 1 Signed Report (CONTINUED) Name: ELVI MORENO [facility] : 1940 Age/S: 78 / F [address] [facility] Unit #: [id number] Loc: [place] [address] Phys: Mahesh Damon MD Acct: [id number] Di s Date: Status: ADM IN PHONE #: Exam Date: 12/16/2018 08 FAX #: Reason: Abdominal pain EXAMS: CPT CODE: [id number] CT ABD PELVIS W WO CONT 25424 <Continued> Peritoneum and retroperitoneum: No free fluid [...] Moise RT(R),CT; CTDI: DLP: Trnscb Date/Time: 12/16/2018 (843) ScarR.RR31 Orig Print D/T: S: 12/16/2018 (0830) PAGE 2 Signed Report [id number] 07:46:00* Test Item Value Reference Range Interpretation Comments GLUBED (test code = GLUBED) 119 mg/dL 74-106 H Performed by certified gamma facilities operator at [facility] [id number] 20:31:00* Test Item Value Reference Range Interpretation Comments GLUBED (test code = GLUBED) 342 mg/dL 74-106 H Performed by certified gamma facilities operator at [facility] [id number] 19:54:00* Test Item Value Reference Range Interpretation Comments GLUBED (test code = GLUBED) 315 mg/dL 74-106 H Performed by certified gamma facilities operator at [facility] [id number] 16:31:00* Test Item Value Reference Range Interpretation Comments GLUBED (test code = GLUBED) 168 mg/dL 74-106 H [facility] certified [facility] facilities [facility] [id number] 14:34:00* Test Item Value Reference Range Interpretation Comments GLUBED (test code = GLUBED) 151 mg/dL 74-106 H Performed by certified gamma facilities operator at [facility] [id number] 08:37:00* Test Item Value Reference Range Interpretation Comments GLUBED (test code = GLUBED) 135 mg/dL 74-106 H [facility] certified [facility] facilities [facility] COMPREHENSIVE METABOLIC [id number] 06:49:00* Test Item Value Reference Range Interpretation [...] due to change in reagent. COMPREHENSIVE METABOLIC [id number] 06:47:00* Test Item Value Reference Range Interpretation [...] code = ALKP) IUnit/L 45-117 CBC W/AUTO [id number] 06:02:00* Test Item Value Reference Range Interpretation [...] NRBC#) 0.00 K/mm3 0.0-0.1 N CBC W/AUTO [id number] 05:56:00* Test Item Value Reference Range Interpretation [...] # (test code = BA#) K/mm3 0.0-0.2 [id number] 23:31:00* Test Item Value Reference Range Interpretation Comments GLUBED (test code = GLUBED) 129 mg/dL 74-106 H Performed by certified gamma facilities operator at [facility] [id number] 20:44:00* Test Item Value Reference Range Interpretation Comments GLUBED (test code = GLUBED) 197 mg/dL 74-106 H Performed by certified gamma facilities operator at [facility] [id number] 19:51:00* Test Item Value Reference Range Interpretation Comments TROPONIN-I (test code = TROPI) 0.353 ng/mL 0-0.045 HH Results called to PREVIOUSLY [facility] V.LAB.QUR 12/14/18 1951Critical results verified and read back by Nurse? N [id number] 16:09:00* Test Item Value Reference Range Interpretation Comments GLUBED (test code = GLUBED) 257 mg/dL 74-106 H Performed by certified gamma facilities operator at [facility] - US ABDOMEN [id number] 14:58:00 Name: JOSHELVI Orozco [facility] : 1940 Age/S: 78 / F [address] Unit #: [id number] Loc: [place] [address] Phys: Jesus Azul MD Acct: [id number] Dis Date: Status: ADM IN PHONE #: [phone] Exam Date: 12/14/2018 8019 FAX #: [phone] Reason: ABD PAIN, ???ASCITES EXAMS: CPT CODE: [id number] US ABDOMEN COMPLETE 29065 REASON FOR EXAM: ABD PAIN, ???ASCITES EXAM [...] Unremarkable abdomen. No evidence of ascites at 7582 Reported and signed by: Nacho Ramsey M.D. CC: Jesus Azul MD; Ej Addison MD; Adrien Gonzalez MD Technologist: NELLIE FULTON RT(R),[facility] Trnprb Date/Time: 12/14/2018 (1458) t.LAISHAR.VTL Orig Print D/T: S: 12/14/2018 (6793) Probe: PAGE 1 Signed Report [id number] 14:27:00* Test Item Value Reference Range Interpretation Comments TROPONIN-I (test code = TROPI) 0.408 ng/mL 0-0.045 HH RESULT VERIFIED BY REPEAT ANALYSIS [id number] 12:42:00* Test Item Value Reference Range Interpretation Comments GLUBED (test code = GLUBED) 166 mg/dL 74-106 H Performed by certified gamma facilities operator at [facility] [id number] 11:48:00* Test Item Value Reference Range Interpretation Comments TROPONIN-I (test code = TROPI) 0.344 ng/mL 0-0.045 HH RESULT VERIFIED BY REPEAT ANALYSIS COMMENTS TO PATIENT ATTENDANT: COLLECT 3 HOURS AFTER PREVIOUS [id number] 07:55:00* Test Item Value Reference Range Interpretation Comments TROPONIN-I (test code = TROPI) 0.292 ng/mL 0-0.045 HH Results called to [id number] by MAXINE 12/14/18 0755Critical results verified and read back by Nurse? Y COMMENTS TO PATIENT ATTENDANT: COLLECT 3 HOURS AFTER PREVIOUS SAMPLE- XR CHEST 1 [id number] 00:54:00 FAX: Wally Valverde [phone] [place]: St: REG FAX: Adrien Ellis MD [phone] Name: ELVI MORENO [facility] : 1940 Age/S: 78/F [address] [facility] Unit #: [id number] Loc: [place] [address] Phys: Wally Oh MD Acct: [id number] Dis Date: Status: REG ER PHONE #: [phone] Exam Date: 12/14/2018 0048 FAX #: [phone] Reason: CHEST PAIN EXAMS: CPT CODE: [id number] XR CHEST 1 V 57127 LOCATION: Q15 HISTORY: 78-year-old female with chest [...] Wally Oh MD; Adrien Gonzalez MD Technologist: SHONA INIGUEZ RT(R) Trnscrd Date/Time/By: 12/14/2018 (0054) : By: RenzoRLA2 Orig Print D/T: S: 12/14/2018 (0058) PAGE 1 Signed Report BASIC METABOLIC [id number] 00:36:00* Test Item Value Reference Range Interpretation [...] code = CA) 9.1 mg/dL 8.5-10.1 N [id number] 00:36:00* Test Item Value Reference Range Interpretation Comments TROPONIN-I (test code = TROPI) <0.015 ng/mL 0-0.045 N CBC W/O [id number] 00:33:00* Test Item Value Reference Range Interpretation [...] MPV) 11.3 fL 6.7-11.0 H BASIC METABOLIC [id number] 00:25:00* Test Item Value Reference Range Interpretation [...] code = CA) 9.1 mg/dL 8.5-10.1 N [id number] 00:25:00* Test Item Value Reference Range Interpretation Comments TROPONIN-I (test code = TROPI) ng/mL 0-0.045 CBC W/O [id number] 00:21:00* Test Item Value Reference Range Interpretation [...] code = MPV) fL 6.7-11.0 CHEST 2 [id number] 13:23:00 [place] [address] Patient Name: ELVI MORENO MR #: [id number] : 1940 Age/Sex: 77/F Req #: [id number] Adm Physician: Ordered by: OMAIRA RODRIGUEZ MD Report #: [id number] Location: [facility] [employer] [facility] Room/Bed: Procedure: [id number] DX/ CHEST 2 VIEWS Exam Date: 10/15/18 [...] 1:25 PM Dictated By: OMAIRA MCGEE MD 1329 Transcribed By: SILVIO on 10/15/18 1325 COPY TO: OMAIRA RODRIGUEZ MD URINALYSIS [id number] 14:03:00* Test Item Value Reference Range Interpretation [...] AMORU) FEW TO MODERATE #/LPF NON E [id number] 11:35:00* Test Item Value Reference Range Interpretation Comments GLUBED (test code = GLUBED) 346 mg/dL 74-106 H Performed by certified gamma facilities operator at [facility] BASIC METABOLIC [id number] 08:12:00* Test Item Value Reference Range Interpretation [...] CA) 9.0 mg/dL 8.5-10.1 N BASIC METABOLIC [id number] 08:05:00* Test Item Value Reference Range Interpretation [...] code = CA) mg/dL 8.5-10.1 CBC W/AUTO [id number] 07:44:00* Test Item Value Reference Range Interpretation [...] (test code = MDIFF) NO CBC W/AUTO [id number] 07:34:00* Test Item Value Reference Range Interpretation [...] # (test code = BA#) K/mm3 0.0-0.2 [id number] 05:51:00* Test Item Value Reference Range Interpretation Comments GLUBED (test code = GLUBED) 142 mg/dL 74-106 H Performed by certified gamma facilities operator at [facility] [id number] 22:24:00* Test Item Value Reference Range Interpretation [...] This LDL result is a direct measurement.========= [id number] 21:19:00* Test Item Value Reference Range Interpretation Comments GLUBED (test code = GLUBED) 190 mg/dL 74-106 H Performed by certified gamma facilities operator at [facility] [id number] 17:07:00* Test Item Value Reference Range Interpretation Comments GLUBED (test code = GLUBED) 170 mg/dL 74-106 H Performed by certified gamma facilities operator at [facility] [id number] 16:18:00* Test Item Value Reference Range Interpretation Comments GLUBED (test code = GLUBED) 156 mg/dL 74-106 H Performed by certified gamma facilities operator at [facility] [id number] 15:59:00* Test Item Value Reference Range Interpretation Comments GLUBED (test code = GLUBED) 218 mg/dL 74-106 H Performed by certified gamma facilities operator at [facility] [id number] 06:21:00* Test Item Value Reference Range Interpretation Comments GLUBED (test code = GLUBED) 256 mg/dL 74-106 H Performed by certified gamma facilities operator at [facility] [id number] 23:43:00* Test Item Value Reference Range Interpretation Comments TROPONIN-I (test code = TROPI) <0.015 ng/mL 0-0.045 N COMMENTS TO PATIENT ATTENDANT: COLLECT 3 HOURS AFTER PREVIOUS [id number] 21:21:00* Test Item Value Reference Range Interpretation Comments GLUBED (test code = GLUBED) 209 mg/dL 74-106 H Performed by certified gamma facilities operator at [facility] [id number]-[id number] 20:29:00* Test Item Value Reference Range Interpretation Comments TROPONIN-I (test code = TROPI) <0.015 ng/mL 0-0.045 N COMMENTS TO PATIENT ATTENDANT: COLLECT 3 HOURS AFTER PREVIOUS SAMPLE- MRI BRAIN W/O [id number] 18:05:00 FAX: [place] [phone] [place]: B St: ADM Name: ELVI NELSON [facility] : [birth year] Age/S: 77/F [address] Unit #: [id number] Loc: [address] [place] [address] Phys: La Grover MD Acct: [id number] Dis Date: Status: ADM IN PHONE #: [phone] Exam Date: 06/22/2018 1714 FAX #: [phone] Reason: slurred speech, left sided weakness EXAMS: CPT CODE: [id number] MRI BRAIN W/O CONTRAST 28911 REASON FOR EXAM: slurred speech, left sided weakness Exam Order Date: 06/22/2018 1:30 PM Attending M.Robert.: La Grover MD Procedure: - MRI BRAIN [...] IMPRE SSION: No evidence of acute infarction. Kitchen Chef zahra microvascular ischemic changes in the periventricular white matter. Diffusion restricting lesions in the posterior horns of the la teral ventricles bilaterally. Further evaluation is limited by the absen ce of IV contrast. Electronically Signed by Rey Ordaz MD o n 06/22/2018 at 1805 Reported and signed by: Rey Ordaz MD PAGE 1 Signed Report (CONTINU ED) FAX: [place] [phone] [place]: St: ADM------ Name: ELVI MORENO [facility] : [birth year] Age/S: 77/F [address] Unit #: [id number] Loc: [address] [place] [address] Phys: La Grover MD Acct: [id number] Dis Date: Status: ADM IN PHONE #: [phone] Exam Date: 06/22/2018 1714 FAX #: [phone] Reason: slurred speech, left sided weakness EXAMS: CPT CODE: [id number] MRI BRAIN W/O CONTRAST 37996 <Continued> CC: La Grover MD Technologist: Javier Powers)(MR) Trnscrd Date/Time/By: 06/22/2018 (1804) : By: RenzoRR31 Orig Print D/T: S: 06/22/2018 (811) PAGE 2 Signed Report HEPATIC FUNCTION [id number] 13:18:00* Test Item Value Reference Range Interpretation [...] reference range due to change in reagent. [id number] 13:18:00* Test Item Value Reference Range Interpretation Comments LIPASE (test code = LIP) 200 U/L 73.0-393.0 N BASIC METABOLIC [id number] 13:18:00* Test Item Value Reference Range Interpretation [...] code = CA) 9.6 mg/dL 8.5-10.1 N [id number] 13:18:00* Test Item Value Reference Range Interpretation Comments MAGNESIUM (test code = MAG) 2.1 mg/dL 1.8-2.4 N [id number] 13:18:00* Test Item Value Reference Range Interpretation Comments CKMB (test code = CKMBT) 1.3 ng/mL 0-6.0 N PROTHROMBIN [id number] 12:58:00* Test Item Value Reference Range Interpretation [...] (2.5-3.5) IS PATIENT ON ANTICOAGULANTS? NTHROMBOPLASTIN TIME [id number] 12:58:00* Test Item Value Reference Range Interpretation Comments THROMBOPLASTIN TIME PARTIAL (test code = PTT) 33.8 seconds 25.0-36. 5 N IS PATIENT ON ANTICOAGULANTS? NBASIC METABOLIC [id number] 12:56:00* Test Item Value Reference Range Interpretation [...] CALCIUM (test code = CA) mg/dL 8.5-10.1 [id number] 12:56:00* Test Item Value Reference Range Interpretation Comments MAGNESIUM (test code = MAG) mg/dL 1.8-2.4 [id number] 12:56:00* Test Item Value Reference Range Interpretation Comments CKMB (test code = CKMBT) ng/mL 0-6.0 CBC W/AUTO [id number] 12:46:00* Test Item Value Reference Range Interpretation [...] (test code = MDIFF) NO CBC W/AUTO [id number] 12:42:00* Test Item Value Reference Range Interpretation [...] BA#) K/mm3 0.0-0.2 - XR CHEST 1 [id number] 12:42:00 FAX: [place] [phone] [place]: [address]: REG Name: ELVI NELSON [facility] : [birth year] Age/S: 77/F [address] Unit #: [id number] Loc: [place] [address] Phys: La Grover MD Acct: [id number] Dis Date: Status: REG ER PHONE #: [phone] Exam Date: 06/22/2018 1234 FAX #: [phone] Reason: CODE STROKE EXAMS: CPT CODE: [id number] XR CHEST 1 V 08622 EXAM: Chest x-ray, one view; INFORMATION: Hypertension, [...] MD Technologist: Jeet MARS(R) Trnscrd Date/Time/By: 06/22/2018 (8443) : By: RenzoGRW Orig Print D/T: S: 06/22/2018 (5568) PAGE 1 Signed Report - CT HEAD/BRAIN W/O [id number] 12:38:00 Name: ELVI MORENO [facility] : 1940 Age/S: 77 / F [address] Unit #: [id number] Loc: TASIA [place] [address] Phys: La Grover MD Acct: [id number] Dis Date: Status: REG ER PHONE #: [phone] Exam Date: 06/22/2018 1227 FAX #: [phone] Reason: slurred speech, left sided numbness EXAMS: CPT CODE: [id number] CT HEAD/BRAIN W/O CONT 45022 EXAM: CT of the head without contrast; [...] CTDI: DLP: Trnscb Date/Eugenio e: 06/22/2018 (1238) [email or web address] Orig Print D/T: S: 019 (1241) CTDI: DLP: PAGE 1 Sign ed Report [id number] 11:03:00 RUN DATE: 02/20/18 [facility] PAGE 1 RUN TIME: 1104 Specimen Inqui ry RUN USER: INTERFACE PATIENT: ELVI MORENO ACCT #: [id number] [facility] U #: [id number] AGE/SX: 77/F ROOM: [facility] RE02/13/18REG DR: Ej Addison MD : 44 BED: A DIS: 02/15/18 STATUS: DIS IN TLOC: SPEC #: [id number] RECD: 02/15/18 STATUS: PEDRO REQ #: [id number] DESTIN: 02/14/18- SUBM DR: Vikas Damon MD ENTERED: 02/15/18 SP TYPE: STOMACH OTHR DR: Eliel Hutchison MD, Louis MD Nv Yesi lyles MDORDERED: GROSS COPIES TO: Eliel Rodriguez MD [address] [place], [place] [id number] Vikas Damon MD [address] [place] [address] Bernard Rodriguez MD [address] [place], [place] [id number] Yesi Peña MD [address] [place] [address] PROCEDURES: GROSS (02/18/18-1443) TISSUES: 1. ANTRAL BIOPSY [...] stains appropriately. The slide was interpreted at [facility]. The specimen is negative for Helicobacter Pylori. 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 GROSS PERFORMED AT [facility] [address] [place] [address] ( p)[phone] MICROSCOPIC MICROSCOPIC PERFORMED AT [facility] All of the stains, including any controls performed, stain jaquelin higgins. [facility] [address] [place] [address] (p )[phone] CONTINUED ON NEXT PAGE ---- --------RUN DATE: 02/20/18 [facility] PAGE 3 RUN TIME: 1104 Specimen Inquiry RUN USER: INTERFACE SPEC #: [id number] PATIENT: ELVI MORENO #[id number] (Continued) PERFORMING SITE Diagnosis performed at: [facility], MARY ANN [address] [facility], [place] [address] Signed SIGNATURE ON FILE Na Estrella 02/20/18 1103 ---- -------- END OF REPORT
[2019-12-24] MEDS ORDERED: RISPERIDONE1 MG PO (16:12)
[2019-12-24] MEDS ORDERED: HYDRALAZINE HCL 20 MG/ML VIAL IV PRN (16:30)
[2019-12-24] MEDS ORDERED: ACETAMINOPHEN 325 MG TAB PO PRN (16:30)
[2019-12-24] MEDS: MORPHINE SULFATE INJ 4 MG/ML INJ 1ML IV PRN ×2 (17:51→22:47)
[2019-12-24] MEDS: ONDANSETRON HCL INJ 2MG/ML 2ML 2 MG/ML VIAL IV PRN ×2 (17:51→22:47)
[2019-12-24 18:10] VITALS: BP 141/72
--- NOTE | 2019-12-24 18:10 | NUR ---
Received patient via stretcher from ER. AAOX4 to time, person, place, situation. Respirations even and unlabored. Tele #3 dual paced 111. Oriented patient to room. Instructed patient to use call light for assistance. Voiced understanding. paged to notify of consult.
[2019-12-24 18:16] VITALS: BP 141/72
[2019-12-24] MEDS ORDERED: GABAPENTIN300 MG PO (18:51)
[2019-12-24] MEDS ORDERED: DIVALPROEX SOD125 M1 PEG (18:51)
[2019-12-24] MEDS ORDERED: PROVENTIL HFA6.7 GM INH (18:51)
[2019-12-24] MEDS ORDERED: TRIAMTERENE-HCTZ1 EA PO (18:51)
[2019-12-24] MEDS ORDERED: LEVOTHYROXINE50 MCG PO (18:51)
[2019-12-24] MEDS ORDERED: METFORMIN HCL500 MG PO (18:51)
[2019-12-24] MEDS ORDERED: GLIPIZIDE5 MG PO (18:51)
[2019-12-24] MEDS ORDERED: ASPIRIN EC81 MG PO (18:51)
[2019-12-24] MEDS ORDERED: BUMETANIDE1 MG PO (18:51)
[2019-12-24] MEDS ORDERED: OMEPRAZOLE20 MG PO (18:51)
[2019-12-24] MEDS ORDERED: ATORVASTATIN CA20 MG PO (18:51)
[2019-12-24] MEDS ORDERED: LOSARTAN POTAS100 MG PO (18:51)
[2019-12-24] MEDS ORDERED: ADVAIR 100-501 EACH INH (18:51)
[2019-12-24] MEDS ORDERED: NOVOLOG100 UNIT/1 SC (18:51)
[2019-12-24] MEDS ORDERED: ALENDRONAT70 MG/75 M PO (18:51)
[2019-12-24 19:00] VITALS: BP 141/72
--- NOTE | 2019-12-24 19:10 | NUR ---
Report given to oncoming nurse of patient's status. No s/s of acute distress noted. Side rails upx2, call light within reach, bed alarm on.
[2019-12-24 19:19] LABS: CREATINE KINASE MB 0.7 ng/mL (0-5.0)
--- NOTE | 2019-12-24 19:20 | NUR ---
Bedside shift report received from day rn. Pt is alert and oriented x3. Pt speaks Hungarian. Daughter available by phone to explain things to her mom. tele on- pt has pacemaker -dual av paced.beltran to gravity. urine is clear real in color. piv 18 g rt ac ns infusing at 75 ml/hr. site healthy. Pt to go to surg in am awaiting or time- will check or schedule. Call light within reach. Bed in low position. Bed alarm on.
--- NOTE | 2019-12-24 19:34 | NUR ---
ORTHOPEDIC CONSULTATION 79 year old household ambulator with walker presents to the ED after a mechanical fall with complaints of left hip pain. Denies pain in any other extremity. Denies numbness, paresthesias or loss of distal motor function. PMDHx: DM, HTN, TIA, GERD SurgHx: Right TKA, Pacemaker Allergies: NKDA SocHx: Negative Tob, EtOH, Drugs Meds: See reconciliaion FamHx: Non-contributory VS T 99.7 HR 114 RR 18 BP 141/72 O2 96% Obese, Anxious Slovenian speaking, AAOx3 Left Lower Extremity No open lesions or sores Shortened, Flexed, Externally Rotated Motor: + EHL, FHL, TA, G/S Sensation grossly intact to light touch Pulses + DP, Post tib Compartments soft Negative calf tenderness 79 year old female with left intertrochanteric hip fracture Plan for IMN tomorrow NPO except meds after midnight IVF while NPO Analgesics DVT Prophylaxis Bedrest Discussed plan with patient and nurse, aware and amendable. Thank you for the consultation Miya Alfred DO
[2019-12-24] MEDS ORDERED: HYDROCODONE/APAP 10MG-325MG TAB PO PRN (19:45)
[2019-12-24 20:00] VITALS: BP 117/64
[2019-12-24] MEDS ORDERED: HEPARIN SOD (PORCINE) 5,000 UNIT/ML VIAL SC ONE (20:00)
[2019-12-24 21:00] VITALS: BP 117/64
[2019-12-24] MEDS ORDERED: RISPERIDONE 1 MG TAB PO SCH (21:00)
--- NOTE | 2019-12-24 21:50 | NUR ---
Called Dr Garcia instructed by Bassem Thibodeaux SEWER PIPE OFFBEARER to hold oral hypoglycemic meds in am and do not give insulin for accucheck of 230. Pt to be NPO after 12 mn for surg in am.
[2019-12-24] MEDS: RISPERIDONE 0.5 MG TAB PO SCH (22:02)
[2019-12-25] VITALS (7 sets, daily range): BP systolic 97–122; BP diastolic 55–71
[2019-12-25 01:53] LABS: CREATINE KINASE MB 0.6 ng/mL (0-5.0)
[2019-12-25 04:50] LABS: BASOPHILS % 0.4 % (0.0-1.0); EOSINOPHILS % 0.3 % (0.0-6.0); HEMATOCRIT 35.1 % (34.2-44.1); HEMOGLOBIN 11.3 g/dL (12.0-16.0); LYMPHOCYTES % 10.5 % (18.0-39.1); MEAN CORPUSCULAR HEMOGLOBIN 30.5 pg (28-32); MEAN CORPUSCULAR HGB CONC 32.2 g/dL (31-35); MEAN CORPUSCULAR VOLUME 94.9 fL (81-99); MONOCYTES % 10.3 % (4.4-11.3); NEUTROPHILS # (AUTO) 7.6 (2.1-6.9); NEUTROPHILS % 77.7 % (38.7-80.0); PLATELET COUNT 154 x10e3/uL (140-360); RED CELL DISTRIBUTION WIDTH 13.1 % (11.7-14.4)
[2019-12-25 05:07] LABS: ALBUMIN 3.2 g/dL (3.5-5.0); ALBUMIN/GLOBULIN RATIO 0.9 (0.8-2.0); ANION GAP 18.7 mmol/L (8-16); CALCIUM 8.8 mg/dL (8.4-10.2)
[2019-12-25 05:20] LABS: CREATININE, SERUM 2.2 mg/dL (0.57-1.11)
[2019-12-25 05:21] LABS: POTASSIUM 4.7 mmol/L (3.5-5.1)
[2019-12-25 05:28] LABS: CREATINE KINASE MB 0.8 ng/mL (0-5.0)
--- NOTE | 2019-12-25 06:00 | NUR ---
lab called bun elevated and creatinine elevated.new orders received to bolus with ns 500.Instructed to monitor I and O. consent signed by pt.pain med drop b/p earlier in evening. dose of pain med changed so it would be better tolerated by pt.
[2019-12-25] MEDS ORDERED: SODIUM CHLORIDE 0.9% 1000ML 1,000 ML IV SCH (06:15)
[2019-12-25] MEDS: MORPHINE SULFATE 2 MG/ML SYR 1ML IV PRN ×3 (06:31→14:30)
--- NOTE | 2019-12-25 07:15 | NUR ---
Bedside rounding has been completed and the pt. maintained n p o except for morning med pass.
[2019-12-25] MEDS ORDERED: DEXTROSE 50% SYRINGE 50 ML IV PRN (09:00)
[2019-12-25] MEDS: SALMETEROL/FLUTICASONE 100/50 INH SCH (09:30)
[2019-12-25] MEDS: LEVOTHYROXINE SODIUM 50 MCG TAB PO SCH (09:30)
[2019-12-25] MEDS: BUMETANIDE 1 MG TAB PO SCH ×2 (09:38→16:37)
[2019-12-25] MEDS: DIVALPROEX SODIUM 125 MG TABDR...ER PO SCH ×2 (09:39→16:53)
[2019-12-25] MEDS: LOSARTAN POTASSIUM 100 MG TAB PO SCH (09:39)
[2019-12-25] MEDS: PANTOPRAZOLE SOD 40 MG TABEC PO SCH (09:39)
[2019-12-25] MEDS: INSULIN LISPRO 100 UNIT/1 ML 3ML VIAL SQ SCH ×3 (11:58→21:00)
[2019-12-25] MEDS: SODIUM CHLORIDE 0.9% 1000ML 1,000 ML IV SCH (14:51)
--- NOTE | 2019-12-25 16:54 | NUR ---
The pt. was sent to surgery via pt. bed and is in stable condition.
[2019-12-25] MEDS ORDERED: FENTANYL CITRATE/PF 100MCG/2 ML INJ ONE (17:10)
[2019-12-25] MEDS ORDERED: BUPIVACAINE 0.5%/EPI 30 ML SDV INJ ONE (17:47)
[2019-12-25] MEDS ORDERED: BUPIVACAINE HCL 0.5% INJ 30 ML VIAL INJ ONE (17:47)
[2019-12-25] MEDS ORDERED: MORPHINE SULFATE 2 MG/ML SYR 1ML ONE ×2 (18:48→19:11)
[2019-12-25 19:18] LABS: HEMATOCRIT 29.8 % (34.2-44.1); HEMOGLOBIN 9.4 g/dL (12.0-16.0)
--- NOTE | 2019-12-25 19:30 | NUR ---
report received from pacu s/p IO left hip. Dr and PACU nurse unable to reach family.dressing to left hip dry and intact. Hui draining clear yellow urine.pt has pacemaker v paces dentures brought back frompacu in bag. o2 on 2L per n/c. vs stable.call light within reach. vs stable.
[2019-12-25] MEDS ORDERED: ONDANSETRON HCL INJ 2MG/ML 2ML 2 MG/ML VIAL ONE (19:45)
[2019-12-25] MEDS ORDERED: EPHEDRINE SULFATE INJ 50 MG/ML VIAL ONE (19:45)
[2019-12-25] MEDS ORDERED: LIDOCAINE HCL 2% LOCAL INJ 5 ML SDV VIAL INJ ONE (19:45)
[2019-12-25] MEDS ORDERED: DEXAMETHASONE SOD PHOS INJ 4 MG/ML VIAL ONE (19:45)
[2019-12-25] MEDS ORDERED: PROPOFOL IV EMULSION 10 MG/ML 20 ML VIAL ONE (19:45)
[2019-12-25] MEDS ORDERED: SEVOFLURANE INHAL SOLN 250 ML PEN BTL ONE (19:45)
[2019-12-25] MEDS: ATORVASTATIN 20 MG TAB PO SCH (21:00)
[2019-12-25] MEDS: RISPERIDONE 0.5 MG TAB PO SCH (21:00)
[2019-12-25] MEDS: GABAPENTIN 300 MG CAP PO SCH (21:00)
[2019-12-25] MEDS: CEFAZOLIN SOD 1 GM/NS 50ML 50 ML IV SCH (22:39)
[2019-12-26] VITALS (11 sets, daily range): BP systolic 96–129; BP diastolic 42–63
[2019-12-26] MEDS: MORPHINE SULFATE 2 MG/ML SYR 1ML IV PRN ×3 (02:48→21:55)
[2019-12-26 05:10] LABS: BASOPHILS % 0.2 % (0.0-1.0); HEMATOCRIT 27.5 % (34.2-44.1); HEMOGLOBIN 8.6 g/dL (12.0-16.0); LYMPHOCYTES # (AUTO) 0.3 (1.0-3.2); LYMPHOCYTES % 2.7 % (18.0-39.1); MEAN CORPUSCULAR HEMOGLOBIN 30.4 pg (28-32); MEAN CORPUSCULAR HGB CONC 31.3 g/dL (31-35); MEAN CORPUSCULAR VOLUME 97.2 fL (81-99); MONOCYTES # (AUTO) 0.8 (0.2-0.8); MONOCYTES % 7.2 % (4.4-11.3); NEUTROPHILS # (AUTO) 9.5 (2.1-6.9); NEUTROPHILS % 88.5 % (38.7-80.0); PLATELET COUNT 127 x10e3/uL (140-360); RED BLOOD COUNT 2.83 x10e6/uL (3.6-5.1); RED CELL DISTRIBUTION WIDTH 12.9 % (11.7-14.4)
[2019-12-26 05:31] LABS: ALBUMIN 2.5 g/dL (3.5-5.0); ALBUMIN/GLOBULIN RATIO 0.8 (0.8-2.0); ANION GAP 14.9 mmol/L (8-16); CALCIUM 7.6 mg/dL (8.4-10.2); CREATININE, SERUM 1.75 mg/dL (0.57-1.11); POTASSIUM 3.9 mmol/L (3.5-5.1)
[2019-12-26] MEDS: CEFAZOLIN SOD 1 GM/NS 50ML 50 ML IV SCH ×2 (06:52→13:16)
[2019-12-26] MEDS ORDERED: SODIUM CHLORIDE 0.9% 250ML 250 ML ONE ×2 (06:52→21:23)
[2019-12-26] MEDS: LEVOTHYROXINE SODIUM 50 MCG TAB PO SCH (06:53)
--- NOTE | 2019-12-26 07:00 | NUR ---
lab called to report urine growing esbl and ecoli. RN did not d/c beltran. Endorsed to day rn.
[2019-12-26] MEDS: SALMETEROL/FLUTICASONE 100/50 INH SCH (07:30)
--- NOTE | 2019-12-26 08:20 | NUR ---
SPOKE YO AMRITA HUMPHRIES NP REGARDING POSITIVE URINE CULTURE TO ESBL AND ECOLLI, SHE STATED THAT SHE WOULD SEE THE PATIENT, CALLED DR. Philip MUARICE'S OFFICE, SPOKE TO DOROTHY, SHE STATED THAT SHE WOULD PAGE THE PHYSICIAN REGARDING THE PATIENT'S LANCE FOR ORDERS.
[2019-12-26] MEDS: MEROPENEM 500MG/ NS 50ML 50 ML IV SCH ×2 (08:51→17:05)
[2019-12-26] MEDS: BUMETANIDE 1 MG TAB PO SCH ×2 (09:00→17:00)
[2019-12-26] MEDS: PANTOPRAZOLE SOD 40 MG TABEC PO SCH (09:00)
[2019-12-26] MEDS ORDERED: SODIUM CHLORIDE 0.9% 1000ML 1,000 ML IV SCH (09:00)
[2019-12-26] MEDS: LOSARTAN POTASSIUM 100 MG TAB PO SCH (09:00)
[2019-12-26] MEDS: DIVALPROEX SODIUM 125 MG TABDR...ER PO SCH ×2 (09:01→17:08)
[2019-12-26] MEDS: INSULIN LISPRO 100 UNIT/1 ML 3ML VIAL SQ SCH ×4 (09:04→21:45)
--- NOTE | 2019-12-26 09:38 | NUR ---
CALLED BOTH DAUGHTERS LAVONNE AND ELVI, LEFT VOICE MAILS TO RETURN CALLS TO GET CHOICE FOR SNF. PENDING CHOICE.
--- NOTE | 2019-12-26 10:30 | NUR ---
DAUGHTER ELVI CALLED BACK AND CHOSE [facility], EDUCATED ABOUT [facility] AND SHE STATES SHE UNDERSTANDS. WILL COMPLETED RTF, CAOVID AND PASRR.
--- NOTE | 2019-12-26 11:00 | NUR ---
FAXED CLINICALS TO FACILITY.
[2019-12-26] MEDS: ONDANSETRON HCL INJ 2MG/ML 2ML 2 MG/ML VIAL IV PRN ×2 (11:22→21:55)
--- NOTE | 2019-12-26 11:32 | NUR ---
CALLED Dina TUCKRE, REGARDING PATIENT'S GFR OF 28, Dina TUCKER SUPPLIER QUALITY MANAGER STATED THAT IT IS OKAY FOR HER TO RECEIVE A MIDLIVE.
--- NOTE | 2019-12-26 14:17 | NUR ---
LONG TERM FACILITY DISCHARGE INFORMATION PATIENT HAS BEEN ACCEPTED TO: NAME: [facility] ADDRESS:[address] [facility] ACCEPTING MERCERIZING RANGE FEEDER: JAVAN CANDELARIA MD: BEATRIZ ROOM:118 NURSE CALL REPORT TO: [phone] IMM SIGNED AND OBTAINED (if applicable): IMM THE FOLLOWING DOCUMENTS MUST ACCOMPANY PATIENT FOR TRANSFER: COPIED CHART: PACKET
--- NOTE | 2019-12-26 14:46 | NUR ---
DR. FANG'S STATED, "IT IS NOT APPROPRIATE TO TRANSFER THE PATIENT TODAY, SHE IS ONLY ON POST OPERATIVE DAY ONE, HER HEMOGLOBIN STILL MIGHT DROP." SPOKE TO AMRITA HUMPHRIES NP, INFORMED HER OF DR. FANG'S STATEMENT REGARDING DISCHARGE, SHE STATED, "OKAY SO TRANSFER TOMORROW AFTER WE CHECK HER HEMOGLOBIN."
[2019-12-26] MEDS ORDERED: ENOXAPARIN SOD INJ 40 MG/0.4 ML SYR SC SCH (17:00)
[2019-12-26 18:07] LABS: HEMATOCRIT 25.3 % (34.2-44.1); HEMOGLOBIN 7.9 g/dL (12.0-16.0)
--- NOTE | 2019-12-26 18:50 | NUR ---
WALKING ROUNDS PERFORMED, RECEIVED PT LAYING SEMI FOWLERS IN BED, AAOX3, RR EVEN AND NON-LABORED, ON ROOM AIR. NO S/SX OF DISTRESS NOTED. LEFT PT LAYING SEMI FOWLERS IN BED, BED IN LOW LOCKED POSITION, SIDE RAILS UPX2, CALL LIGHT AND PHONE WITHIN REACH.
--- NOTE | 2019-12-26 21:15 | NUR ---
DATE OF PROCEDURE; 12/25/2019 PREOPERATIVE DIAGNOSIS: Left Hip Intertrochanteric hip fracture. POSTOPERATIVE DIAGNOSIS: Left Hip Intertrochanteric hip fracture. OPERATION PERFORMED: Left Hip Intramedullary Nailing with Flouroscopic Interpretation ESTIMATED BLOOD LOSS: Approximately 100 cc. DRAINS: None. ANESTHESIA GIVEN: General COMPLICATIONS: None. IMPLANTS: [place] Gamma 3 system Trochanteric Nail Kit 11 x 180 mm x 125 degree, 10.5 x 90 mm Lag Screw, 5 x 37.5 mm Locking Fully Threaded Screw INDICATIONS FOR PROCEDURE: The patient is a 79-year-old emale, who sustained a Left intertrochanteric hip fracture after a fall. She was admitted for a preoperative medical clearance and to be taken to the operating room for an intramedullary nailing of Left hip fracture. Consent is signed on the chart. All risks and benefits regarding the procedure were explained: Risks of , infection, nerve or blood vessel injury or bleeding, need for blood transfusion, blood clots, failure to heal, need for further surgery were all explained and consent was signed. DESCRIPTION OF OPERATIVE PROCEDURE: The patient was given Ancef 2 gram intravenously in the holding area. She with then taken to the operating room where general anesthetic was placed by the anesthesia service on the hospital bed. She was then transferred over to the fracture table in the supine position where a well-padded post was positioned. The Right lower extremity with a SCD was placed into the thigh/leg support with foam padding over all bony prominences. The Left lower extremity had abundant padding placed around the foot and ankle region and was then placed in the foot and ankle support. Next, the Left hip was visualized under AP and lateral fluoroscopic views. The femoral head and neck were well-visualized in both planes at this time. Next, the Left hip was prepped and draped in the usual sterile fashion utilizing Alcohol then Chloroprep followed by toweling out, followed by drying, followed by placement of a shower curtain. Next, a guidepin was placed over the hip and an AP fluoroscopic view taken to demarcate the height of the greater trochanter and a lateral to demarcate the direction of the femoral shaft. Next, the proposed skin incision of approximately 6 cm in length was marked on the skin. The skin incision was then made with a #10 blade, going down through the skin and subcutaneous tissue. The IT-band and hip abductors were split to the greater trochanter. A guide pin was inserted in adequate position which was confirmed on AP and lateral imaging. An opening reamer was placed over the guide wire and pushed down to the lesser trochanter. The above mentioned nail was introduced into the canal. Next a guide wire was placed in preparation for the lag screw. The wire was visualized in proper AP and Lateral position. The guidewire was measured and the neck and head were reamed over the guidewire. The above mentioned lag Screw was placed in adequate position. The set screw was then placed. The distal screw was then focused on. Through the jig, the distal screw was drilled and the above mentioned screw was introduced to lock the screw distally. The guides were then removed, final imaging was obtained demonstrating the hardware in adequate position. The incisions were closed deep with vicryl and monocryl on the skin. The incisions were cleaned and dressed with Aquacel. The patient was then gently transferred back to the hospital bed and transferred to recovery without difficulty. Miya Alfred DO
--- NOTE | 2019-12-26 21:21 | NUR ---
PROGRESS NOTE Patient seen & examined, pain controlled. Resting in bed. T 97.9 HR 99 RR 20 BP 128/52 O2 100% Left Lower Extremity Dressing clean, dry and intact Motor: + EHL, FHL, TA, G/S Sensation grossly intact to light touch Pulses + DP, Post tib Compartments soft Negative calf tenderness H/H 7.9/25.3 79 year old female s/p Left Hip IMN POD #1 Analgesics DVT Prophyalaxis PT- WBAT Follow up am labs. If okay and hemodynamically stable, patient may be orthopedically stable for discharge. May transfuse as per medicine. Discharge Instructions -Nurse may remove foam tape & ABD prior to discharge. If underlying Aquacel is saturated or soiled, recommend new aquacel prior to discharge. -Keep clean, dry and intact until follow up. -Patient may shower as long as dressing and incision remain dry -Physical Therapy - may WBAT, advance as tolerated -DVT Prophylaxis - recommend chemo prophylaxis as per medicine -Analgesics: Fowler script left on chart. -Follow up: Follow up in office in 2 weeks. Thank you for the consultation. Miya Alfred, DO [facility] [place].
[2019-12-26] MEDS: RISPERIDONE 0.5 MG TAB PO SCH (21:45)
[2019-12-26] MEDS: ATORVASTATIN 20 MG TAB PO SCH (21:45)
[2019-12-26] MEDS: GABAPENTIN 300 MG CAP PO SCH (21:45)
[2019-12-26] MEDS: HYDROCODONE/APAP 5MG-325MG TAB PO PRN (23:53)
[2019-12-27] MEDS: MEROPENEM 500MG/ NS 50ML 50 ML IV SCH ×2 (00:42→08:21)
[2019-12-27] MEDS: MORPHINE SULFATE 2 MG/ML SYR 1ML IV PRN ×2 (03:58→10:19)
[2019-12-27] MEDS: ONDANSETRON HCL INJ 2MG/ML 2ML 2 MG/ML VIAL IV PRN ×2 (03:58→10:19)
--- NOTE | 2019-12-27 04:03 | Consultation ---
DATE OF CONSULTATION: 12/26/2019 Renal Consultation REASON FOR CONSULTATION: Acute kidney injury on chronic kidney disease. HISTORY OF PRESENT ILLNESS: This is a 79-year-old female, morbidly obese, who apparently had a left femur intertrochanteric fracture status post ORIF, currently doing well. Developed ESBL UTI and was being managed accordingly, now going to half-way facility. Nephrology was consulted for acute kidney injury and catheter placement evaluation. The patient has ESBL UTI and needs IV antibiotics long-term. In terms of her chronic kidney disease, the patient is a very poor historian. The patient has a history of hypertension, diabetes for significant period of time, likely contributing to her underlying acute kidney injury. No reports of any NSAIDs, herbal supplements or any vrxm-pad-rnrksyu medications. The patient was seen and evaluated at bedside on the medical floor. She is currently doing well with no other issues at this time. REVIEW OF SYSTEMS: Pertinent positives: Mechanical fall. The rest of 14-point review of systems have been reviewed with the patient and are negative. ALLERGIES: NO KNOWN DRUG ALLERGIES. HOME MEDICATIONS: Albuterol, aspirin, glipizide, NovoLog, metformin, triamterene and hydrochlorothiazide, atorvastatin, bumetanide, Depakote, Advair, gabapentin, levothyroxine, losartan, omeprazole, and risperidone. PAST MEDICAL HISTORY: Type 2 diabetes, hypertension, morbidly obese, now recent fall with ORIF. PAST SURGICAL HISTORY: Status post ORIF of the femur. PAST FAMILY HISTORY: Hypertension and diabetes. SOCIAL HISTORY: No drugs. No alcohol. Does not smoke. Good social support. PHYSICAL EXAMINATION: VITAL SIGNS: Temperature is 97.9, pulse 99, respiratory rate 20, blood pressure 122/52, pulse ox 100% on room air. GENERAL: Not in acute distress. Alert and oriented x3. Cooperative on examination. HEENT: Head is normocephalic and atraumatic. Eyes; pupils are equal, round, and reactive to light bilaterally. Extraocular movements intact bilaterally. Throat; no evidence of erythema or exudates in the posterior pharynx. Has poor dentition. NECK: Supple. Good range of motion. PULMONARY: Clear to auscultation bilaterally. No wheezing, rales, or rhonchi. No crackles appreciated. CARDIOVASCULAR: Positive S1, S2. No murmurs, rubs, or gallops appreciated. ABDOMEN: Soft, nondistended, nontender to palpation. Bowel sounds present. MUSCULOSKELETAL: Strength is 5/5 throughout. No evidence of any muscle deficits on examination. NEUROLOGIC: Cranial nerve II through XII grossly intact. No evidence of any neurological deficits on exam. SKIN: Intact. Warm to touch. Good cap refill. PSYCHIATRIC: Normal affect and mood. EXTREMITIES: No edema. Good range of motion throughout. LABORATORY FINDINGS: Show white count 10, hemoglobin 8.6, hematocrit 27.5, platelets of 127. Chemistry; sodium 138, potassium 3.9, chloride 103, bicarb 24, anion gap of 14, BUN is 44 and creatinine is 1.75, glucose is 377, now, point of care glucose is 179, calcium is 7.6. LFTs within normal range. Urinalysis negative. Coronavirus not detected x2. Microbiology; urine culture shows ESBL E. coli. IMAGING STUDIES: CT brain shows no acute findings. CT cervical spine shows no acute findings. Hip x-ray shows acute comminuted intertrochanteric left femur fracture. IMPRESSION: 1. Acute kidney injury on chronic kidney disease, stage IV, likely secondary to uncontrolled type 2 diabetes and hypertension. 2. Type 2 diabetes. 3. Hypertension. 4. Status post left femur open reduction internal fixation. PLAN: At this time, after reviewing this chart and talking to the patient, she denies any sqff-epn-mnveplr medications or herbal supplements. Her renal function initially was lower than maureen, then now much lower. It seems that the patient likely has chronic kidney disease, stage 4 from longstanding type 2 diabetes and hypertension. Avoid NSAIDs, rewe-hbd-dgugvrr medications, and herbal supplements. DC losartan. Medications have been reviewed. There is no evidence of any contrast exposure and the medications reviewed, does not seem to be more AIN. The patient's blood pressure was stable and occasionally had very low readings, which could be contributing to the underlying acute kidney injury. At this time, we will continue the same plan of care and monitor very closely. We can potentially get a renal ultrasound tomorrow if the tech is available or it can occur as an outpatient. MD BEAU Urbano/KIRSTEN /[id number]
[2019-12-27 04:07] VITALS: BP 127/57
[2019-12-27] MEDS: LEVOTHYROXINE SODIUM 50 MCG TAB PO SCH (06:29)
[2019-12-27] MEDS: BUMETANIDE 1 MG TAB PO SCH (08:21)
[2019-12-27] MEDS: DIVALPROEX SODIUM 125 MG TABDR...ER PO SCH (08:21)
[2019-12-27] MEDS: PANTOPRAZOLE SOD 40 MG TABEC PO SCH (08:22)
[2019-12-27] MEDS: INSULIN LISPRO 100 UNIT/1 ML 3ML VIAL SQ SCH ×2 (08:23→12:10)
[2019-12-27 08:34] VITALS: BP 127/57
[2019-12-27 08:47] VITALS: BP 126/64
[2019-12-27 09:41] LABS: BASOPHILS % 0.4 % (0.0-1.0); EOSINOPHILS # (AUTO) 0.1 (0.0-0.4); EOSINOPHILS % 1.3 % (0.0-6.0); HEMATOCRIT 28.1 % (34.2-44.1); HEMOGLOBIN 8.6 g/dL (12.0-16.0); LYMPHOCYTES # (AUTO) 0.7 (1.0-3.2); LYMPHOCYTES % 8.8 % (18.0-39.1); MEAN CORPUSCULAR HEMOGLOBIN 30.7 pg (28-32); MEAN CORPUSCULAR HGB CONC 30.6 g/dL (31-35); MEAN CORPUSCULAR VOLUME 100.4 fL (81-99); MONOCYTES # (AUTO) 0.8 (0.2-0.8); MONOCYTES % 10.3 % (4.4-11.3); NEUTROPHILS # (AUTO) 6.3 (2.1-6.9); NEUTROPHILS % 78.1 % (38.7-80.0); PLATELET COUNT 134 x10e3/uL (140-360); RED CELL DISTRIBUTION WIDTH 13.2 % (11.7-14.4)
[2019-12-27 10:03] LABS: ALBUMIN 2.4 g/dL (3.5-5.0); ALBUMIN/GLOBULIN RATIO 0.8 (0.8-2.0); ANION GAP 16.6 mmol/L (8-16); CALCIUM 7.8 mg/dL (8.4-10.2); CREATININE, SERUM 1.37 mg/dL (0.57-1.11); POTASSIUM 3.6 mmol/L (3.5-5.1)
--- NOTE | 2019-12-27 11:15 | NUR ---
CALLED PATIENT'S DAUGHTER, ELVI MORENO AT [phone], SHE STATED THAT SHE DOES NOT CARE WHICH AMBULANCE IS USED TO TRANSFER HER MOTHER, I ASKED IF IT OKAY IF WE USE [facility], SHE STATED, "THAT IS FINE."
--- NOTE | 2019-12-27 11:17 | NUR ---
CALLED [phone] [facility], GAVE REPORT TO IDA ROWE FOR PATIENT TO GO TO ROOM 118.
[2019-12-27] MEDS: HYDROCODONE/APAP 5MG-325MG TAB PO PRN (12:09)
[2019-12-27 12:11] VITALS: BP 132/60
--- NOTE | 2019-12-29 08:32 | Discharge Summary ---
DISCHARGE DIAGNOSES: Acute comminuted intertrochanteric left proximal femur fracture, status post fall, type 2 diabetes, hyperlipidemia, hypertension, hypothyroidism, GERD, CAD, OA, obesity with a BMI of 32.7. DISCHARGE DIAGNOSES: Acute comminuted intertrochanteric left proximal femur fracture, status post fall, type 2 diabetes, hyperlipidemia, hypertension, hypothyroidism, GERD, CAD, OA, obesity with a BMI of 32.7 and ESBL of the urine present on admission. HISTORY: Type 2 diabetes, hypothyroidism, hypertension, CAD, GERD, osteoarthritis. SURGICAL HISTORY: AICD/pacemaker, bilateral total knee replacement, right arm surgery. FAMILY HISTORY: The patient's mom and dad had diabetes. SOCIAL HISTORY: Noncontributory. HOSPITAL COURSE: A 79-year-old female admitted status post fall. She normally uses a cane or walker. She was not using anything and got dizzy while walking to the restroom yesterday. She fell to her left side and was having excruciating pain after the fall. On admission, pelvic x-ray showed acute comminuted intertrochanteric left proximal femur fracture. The patient also had a UA collected on admission, which came back positive for ESBL the patient's antibiotics were switched to Merrem and she had a midline placed. The patient underwent IM rodding of the left hip by Dr. Izquierdo. The patient tolerated the procedure well. The patient's hemoglobin dropped after the surgery, but remained stable likely due to hemodilution versus blood loss due to surgery. The patient also appeared to have KENDRICK, but again improved to fluid. [facility] days of Merrem plus prolonged physical therapy. She will follow up with primary care in 1-[address] Izquierdo as discussed. The patient understands discharge instructions and agrees to plan. Vital signs stable, patient afebrile. Dictated by Ann Rodriguez NP MD MISAEL Hansen/MODL /[id number]
== END 2019-12-27 13:06 | DRG 481 ==
LOC: ER 11:46 → ERHOLD 13:17 → MED/SURG 17:55
PROVIDERS: ADMIT Internal Medicine; ATTEND Internal Medicine
PROC: 0QH736Z Insertion of Intramedullary Internal Fixation Device into Left Upper Femur, Percutaneous Approach (ICD-10-PCS; 2019-12-25)
PROC: 0QS736Z Reposition Left Upper Femur with Intramedullary Internal Fixation Device, Percutaneous Approach (ICD-10-PCS; principal; 2019-12-25 17:05)
PROC: 02HV33Z Insertion of Infusion Device into Superior Vena Cava, Percutaneous Approach (ICD-10-PCS; 2019-12-26)
DX: S72.92XA Unspecified fracture of left femur, initial encounter for closed fracture (principal); D62 Acute posthemorrhagic anemia; N17.9 Acute kidney failure, unspecified; N39.0 Urinary tract infection, site not specified; Z16.12 Extended spectrum beta lactamase (ESBL) resistance; N18.4 Chronic kidney disease, stage 4 (severe); W19.XXXA Unspecified fall, initial encounter; E78.5 Hyperlipidemia, unspecified; E03.9 Hypothyroidism, unspecified; K21.9 Gastro-esophageal reflux disease without esophagitis; B96.20 Unspecified Escherichia coli [E. coli] as the cause of diseases classified elsewhere; I25.10 Atherosclerotic heart disease of native coronary artery without angina pectoris; M19.90 Unspecified osteoarthritis, unspecified site; Z95.810 Presence of automatic (implantable) cardiac defibrillator; Z96.653 Presence of artificial knee joint, bilateral; M17.0 Bilateral primary osteoarthritis of knee; Z11.59 Encounter for screening for other viral diseases; E11.22 Type 2 diabetes mellitus with diabetic chronic kidney disease; I12.9 Hypertensive chronic kidney disease with stage 1 through stage 4 chronic kidney disease, or unspecified chronic kidney disease
CPT/HCPCS: 36415; 51700; 70450; 71045; 72125; 76000; 80053; 81001; 82550; 82553; 82948; 83735; 83880; 84484; 85014; 85018; 85025; 85610; 85730; 86850; 86900; 87086; 87186; 93005; 93306; 94664; 97139; 99284; C1713; J0690; J1100; J1644; J1650; J2001; J2270; J2405; J3010; J7030; J7050

== ENCOUNTER 2022-07-12 10:57 | Inpatient (IN) | payer MEDICARE, OTHER ==
[~2022-07-12] VITALS: Ht 157.5 cm; Wt 45.4 kg
[~2022-07-12 10:57] MED LIST changes: +ADVAIR 100-501 EACH INH; +ALENDRONAT70 MG/75 M PO; +ASPIRIN EC81 MG PO; +ATORVASTATIN CA20 MG PO; +BUMETANIDE1 MG PO; +DIVALPROEX SOD125 M1 PEG; -FENTANYL CITRATE/PF 100MCG/2 ML INJ ONE; +GABAPENTIN300 MG PO; +GLIPIZIDE5 MG PO; -HEPARIN SOD/SOD CHLORIDE 2,000 ML ONE; -IOPAMIDOL 370 MG/ML 200 ML INFUS..BTL INJ ONE; +LEVOTHYROXINE50 MCG PO; -LIDOCAINE HCL 2% LOCAL 20 ML VIAL ONE; +LOSARTAN POTAS100 MG PO; +METFORMIN HCL500 MG PO; -MIDAZOLAM HCL 2 MG/2 ML VIAL ONE; +NOVOLOG100 UNIT/1 SC; +OMEPRAZOLE20 MG PO; +PROVENTIL HFA6.7 GM INH; +RISPERIDONE1 MG PO; -SODIUM CHLORIDE 0.9% 1000ML 1,000 ML ONE; +TRIAMTERENE-HCTZ1 EA PO; -VERAPAMIL HCL 2.5 MG/ML 2 ML VIAL ONE
[2022-07-12] MEDS ORDERED: SODIUM CHLORIDE 0.9% 1000ML 1,000 ML IV STA (12:10)
[2022-07-12] MEDS ORDERED: SODIUM CHLORIDE 0.9% 1000ML 1,000 ML ONE (12:26)
[2022-07-12 12:38] LABS: BASOPHILS # (AUTO) 0.1 (0.0-0.1); BASOPHILS % 0.8 % (0.0-1.0); EOSINOPHILS # (AUTO) 0.2 (0.0-0.4); EOSINOPHILS % 3.3 % (0.0-6.0); HEMATOCRIT 36.3 % (34.2-44.1); HEMOGLOBIN 11.1 g/dL (12.0-16.0); LYMPHOCYTES # (AUTO) 1.1 (1.0-3.2); LYMPHOCYTES % 17.6 % (18.0-39.1); MEAN CORPUSCULAR HEMOGLOBIN 31.6 pg (28-32); MEAN CORPUSCULAR HGB CONC 30.6 g/dL (31-35); MEAN CORPUSCULAR VOLUME 103.4 fL (81-99); MONOCYTES # (AUTO) 0.6 (0.2-0.8); MONOCYTES % 9.5 % (4.4-11.3); NEUTROPHILS # (AUTO) 4.3 (2.1-6.9); NEUTROPHILS % 67.8 % (38.7-80.0); PLATELET COUNT 212 x10e3/uL (140-360); RED BLOOD COUNT 3.51 x10e6/uL (3.6-5.1); RED CELL DISTRIBUTION WIDTH 15.1 % (11.7-14.4)
[2022-07-12 12:57] LABS: ALANINE AMINOTRANSFERASE 12 IU/L (0-55); ALBUMIN 3.2 g/dL (3.5-5.0); ALBUMIN/GLOBULIN RATIO 0.9 (0.8-2.0); ALKALINE PHOSPHATASE 57 IU/L (40-150); ANION GAP 19.6 mmol/L (8-16); BLOOD UREA NITROGEN 30 mg/dL (7-26); BUN/CREATININE RATIO 18 (6-25); CALCIUM 9.3 mg/dL (8.4-10.2); CARBON DIOXIDE 26 mmol/L (22-29); CHLORIDE 109 mmol/L (98-107); CREATININE, SERUM 1.69 mg/dL (0.57-1.11); GLUCOSE 93 mg/dL (74-118); POTASSIUM 4.6 mmol/L (3.5-5.1); SODIUM 150 mmol/L (136-145)
[2022-07-12 13:01] LABS: CREATINE KINASE < 7 IU/L (29-168)
[2022-07-12 13:25] LABS: CLARITY,URINE TURBID (CLEAR); COLOR,URINE YELLOW (YELLOW); KETONES,URINE 1+ (NEGATIVE); LEUKOCYTE ESTERASE ,URINE LARGE (NEGATIVE); NITRITE,URINE NEGATIVE (NEGATIVE); PROTEIN,URINE DIPSTICK 1+ (NEGATIVE); URINE UROBILINOGEN 1 mg/dL (0.2 - 1)
[2022-07-12 13:30] LABS: RBC,URINE 21-50 /HPF (0-5); WBC,URINE (MAN) >50 /HPF (0-5)
[2022-07-12 13:31] LABS: BACTERIA,URINE MANY /HPF; EPITHELIAL CELLS,URINE FEW /LPF
[2022-07-12] MEDS ORDERED: ONDANSETRON HCL INJ 2MG/ML 2ML 2 MG/ML VIAL IV PRN (13:45)
[2022-07-12] MEDS: SODIUM CHLORIDE 0.9% 1000ML 1,000 ML IV SCH ×2 (14:47→22:38)
[2022-07-12] MEDS ORDERED: CLOPIDOGREL75 MG PO (19:32)
[2022-07-12] MEDS ORDERED: ALENDRONATE SOD70 MG (19:32)
[2022-07-12] MEDS ORDERED: ATORVASTATIN CA20 MG PO (19:32)
[2022-07-12] MEDS ORDERED: CARVEDILOL3.125 MG PO (19:32)
[2022-07-12] MEDS ORDERED: LOSARTAN POTAS100 MG PO (19:32)
[2022-07-12] MEDS ORDERED: NIFEDIPINE ER30 M1 PO (19:32)
[2022-07-12] MEDS ORDERED: METFORMIN HCL500 MG PO (19:32)
[2022-07-12] MEDS ORDERED: NEURONTIN300 MG PO (19:32)
[2022-07-12] MEDS ORDERED: AMANTADINE100 MG (19:32)
[2022-07-12] MEDS ORDERED: SPIRONOLACTONE25 MG PO (19:32)
[2022-07-12] MEDS ORDERED: LEVOTHYROXINE50 MCG PO (19:32)
[2022-07-12] MEDS ORDERED: OMEPRAZOLE40 MG PO (19:32)
[2022-07-12] MEDS ORDERED: CLONIDINE HCL0.1 MG PO (19:32)
[2022-07-12] MEDS ORDERED: NITROGLYCERIN0.4 MG SL (19:32)
[2022-07-12] MEDS ORDERED: TORSEMIDE20 MG PO (19:32)
[2022-07-12] MEDS ORDERED: POTASSIUM CHLO20 ME1 PO (19:32)
[2022-07-12] MEDS ORDERED: VITAMIN D3250 MCG PO (19:32)
[2022-07-12] MEDS ORDERED: DEPAKOTE ER500 MG PO (19:32)
[2022-07-12 20:00] VITALS: BP 177/95
[2022-07-12] MEDS: CARVEDILOL 3.125 MG TAB PO SCH (20:00)
[2022-07-12] MEDS ORDERED: CLONIDINE HCL 0.1 MG TAB PO PRN (20:00)
[2022-07-12] MEDS ORDERED: CARVEDILOL 3.125 MG TAB ONE (20:13)
[2022-07-12 21:01] LABS: CREATINE KINASE MB 0.4 ng/mL (0-5.0)
[2022-07-12] MEDS ORDERED: IPRATROPIU0.2 MG/1 M INH (21:34)
[2022-07-12] MEDS ORDERED: BUDESONIDE0.5 MG/2 M NEB (21:34)
[2022-07-12 22:00] VITALS: BP_SYST 177; BP_SYST 185; BP_DIAS 71; BP_DIAS 95
[2022-07-12] MEDS: ATORVASTATIN 20 MG TAB PO SCH (22:39)
[2022-07-13] VITALS (8 sets, daily range): BP systolic 142–197; BP diastolic 65–78
[2022-07-13 04:59] LABS: BASOPHILS % 0.7 % (0.0-1.0); EOSINOPHILS # (AUTO) 0.2 (0.0-0.4); EOSINOPHILS % 3.4 % (0.0-6.0); HEMATOCRIT 32.5 % (34.2-44.1); LYMPHOCYTES # (AUTO) 1.3 (1.0-3.2); LYMPHOCYTES % 20.7 % (18.0-39.1); MEAN CORPUSCULAR HEMOGLOBIN 31.5 pg (28-32); MEAN CORPUSCULAR HGB CONC 30.8 g/dL (31-35); MEAN CORPUSCULAR VOLUME 102.5 fL (81-99); MONOCYTES # (AUTO) 0.6 (0.2-0.8); MONOCYTES % 10.4 % (4.4-11.3); NEUTROPHILS # (AUTO) 3.9 (2.1-6.9); NEUTROPHILS % 64.1 % (38.7-80.0); PLATELET COUNT 168 x10e3/uL (140-360); RED BLOOD COUNT 3.17 x10e6/uL (3.6-5.1); RED CELL DISTRIBUTION WIDTH 14.6 % (11.7-14.4)
[2022-07-13 05:21] LABS: ANION GAP 15.8 mmol/L (8-16); CALCIUM 8.4 mg/dL (8.4-10.2); CREATININE, SERUM 1.15 mg/dL (0.57-1.11); POTASSIUM 3.8 mmol/L (3.5-5.1)
[2022-07-13 05:46] LABS: CREATINE KINASE MB 0.5 ng/mL (0-5.0)
[2022-07-13] MEDS: SODIUM CHLORIDE 0.9% 1000ML 1,000 ML IV SCH ×3 (06:12→20:36)
[2022-07-13] MEDS ORDERED: METFORMIN HCL 500 MG TAB PO SCH (08:00)
[2022-07-13] MEDS ORDERED: VITAMIN D3250 MCG PO (08:12)
[2022-07-13] MEDS ORDERED: DEXTROSE 50% SYRINGE 50 ML IV PRN (09:00)
[2022-07-13] MEDS ORDERED: GABAPENTIN 300 MG CAP PO SCH (09:00)
[2022-07-13] MEDS ORDERED: SPIRONOLACTONE 25 MG TAB PO SCH (09:00)
[2022-07-13] MEDS: POTASSIUM CHLORIDE 20 MEQ TAB CR PO SCH ×2 (10:52→17:08)
[2022-07-13] MEDS: AMANTADINE HCL 100 MG CAP PO SCH ×2 (10:52→17:08)
[2022-07-13] MEDS: DEPAKOTE DELAYED-RELEASE TAB 500 MG PO SCH (10:52)
[2022-07-13] MEDS: CLOPIDOGREL BISULFATE 75 MG TAB PO SCH (10:53)
[2022-07-13] MEDS: CARVEDILOL 3.125 MG TAB PO SCH ×2 (10:53→17:07)
[2022-07-13] MEDS: LOSARTAN POTASSIUM 100 MG TAB PO SCH (10:54)
[2022-07-13] MEDS: PANTOPRAZOLE SOD 40 MG TABEC PO SCH (10:54)
[2022-07-13] MEDS: LEVOTHYROXINE SODIUM 50 MCG TAB PO SCH (10:54)
[2022-07-13] MEDS: TORSEMIDE 10 MG TAB PO SCH ×2 (10:55→17:08)
[2022-07-13] MEDS: INSULIN LISPRO 100 UNIT/1 ML 3ML VIAL SQ SCH ×3 (11:30→20:37)
[2022-07-13 14:40] LABS: CREATINE KINASE MB 0.5 ng/mL (0-5.0)
[2022-07-13] MEDS: ATORVASTATIN 20 MG TAB PO SCH (20:35)
[2022-07-13] MEDS: GABAPENTIN 300 MG CAP PO SCH (20:35)
[2022-07-14] VITALS (9 sets, daily range): BP systolic 122–174; BP diastolic 53–76
[2022-07-14] MEDS: SODIUM CHLORIDE 0.9% 1000ML 1,000 ML IV SCH ×2 (05:02→12:48)
[2022-07-14 05:53] LABS: BASOPHILS # (AUTO) 0.1 (0.0-0.1); BASOPHILS % 0.9 % (0.0-1.0); EOSINOPHILS # (AUTO) 0.3 (0.0-0.4); HEMATOCRIT 32.4 % (34.2-44.1); HEMOGLOBIN 10.2 g/dL (12.0-16.0); LYMPHOCYTES # (AUTO) 1.6 (1.0-3.2); LYMPHOCYTES % 26.7 % (18.0-39.1); MEAN CORPUSCULAR HEMOGLOBIN 31.6 pg (28-32); MEAN CORPUSCULAR HGB CONC 31.5 g/dL (31-35); MEAN CORPUSCULAR VOLUME 100.3 fL (81-99); MONOCYTES # (AUTO) 0.6 (0.2-0.8); MONOCYTES % 10.5 % (4.4-11.3); NEUTROPHILS # (AUTO) 3.3 (2.1-6.9); NEUTROPHILS % 56.2 % (38.7-80.0); PLATELET COUNT 168 x10e3/uL (140-360); RED BLOOD COUNT 3.23 x10e6/uL (3.6-5.1); RED CELL DISTRIBUTION WIDTH 14.5 % (11.7-14.4)
[2022-07-14 06:24] LABS: ANION GAP 14.6 mmol/L (8-16); CALCIUM 8.4 mg/dL (8.4-10.2); CREATININE, SERUM 1.03 mg/dL (0.57-1.11); POTASSIUM 3.6 mmol/L (3.5-5.1)
[2022-07-14] MEDS ORDERED: ONDANSETRON HCL 4 MG ORAL DISINTEGRATING TAB SL PRN (07:00)
[2022-07-14] MEDS: INSULIN LISPRO 100 UNIT/1 ML 3ML VIAL SQ SCH ×4 (07:30→20:56)
[2022-07-14] MEDS: LEVOTHYROXINE SODIUM 50 MCG TAB PO SCH (08:23)
[2022-07-14] MEDS: PANTOPRAZOLE SOD 40 MG TABEC PO SCH (08:23)
[2022-07-14] MEDS: AMANTADINE HCL 100 MG CAP PO SCH ×2 (08:24→17:57)
[2022-07-14] MEDS: DEPAKOTE DELAYED-RELEASE TAB 500 MG PO SCH (08:24)
[2022-07-14] MEDS: POTASSIUM CHLORIDE 20 MEQ TAB CR PO SCH ×2 (08:24→17:57)
[2022-07-14] MEDS: TORSEMIDE 10 MG TAB PO SCH ×2 (08:24→17:57)
[2022-07-14] MEDS: CLOPIDOGREL BISULFATE 75 MG TAB PO SCH (08:24)
[2022-07-14] MEDS: CARVEDILOL 3.125 MG TAB PO SCH ×2 (08:25→17:58)
[2022-07-14] MEDS: LOSARTAN POTASSIUM 100 MG TAB PO SCH (08:25)
[2022-07-14] MEDS: GABAPENTIN 300 MG CAP PO SCH (20:45)
[2022-07-14] MEDS: ATORVASTATIN 20 MG TAB PO SCH (20:46)
[2022-07-15] VITALS (8 sets, daily range): BP systolic 142–173; BP diastolic 57–88
[2022-07-15] MEDS: SODIUM CHLORIDE 0.9% 1000ML 1,000 ML IV SCH ×4 (03:56→21:56)
[2022-07-15] MEDS ORDERED: ALENDRONATE SODIUM 70 MG TAB PO SCH (06:00)
[2022-07-15] MEDS: INSULIN LISPRO 100 UNIT/1 ML 3ML VIAL SQ SCH ×4 (07:30→21:00)
[2022-07-15] MEDS ORDERED: TAMSULOSIN HCL 0.4 MG CAP PO ONE (08:00)
[2022-07-15] MEDS: LEVOTHYROXINE SODIUM 50 MCG TAB PO SCH (08:17)
[2022-07-15] MEDS: AMANTADINE HCL 100 MG CAP PO SCH ×2 (08:17→17:57)
[2022-07-15] MEDS: CLOPIDOGREL BISULFATE 75 MG TAB PO SCH (08:17)
[2022-07-15] MEDS: NIFEDIPINE CR 30 MG TAB PO SCH ×2 (08:18→17:57)
[2022-07-15] MEDS: CARVEDILOL 3.125 MG TAB PO SCH ×2 (08:18→17:58)
[2022-07-15] MEDS: PANTOPRAZOLE SOD 40 MG TABEC PO SCH (08:18)
[2022-07-15] MEDS: DEPAKOTE DELAYED-RELEASE TAB 500 MG PO SCH (08:19)
[2022-07-15] MEDS ORDERED: HYDRALAZINE HCL 20 MG/ML VIAL IV PRN (10:15)
[2022-07-15] MEDS: GABAPENTIN 300 MG CAP PO SCH (21:57)
[2022-07-15] MEDS: TAMSULOSIN HCL 0.4 MG CAP PO SCH (21:57)
[2022-07-15] MEDS: ATORVASTATIN 20 MG TAB PO SCH (21:57)
[2022-07-16] VITALS (8 sets, daily range): BP systolic 120–166; BP diastolic 59–92
[2022-07-16] MEDS: INSULIN LISPRO 100 UNIT/1 ML 3ML VIAL SQ SCH ×4 (07:30→20:45)
[2022-07-16] MEDS: AMANTADINE HCL 100 MG CAP PO SCH ×2 (09:03→17:33)
[2022-07-16] MEDS: PANTOPRAZOLE SOD 40 MG TABEC PO SCH (09:03)
[2022-07-16] MEDS: CLOPIDOGREL BISULFATE 75 MG TAB PO SCH (09:03)
[2022-07-16] MEDS: DEPAKOTE DELAYED-RELEASE TAB 500 MG PO SCH (09:03)
[2022-07-16] MEDS: LEVOTHYROXINE SODIUM 50 MCG TAB PO SCH (09:03)
[2022-07-16] MEDS: NIFEDIPINE CR 30 MG TAB PO SCH ×2 (09:05→17:34)
[2022-07-16] MEDS: CARVEDILOL 3.125 MG TAB PO SCH ×2 (09:09→17:35)
[2022-07-16] MEDS: GABAPENTIN 300 MG CAP PO SCH (20:44)
[2022-07-16] MEDS: TAMSULOSIN HCL 0.4 MG CAP PO SCH (20:45)
[2022-07-16] MEDS: ATORVASTATIN 20 MG TAB PO SCH (20:45)
[2022-07-17 00:09] VITALS: BP 139/69
[2022-07-17 04:50] LABS: BASOPHILS % 0.6 % (0.0-1.0); EOSINOPHILS # (AUTO) 0.3 (0.0-0.4); EOSINOPHILS % 5.1 % (0.0-6.0); HEMATOCRIT 31.5 % (34.2-44.1); HEMOGLOBIN 9.7 g/dL (12.0-16.0); LYMPHOCYTES # (AUTO) 1.5 (1.0-3.2); LYMPHOCYTES % 29.9 % (18.0-39.1); MEAN CORPUSCULAR HEMOGLOBIN 31.6 pg (28-32); MEAN CORPUSCULAR HGB CONC 30.8 g/dL (31-35); MEAN CORPUSCULAR VOLUME 102.6 fL (81-99); MONOCYTES # (AUTO) 0.5 (0.2-0.8); MONOCYTES % 10.7 % (4.4-11.3); NEUTROPHILS # (AUTO) 2.6 (2.1-6.9); NEUTROPHILS % 53.1 % (38.7-80.0); PLATELET COUNT 158 x10e3/uL (140-360); RED BLOOD COUNT 3.07 x10e6/uL (3.6-5.1); RED CELL DISTRIBUTION WIDTH 15.6 % (11.7-14.4)
[2022-07-17 05:09] VITALS: BP 154/69
[2022-07-17 05:09] LABS: ANION GAP 10.6 mmol/L (8-16); CALCIUM 8.4 mg/dL (8.4-10.2); CREATININE, SERUM 0.81 mg/dL (0.57-1.11); POTASSIUM 3.6 mmol/L (3.5-5.1)
[2022-07-17 05:41] LABS: MAGNESIUM 1.8 MG/DL (1.3-2.1); PHOSPHORUS 2.6 MG/DL (2.3-4.7)
[2022-07-17 06:06] LABS: THYROID STIMULATING HORMONE 0.948 uIU/mL (0.350-4.940)
[2022-07-17] MEDS: INSULIN LISPRO 100 UNIT/1 ML 3ML VIAL SQ SCH ×3 (07:26→16:30)
[2022-07-17 09:00] VITALS: BP 154/69
[2022-07-17 09:57] VITALS: BP 166/63
[2022-07-17] MEDS: AMANTADINE HCL 100 MG CAP PO SCH ×2 (11:05→17:15)
[2022-07-17] MEDS: LEVOTHYROXINE SODIUM 50 MCG TAB PO SCH (11:06)
[2022-07-17] MEDS: NIFEDIPINE CR 30 MG TAB PO SCH ×2 (11:06→17:15)
[2022-07-17] MEDS: PANTOPRAZOLE SOD 40 MG TABEC PO SCH (11:06)
[2022-07-17] MEDS: DEPAKOTE DELAYED-RELEASE TAB 500 MG PO SCH (11:06)
[2022-07-17] MEDS: CLOPIDOGREL BISULFATE 75 MG TAB PO SCH (11:06)
[2022-07-17] MEDS: CARVEDILOL 3.125 MG TAB PO SCH ×2 (11:06→17:15)
[2022-07-17 12:29] VITALS: BP 148/76
[2022-07-17 16:30] VITALS: BP 163/67
== END 2022-07-17 18:02 | disposition home or self-care (01) | DRG 682 ==
LOC: ER 11:00 → ERHOLD 13:45 → MED/SURG 20:58
PROVIDERS: ADMIT Internal Medicine; ATTEND Internal Medicine
DX: N17.9 Acute kidney failure, unspecified (principal); G93.41 Metabolic encephalopathy; N39.0 Urinary tract infection, site not specified; E87.0 Hyperosmolality and hypernatremia; J84.9 Interstitial pulmonary disease, unspecified; I42.9 Cardiomyopathy, unspecified; I13.0 Hypertensive heart and chronic kidney disease with heart failure and stage 1 through stage 4 chronic kidney disease, or unspecified chronic kidney disease; I50.22 Chronic systolic (congestive) heart failure; F05 Delirium due to known physiological condition; E86.0 Dehydration; I25.10 Atherosclerotic heart disease of native coronary artery without angina pectoris; Z95.5 Presence of coronary angioplasty implant and graft; Z95.810 Presence of automatic (implantable) cardiac defibrillator; Z86.73 Personal history of transient ischemic attack (TIA), and cerebral infarction without residual deficits; K21.9 Gastro-esophageal reflux disease without esophagitis; R25.1 Tremor, unspecified; M19.90 Unspecified osteoarthritis, unspecified site; Z96.659 Presence of unspecified artificial knee joint; N39.46 Mixed incontinence; R31.29 Other microscopic hematuria; G62.9 Polyneuropathy, unspecified; N18.9 Chronic kidney disease, unspecified; E11.22 Type 2 diabetes mellitus with diabetic chronic kidney disease; Z79.4 Long term (current) use of insulin; J44.9 Chronic obstructive pulmonary disease, unspecified; Z99.81 Dependence on supplemental oxygen; E11.69 Type 2 diabetes mellitus with other specified complication; E78.5 Hyperlipidemia, unspecified; R90.82 White matter disease, unspecified; F01.50 Vascular dementia, unspecified severity, without behavioral disturbance, psychotic disturbance, mood disturbance, and anxiety; Z74.09 Other reduced mobility; Z90.5 Acquired absence of kidney; Z90.49 Acquired absence of other specified parts of digestive tract; Z90.710 Acquired absence of both cervix and uterus
CPT/HCPCS: 36415; 70450; 71045; 74176; 80048; 80053; 81001; 82550; 82553; 82607; 82746; 82948; 83735; 83880; 84100; 84443; 84484; 85025; 87086; 93005; 93306; 94799; 95819; 96361; 99284; J0696; J7030

== ENCOUNTER 2022-09-30 22:22 | Emergency (ER) | payer MEDICARE, OTHER ==
[~2022-09-30] VITALS: Ht 157.5 cm; Wt 64.4 kg
[~2022-09-30 22:22] MED LIST changes: +ALENDRONATE SOD70 MG; +AMANTADINE100 MG; +BUDESONIDE0.5 MG/2 M NEB; +CARVEDILOL3.125 MG PO; +CLONIDINE HCL0.1 MG PO; +CLOPIDOGREL75 MG PO; +DEPAKOTE ER500 MG PO; +IPRATROPIU0.2 MG/1 M INH; +NEURONTIN300 MG PO; +NIFEDIPINE ER30 M1 PO; +NITROGLYCERIN0.4 MG SL; +OMEPRAZOLE40 MG PO; +POTASSIUM CHLO20 ME1 PO; +SPIRONOLACTONE25 MG PO; +TORSEMIDE20 MG PO; +VITAMIN D3250 MCG PO
[2022-09-30 22:59] LABS: BASOPHILS # (AUTO) 0.1 (0.0-0.1); BASOPHILS % 0.4 % (0.0-1.0); EOSINOPHILS # (AUTO) 0.3 (0.0-0.4); EOSINOPHILS % 2.8 % (0.0-6.0); HEMATOCRIT 38.1 % (34.2-44.1); HEMOGLOBIN 11.8 g/dL (12.0-16.0); LYMPHOCYTES # (AUTO) 1.1 (1.0-3.2); LYMPHOCYTES % 9.5 % (18.0-39.1); MEAN CORPUSCULAR HEMOGLOBIN 30.6 pg (28-32); MONOCYTES # (AUTO) 0.7 (0.2-0.8); MONOCYTES % 6.3 % (4.4-11.3); NEUTROPHILS # (AUTO) 9.2 (2.1-6.9); NEUTROPHILS % 78.5 % (38.7-80.0); PLATELET COUNT 222 x10e3/uL (140-360); RED BLOOD COUNT 3.85 x10e6/uL (3.6-5.1)
[2022-09-30 23:32] LABS: ALBUMIN 2.7 g/dL (3.5-5.0); ALBUMIN/GLOBULIN RATIO 0.7 (0.8-2.0); ANION GAP 16.9 mmol/L (8-16); CALCIUM 8.7 mg/dL (8.4-10.2); CREATININE, SERUM 1.32 mg/dL (0.57-1.11); POTASSIUM 4.9 mmol/L (3.5-5.1)
[2022-09-30 23:35] LABS: CLARITY,URINE CLOUDY (CLEAR); COLOR,URINE YELLOW (YELLOW); KETONES,URINE NEGATIVE (NEGATIVE); LEUKOCYTE ESTERASE ,URINE 1+ (NEGATIVE); NITRITE,URINE NEGATIVE (NEGATIVE); PROTEIN,URINE DIPSTICK 1+ (NEGATIVE); URINE UROBILINOGEN 1 mg/dL (0.2 - 1)
[2022-09-30 23:38] LABS: CREATINE KINASE MB 0.5 ng/mL (0-5.0)
[2022-09-30 23:40] LABS: AMORPHOUS SEDIMENT,URINE MANY (FEW); BACTERIA,URINE MANY /HPF; EPITHELIAL CELLS,URINE MODERATE /LPF; WBC,URINE (MAN) >50 /HPF (0-5)
[2022-10-01] MEDS ORDERED: DIVALPROEX SODIUM 250 MG TAB...DR PO ONE
[2022-10-01] MEDS ORDERED: CEFDINIR300 MG PO (00:07)
[2022-10-01] MEDS ORDERED: ACETAMINOPHEN 325 MG TAB ONE (00:39)
[2022-10-01 00:45] VITALS: O2SAT 100
[2022-10-01] MEDS ORDERED: ACETAMINOPHEN 325 MG TAB PO ONE (00:45)
== END 2022-10-01 00:50 | disposition home or self-care (01) ==
LOC: ER 22:30
DX: G40.909 Epilepsy, unspecified, not intractable, without status epilepticus (principal); E11.65 Type 2 diabetes mellitus with hyperglycemia; I10 Essential (primary) hypertension; K21.9 Gastro-esophageal reflux disease without esophagitis; G20 Parkinson's disease; F02.80 Dementia in other diseases classified elsewhere, unspecified severity, without behavioral disturbance, psychotic disturbance, mood disturbance, and anxiety; Z86.73 Personal history of transient ischemic attack (TIA), and cerebral infarction without residual deficits; Z95.810 Presence of automatic (implantable) cardiac defibrillator
CPT/HCPCS: 36415; 80053; 80164; 81001; 82550; 82553; 84484; 85025; 87086; 87186; 93005; 99284; J0696